=== PATIENT | female | born 1960 | race Caucasian/White ===

== ENCOUNTER → 2017-02-21 | Outpatient (CLI) | payer MEDICARE, MEDICAID ==
[~2017-02-21] MED LIST: ATOR80TA76 PO; CLON1TAB4 PO; DICY20TA11 PO; DIPH1TAB PO; DOXE25CA3 PO; FLUO20CA30 PO; FLUT12AE15 ORAL INH; LEVA15HF5 ORAL INH; METO-275 PO; ONDA4TAB4 PO; PANT20TA PO; POTA-81 PO; PROM25TA7 PO; SUCR1TAB20 PO; TIOT18CA3 ORAL INH
[2017-02-21 10:54] LABS: BLOOD, URINE NEGATIVE (NEGATIVE); COLOR,URINE YELLOW (YELLOW); LEUKOCYTE ESTERASE ,URINE NEGATIVE (NEGATIVE); NITRITE,URINE NEGATIVE (NEGATIVE); UROBILINOGEN,URINE 0.2 EU/DL (NORMAL)
[2017-02-21 10:55] LABS: BASOPHILS # (AUTO) 0.1 T/MM3 (0-0.2); BASOPHILS % (AUTO) 0.8 % (0-2); EOSINOPHILS # (AUTO) 0.5 T/MM3 (0-0.5); EOSINOPHILS % (AUTO) 5.2 % (0-4); HCT - HEMATOCRIT 42.7 % (36-46); HGB - HEMOGLOBIN 13.8 GM/DL (12-16); IMMATURE GRANULOCYTE # (AUTO) 0.02 T/MM3 (0.00-0.03); IMMATURE GRANULOCYTE % (AUTO) 0.2 % (0.0-0.5); LYMPHOCYTES # (AUTO) 3.4 T/MM3 (1-4.8); LYMPHOCYTES % (AUTO) 32.7 % (23-45); MEAN CORPUSCULAR HGB 33.5 UUG (26-34); MEAN CORPUSCULAR HGB CONC(MCHC 32.3 GM/DL (31-37); MEAN CORPUSCULAR VOLUME 103.6 UM3 (80-100); MEAN PLATELET VOLUME 9.3 UM3 (9.4-12.4); MONOCYTES # (AUTO) 0.6 T/MM3 (0-0.8); MONOCYTES % (AUTO) 6.2 % (0-9.0); NEUTROPHILS #(AUTO)-ABSOLUTE 5.6 T/MM3 (1.8-7.7); NEUTROPHILS % (AUTO) 54.9 % (33-66); RED BLOOD COUNT 4.12 M/MM3 (4.00-5.20); WBC - WHITE BLOOD COUNT 10.3 T/MM3 (4.5-11.0)
[2017-02-21 11:07] LABS: ALBUMIN 3.8 G/DL (3.5-5.0); ALBUMIN/GLOBULIN RATIO 1.2 RATIO (1.1-2.2); ALKALINE PHOSPHATASE 121 U/L (38-126); ALT (SGPT) 33 U/L (9-52); ANION GAP 11 MEQ/L (5-15); AST (SGOT) 15 U/L (14-36); BUN/CREATININE RATIO 18 RATIO (6-26); C-REACTIVE PROTEIN < 5.0 MG/L (0-9); CALCIUM 10.2 MG/DL (8.4-10.2); CHLORIDE 110 MEQ/L (98-107); CO2 - CARBON DIOXIDE 21 MEQ/L (22-30); GLOMERULAR FILTRATION RATE 58; GLUCOSE 91 MG/DL (65-110); LIPASE 188 U/L (23-300); SODIUM 142 MEQ/L (134-144); TOTAL PROTEIN 6.9 G/DL (6.3-8.2)
== END ==
LOC: LAB 10:04
PROVIDERS: ATTEND Internal Medicine
DX: K86.1 Other chronic pancreatitis (principal); R19.7 Diarrhea, unspecified; R10.13 Epigastric pain
CPT/HCPCS: 36415; 80053; 80307; 81003; 83605; 83690; 84484; 85025; 86140

== ENCOUNTER 2017-02-24 16:44 | Inpatient (IN) | payer MEDICARE, MEDICAID ==
[~2017-02-24] VITALS: Ht 170.2 cm; Wt 61.4 kg
--- NOTE | 2017-02-24 10:15 | NUR ---
PT ADMITTED TO ROOM 145, ALERT BUT NOT ORIENTED. ARRIVED VIA CART WALKED INTO ROOM. VITALS SIGNS STABLE UPON ARRIVAL.
--- OUTSIDE RECORDS SUMMARY | 2017-02-24 16:57 | XMS REPORT ---
Author Author GENERATED, SYSTEM Organization Unknown Address Unknown Phone Unavailable Care Team Providers Care Cryptanalyst Name Role Phone MD GRACY, NAVIN [phone] Reason For Visit Reason for Visit from 08/24/2016 7:47 AM:* Pt Stated Reason for Adm : Vancomycin infusion Chief Complaint OSTEOMYELITIS Social History Functional Status Functional Status from 09/21/2016 8:47 AM:* LOC : Alert * Oriented To : Person,Place,Time,Event Functional Status from 09/20/2016 8:17 AM:* LOC : Alert * Oriented To : Person,Place,Time,Event Functional Status from 09/19/2016 8:04 AM:* LOC : Alert * Oriented To : Person,Place,Time,Event Functional Status from 09/18/2016 8:31 AM:* LOC : Alert * Oriented To : Person,Place,Time,Event Functional Status from 09/17/2016 8:12 AM:* LOC : Alert * Oriented To : Person,Place,Time,Event Functional Status from 09/16/2016 7:40 AM:* LOC : Alert * Oriented To : Person,Place,Time Functional Status from 09/15/2016 7:45 AM:* LOC : Alert * Oriented To : Person,Place,Time Functional Status from 09/14/2016 7:50 AM:* LOC : Alert * Oriented To : Person,Place,Time Functional Status from 09/13/2016 8:31 AM:* LOC : Alert * Oriented To : Person,Place,Time,Event Functional Status from 09/11/2016 8:10 AM:* LOC : Alert * Oriented To : Person,Place,Time,Event Functional Status from 09/10/2016 7:52 AM:* LOC : Alert * Oriented To : Person,Place,Time,Event Functional Status from 09/09/2016 7:50 AM:* LOC : Alert * Oriented To : Person,Place,Time,Event Functional Status from 09/08/2016 7:51 AM:* LOC : Alert * Oriented To : Person,Place,Time,Event Functional Status from 09/07/2016 7:45 AM:* LOC : Alert * Oriented To : Person,Place,Time,Event Functional Status from 09/06/2016 8:15 AM:* LOC : Alert * Oriented To : Person,Place,Time,Event Functional Status from 09/05/2016 7:47 AM:* LOC : Alert * Oriented To : Person,Place,Time,Event Functional Status from 09/04/2016 9:20 AM:* LOC : Alert * Oriented To : Person,Place,Time,Event Functional Status from 09/03/2016 7:54 AM:* LOC : Alert * Oriented To : Person,Place,Time,Event Functional Status from 09/02/2016 7:42 AM:* LOC : Alert * Oriented To : Person,Place,Time,Event Functional Status from 09/01/2016 8:07 AM:* LOC : Alert * Oriented To : Person,Place,Time,Event Functional Status from 08/31/2016 7:37 AM:* LOC : Alert * Oriented To : Person,Place,Time,Event Functional Status from 08/30/2016 7:42 AM:* LOC : Alert * Oriented To : Person,Place,Time,Event Functional Status from 08/29/2016 6:21 PM:* LOC : Alert Functional Status from 08/29/2016 8:10 AM:* LOC : Alert * Oriented To : Person,Place,Time Functional Status from 08/28/2016 5:53 PM:* LOC : Alert * Oriented To : Person,Place,Time,Event Functional Status from 08/28/2016 7:50 AM:* LOC : Alert * Oriented To : Person,Place,Time Functional Status from 08/27/2016 8:35 AM:* LOC : Alert * Oriented To : Person,Place,Time,Event Functional Status from 08/26/2016 7:48 AM:* LOC : Alert * Oriented To : Person,Place,Time,Event Functional Status from 08/25/2016 7:48 AM:* LOC : Alert * Oriented To : Person,Place,Time,Event Functional Status from 08/24/2016 7:47 AM:* LOC : Alert * Oriented To : Person,Place,Time,Event Vital Signs Hospital Vital Signs from 09/21/2016 8:47 AM:* Height : 5/7 ft,in * Temperature : 97.1 F * Pulse : 92 * Respirations : 20 * BP : 102/68 Hospital Vital Signs from 09/20/2016 8:17 AM:* Height : 5/7 ft,in * Temperature : 95.9 F * Pulse : 90 * Respirations : 18 * BP : 116/71 Hospital Vital Signs from 09/19/2016 8:06 AM:* Height : 5/7 ft,in * Temperature : 96.6 F * Pulse : 98 * Respirations : 18 * BP : 125/82 Hospital Vital Signs from 09/18/2016 8:35 AM:* Height : 5/7 ft,in * Temperature : 97.2 F * Pulse : 112 * Respirations : 18 * BP : 135/76 Hospital Vital Signs from 09/17/2016 8:12 AM:* Height : 5/7 ft,in * Temperature : 96.8 F * Pulse : 122 * Respirations : 18 * BP : 146/88 Hospital Vital Signs from 09/16/2016 7:40 AM:* Height : 5/7 ft,in * Temperature : 96.5 F * Pulse : 112 * Respirations : 18 * BP : 136/80 Hospital Vital Signs from 09/15/2016 7:45 AM:* Height : 5/7 ft,in * Temperature : 97.4 F * Pulse : 82 * Respirations : 18 * BP : 87/50 Hospital Vital Signs from 09/14/2016 7:50 AM:* Height : 5/7 ft,in * Temperature : 97.8 F * Pulse : 86 * Respirations : 18 * BP : 121/75 Hospital Vital Signs from 09/13/2016 8:49 AM:* Height : 5/7 ft,in * Temperature : 96.5 F * Pulse : 71 * Respirations : 18 * BP : 110/58 Hospital Vital Signs from 09/11/2016 8:10 AM:* Height : 5/7 ft,in * Temperature : 96.8 F * Pulse : 117 * Respirations : 18 * BP : 121/85 Hospital Vital Signs from 09/10/2016 7:52 AM:* Height : 5/7 ft,in * Temperature : 96.3 F * Pulse : 61 * Respirations : 18 * BP : 116/73 Hospital Vital Signs from 09/09/2016 7:52 AM:* Height : 5/7 ft,in * Temperature : 96.9 F * Pulse : 115 * Respirations : 18 * BP : 116/58 Hospital Vital Signs from 09/08/2016 7:55 AM:* Height : 5/7 ft,in * Temperature : 97.4 F * Pulse : 81 * Respirations : 16 * BP : 118/70 Hospital Vital Signs from 09/07/2016 7:47 AM:* Height : 5/7 ft,in * Temperature : 96.2 F * Pulse : 68 * Respirations : 18 * BP : 104/70 Hospital Vital Signs from 09/06/2016 8:15 AM:* Height : 5/7 ft,in * Temperature : 96.3 F * Pulse : 61 * Respirations : 18 * BP : 92/50 Hospital Vital Signs from 09/05/2016 7:50 AM:* Height : 5/7 ft,in * Temperature : 97.0 F * Pulse : 58 * Respirations : 18 * BP : 91/47 Hospital Vital Signs from 09/04/2016 9:24 AM:* Height : 5/7 ft,in * Temperature : 97.3 F * Pulse : 93 * Respirations : 18 * BP : 125/84 Hospital Vital Signs from 09/03/2016 7:54 AM:* Height : 5/7 ft,in * Temperature : 97.8 F * Pulse : 99 * Respirations : 18 * BP : 110/71 Hospital Vital Signs from 09/02/2016 7:42 AM:* Height : 5/7 ft,in * Temperature : 97.2 F * Pulse : 97 * Respirations : 19 * BP : 145/91 Hospital Vital Signs from 09/01/2016 8:09 AM:* Height : 5/7 ft,in * Temperature : 97.6 F * Pulse : 113 * Respirations : 20 * BP : 151/89 Hospital Vital Signs from 08/31/2016 7:41 AM:* Height : 5/7 ft,in * Temperature : 96.7 F * Pulse : 95 * Respirations : 24 * BP : 130/83 Hospital Vital Signs from 08/30/2016 7:42 AM:* Height : 5/7 ft,in * Temperature : 96.1 F * Pulse : 66 * Respirations : 18 * BP : 104/40 Hospital Vital Signs from 08/29/2016 7:15 PM:* Height : 5/7 ft,in * Pulse : 92 * BP : 83/47 Hospital Vital Signs from 08/29/2016 6:12 PM:* Height : 5/7 ft,in * Pulse : 60 * Respirations : 18 * BP : 103/59 Hospital Vital Signs from 08/29/2016 8:10 AM:* Height : 5/7 ft,in * Temperature : 96.3 F * Pulse : 58 * Respirations : 18 * BP : 101/65 Hospital Vital Signs from 08/28/2016 5:45 PM:* Height : 5/7 ft,in * Temperature : 95.8 F * Pulse : 92 * Respirations : 18 * BP : 111/57 Hospital Vital Signs from 08/28/2016 7:50 AM:* Height : 5/7 ft,in * Temperature : 96.7 F * Pulse : 92 * Respirations : 18 * BP : 131/87 Hospital Vital Signs from 08/27/2016 8:40 AM:* Height : 5/7 ft,in * Temperature : 96.9 F * Pulse : 100 * Respirations : 18 * BP : 116/70 Hospital Vital Signs from 08/26/2016 7:49 AM:* Height : 5/7 ft,in * Temperature : 96.4 F * Pulse : 117 * Respirations : 18 * BP : 132/85 Hospital Vital Signs from 08/25/2016 7:48 AM:* Height : 5/7 ft,in * Temperature : 96.2 F * Pulse : 88 * Respirations : 18 * BP : 104/64 Hospital Vital Signs from 08/24/2016 7:47 AM:* Weight : 128/ lbs,oz * Height : 5/7 ft,in Hospital Vital Signs from 08/24/2016 7:15 AM:* Weight : 128/ kg * Height : 5/7 ft,in * Temperature : 96.7 F * Pulse : 61 * Respirations : 22 * BP : 91/55 Results Chemistry from 09/20/2016 8:24 AMSODIUM 140 MMOL/L (136-145 MMOL/L) POTASSIUM 4.0 MMOL/L (3.5-5.1 MMOL/L) CHLORIDE 107 MMOL/L (98-107 MMOL/L) TCO2 22.6 MMOL/L (21.0-32.0 MMOL/L) *ANION GAP 10.4 MMOL/L (8.0-16.0 MMOL/L) BUN 12 MG/DL (7-18 MG/DL) CREATININE 1.15 MG/DL H (0.55-1.02 MG/DL) *BUN/CREATININE RATIO 10.4 (9.1-17.0 ) GLUCOSE 146 MG/DL H (65-99 MG/DL) *GFR EST NON AFR COLOMBIAN 54 ML/MIN *GFR EST AFR AMER 62 ML/MIN CALCIUM 8.8 MG/DL (8.5-10.1 MG/DL) BILIRUBIN TOTAL <0.10 MG/DL L (0.20-1.00 MG/DL) TOTAL PROTEIN 6.9 GM/DL (6.4-8.2 GM/DL) ALBUMIN 3.3 GM/DL L (3.4-5.0 GM/DL) *GLOBULIN 3.6 GM/DL H (2.3-3.5 GM/DL) *A/G RATIO 0.9 MG/DL L (1.5-2.2 MG/DL) ALK PHOS 164 U/L H (46-116 U/L) ALT (SGPT) 31 U/L (16-63 U/L) AST (SGOT) 16 U/L (15-37 U/L) C-REACTIVE PROTEIN 0.08 MG/DL (0.00-0.30 MG/DL) CK 26 U/L (26-192 U/L) Chemistry from 09/13/2016 8:41 AMSODIUM 138 MMOL/L (136-145 MMOL/L) POTASSIUM 4.4 MMOL/L (3.5-5.1 MMOL/L) CHLORIDE 105 MMOL/L (98-107 MMOL/L) TCO2 24.0 MMOL/L (21.0-32.0 MMOL/L) *ANION GAP 9.0 MMOL/L (8.0-16.0 MMOL/L) BUN 13 MG/DL (7-18 MG/DL) CREATININE 0.93 MG/DL (0.55-1.02 MG/DL) *BUN/CREATININE RATIO 14.0 (9.1-17.0 ) GLUCOSE 133 MG/DL H (65-99 MG/DL) *GFR EST NON AFR COLOMBIAN 69 ML/MIN *GFR EST AFR AMER 80 ML/MIN CALCIUM 9.1 MG/DL (8.5-10.1 MG/DL) BILIRUBIN TOTAL 0.30 MG/DL (0.20-1.00 MG/DL) TOTAL PROTEIN 7.0 GM/DL (6.4-8.2 GM/DL) ALBUMIN 3.3 GM/DL L (3.4-5.0 GM/DL) *GLOBULIN 3.7 GM/DL H (2.3-3.5 GM/DL) *A/G RATIO 0.9 MG/DL L (1.5-2.2 MG/DL) ALK PHOS 155 U/L H (46-116 U/L) ALT (SGPT) 22 U/L (16-63 U/L) AST (SGOT) 14 U/L L (15-37 U/L) C-REACTIVE PROTEIN 0.39 MG/DL H (0.00-0.30 MG/DL) CK 25 U/L L (26-192 U/L) Chemistry from 09/06/2016 8:22 AMSODIUM 141 MMOL/L (136-145 MMOL/L) POTASSIUM 4.6 MMOL/L (3.5-5.1 MMOL/L) CHLORIDE 108 MMOL/L H (98-107 MMOL/L) TCO2 25.7 MMOL/L (21.0-32.0 MMOL/L) *ANION GAP 7.3 MMOL/L L (8.0-16.0 MMOL/L) BUN 9 MG/DL (7-18 MG/DL) CREATININE 0.87 MG/DL (0.55-1.02 MG/DL) *BUN/CREATININE RATIO 10.3 (9.1-17.0 ) GLUCOSE 101 MG/DL H (65-99 MG/DL) *GFR EST NON AFR COLOMBIAN 75 ML/MIN *GFR EST AFR AMER 87 ML/MIN CALCIUM 8.8 MG/DL (8.5-10.1 MG/DL) BILIRUBIN TOTAL 0.20 MG/DL (0.20-1.00 MG/DL) TOTAL PROTEIN 6.5 GM/DL (6.4-8.2 GM/DL) ALBUMIN 3.1 GM/DL L (3.4-5.0 GM/DL) *GLOBULIN 3.4 GM/DL (2.3-3.5 GM/DL) *A/G RATIO 0.9 MG/DL L (1.5-2.2 MG/DL) ALK PHOS 155 U/L H (46-116 U/L) ALT (SGPT) 22 U/L (16-63 U/L) AST (SGOT) 17 U/L (15-37 U/L) C-REACTIVE PROTEIN 0.09 MG/DL (0.00-0.30 MG/DL) CK 30 U/L (26-192 U/L) Chemistry from 09/02/2016 7:57 AMCK 44 U/L (26-192 U/L) Chemistry from 08/30/2016 7:54 AMSODIUM 143 MMOL/L (136-145 MMOL/L) POTASSIUM 3.5 MMOL/L (3.5-5.1 MMOL/L) CHLORIDE 111 MMOL/L H (98-107 MMOL/L) TCO2 24.0 MMOL/L (21.0-32.0 MMOL/L) *ANION GAP 8.0 MMOL/L (8.0-16.0 MMOL/L) BUN 11 MG/DL (7-18 MG/DL) CREATININE 0.93 MG/DL (0.55-1.02 MG/DL) *BUN/CREATININE RATIO 11.8 (9.1-17.0 ) GLUCOSE 114 MG/DL H (65-99 MG/DL) *GFR EST NON AFR COLOMBIAN 69 ML/MIN *GFR EST AFR AMER 80 ML/MIN CALCIUM 8.5 MG/DL (8.5-10.1 MG/DL) C-REACTIVE PROTEIN <0.05 MG/DL (0.00-0.30 MG/DL) VANCOMYCIN TROUGH 14.3 MCG/ML H (5.0-10.0 MCG/ML) Chemistry from 08/29/2016 8:05 PMSODIUM 140 MMOL/L (136-145 MMOL/L) POTASSIUM 3.4 MMOL/L L (3.5-5.1 MMOL/L) CHLORIDE 108 MMOL/L H (98-107 MMOL/L) TCO2 24.3 MMOL/L (21.0-32.0 MMOL/L) *ANION GAP 7.7 MMOL/L L (8.0-16.0 MMOL/L) BUN 11 MG/DL (7-18 MG/DL) CREATININE 0.96 MG/DL (0.55-1.02 MG/DL) *BUN/CREATININE RATIO 11.5 (9.1-17.0 ) GLUCOSE 108 MG/DL H (65-99 MG/DL) *GFR EST NON AFR COLOMBIAN 67 ML/MIN *GFR EST AFR AMER 77 ML/MIN CALCIUM 8.5 MG/DL (8.5-10.1 MG/DL) BILIRUBIN TOTAL 0.30 MG/DL (0.20-1.00 MG/DL) TOTAL PROTEIN 6.1 GM/DL L (6.4-8.2 GM/DL) ALBUMIN 2.9 GM/DL L (3.4-5.0 GM/DL) *GLOBULIN 3.2 GM/DL (2.3-3.5 GM/DL) *A/G RATIO 0.9 MG/DL L (1.5-2.2 MG/DL) ALK PHOS 166 U/L H (46-116 U/L) ALT (SGPT) 19 U/L (16-63 U/L) AST (SGOT) 14 U/L L (15-37 U/L) TROPONIN-I <0.017 NG/ML (0.000-0.056 NG/ML) Hematology from 09/20/2016 8:24 AMWBC 9.7 X10e3/UL (3.6-11.2 X10e3/UL) RBC 3.83 X10e6/UL (3.63-4.92 X10e6/UL) HEMOGLOBIN 13.0 G/DL (11.0-14.3 G/DL) HEMATOCRIT 39.2 % (31.2-41.9 %) *MCV 102.2 FL H (79.0-98.0 FL) *MCH 34.0 PG H (27.0-33.0 PG) *MCHC 33.3 G/DL (32.0-36.0 G/DL) *RDW 15.0 % (12.3-17.0 %) *RDWSD 54.7 H (37.1-47.8 ) PLATELET 349 X10e3/UL (159-386 X10e3/UL) *MPV 7.6 FL (7.4-10.4 FL) *MANUAL DIFF PERFORMED SEGS 58.0 % *BANDS 0.0 % *LYMPHOCYTES 28.0 % *MONOCYTES 4.0 % *EOSINOPHILS 5.0 % *BASOPHILS 0.0 % *REACTIVE LYMPHOCYTES 5.0 % *ABSOLUTE NEUTROPHILS 5.63 X10e3/UL (1.80-7.80 X10e3/UL) *ABSOLUTE LYMPHOCYTES 3.20 X10e3/UL H (1.00-3.00 X10e3/UL) *ABSOLUTE MONOCYTES 0.39 X10e3/UL (0.30-1.00 X10e3/UL) *ABSOLUTE EOSINOPHILS 0.49 X10e3/UL (0.00-0.50 X10e3/UL) *ABSOLUTE BASOPHILS 0.00 X10e3/UL (0.00-0.20 X10e3/UL) *POLYCHROMASIA 1+ *MACROCYTIC 1+ SED RATE 20 MM/HR (0-30 MM/HR) Hematology from 09/13/2016 8:41 AMWBC 8.0 X10e3/UL (3.6-11.2 X10e3/UL) RBC 3.87 X10e6/UL (3.63-4.92 X10e6/UL) HEMOGLOBIN 13.0 G/DL (11.0-14.3 G/DL) HEMATOCRIT 39.8 % (31.2-41.9 %) *MCV 103.0 FL H (79.0-98.0 FL) *MCH 33.5 PG H (27.0-33.0 PG) *MCHC 32.5 G/DL (32.0-36.0 G/DL) *RDW 15.1 % (12.3-17.0 %) *RDWSD 55.6 H (37.1-47.8 ) PLATELET 368 X10e3/UL (159-386 X10e3/UL) *MPV 7.3 FL L (7.4-10.4 FL) *MANUAL DIFF PERFORMED SEGS 60.0 % *BANDS 2.0 % *LYMPHOCYTES 28.0 % *MONOCYTES 8.0 % *EOSINOPHILS 1.0 % *BASOPHILS 0.0 % *REACTIVE LYMPHOCYTES 1.0 % *ABSOLUTE NEUTROPHILS 4.96 X10e3/UL (1.80-7.80 X10e3/UL) *ABSOLUTE LYMPHOCYTES 2.32 X10e3/UL (1.00-3.00 X10e3/UL) *ABSOLUTE MONOCYTES 0.64 X10e3/UL (0.30-1.00 X10e3/UL) *ABSOLUTE EOSINOPHILS 0.08 X10e3/UL (0.00-0.50 X10e3/UL) *ABSOLUTE BASOPHILS 0.00 X10e3/UL (0.00-0.20 X10e3/UL) *POLYCHROMASIA 1+ *MACROCYTIC 1+ SED RATE 23 MM/HR (0-30 MM/HR) Hematology from 09/06/2016 8:22 AMWBC 7.2 X10e3/UL (3.6-11.2 X10e3/UL) RBC 3.55 X10e6/UL L (3.63-4.92 X10e6/UL) HEMOGLOBIN 12.1 G/DL (11.0-14.3 G/DL) HEMATOCRIT 37.2 % (31.2-41.9 %) *MCV 104.7 FL H (79.0-98.0 FL) *MCH 33.9 PG H (27.0-33.0 PG) *MCHC 32.4 G/DL (32.0-36.0 G/DL) *RDW 15.6 % (12.3-17.0 %) *RDWSD 57.8 H (37.1-47.8 ) PLATELET 353 X10e3/UL (159-386 X10e3/UL) *MPV 7.3 FL L (7.4-10.4 FL) *MANUAL DIFF PERFORMED SEGS 61.0 % *BANDS 0.0 % *LYMPHOCYTES 28.0 % *MONOCYTES 3.0 % *EOSINOPHILS 5.0 % *BASOPHILS 1.0 % *REACTIVE LYMPHOCYTES 2.0 % *ABSOLUTE NEUTROPHILS 4.39 X10e3/UL (1.80-7.80 X10e3/UL) *ABSOLUTE LYMPHOCYTES 2.16 X10e3/UL (1.00-3.00 X10e3/UL) *ABSOLUTE MONOCYTES 0.22 X10e3/UL L (0.30-1.00 X10e3/UL) *ABSOLUTE EOSINOPHILS 0.36 X10e3/UL (0.00-0.50 X10e3/UL) *ABSOLUTE BASOPHILS 0.07 X10e3/UL (0.00-0.20 X10e3/UL) *POLYCHROMASIA 1+ *MACROCYTIC 1+ SED RATE 17 MM/HR (0-30 MM/HR) Hematology from 08/30/2016 7:54 AMWBC 5.5 X10e3/UL (3.6-11.2 X10e3/UL) RBC 3.57 X10e6/UL L (3.63-4.92 X10e6/UL) HEMOGLOBIN 12.1 G/DL (11.0-14.3 G/DL) HEMATOCRIT 36.9 % (31.2-41.9 %) *MCV 103.2 FL H (79.0-98.0 FL) *MCH 34.0 PG H (27.0-33.0 PG) *MCHC 32.9 G/DL (32.0-36.0 G/DL) *RDW 14.3 % (12.3-17.0 %) *RDWSD 52.1 H (37.1-47.8 ) PLATELET 276 X10e3/UL (159-386 X10e3/UL) *MPV 8.1 FL (7.4-10.4 FL) *MANUAL DIFF PERFORMED SEGS 47.0 % *BANDS 0.0 % *LYMPHOCYTES 34.0 % *MONOCYTES 5.0 % *EOSINOPHILS 8.0 % *BASOPHILS 2.0 % *REACTIVE LYMPHOCYTES 4.0 % *ABSOLUTE NEUTROPHILS 2.59 X10e3/UL (1.80-7.80 X10e3/UL) *ABSOLUTE LYMPHOCYTES 2.09 X10e3/UL (1.00-3.00 X10e3/UL) *ABSOLUTE MONOCYTES 0.28 X10e3/UL L (0.30-1.00 X10e3/UL) *ABSOLUTE EOSINOPHILS 0.44 X10e3/UL (0.00-0.50 X10e3/UL) *ABSOLUTE BASOPHILS 0.11 X10e3/UL (0.00-0.20 X10e3/UL) *POLYCHROMASIA 1+ *MACROCYTIC 1+ SED RATE 18 MM/HR (0-30 MM/HR) Hematology from 08/29/2016 8:05 PMWBC 5.9 X10e3/UL (3.6-11.2 X10e3/UL) RBC 3.45 X10e6/UL L (3.63-4.92 X10e6/UL) HEMOGLOBIN 11.9 G/DL (11.0-14.3 G/DL) HEMATOCRIT 35.6 % (31.2-41.9 %) *MCV 103.0 FL H (79.0-98.0 FL) *MCH 34.4 PG H (27.0-33.0 PG) *MCHC 33.4 G/DL (32.0-36.0 G/DL) *RDW 14.2 % (12.3-17.0 %) *RDWSD 51.6 H (37.1-47.8 ) PLATELET 276 X10e3/UL (159-386 X10e3/UL) *MPV 7.7 FL (7.4-10.4 FL) AUTOMATED DIFF PERFORMED SEGS 38.8 % *LYMPHOCYTES 46.4 % *MONOCYTES 9.6 % *EOSINOPHILS 3.2 % *BASOPHILS 2.0 % *ABSOLUTE NEUTROPHILS 2.30 X10e3/UL (1.80-7.80 X10e3/UL) *ABSOLUTE LYMPHOCYTES 2.70 X10e3/UL (1.00-3.00 X10e3/UL) *ABSOLUTE MONOCYTES 0.60 X10e3/UL (0.30-1.00 X10e3/UL) *ABSOLUTE EOSINOPHILS 0.20 X10e3/UL (0.00-0.50 X10e3/UL) *ABSOLUTE BASOPHILS 0.10 X10e3/UL (0.00-0.20 X10e3/UL) DX Radiology from 09/19/2016 9:38 AMCHEST 2 VIEWS History: cough. 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 Technique: 2 VIEW CHEST Priors: Chest x-ray dated 08/13/2016 Findings: The heart size and pulmonary vasculature within normal limits. No consolidating infiltrates are identified. No significant pleural effusion or pneumothorax is seen. A right PICC line is been retracted with its tip now in the proximal superior vena cava. Impression: No acute abnormality. Interval retraction of the right PICC line with its tip now in the proximal superior vena cava. Electronically signed by: Crissy Rea MD Dictated: 09/19/2016 10:17 DX Radiology from 08/29/2016 8:40 PMELBOW LEFT 3 VIEWS History: pain . Technique: 3view elbow Priors: 07/24/16 Findings: There is no acute fracture. The elbow is in normal alignment. There is no appreciable joint effusion. No significant degenerative changes. There are erosive changes involving the olecranon, suspicious for osteomyelitis. This is a new finding. Impression: Erosive changes involving the olecranon, suspicious for osteomyelitis. Electronically signed by: Alan White MD Dictated: 08/30/2016 10:21 CT Scan from 08/29/2016 8:52 PMCT CEREBRAL W/O CONTRAST History: syncope, head injury . Concussion. Consciousness not specified. Priors: 07/12/2016. Findings: Ventricles and Extra axial spaces: Normal in size and morphology for the patient's age. Hemorrhage: None. Cerebral parenchyma: Normal. Mass effect/midline shift: None. Brainstem/Cerebellum: Normal. Calvarium: Normal. Visualized Paranasal sinuses/Mastoids: Clear. Impression: Unremarkable CT scan of the head. Electronically signed by: Gomez Echeverria MD Dictated: 08/30/2016 10:45 Problems Encounter Diagnosis No relevant problems exist. Additional Problems * Abdominal Pain Comment:Problem resolved by [facility] Workflow upon Discharge, Status:Resolved. * Acute Pain Comment:Problem resolved by [facility] Workflow upon Discharge, Status :Resolved. * Acute Pain Comment:Problem resolved by [facility] Workflow upon Discharge, Status :Resolved. * Acute Pain Comment:Problem resolved by [facility] Workflow upon Discharge, Status :Resolved. * Acute Urinary Tract infection Comment:Problem resolved by [facility] Workflow upon Discharge, Status:Resolved. * Altered Mental Status Comment:Problem resolved by [facility] Workflow upon Discharge, Status:Resolved. * Altered Mental Status Comment:Problem resolved by [facility] Workflow upon Discharge, Status:Resolved. * Bimalleolar Fracture of Ankle Comment:Problem resolved by [facility] Workflow upon Discharge, Status:Resolved. * Chronic Pain Comment:Problem resolved by [facility] Workflow upon Discharge, Status:Resolved. * Dehydration Comment:Problem resolved by [facility] Workflow upon Discharge, Status:Resolved. * Diarrhea Comment:Problem resolved by [facility] Workflow upon Discharge, Status: Resolved. * Dyslipidemia Comment:Problem resolved by [facility] Work[facility] upon Discharge, Status:Resolved. * Fall Risk Comment:Problem resolved by [facility] Workflow upon Discharge, Status: Resolved. * Fall Risk Comment:Problem resolved by [facility] Workflow upon Discharge, Status: Resolved. * Fall Risk Comment:Problem resolved by [facility] Workflow upon Discharge, Status: Resolved. * Fall Risk Comment:Problem resolved by [facility] Workflow upon Discharge, Status: Resolved. * Fall Risk Comment:Problem resolved by [facility] Workflow upon Discharge, Status: Resolved. * Fall Risk Comment:Problem resolved by [facility] Workflow upon Discharge, Status: Resolved. * Gastritis Comment:Problem resolved by [facility] Workflow upon Discharge, Status: Resolved. * History of Hypertension Comment:Problem resolved by [facility] Workflow upon Discharge, Status:Resolved. * Hypocalcemia Comment:Problem resolved by [facility] Workflow upon Discharge, Status:Resolved. * Hypokalemia Comment:Problem resolved by [facility] Workflow upon Discharge, Status:Resolved. * Hypokalemia Comment:Problem resolved by [facility] Workflow upon Discharge, Status:Resolved. * Hyponatremia Comment:Problem resolved by [facility] Workflow upon Discharge, Status:Resolved. * Infection Risk Comment:Problem resolved by [facility] Workflow upon Discharge, Status:Resolved. * Low Blood Pressure Comment:Problem resolved by [facility] Workflow upon Discharge , Status:Resolved. * Mobility Impairment Comment:Problem resolved by [facility] Workflow upon Discharge, Status:Resolved. * Mobility Impairment Comment:Problem resolved by [facility] Workflow upon Discharge, Status:Resolved. * Nausea & Vomiting Comment:Problem resolved by [facility] Workflow upon Discharge , Status:Resolved. * Nausea & Vomiting Comment:Problem resolved by [facility] Workflow upon Discharge , Status:Resolved. * Nutritional Deficiency Comment:Problem resolved by [facility] Workflow upon Discharge, Status:Resolved. * Osteomyelitis Comment:Problem resolved by [facility] Workflow upon Discharge, Status:Resolved. * Pneumonia Comment:Problem resolved by [facility] Workflow upon Discharge, Status: Resolved. * Poisoning by Drug/Medicinal Substance Comment:Problem resolved by [facility] Workflow upon Discharge, Status:Resolved. * Skin Integrity Impairment Risk Comment:Problem resolved by [facility] Workflow upon Discharge, Status:Resolved. * Skin Integrity Impairment Risk Comment:Problem resolved by [facility] Workflow upon Discharge, Status:Resolved. * Syncope Comment:Problem resolved by [facility] Workflow upon Discharge, Status: Resolved. Encounters Encounter Diagnosis No relevant problems exist. Plan of Care Procedures * Completed Esophagogastroduodenoscopy, by MD BAIRON HAMILTON, on 04/22/2016 1 :12 PM * Completed Procedure Code: 92003 Procedure Name: not valued, on 04/22/2016 12: 00 AM * Completed Esophagogastroduodenoscopy, by MD BAIRON HAMILTON, on 11/20/2015 12:55 PM * Completed Procedure Code: 58937 Procedure Name: not valued, on 11/20/2015 12: 00 AM * Completed Procedure Code: 27834 Procedure Name: not valued, on 11/20/2015 12: 00 AM * Completed Procedure Code: 45.16 Procedure Name: not valued, on 03/12/2014 12: 00 AM * Completed Procedure Code: 45.25 Procedure Name: not valued, on 03/12/2014 12: 00 AM * Completed , on 08/20/2009 12:00 AM Immunizations * Influenza, seasonal, injectable ([employer], Lot # [id number]); Administered 2013 9:24 AM; 0.5 ML=1 DOSE, INTRAMUSCL Hospital Course Hospital Discharge Instructions Allergies, Adverse Reactions, Alerts * Lortab causes Unknown. * codeine causes Unknown Unknown. * Ultram causes Unknown. * aspirin causes Unknown. Onset Unknown. * BuSpar causes Moderate Hives. * Imitrex causes Unknown. * Reglan causes "shuts esophagus". * No Latex Allergy. * No IV Contrast Allergy. * No Known Food Allergies. Medication Medication reconciliation has not been performed.
--- OUTSIDE RECORDS SUMMARY | 2017-02-24 16:57 | XMS REPORT | Referral Summary ---
Author Organization Unknown Address Unknown Phone Unavailable Care Team Providers Care Environmental Aid Name Role Phone No PCP, States Primary Care Physician [phone] Encounter VC Date(s): 12/06/14 - 12/06/14 [facility] [address] [place] [address] [place] ( 1 ) - Discharge Diagnosis: Pain, dental Discharge Diagnosis: Drug-seeking behavior Discharge Disposition: Left Against Medical Advice Attending Physician: Jenaro Valadez MD Admitting Physician: Jenaro Valadez MD Vital Signs Most recent to 1 oldest [Reference Range]: Temperature Oral 36.4 degC [35.8-37.3 degC] (12/06/14 4:16 PM) Peripheral Pulse 86 bpm Rate [60-100 bpm] (12/06/14 4:16 PM) Blood Pressure 93/67 mmHg [90-140/60-90 mmHg] (12/06/14 4:16 PM) Most recent to 1 oldest [Reference Range]: SpO2 100 % (12/06/14 4:16 PM) Problem List Condition Effective Dates Status Health Status Informant Acute Active pain(Confirmed) COPD (chronic Active patient obstructive pulmonary disease)(Confirmed) Fluid Active imbalance(Confirmed) 1 Heart Active patient disease(Confirmed) Hypertension(Confirm Active patient ed) Pancreatitis(Confirm Active patient ed) Tissue perfusion Active alteration(Confirmed )2 1Problem added automatically by system based on initiation of Fluid Volume Imbalance Plan of Care 2Problem added automatically by system based on initiation of Tissue Perfusion Cerebral Plan of Care Allergies, Adverse Reactions, Alerts Substance Reaction Severity Status metoclopramide Anaphylaxis Severe Active Propine Active Tylenol with Codeine #3 Active Medications amoxicillin 500 mg oral tablet 1 tabs, Oral, TID, X 7 days, # 21 tabs, 0 Refill(s) Start Date: 12/06/14 Stop Date: 12/13/14 Status: Ordered atorvastatin 80 mg oral tablet 1 tabs, Oral, Bedtime (once a day), # 30 tabs, 0 Refill(s), 1 tabs Oral Bedtime (once a day) Start Date: 11/04/14 Status: Ordered Carafate 1 g oral tablet 1 tabs, Oral, QIDACHS, 0 Refill(s) Start Date: 11/03/14 Status: Ordered Lomotil Oral, q4hr, Diarrhea/Loose Stools, 0 Refill(s) Start Date: 11/03/14 Status: Ordered Naprosyn 250 mg oral tablet 1 tabs, Oral, BID, as needed for pain, # 20 tabs, 0 Refill(s) Start Date: 12/06/14 Status: Ordered omeprazole 20 mg oral delayed release capsule 2 caps, Oral, Daily, # 60 caps, 0 Refill(s), 2 caps Oral Daily Start Date: 11/04/14 Status: Ordered promethazine 25 mg, Oral, q6hr, as needed for nausea/vomiting, 0 Refill(s) Start Date: 11/03/14 Status: Ordered PROzac 20 mg, Oral, Daily, 0 Refill(s) Start Date: 11/03/14 Status: Ordered ranitidine 150 mg, Oral, BID, 0 Refill(s) Start Date: 11/03/14 Status: Ordered Toprol-XL 25 mg, Oral, Daily, 0 Refill(s) Start Date: 11/03/14 Status: Ordered Results No data available for this section Immunizations Vaccine Date Refusal Reason pneumococcal 23-polyvalent vaccine 09/23/14 Procedures Procedure Date Related Diagnosis Body Site Esophagogastroduodenoscopy Biopsy1 09/25/14 Fusion2 Hysterectomy Tendon operation 1auto-populated from documented surgical case 2To neck and back Social History Social History Type Response Smoking Status Current every day smoker; Tobacco use per day: Less than Pack Assessment and Plan No data available for this section
--- OUTSIDE RECORDS SUMMARY | 2017-02-24 16:57 | XMS REPORT ---
Author Author GENERATED, SYSTEM Organization Unknown Address Unknown Phone Unavailable Care Team Providers Care Shank Pinner Name Role Phone MD GRACY, NAVIN PP [phone] Reason For Visit Chief Complaint OLECRANON BURSITIS Social History Functional Status Vital Signs Results Chemistry from 07/24/2016 8:34 PMSODIUM 139 MMOL/L (136-145 MMOL/L) POTASSIUM 4.8 MMOL/L (3.5-5.1 MMOL/L) CHLORIDE 109 MMOL/L H (98-107 MMOL/L) TCO2 18.8 MMOL/L L (21.0-32.0 MMOL/L) *ANION GAP 11.2 MMOL/L (8.0-16.0 MMOL/L) BUN 12 MG/DL (7-18 MG/DL) CREATININE 0.73 MG/DL (0.55-1.02 MG/DL) *BUN/CREATININE RATIO 16.4 (9.1-17.0 ) GLUCOSE 109 MG/DL H (65-99 MG/DL) *GFR EST NON AFR [place] >90 ML/MIN *GFR EST AFR AMER >90 ML/MIN CALCIUM 8.7 MG/DL (8.5-10.1 MG/DL) BILIRUBIN TOTAL 0.30 MG/DL (0.20-1.00 MG/DL) TOTAL PROTEIN 6.8 GM/DL (6.4-8.2 GM/DL) ALBUMIN 2.9 GM/DL L (3.4-5.0 GM/DL) *GLOBULIN 3.9 GM/DL H (2.3-3.5 GM/DL) *A/G RATIO 0.7 MG/DL L (1.5-2.2 MG/DL) ALK PHOS 207 U/L H (46-116 U/L) ALT (SGPT) 31 U/L (16-63 U/L) AST (SGOT) 24 U/L (15-37 U/L) C-REACTIVE PROTEIN 3.58 MG/DL H (0.00-0.30 MG/DL) Hematology from 07/24/2016 9:06 PMSED RATE 19 MM/HR (0-30 MM/HR) Hematology from 07/24/2016 8:34 PMWBC 12.7 X10e3/UL H (3.6-11.2 X10e3/UL) RBC 3.67 X10e6/UL (3.63-4.92 X10e6/UL) HEMOGLOBIN 12.3 G/DL (11.0-14.3 G/DL) HEMATOCRIT 37.6 % (31.2-41.9 %) *MCV 102.2 FL H (79.0-98.0 FL) *MCH 33.5 PG H (27.0-33.0 PG) *MCHC 32.8 G/DL (32.0-36.0 G/DL) *RDW 13.9 % (12.3-17.0 %) *RDWSD 49.9 H (37.1-47.8 ) PLATELET 394 X10e3/UL H (159-386 X10e3/UL) *MPV 8.4 FL (7.4-10.4 FL) AUTOMATED DIFF PERFORMED SEGS 66.1 % *LYMPHOCYTES 23.9 % *MONOCYTES 5.9 % *EOSINOPHILS 2.8 % *BASOPHILS 1.3 % *ABSOLUTE NEUTROPHILS 8.40 X10e3/UL H (1.80-7.80 X10e3/UL) *ABSOLUTE LYMPHOCYTES 3.00 X10e3/UL (1.00-3.00 X10e3/UL) *ABSOLUTE MONOCYTES 0.80 X10e3/UL (0.30-1.00 X10e3/UL) *ABSOLUTE EOSINOPHILS 0.40 X10e3/UL (0.00-0.50 X10e3/UL) *ABSOLUTE BASOPHILS 0.20 X10e3/UL (0.00-0.20 X10e3/UL) DX Radiology from 07/24/2016 9:34 PMELBOW LEFT 3 VIEWS History: pain in elbow . Technique: 3view elbow Priors: None. Findings: No acute fracture or subluxation is identified. There is no evidence of joint effusion. Impression: Unremarkable radiographs of the left elbow. Electronically signed by: Gomez Echeverria MD Dictated: 07/25/2016 09:27 Problems Encounter Diagnosis No relevant problems exist. [...] 1 :12 PM * Completed Procedure Code: 66444 Procedure Name: not valued, on 04/22/2016 12: 00 AM * Completed Esophagogastroduodenoscopy, by MD BAIRON HAMILTON, on 11/20/2015 12:55 PM * Completed Procedure Code: 17070 Procedure Name: not valued, on 11/20/2015 12: 00 AM * Completed Procedure Code: 63109 Procedure Name: not valued, on 11/20/2015 12: 00 AM * Completed Procedure Code: 45.16 Procedure Name: not valued, on 03/12/2014 12: 00 AM * Completed Procedure Code: 45.25 Procedure Name: not valued, on 03/12/2014 12: 00 AM * Completed , on 08/20/2009 12:00 AM Immunizations * Influenza, seasonal, injectable (NOVARTIS, Lot # [id number]); Administered 2013 9:24 AM; 0.5 ML=1 DOSE, INTRAMUSCL Hospital Course Hospital Discharge Instructions Allergies, Adverse Reactions, Alerts * codeine causes Unknown Unknown. * Ultram causes Unknown. * Lortab causes Unknown. * aspirin causes Unknown. Onset Unknown. * BuSpar causes Moderate Hives. * Imitrex causes Unknown. * Reglan causes "shuts esophagus". * Latex Allergy has not been assessed. * IV Contrast Allergy has not been assessed. * No Known Food Allergies. Medication Medication reconciliation has not been performed.
--- OUTSIDE RECORDS SUMMARY | 2017-02-24 16:58 | XMS REPORT | Summary of Care ---
Author Author Aashish Lizarraga D.O. Organization Unknown Address [address], [place] [id number] Phone Unavailable Care Team Providers Care Electrical Manufacturing Technician Name Role Phone Junior Lizarraga D.O. Unavailable Chuck Tapia M.D. Unavailable Unavailable Wang Escobar Unavailable Unavailable Unavailable Unavailable Functional Status Name Dates Details Functional status health issues are not documented Status: Name Dates Details Cognitive status health issues are not documented Status: Problems Name Dates Details Joint Pain, Localized In Both Shoulders Status: Active Lower back pain (724.2, M54.5) Status: Active Neck pain (723.1, M54.2) Status: Active Sacrum sprain (847.3, S33.8XXA) Status: Active Chest pain (786.50, R07.9) Status: Active Diarrhea (787.91, R19.7) Status: Active Nausea with vomiting (787.01, R11.2) Status: Active Pre-procedural examination (V72.84, Z01.818) Status: Active Abdominal pain (789.00, R10.9) Status: Active Cellulitis (682.9, L03.90) Status: Active Depression (311, F32.9) Status: Active Anxiety (300.00, F41.9) Status: Active 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 * Start 09-Dec-2015 Active Advair HFA 45-21 MCG/ACT Inhalation Aerosol INHALE 2 PUFFS, BY MOUTH, TWICE DAILY. * Refills: 0 Chuck Ferguson M.D. * Start Active PriLOSEC 10 MG CPDR * Refills: 0 * Start 03-Aug-2016 Active SEROquel 25 MG Oral Tablet * Refills: 0 * Start 03-Aug-2016 Active Atorvastatin Calcium 80 MG Oral Tablet TAKE 1 TABLET BY MOUTH DAILY * Quantity: 90 Refills: 3 * Start 10-Nov-2016 Active ClonazePAM 2 MG Oral Tablet TAKE 1 TABLET Bedtime * Quantity: 15 Refills: 0 Aashish Lizarraga D.O. 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 Procedures Procedure Dates Details History of Inj Of Subst Other Than Anesth/Antispasm/Contrast/Neurolytic Lumbar Completed: 01-Feb-2013 History of Inj Of Subst Other Than Anesth/Antispasm/Contrast/Neurolytic Lumbar Completed: 15-Feb-2013 History of Inj Of Subst Other Than Anesth/Antispasm/Contrast/Neurolytic Lumbar Completed: 01-Mar-2013 History of Colonoscopy For Forceps Biopsy History of Duodenoscopy With Biopsy Procedures not documented Immunization Name Dates Details Immunizations not documented Family History Name Dates Details Family history of cardiac disorder (V17.49, Z82.49) Status: Active Social History Name Dates Details - Status: Name Dates Details Former smoker Vital Signs Date Test Result Details 22-Nov-2016 15:52 BP Systolic 102 mm[Hg] Status: Comments: Location: E; Position: Sitting BP Diastolic 56 mm[Hg] Status: Comments: Location: LUE; Position: Sitting Temperature 97.9 f Status: Comments: Method: Heart Rate 129 /min Status: Comments: Location: ; Physical Findings 16 Status: Comments: Respiration Weight 132.5 lb Status: Physical Findings 98 Status: Comments: O2 Saturation Body Mass Index Calculated 20.75 kg/m2 Status: Body Surface Area Calculated 1.7 m2 Status: 10-Nov-2016 14:48 BP Systolic 102 mm[Hg] Status: Comments: Location: LUE; Position: Sitting BP Diastolic 58 mm[Hg] Status: Comments: Location: LUE; Position: Sitting Temperature 97.9 f Status: Comments: Method: Heart Rate 139 /min Status: Comments: Location: ; Physical Findings 16 Status: Comments: Respiration Physical Findings 98 Status: Comments: O2 Saturation Results Date Description Value Details Results not documented Plan of Care Name Dates Details Planned Observations Planned Goals not documented Interventions Provided Medication Changes* ClonazePAM 2 MG Oral Tablet - Start Instructions Name Dates Details Instructions not documented Encounters Appointment; Aashish Lizarraga D.O. Encounter Diagnosis: Problem not documented On 10-Nov-2016 14:30 Appointment; Bao Carbone M.D. Encounter Diagnosis: Problem not documented On 03-Aug-2016 12:59 Appointment; Chuck Mcconnell M.D. Encounter Diagnosis: Problem not documented On 23-Jul-2016 18:34 Appointment; Shane John M.D. Encounter Diagnosis: Problem not documented On 22-Jun-2016 14:30 Appointment; Chuck Ferguson M.D. Encounter Diagnosis: Problem not documented On 10:45 Appointment; Shane John M.D. Encounter Diagnosis: Problem not documented On 09-Dec-2015 14:45 Appointment; Vipul Yeboah P.A. Encounter Diagnosis: Problem not documented On 06-Aug-2015 13:30 Appointment; Lena Saucedo A.P.R.N. Encounter Diagnosis: Problem not documented On 09-Dec-2014 16:15 Appointment; Bao Carbone M.D. Encounter Diagnosis: Problem not documented On 06-Dec-2014 14:00 Appointment; Bao Carbone M.D. Encounter Diagnosis: Problem not documented On 25-Nov-2014 16:45
--- OUTSIDE RECORDS SUMMARY | 2017-02-24 16:58 | XMS REPORT ---
Author Author GENERATED, SYSTEM Organization Unknown Address Unknown Phone Unavailable Care Team Providers Care E Learning Designer Name Role Phone UNASSIGNED DOCTOR , DOCTOR PP [phone] Reason For Visit Chief Complaint CONTUSIONS TO FACE Social History Functional Status Vital Signs Results CT Scan from 01/03/2015 4:08 PMCT CEREBRAL W/O CONTRAST DATE OF EXAM: Jan 03 2015 4:39PM Proc: CT 0001 - CT CEREBRAL W/O CONTRAST CPT Code(s): 20615-; ; ; INDICATION / CLINICAL HISTORY: Head injury and facial contusion. FINDINGS: The ventricles and sulci are normal in size and configuration for the patient's age. There is no evidence of acute intracranial hemorrhage or mass effect. The basilar cisterns are patent. The calvarium is intact and the visualized paranasal sinuses and mastoid air cells are clear. IMPRESSION: No acute intracranial abnormality. CT FACIAL BONES W/O CONTRAST DATE OF EXAM: Jan 03 2015 4:39PM Proc: CT 0008 - CT FACIAL BONES W/O CONTRAST CPT Code(s): 52109-; ; ; INDICATION / CLINICAL HISTORY: Facial contusions. FINDINGS: There is mild to moderate soft tissue swelling of the left premaxillary soft tissues and minimal soft tissue swelling of the left frontal scalp. No acute fractures are identified. The globes and orbits are intact. The visualized paranasal sinuses and mastoid air cells are clear. IMPRESSION: Mild to moderate left premaxillary soft tissue swelling and mild soft tissue swelling of the left frontal scalp without evidence of acute facial fracture. CT SPINE CERVICAL W/O CONTRAST DATE OF EXAM: Jan 03 2015 4:39PM Proc: CT 0051 - CT SPINE CERVICAL W/O CONTRAST CPT Code(s): 48366-; ; ; INDICATION / CLINICAL HISTORY: Head Injury COMPARISON: Comparison is made to prior study dated 01/26/13. FINDINGS: There are postsurgical changes of anterior cervical discectomy and fusion again noted at C4 through C6 with an anterior plate, vertebral body screws and intervertebral graft material in place. Persistent mild lucency between the graft material and superior endplate of C5 suggestive of incomplete healing. There is unchanged osteophytosis along the posterior superior aspect of the C3 vertebral body producing mild effacement of the ventral thecal sac without significant spinal stenosis. C3-4: There are mild degenerative changes without significant spinal stenosis. C6-7: There are mild degenerative changes without significant spinal stenosis. No acute fractures are identified. IMPRESSION: 1. Postsurgical changes of anterior cervical discectomy and fusion of C4 through C6 with incomplete union of the graft material and the superior endplate of C5. 2. No evidence of acute fracture or subluxation. 3. Mild degenerative disc disease at C3-4 and C6-7 without significant spinal stenosis and mild posterior osteophytosis of C2-3 without significant spinal stenosis. END VIEW: Problems Encounter Diagnosis No relevant problems exist. [...] Soarian Workflow upon Discharge, Status: Resolved. * Hypocalcemia Comment:Problem resolved by Soarian Workflow [...] Soarian Workflow upon Discharge , Status:Resolved. * Poisoning by Drug/Medicinal Substance Comment:Problem resolved by Soarian Workflow upon Discharge, Status:Resolved. Encounters Encounter Diagnosis No relevant problems exist. Plan of Care Procedures * Completed Procedure Code: 45.16 Procedure Name: not valued, on 03/12/2014 12: 00 AM * Completed Procedure Code: 45.25 Procedure Name: not valued, on 03/12/2014 12: 00 AM * Completed , on 08/20/2009 12:00 AM Immunizations No immunizations administered or ordered. Hospital Course Hospital Discharge Instructions Allergies, Adverse Reactions, Alerts * aspirin causes Unknown. Onset Unknown. * BuSpar causes Moderate Hives. * Imitrex causes Unknown. * Reglan causes "shuts esophagus". * Latex Allergy has not been assessed. * IV Contrast Allergy has not been assessed. * No Known Food Allergies. Medication Medication reconciliation has not been performed.
--- OUTSIDE RECORDS SUMMARY | 2017-02-24 16:58 | XMS REPORT ---
Author Author GENERATED, SYSTEM Organization Unknown Address Unknown Phone Unavailable Care Team Providers Care Active Directory Engineer Name Role Phone UNASSIGNED DOCTOR , DOCTOR PP [phone] Reason For Visit Chief Complaint CHEST PAIN UPPER ABD PAIN Social History Functional Status Vital Signs Results Chemistry from 01/19/2015 1:11 PMSODIUM 137 MMOL/L (136-145 MMOL/L) POTASSIUM 3.8 MMOL/L (3.5-5.1 MMOL/L) CHLORIDE 102 MMOL/L (98-107 MMOL/L) TCO2 23.8 MMOL/L (21.0-32.0 MMOL/L) ANION GAP 11.2 MMOL/L (8.0-16.0 MMOL/L) BUN 10 MG/DL (7-18 MG/DL) CREATININE 0.78 MG/DL (0.43-0.83 MG/DL) BUN/CREATININE RATIO 12.8 (9.1-17.0 ) GLUCOSE 144 MG/DL H (65-99 MG/DL) GFR EST NON AFR [place] 87 ML/MIN GFRA EST AFR AMER >90 ML/MIN CALCIUM 9.6 MG/DL (8.5-10.1 MG/DL) BILIRUBIN TOTAL 0.24 MG/DL (0.20-1.00 MG/DL) TOTAL PROTEIN 7.7 GM/DL (6.4-8.2 GM/DL) ALBUMIN 3.7 GM/DL (3.4-5.0 GM/DL) GLOBULIN 4.0 GM/DL H (2.3-3.5 GM/DL) A/G RATIO 0.9 MG/DL L (1.5-2.2 MG/DL) ALK PHOS 146 U/L H (46-116 U/L) ALT (SGPT) 18 U/L (16-63 U/L) AST (SGOT) 17 U/L (15-37 U/L) TROPONIN-I <0.04 (SEE BELOW ) B-TYPE NATRIURETIC PROTEIN 32 PG/ML (1-100 PG/ML) Hematology from 01/19/2015 1:11 PMWBC 12.3 X10e3/UL H (3.6-11.2 X10e3/UL) RBC 4.06 X10e6/UL (3.63-4.92 X10e6/UL) HEMOGLOBIN 13.5 G/DL (11.0-14.3 G/DL) HEMATOCRIT 40.8 % (31.2-41.9 %) MCV 100.6 FL H (79.0-98.0 FL) MCH 33.2 PG H (27.0-33.0 PG) MCHC 33.0 G/DL (32.0-36.0 G/DL) RDW 18.1 % H (12.3-17.0 %) RDWSD 63.4 H (37.1-47.8 ) PLATELET 506 X10e3/UL H (159-386 X10e3/UL) MPV 6.3 FL L (7.4-10.4 FL) AUTOMATED DIFF PERFORMED SEGS 83.3 % LYMPHOCYTES 11.6 % MONOCYTES 3.6 % EOSINOPHILS 0.9 % BASOPHILS 0.6 % ABSOLUTE NEUTROPHILS 10.20 X10e3/UL H (1.80-7.80 X10e3/UL) ABSOLUTE LYMPHOCYTES 1.40 X10e3/UL (1.00-3.00 X10e3/UL) ABSOLUTE MONOCYTES 0.40 X10e3/UL (0.30-1.00 X10e3/UL) ABSOLUTE EOSINOPHILS 0.10 X10e3/UL (0.00-0.50 X10e3/UL) ABSOLUTE BASOPHILS 0.10 X10e3/UL (0.00-0.20 X10e3/UL) Coagulation from 01/19/2015 1:11 PMD-DIMER 0.24 MG/L FEU (0.00-0.50 MG/L FEU) DX Radiology from 01/19/2015 12:50 PMCHEST 2 VIEWS DATE OF EXAM: Jan 19 2015 1: 23PM Proc: DG 0067 - CHEST 2 VIEWS CPT Code(s): 33253-; ; ; INDICATION / CLINICAL HISTORY: \\E\\Chest Pain FINDINGS: Two views of the chest were obtained. The heart size and pulmonary vasculature appear within normal limits. There is no evidence of pneumothorax, pleural effusion, or acute infiltrate. The osseous structures appear intact. IMPRESSION: Unremarkable chest radiograph. Problems Encounter Diagnosis No relevant problems exist. [...]
--- OUTSIDE RECORDS SUMMARY | 2017-02-24 16:58 | XMS REPORT ---
Author Author GENERATED, SYSTEM Organization Unknown Address Unknown Phone Unavailable Care Team Providers Care Spinner Iron Name Role Phone UNASSIGNED DOCTOR , DOCTOR PP [phone] Reason For Visit Chief Complaint CONFUSION, SOB Social History Functional Status Vital Signs Results Problems Encounter Diagnosis No relevant problems exist. [...] * Influenza, seasonal, injectable (NOVARTIS, Lot # [id number]); Administered 2013 9:24 AM; 0.5 ML=1 DOSE, [...]
--- OUTSIDE RECORDS SUMMARY | 2017-02-24 16:58 | XMS REPORT ---
Author Author GENERATED, SYSTEM Organization Unknown Address Unknown Phone Unavailable Care Team Providers Care Litigation Secretary Name Role Phone MD GRACY, NAVIN [phone] Reason For Visit Chief Complaint LEG PAIN Social History Functional Status Vital Signs Results Chemistry from 06/23/2016 12:40 AM*COCAINE NEGATIVE (NEG <150 ) *PCP NEGATIVE (NEG <25 ) *CANNABINOIDS NEGATIVE (NEG <50 ) *BENZODIAZEINE POSITIVE A (NEG <200 ) *AMPHETAMINE NEGATIVE (NEG <500 ) *BARBITURATES NEGATIVE (NEG <200 ) *OPIATES NEGATIVE (NEG <300 ) Chemistry from 06/23/2016 12:17 AMSODIUM 135 MMOL/L L (136-145 MMOL/L) POTASSIUM 3.8 MMOL/L (3.5-5.1 MMOL/L) CHLORIDE 103 MMOL/L (98-107 MMOL/L) TCO2 21.8 MMOL/L (21.0-32.0 MMOL/L) *ANION GAP 10.2 MMOL/L (8.0-16.0 MMOL/L) BUN 14 MG/DL (7-18 MG/DL) CREATININE 0.85 MG/DL (0.55-1.02 MG/DL) *BUN/CREATININE RATIO 16.5 (9.1-17.0 ) GLUCOSE 102 MG/DL H (65-99 MG/DL) *GFR EST NON AFR UZBEK 77 ML/MIN *GFR EST AFR AMER 90 ML/MIN CALCIUM 8.7 MG/DL (8.5-10.1 MG/DL) BILIRUBIN TOTAL <0.10 MG/DL L (0.20-1.00 MG/DL) TOTAL PROTEIN 7.0 GM/DL (6.4-8.2 GM/DL) ALBUMIN 3.0 GM/DL L (3.4-5.0 GM/DL) *GLOBULIN 4.0 GM/DL H (2.3-3.5 GM/DL) *A/G RATIO 0.8 MG/DL L (1.5-2.2 MG/DL) ALK PHOS 176 U/L H (46-116 U/L) ALT (SGPT) 15 U/L L (16-63 U/L) AST (SGOT) 14 U/L L (15-37 U/L) MAGNESIUM 2.0 MG/DL (1.8-2.4 MG/DL) PHOSPHORUS 5.0 MG/DL H (2.6-4.7 MG/DL) LIPASE 159 U/L (73-393 U/L) TROPONIN-I <0.017 NG/ML (0.000-0.056 NG/ML) B-TYPE NATRIURETIC PROTEIN 60 PG/ML (1-100 PG/ML) TSH 0.863 UIU/ML (0.340-4.820 UIU/ML) Hematology from 06/23/2016 12:17 AMWBC 11.2 X10e3/UL (3.6-11.2 X10e3/UL) RBC 4.08 X10e6/UL (3.63-4.92 X10e6/UL) HEMOGLOBIN 13.5 G/DL (11.0-14.3 G/DL) HEMATOCRIT 40.8 % (31.2-41.9 %) *MCV 100.0 FL H (79.0-98.0 FL) *MCH 33.0 PG (27.0-33.0 PG) *MCHC 33.0 G/DL (32.0-36.0 G/DL) *RDW 13.3 % (12.3-17.0 %) PLATELET 394 X10e3/UL H (159-386 X10e3/UL) *MPV 7.8 FL (7.4-10.4 FL) AUTOMATED DIFF PERFORMED SEGS 64.2 % *LYMPHOCYTES 26.5 % *MONOCYTES 6.9 % *EOSINOPHILS 1.3 % *BASOPHILS 1.1 % *ABSOLUTE NEUTROPHILS 7.20 X10e3/UL (1.80-7.80 X10e3/UL) *ABSOLUTE LYMPHOCYTES 3.00 X10e3/UL (1.00-3.00 X10e3/UL) *ABSOLUTE MONOCYTES 0.80 X10e3/UL (0.30-1.00 X10e3/UL) *ABSOLUTE EOSINOPHILS 0.10 X10e3/UL (0.00-0.50 X10e3/UL) *ABSOLUTE BASOPHILS 0.10 X10e3/UL (0.00-0.20 X10e3/UL) Urinalysis from 06/23/2016 12:46 AM*URINE COLOR YELLOW (STRAW/YELL/DK YELL ) *URINE APPEARANCE CLEAR (CLEAR ) URINE PH 6.0 (5.0-8.0 ) URINE SPECIFIC GRAVITY <1.005 (<=1.005->=1.030 ) *URINE GLUCOSE NEGATIVE MG/DL (NEGATIVE MG/DL) *URINE BILIRUBIN NEGATIVE (NEGATIVE ) *URINE KETONES NEGATIVE MG/DL (NEGATIVE MG/DL) *URINE BLOOD NEGATIVE (NEGATIVE ) *URINE PROTEIN NEGATIVE MG/DL (NEGATIVE MG/DL) *URINE UROBILINOGEN 0.2 EU/DL (0.2-1.0 EU/DL) *URINE NITRITES POSITIVE A (NEGATIVE ) *URINE LEUKOCYTES SMALL A (NEGATIVE ) *MICROSCOPIC EXAM PERFORMED PERFORMED *WBC URINE 1-5 /HPF (0-5 /HPF) *SQUAMOUS EP. CELLS FEW /LPF (NEG-FEW /LPF) *BACTERIA MANY /HPF A (NEGATIVE /HPF) Coagulation from 06/23/2016 12:17 AM*PROTHROMBIN TIME 10.5 SECONDS (9.4-11.5 SECONDS) *INR 1.0 (0.9-1.1 ) Microbiology from 06/23/2016 12:46 AM* CULTURE URINE (Preliminary Result) Specimen Number: [id number] Sample Collection Date/Time: 06/23/2016 12:46 AM Specimen Source: Urine Clean Catch CULTURE URINE: Gram-negative bacillus >100,000 cfu/ml ID and Susceptibility to follow DX Radiology from 06/23/2016 12:25 AMCHEST 1 VIEW History: LLE pain adn hyoptension Priors: 06/19/2016 Findings: No acute infiltrate, pneumothorax or pleural effusions are identified. The heart size is normal. Impression: No evidence of acute cardiopulmonary process. Electronically signed by: Gomez Echeverria MD Dictated: 06/23/2016 10:18 Problems Encounter Diagnosis No relevant problems exist. [...] 1 :12 PM * Completed Procedure Code: 72775 Procedure Name: not valued, on 04/22/2016 12: 00 AM * Completed Esophagogastroduodenoscopy, by MD BAIRON HAMILTON, on 11/20/2015 12:55 PM * Completed Procedure Code: 28400 Procedure Name: not valued, on 11/20/2015 12: 00 AM * Completed Procedure Code: 87769 Procedure Name: not valued, on 11/20/2015 12: 00 AM * Completed Procedure Code: 45.16 Procedure Name: not valued, on 03/12/2014 12: 00 AM * Completed Procedure Code: 45.25 Procedure Name: not valued, on 03/12/2014 12: 00 AM * Completed , on 08/20/2009 12:00 AM Immunizations * Influenza, seasonal, injectable (NOVARTIS, Lot # [id number]); Administered 2013 9:24 AM; 0.5 ML=1 DOSE, INTRAMUSCL Hospital Course Hospital Discharge Instructions Allergies, Adverse Reactions, Alerts * Ultram causes Unknown. * Lortab causes Unknown. * aspirin causes Unknown. Onset Unknown. * BuSpar causes Moderate Hives. * Imitrex causes Unknown. * Reglan causes "shuts esophagus". * Latex Allergy has not been assessed. * IV Contrast Allergy has not been assessed. * No Known Food Allergies. Medication Medication reconciliation has not been performed.
--- OUTSIDE RECORDS SUMMARY | 2017-02-24 16:58 | XMS REPORT ---
Author Author GENERATED, SYSTEM Organization Unknown Address Unknown Phone Unavailable Care Team Providers Care Prison Warden Name Role Phone UNASSIGNED DOCTOR , DOCTOR PP [phone] Reason For Visit Chief Complaint LEFT MEDS IN [place] Social History Functional Status Vital Signs Results [...] * Influenza, seasonal, injectable (NOVARTIS, Lot # [id number]); Administered 2013 9:24 AM; 0.5 ML=1 DOSE, [...]
--- OUTSIDE RECORDS SUMMARY | 2017-02-24 16:58 | XMS REPORT ---
Author Author Indy Falk [facility] eClinical[employer] Address Unknown Phone Unavailable Care Team Providers Care Certified Activities Director Name Role Phone Indy Falk CP Unavailable Allergies No Known Allergies Problems Problem Type Condition ICD-9 Code Onset Dates Condition Status Problem Abdominal pain, unspecified site 789.00 Active Problem Nausea with vomiting 787.01 Active Problem Myopia 367.1 Active Problem Unspecified pruritic disorder 698.9 Active Problem Bipolar disorder, unspecified 296.80 Active Problem Cellulitis and abscess of face 682.0 Active Problem Essential hypertension, benign 401.1 Active Problem Other specified pre-operative examination V72.83 Active Problem Need for prophylactic vaccination and inoculation, Influenza V04.81 Active Problem Esophageal reflux 530.81 Active Problem Generalized anxiety disorder 300.02 Active Problem Headache 784.0 Active Problem Degeneration of lumbar or lumbosacral intervertebral disc 722.52 Active Problem Nondependent tobacco use disorder 305.1 Active Problem Other screening breast examination V76.19 Active Problem Unspecified site of sprain and strain 848.9 Active Problem Nausea & vomiting 787.01 Active Problem Pancreatitis 577.0 Active Problem Mixed hyperlipidemia 272.2 Active Problem Other and unspecified noninfectious gastroenteritis and colitis 558.9 Active Problem Abdominal pain 789.00 Active Problem Lumbago 724.2 Active Problem Other malaise and fatigue 780.79 Active Problem 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
--- OUTSIDE RECORDS SUMMARY | 2017-02-24 16:58 | XMS REPORT ---
Author Author GENERATED, SYSTEM Organization Unknown Address Unknown Phone Unavailable Care Team Providers Care Watch Crystal Grinder Name Role Phone MD GRACY, NAVIN [phone] Reason For Visit Reason for Visit from 08/10/2016 11:07 PM:* Pt Stated Reason for Adm : left elbow Chief Complaint OSTEOMYELITIS Social History Social History from 08/14/2016 10:33 AM:* Tobacco Use? : Current Some Day Smoker Social History from 08/10/2016 11:07 PM:* Tobacco Use? : Current Some Day Smoker Functional Status Functional Status from 08/14/2016 6:50 AM:* LOC : Alert * Oriented To : Person,Place,Time,Event * Weight Bearing Status : Full * Assist Level : Partial * # Assists : 1 Functional Status from 08/13/2016 8:23 PM:* LOC : Alert * Oriented To : Person,Place,Time,Event * Weight Bearing Status : Full * Assist Level : Independent * # Assists : 1 Functional Status from 08/13/2016 10:59 AM:* LOC : Alert * Oriented To : Person,Place,Time * Weight Bearing Status : Full * Assist Level : Partial * # Assists : 1 Functional Status from 08/12/2016 8:40 PM:* LOC : Alert * Oriented To : Person,Place,Time * Weight Bearing Status : Full * Assist Level : Partial * # Assists : 1 Functional Status from 08/12/2016 10:23 AM:* LOC : Alert * Oriented To : Person,Place,Time * Weight Bearing Status : Full * Assist Level : Independent * # Assists : Independent Functional Status from 08/11/2016 9:13 PM:* LOC : Alert * Oriented To : Person,Place,Time,Event * Weight Bearing Status : Full * Assist Level : Independent * # Assists : Independent Functional Status from 08/11/2016 11:51 AM:* # Assists : 1 Functional Status from 08/11/2016 8:50 AM:* Weight Bearing Status : Full * Assist Level : Partial * # Assists : 1 Functional Status from 08/10/2016 11:07 PM:* LOC : Alert * Oriented To : Person,Place,Time,Event * Weight Bearing Status : Full * Assist Level : Independent * # Assists : Independent Vital Signs Hospital Vital Signs from 08/14/2016 10:51 AM:* Height : 5/7 ft,in * Temperature : 97.8 F * Pulse : 88 * Respirations : 18 * BP : 109/66 Hospital Vital Signs from 08/14/2016 7:30 AM:* Height : 5/7 ft,in * Temperature : 96.9 F * Pulse : 84 * Respirations : 18 * BP : 132/54 Hospital Vital Signs from 08/13/2016 10:41 PM:* Height : 5/7 ft,in * Temperature : 97.3 F * Pulse : 91 * Respirations : 18 * BP : 113/68 Hospital Vital Signs from 08/13/2016 8:23 PM:* Heart Rate : 110 Hospital Vital Signs from 08/13/2016 7:34 PM:* Height : 5/7 ft,in * Temperature : 97.0 F * Pulse : 86 * Respirations : 18 * BP : 131/66 Hospital Vital Signs from 08/13/2016 2:36 PM:* Height : 5/7 ft,in * Temperature : 98.2 F * Pulse : 91 * Respirations : 18 * BP : 102/61 Hospital Vital Signs from 08/13/2016 10:59 AM:* Heart Rate : 103 Hospital Vital Signs from 08/13/2016 10:09 AM:* Height : 5/7 ft,in * Temperature : 97.5 F * Pulse : 86 * Respirations : 18 * BP : 112/73 Hospital Vital Signs from 08/13/2016 7:15 AM:* Height : 5/7 ft,in * Temperature : 96.9 F * Pulse : 74 * Respirations : 18 * BP : 92/56 Hospital Vital Signs from 08/13/2016 2:17 AM:* Height : 5/7 ft,in * Temperature : 97.4 F * Pulse : 84 * Respirations : 18 * BP : 97/55 Hospital Vital Signs from 08/12/2016 11:19 PM:* Height : 5/7 ft,in * Temperature : 97.2 F * Pulse : 92 * Respirations : 18 * BP : 105/75 Hospital Vital Signs from 08/12/2016 8:40 PM:* Heart Rate : 96 Hospital Vital Signs from 08/12/2016 7:19 PM:* Height : 5/7 ft,in * Temperature : 98.5 F * Pulse : 94 * Respirations : 18 * BP : 110/61 Hospital Vital Signs from 08/12/2016 2:14 PM:* Height : 5/7 ft,in * Temperature : 97.2 F * Pulse : 96 * Respirations : 18 * BP : 133/76 Hospital Vital Signs from 08/12/2016 11:10 AM:* Height : 5/7 ft,in * Temperature : 96.9 F * Pulse : 92 * Respirations : 18 * BP : 132/61 Hospital Vital Signs from 08/12/2016 10:23 AM:* Heart Rate : 100 Hospital Vital Signs from 08/12/2016 7:21 AM:* Height : 5/7 ft,in * Temperature : 98.6 F * Pulse : 81 * Respirations : 18 * BP : 98/57 Hospital Vital Signs from 08/12/2016 6:02 AM:* Heart Rate : 85 Hospital Vital Signs from 08/12/2016 3:12 AM:* Heart Rate : 85 Hospital Vital Signs from 08/12/2016 1:08 AM:* Heart Rate : 95 Hospital Vital Signs from 08/11/2016 10:01 PM:* Height : 5/7 ft,in * Temperature : 98.3 F * Pulse : 92 * Respirations : 18 * BP : 122/69 Hospital Vital Signs from 08/11/2016 9:13 PM:* Heart Rate : 100 Hospital Vital Signs from 08/11/2016 3:21 PM:* Height : 5/7 ft,in * Temperature : 98.6 F * Pulse : 92 * Respirations : 18 * BP : 105/54 Hospital Vital Signs from 08/11/2016 10:27 AM:* Height : 5/7 ft,in Hospital Vital Signs from 08/11/2016 10:25 AM:* Height : 5/7 ft,in * Temperature : 96.9 F * Pulse : 94 * Respirations : 18 * BP : 82/48 Hospital Vital Signs from 08/11/2016 8:50 AM:* Heart Rate : 88 Hospital Vital Signs from 08/11/2016 7:03 AM:* Height : 5/7 ft,in * Temperature : 97.3 F * Pulse : 80 * Respirations : 18 * BP : 98/60 Hospital Vital Signs from 08/11/2016 4:01 AM:* Height : 5/7 ft,in * Temperature : 97.8 F * Pulse : 85 * Respirations : 16 * BP : 102/63 Hospital Vital Signs from 08/11/2016 1:00 AM:* Heart Rate : 92 Hospital Vital Signs from 08/10/2016 11:07 PM:* Weight : 59.1/ kg * Height : 5/7 ft,in Hospital Vital Signs from 08/10/2016 10:15 PM:* Weight : 59.1/ kg * Height : 5/7 ft,in * Temperature : 97.4 F * Pulse : 84 * Respirations : 18 * BP : 150/80 Results Chemistry from 08/14/2016 3:03 AMVANCOMYCIN TROUGH 16.7 MCG/ML H (5.0-10.0 MCG/ ML) Chemistry from 08/11/2016 5:08 AMSODIUM 143 MMOL/L (136-145 MMOL/L) POTASSIUM 3.8 MMOL/L (3.5-5.1 MMOL/L) CHLORIDE 110 MMOL/L H (98-107 MMOL/L) TCO2 24.9 MMOL/L (21.0-32.0 MMOL/L) *ANION GAP 8.1 MMOL/L (8.0-16.0 MMOL/L) BUN 8 MG/DL (7-18 MG/DL) CREATININE 0.74 MG/DL (0.55-1.02 MG/DL) *BUN/CREATININE RATIO 10.8 (9.1-17.0 ) GLUCOSE 104 MG/DL H (65-99 MG/DL) *GFR EST NON AFR [place] [facility] >90 ML/MIN *GFR EST AFR AMER >90 ML/MIN CALCIUM 8.9 MG/DL (8.5-10.1 MG/DL) C-REACTIVE PROTEIN 1.07 MG/DL H (0.00-0.30 MG/DL) Hematology from 08/11/2016 5:08 AMWBC 8.7 X10e3/UL (3.6-11.2 X10e3/UL) RBC 3.43 X10e6/UL L (3.63-4.92 X10e6/UL) HEMOGLOBIN 11.7 G/DL (11.0-14.3 G/DL) HEMATOCRIT 34.9 % (31.2-41.9 %) *MCV 101.7 FL H (79.0-98.0 FL) *MCH 34.2 PG H (27.0-33.0 PG) *MCHC 33.7 G/DL (32.0-36.0 G/DL) *RDW 14.4 % (12.3-17.0 %) *RDWSD 51.6 H (37.1-47.8 ) PLATELET 413 X10e3/UL H (159-386 X10e3/UL) *MPV 7.1 FL L (7.4-10.4 FL) *MANUAL DIFF PERFORMED SEGS 55.0 % *BANDS 0.0 % *LYMPHOCYTES 34.0 % *MONOCYTES 9.0 % *EOSINOPHILS 1.0 % *BASOPHILS 0.0 % *REACTIVE LYMPHOCYTES 1.0 % *ABSOLUTE NEUTROPHILS 4.79 X10e3/UL (1.80-7.80 X10e3/UL) *ABSOLUTE LYMPHOCYTES 3.05 X10e3/UL H (1.00-3.00 X10e3/UL) *ABSOLUTE MONOCYTES 0.78 X10e3/UL (0.30-1.00 X10e3/UL) *ABSOLUTE EOSINOPHILS 0.09 X10e3/UL (0.00-0.50 X10e3/UL) *ABSOLUTE BASOPHILS 0.00 X10e3/UL (0.00-0.20 X10e3/UL) *POLYCHROMASIA 1+ *MACROCYTIC 1+ SED RATE 47 MM/HR H (0-30 MM/HR) Microbiology from 08/13/2016 9:34 AM* CULTURE WOUND (Preliminary Result) Specimen Number: [id number] Sample Collection Date/Time: 08/13/2016 9:34 AM Specimen Source: Arm Left Elbow CULTURE WOUND: Staphylococcus aureus Moderate growth *GRAM STAIN: Few WBC's Few Gram positive cocci in clusters * *GRAM STAIN Specimen Number: [id number] Sample Collection Date/Time: 08/13/2016 9:34 AM Specimen Source: Arm Left Elbow *GRAM STAIN: Few WBC's Few Gram positive cocci in clusters CULTURE WOUND: Staphylococcus aureus Moderate growth DX Radiology from 08/13/2016 12:25 PMCHEST POST PROCEDURE History: PICC Placement. Technique: One VIEW CHEST Priors: 08/10/16 Findings: A right-sided PICC line is in place. The tip overlies the right atrium. This should be retracted at least 4 centimeters for better positioning. Minimal bibasilar opacities are indeterminate atelectasis pneumonia. Impression: PICC line in place as detailed above. Electronically signed by: Alan White MD Dictated: 08/13/2016 12:35 MRI from 08/11/2016 12:20 PMMRI ELBOW LEFT W/O_W CONTRAST ADDENDUM REPORT Addendum: Additional history was obtained including a history of recent fall. Correlation is also made with a CT of the elbow dated 08/09/2016. In correlation with the CT of 08/09/2016 there appears to be a nondisplaced avulsion fracture of the proximal aspect of the olecranon process. Moderate edema and enhancement of the marrow of the olecranon process is therefore likely posttraumatic in nature. Edema and enhancement of the triceps tendon is suspicious for strain and/or partial tear. Osteomyelitis is felt less likely but not entirely excluded. Electronically signed by: Crissy Rea MD Dictated: 08/11/2016 15:39 Addendum . FINAL REPORT History: osteomyelitis vs abscess . PATIENT HAS SWELLING AND REDNESS TO THE AREA OF OLECRANON PROCESS ON LEFT ELBOW. Technique: Pre and Post contrast images were performed after the administration of 12 milliliters of Prohance intravenous contrast. Priors: None. Findings: Evaluation is slightly suboptimal secondary to patient motion artifact. There is moderate edema and enhancement of the posterior soft tissues, consistent with cellulitis. There is also moderate edema and enhancement of the olecranon process with cortical irregularity of the cephalad aspect of the olecranon, suggestive of acute osteomyelitis. There is no evidence of soft tissue abscess. There is also edema and enhancement of the triceps tendon which may reflect infectious/inflammatory changes versus partial tear. There is a minimal joint effusion. Impression: Suboptimal evaluation secondary motion artifact. Cellulitis of the left elbow with acute osteomyelitis of the olecranon process. There is no evidence of soft tissue abscess. Edema and enhancement of the triceps tendon which may reflect infectious/inflammatory changes versus partial tear. Electronically signed by: Crissy Rea MD Dictated: 08/11/2016 14:37 . Problems Encounter Diagnosis * Acute Pain Status:Active. * Fall Risk Status:Active. * Infection Risk Status:Active. * Osteomyelitis Status:Active. Additional Problems * Abdominal Pain Comment:Problem resolved by [facility] upon Discharge, Status:Resolved. * Acute Urinary Tract infection Comment:Problem resolved [...] by [facility] upon Discharge, Status:Resolved. * Gastritis Comment:Problem resolved by [facility] [...] upon Discharge, Status: Resolved. Encounters Encounter Diagnosis * Acute Pain Status:Active. * Fall Risk Status:Active. * Infection Risk Status:Active. * Osteomyelitis Status:Active. Plan of Care Follow-up Appointments from 08/14/2016 10:33 AM:* #1 Office appointment: : Primary Care Physician * #1 Date/Time : 08/17/2016 12:00 AM Treatment Plan from 08/14/2016 4:00 PM:* Care Management Note : SW consulted with Pt to address infusion needs for Tiffany. Pt reports that she is not home bound, and walks to work everyday ([employer] in [place]). HILDA reinforced that Pt will not be eligible for home health with infusion services for this reason. HILDA arranged for Pt to come into outpatient infusion at [facility] at 16:00 on this date after hospital discharge. Pt reported her hoahaoism friend will be able to transport her when this SW spoke with Pt at 11:15. At 17:00, HILDA received a phone call from Pt. Pt reported she is having difficulties finding transportation- "My hoahaoism friends just dropped my off at home and told me they cant take me." SW asked about Pt's other social supports, Pt reported she had none that are currently available. [facility] not an option due to Pt unable to find transportation home. HILDA encouraged Pt to contact Medicaid for transport. Pt reported that in the past she was not successful with last minute transports, and did not follow up with this suggestion. HILDA left a message for outpatient infusion informing them that Pt may not make her appointment due to trransport concerns Pt voiced concerns about transportation home upon discharge at 11:30. HILDA informed Pt about Medicaid transport and offered to arrange transport on behalf of Pt. Pt reported "I just want to get home, I don't want to wait I will call my hoahaoism friend" (per Pt). Pt was able to successfully arrange transportation for herself. HILDA informed Pt that following her outpatient infusion appointment on this date, she will have to come into [facility] at 8:00 and 19:00 (per infusion staff). HILDA offered transportation options: [facility], Medicaid transport, asking family/ friends / hoahaoism members.. Pt voiced understanding. HILDA offered [facility] Map, Pt in a hurry to discharge and did not want to wait. Treatment Plan from 08/13/2016 2:40 PM:* Care Management Note : HILDA'er met with patient to review discharge planning. Patient is aware that her anticipated discharge date is tomorrow and she will need to have otpt IVs. Patient questioned if she would be able to have home health for IVs rather than come into the hospital 2x/day, as she was not sure if she could find transportation for the evening time. SW'er explained that patient would have to be homebound during this time, and she is hoping to return to work as soon as possible. Patient agreed that she didn't want to be homebound and would find a way to get to her infusion appointments. SW'er notified infusions that she would be needing this and confirmed the times of 8:00 and 20:00. SW'er not able to complete referral to otpt infusion at this time due to the fact that dose will be set tomorrow after lab work is completed. SW'er will provided information for weekend social workers to complete this when patient is discharged. Patient has no additional questions or concerns at this time. Treatment Plan from 08/13/2016 10:37 AM:* Care Management Note : talked with Dr Verduzco and Dr Mendez - patient is anticipated to go home tomorrow with OP IV antibiotics. Plan to place a PICC today. Marylu STEVENS notified. Treatment Plan from 08/12/2016 1:35 PM:* Care Management Note : SW'er met with patient to discuss discharge planning. Patient lives with her son and DIL. 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 Patient states she was scheduled to return back to work this week after falling and breaking her leg, and then falling again re-breaking it. Patient states that she also hurt her elbow during one of the falls, which is causing the problems now. Patient reports being active and independent prior to admission and plans to return home without any services or DME. At this time, she has no needs for services, unless she needs to have outpatient IV treatment for elbow. SW'er provided contact information an will continue to follow. Treatment Plan from 08/12/2016 10:47 AM:* Care Management Note : talked with Dr Mendez - IV antibiotics have been started by Orthopedics. awaiting ID input. Treatment Plan from 08/11/2016 10:37 AM:* Care Management Note : Admission status: Inpatient Patient presented to ER 08/09/16 for elbow pain. Was seen and sent home after being casted for a tricep tear. Patient was then asked to come back to ER after imaging had been reviewed further indicating osteomyelitis/elbow infection possible abscess that needs IV treatments. labs and vital signs noted. CRP 1.07. CT: Findings suspicious for small abscess involving the distal triceps tendon with mild osteomyelitis involving the proximal surface of the olecranon. Consulted Orthopedics for evaluation. SCDs for DVT prevention. Cultures pending. MRI pending results. Hospitalist documents that they want to hold antibiotics until evaluated by orthopedics for possible aspiration and culture. Anticipate starting of IV antibiotics after that. talked with Dr Mendez - patient stay anticipated longer than 2 midnights. meets inpatient status at this time. Procedures * Completed Esophagogastroduodenoscopy, by MD BAIRON HAMILTON, on 04/22/2016 1 :12 PM * Completed Procedure Code: 19403 Procedure Name: not valued, on 04/22/2016 12: 00 AM * Completed Esophagogastroduodenoscopy, by MD BAIRON HAMILTON, on 11/20/2015 12:55 PM * Completed Procedure Code: 93334 Procedure Name: not valued, on 11/20/2015 12: 00 AM * Completed Procedure Code: 12594 Procedure Name: not valued, on 11/20/2015 12: 00 AM * Completed Procedure Code: 45.16 Procedure Name: not valued, on 03/12/2014 12: 00 AM * Completed Procedure Code: 45.25 Procedure Name: not valued, on 03/12/2014 12: 00 AM * Completed , on 08/20/2009 12:00 AM Immunizations * Influenza, seasonal, injectable (NOVARTIS, Lot # [id number]); Administered 2013 9:24 AM; 0.5 ML=1 DOSE, INTRAMUSCL Hospital Course Hospital Discharge Instructions How to care for yourself at home from 08/14/2016 10:33 AM:* Discharge Activity : Activity as tolerated,May Shower,Do not engage in sports, heavy work or heavy lifting until your physician gives permission * Discharge Diet : As before hospitalization * Discharge Diet: : Regular Diet * Call your doctor if: : Fever over 101 F or severe chills,Chest pain or other unexplained symptoms,Tingling or numbness develops,A sudden increase or decrease in weight,You have persistent or worsening symptoms,If you have Heart Failure and you gain 3 pounds within 1 week or your symptoms worsen. (Weigh at home tomorrow morning) * Specific Discharge Teaching Instructions provided: : Yes * Discharge on Warfarin : No Allergies, Adverse Reactions, Alerts * Lortab causes Unknown. * codeine causes Unknown Unknown. * Ultram causes Unknown. * aspirin causes Unknown. Onset Unknown. * BuSpar causes Moderate Hives. * Imitrex causes Unknown. * Reglan causes "shuts esophagus". * No Latex Allergy. * No IV Contrast Allergy. * No Known Food Allergies. Medication It is the responsibility of the patient or patient sales representative groceries to confirm the list of medications with either the patient's personal care provider or the patient's follow-up care provider to ensure the patient has an appropriate list of medications to take at home. Discharge medications Continued medications* atorvastatin 80 mg Tablet, Ordered By: JEANNIE MENDEZ MD Directions: 1 tablet oral daily at bedtime * clonazePAM 1 mg Tablet, Ordered By: JEANNIE MENDEZ MD Directions: 1 tablet oral three times a day PRN anxiety * cloNIDine HCl 0.1 mg Tablet, Ordered By: JEANNIE MENDEZ MD Directions: 1 tablet oral three times a day * doxepin 50 mg Capsule, Ordered By: JEANNIE MENDEZ MD Directions: 1 capsule oral daily at bedtime * FLUoxetine 40 mg Capsule, Ordered By: JEANNIE MENDEZ MD Directions: 1 capsule oral daily * fluticasone-salmeterol (Advair HFA) 45 mcg-21 mcg/Actuation HFA Aerosol Inhaler, Ordered By: JEANNIE MENDEZ MD Directions: 2 puff by inhalation twice a day * metoprolol succinate 25 mg Tablet Extended Release 24 hr, Ordered By: JEANNIE MENDEZ MD Directions: 1 tablet oral twice a day * omeprazole 20 mg capsule,delayed release(DR/EC), Ordered By: JEANNIE MENDEZ MD Directions: 1 capsule oral daily * potassium chloride 10 mEq Capsule, Extended Release, Ordered By: JEANNIE MENDEZ MD Directions: 2 capsule oral twice a day * promethazine 25 mg Tablet, Ordered By: JEANNIE MENDEZ MD Directions: 1 tablet oral twice a day PRN nausea or vomiting * QUEtiapine (SEROquel) 150mg Tablet, Ordered By: JEANNIE MENDEZ MD Directions: 1 tablet oral daily at bedtime * QUEtiapine (SEROquel) 50 mg Tablet, Ordered By: JEANNIE MENDEZ MD Directions: 1 tablet oral daily before breakfast * sucralfate 1 gram Tablet, Ordered By: JEANNIE MENDEZ MD Directions: 1 tablet oral four times daily * topiramate 50 mg Tablet, Ordered By: JEANNIE MENDEZ MD Directions: 1 tablet oral twice a day * verapamil 40 mg Tablet, Ordered By: JEANNIE MENDEZ MD Directions: 1 tablet oral twice a day * zolpidem (Ambien) 5 mg Tablet, Ordered By: JEANNIE MENDEZ MD Directions: 1 tablet oral daily at bedtime PRN insomnia Stopped medications* oxyCODONE-acetaminophen 10 mg-325 mg Tablet Directions: 2 tablet oral every 4 - 6 hours PRN pain
--- OUTSIDE RECORDS SUMMARY | 2017-02-24 16:58 | XMS REPORT ---
Author Author GENERATED, SYSTEM Organization Unknown Address Unknown Phone Unavailable Care Team Providers Care Warehouse Engineer Name Role Phone MD GRACY, NAVIN PP [phone] Reason For Visit Chief Complaint WEAKNESS Social History Functional Status Vital Signs Results Chemistry from 08/29/2016 8:05 PMSODIUM 140 MMOL/L (136-145 MMOL/L) POTASSIUM 3.4 MMOL/L L (3.5-5.1 MMOL/L) CHLORIDE 108 MMOL/L H (98-107 MMOL/L) TCO2 24.3 MMOL/L (21.0-32.0 MMOL/L) *ANION GAP 7.7 MMOL/L L (8.0-16.0 MMOL/L) BUN 11 MG/DL (7-18 MG/DL) CREATININE 0.96 MG/DL (0.55-1.02 MG/DL) *BUN/CREATININE RATIO 11.5 (9.1-17.0 ) GLUCOSE 108 MG/DL H (65-99 MG/DL) *GFR EST NON AFR COMORAN 67 ML/MIN *GFR EST AFR AMER 77 [...] TROPONIN-I <0.017 NG/ML (0.000-0.056 NG/ML) Hematology from 08/29/2016 8:05 PMWBC 5.9 X10e3/UL [...] 0.10 X10e3/UL (0.00-0.20 X10e3/UL) DX Radiology from 08/29/2016 8:40 PMELBOW LEFT [...] 1 :12 PM * Completed Procedure Code: 67599 Procedure Name: not valued, on 04/22/2016 12: 00 AM * Completed Esophagogastroduodenoscopy, by MD BAIRON HAMILTON, on 11/20/2015 12:55 PM * Completed Procedure Code: 60160 Procedure Name: not valued, on 11/20/2015 12: 00 AM * Completed Procedure Code: 35120 Procedure Name: not valued, on 11/20/2015 12: 00 AM * Completed Procedure Code: 45.16 Procedure Name: not valued, on 03/12/2014 12: 00 AM * Completed Procedure Code: 45.25 Procedure Name: not valued, on 03/12/2014 12: 00 AM * Completed , on 08/20/2009 12:00 AM Immunizations * Influenza, seasonal, injectable (NOVARTIS, Lot # [id number]); Administered 2013 9:24 AM; 0.5 ML=1 DOSE, [...]
--- OUTSIDE RECORDS SUMMARY | 2017-02-24 16:58 | XMS REPORT ---
Author Author GENERATED, SYSTEM Organization Unknown Address Unknown Phone Unavailable Care Team Providers Care Camp Housekeeper Name Role Phone UNASSIGNED DOCTOR , DOCTOR PP [phone] Reason For Visit Chief Complaint SYNCOPE Social History Functional Status Vital Signs Results Blood Gas from 08/07/2015 5:31 PM*ARTERIAL PH 7.409 (7.350-7.450 ) *ARTERIAL PC02 37.7 MM HG (35.0-45.0 MM HG) *ART. PO2 129 MM HG H (80-95 MM HG) *ART. TOTAL CO2 21.4 mmol/L (20.0-30.0 mmol/L) *ART. BICARBONATE 23.4 MEQ/L (19.0-29.0 MEQ/L) *ART. BASE EXCESS -0.5 (-2.5-2.5 ) ART. O2 SATURATION 98.1 % H (91.0-97.0 %) *PATIENT ATMOSPHERE 4 LITERS *SPECIMEN SITE ARTERIAL Chemistry from 08/07/2015 5:38 PMSODIUM 137 MMOL/L (136-145 MMOL/L) POTASSIUM 4.5 MMOL/L (3.5-5.1 MMOL/L) CHLORIDE 105 MMOL/L (98-107 MMOL/L) TCO2 26.1 MMOL/L (21.0-32.0 MMOL/L) *ANION GAP 5.9 MMOL/L L (8.0-16.0 MMOL/L) BUN 15 MG/DL (7-18 MG/DL) CREATININE 0.78 MG/DL (0.55-1.02 MG/DL) *BUN/CREATININE RATIO 19.2 H (9.1-17.0 ) GLUCOSE 115 MG/DL H (65-99 MG/DL) *GFR EST NON AFR MALDIVIAN 86 ML/MIN *GFRA EST AFR AMER >90 ML/MIN CALCIUM 9.0 MG/DL (8.5-10.1 MG/DL) BILIRUBIN TOTAL <0.10 MG/DL L (0.20-1.00 MG/DL) TOTAL PROTEIN 6.1 GM/DL L (6.4-8.2 GM/DL) ALBUMIN 2.7 GM/DL L (3.4-5.0 GM/DL) *GLOBULIN 3.4 GM/DL (2.3-3.5 GM/DL) *A/G RATIO 0.8 MG/DL L (1.5-2.2 MG/DL) ALK PHOS 137 U/L H (46-116 U/L) ALT (SGPT) 14 U/L L (16-63 U/L) AST (SGOT) 17 U/L (15-37 U/L) TROPONIN-I <0.04 (SEE BELOW ) Chemistry from 08/07/2015 5:00 PM*COCAINE NEGATIVE (NEG <150 ) *PCP NEGATIVE (NEG <25 ) *OXYCODONE NEGATIVE (NEG <100 ) *PROPOXYPHENE (NORPROPOXYPHENE) NEGATIVE (NEG <300 ) *CANNABINOIDS NEGATIVE (NEG <50 ) *BENZODIAZEINE NEGATIVE (NEG <150 ) *AMPHETAMINE NEGATIVE (NEG <500 ) *BARBITURATES NEGATIVE (NEG <200 ) *METHAMPHETAMINES NEGATIVE (NEG <500 ) *METHADONE (UR) NEGATIVE (NEG <200 ) *OPIATES (LAB) NEGATIVE (NEG <100 ) *TRICYCLICS POSITIVE A (NEG <300 ) Hematology from 08/07/2015 5:38 PMWBC 7.9 X10e3/UL (3.6-11.2 X10e3/UL) RBC 3.29 X10e6/UL L (3.63-4.92 X10e6/UL) HEMOGLOBIN 11.4 G/DL (11.0-14.3 G/DL) HEMATOCRIT 34.9 % (31.2-41.9 %) MCV 106.1 FL H (79.0-98.0 FL) MCH 34.6 PG H (27.0-33.0 PG) MCHC 32.6 G/DL (32.0-36.0 G/DL) RDW 14.2 % (12.3-17.0 %) RDWSD 52.5 H (37.1-47.8 ) PLATELET 383 X10e3/UL (159-386 X10e3/UL) MPV 7.2 FL L (7.4-10.4 FL) AUTOMATED DIFF PERFORMED SEGS 58.7 % LYMPHOCYTES 31.5 % MONOCYTES 7.0 % EOSINOPHILS 2.6 % BASOPHILS 0.2 % ABSOLUTE NEUTROPHILS 4.60 X10e3/UL (1.80-7.80 X10e3/UL) ABSOLUTE LYMPHOCYTES 2.50 X10e3/UL (1.00-3.00 X10e3/UL) ABSOLUTE MONOCYTES 0.60 X10e3/UL (0.30-1.00 X10e3/UL) ABSOLUTE EOSINOPHILS 0.20 X10e3/UL (0.00-0.50 X10e3/UL) ABSOLUTE BASOPHILS 0.00 X10e3/UL (0.00-0.20 X10e3/UL) POLYCHROMASIA 1+ MACROCYTIC 1+ Urinalysis from 08/07/2015 5:00 PM*URINE COLOR YELLOW (STRAW/YELL/DK YELL ) *URINE APPEARANCE CLEAR (CLEAR ) URINE PH 6.0 (5.0-8.0 ) URINE SPECIFIC GRAVITY <1.005 (<=1.005->=1.030 ) *URINE GLUCOSE (LAB) NEGATIVE MG/DL (NEGATIVE MG/DL) *URINE BILIRUBIN NEGATIVE (NEGATIVE ) *URINE KETONES NEGATIVE MG/DL (NEGATIVE MG/DL) *URINE BLOOD NEGATIVE (NEGATIVE ) *URINE PROTEIN NEGATIVE MG/DL (NEGATIVE MG/DL) *URINE UROBILINOGEN 0.2 EU/DL (0.2-1.0 EU/DL) *URINE NITRITES (LAB) NEGATIVE (NEGATIVE ) *URINE LEUKOCYTES NEGATIVE (NEGATIVE ) Coagulation from 08/07/2015 5:38 PM*PROTHROMBIN TIME 10.3 SECONDS (9.4-11.5 SECONDS) *INR 1.0 (0.9-1.1 ) PARTIAL THROMBOPLASTIN TIME 27.1 SECONDS (23.0-31.0 SECONDS) DX Radiology from 08/07/2015 5:38 PMCHEST 1 VIEW History: Syncope Priors: Chest x-ray 08/03/2015 Findings: The heart size is within normal limits. There is been development of a minimal right basilar infiltrate, suspicious for atelectasis given associated elevation of the right hemidiaphragm. Developing pneumonia however is not excluded. No significant pleural effusion or pneumothorax is seen. Impression: Development of a mild right basilar infiltrate, suspicious for atelectasis given associated elevation of the hemidiaphragm. Pneumonia however is not excluded.These findings represent a change from the preliminary report provided by the emergency room provider. Discrepancy report is provided via electronic transmission to the emergency department. Electronically signed by: Crissy Rea MD Dictated: 08/08/2015 11:06 CT Scan from 08/07/2015 5:15 PMCT CEREBRAL W/O CONTRAST History: Syncope . Priors: CT head dated 08/03/2015 Findings: Ventricles and Extra axial spaces: Normal in size and morphology for the patient's age. Hemorrhage: None. Cerebral parenchyma: Normal. Mass effect/midline shift: None. Brainstem/Cerebellum: Normal. Calvarium: Normal. Visualized Paranasal sinuses/Mastoids: Clear. Impression: Unremarkable CT scan of the head. Electronically signed by: Crissy Rea MD Dictated: 08/08/2015 12:29 Problems Encounter Diagnosis No relevant problems exist. [...] * Influenza, seasonal, injectable (NOVARTIS, Lot # [id number]); Administered 2013 9:24 AM; 0.5 ML=1 DOSE, [...]
--- OUTSIDE RECORDS SUMMARY | 2017-02-24 16:58 | XMS REPORT ---
Author Author Alex Grant Organization [employer] Address Unknown Phone Unavailable Care Team Providers Care Quick Print Operator Name Role Phone Alex Grant CP Unavailable Allergies No Known Allergies Problems No Known Problems Medications No Known Medications Results No Known Results Summary Purpose [employer] Submission
--- OUTSIDE RECORDS SUMMARY | 2017-02-24 16:58 | XMS REPORT | Referral Summary ---
Author Author [facility] Organization [facility] Address Unknown Phone Unavailable Care Team Providers Care Television Production Assistant Name Role Phone No PCP, Pt States Primary Care Physician [phone] Encounter VC Date(s): 06/25/16 - 06/25/16 [facility] [address] [place], [place] [address] Discharge Diagnosis: Leg pain Discharge Disposition: -Home or Self Care Attending Physician: Elvin Barrientos DO Admitting Physician: Elvin Barrientos DO Vital Signs Most recent to 1 oldest [Reference Range]: Temperature Oral 36.7 degC [35.8-37.3 degC] (06/25/16 7:40 PM) Peripheral Pulse 113 bpm Rate [60-100 bpm] *HI* (06/25/16 10:15 PM) Respiratory Rate 12 br/min [14-20 br/min] *LOW* (06/25/16 10:15 PM) Blood Pressure 135/99 mmHg [90-140/60-90 mmHg] (06/25/16 10:15 PM) SpO2 98 % (06/25/16 10:15 PM) Problem List Condition Effective Dates Status Health Status Informant Acute Active pain(Confirmed) At risk of pressure Active sore(Confirmed) COPD (chronic Active patient obstructive pulmonary disease)(Confirmed) [...] Active Tylenol with Codeine #3 Active Medications Advair HFA 45 mcg-21 mcg/inh inhalation aerosol 0 Refill(s) Start Date: 09/17/15 Status: Ordered atorvastatin 80 mg oral tablet 0 Refill(s) Start Date: 09/17/15 Status: Ordered clonazePAM 1 mg oral tablet QID, 0 Refill(s) Start Date: 09/17/15 Status: Ordered cloNIDine 0.1 mg oral tablet 0 Refill(s) Start Date: 09/17/15 Status: Ordered dicyclomine 20 mg oral tablet 0 Refill(s) Start Date: 09/17/15 Status: Ordered diphenoxylate-atropine 2.5 mg-0.025 mg oral tablet 0 Refill(s) Start Date: 09/17/15 Status: Ordered doxepin 50 mg oral capsule 0 Refill(s) Start Date: 09/17/15 Status: Ordered FLUoxetine 40 mg oral capsule Daily, 0 Refill(s) Start Date: 09/17/15 Status: Ordered hydrOXYzine hydrochloride 25 mg oral tablet Bedtime (once a day), 0 Refill(s) Start Date: 09/17/15 Status: Ordered Metoprolol Succinate ER 25 mg oral tablet, extended release 0 Refill(s) Start Date: 09/17/15 Status: Ordered ondansetron 4 mg oral tablet 0 Refill(s) Start Date: 09/17/15 Status: Ordered pantoprazole 20 mg oral delayed release tablet 0 Refill(s) Start Date: 09/17/15 Status: Ordered Percocet 5/325 oral tablet 1 tabs, Oral, q4hr, as needed for pain, X 2 days, # 12 tabs, 0 Refill(s) Start Date: 06/25/16 Stop Date: 06/27/16 Status: Ordered Percocet 7.5/325 oral tablet 0 Refill(s) Start Date: 09/17/15 Status: Ordered potassium chloride 20 mEq oral tablet, extended release 0 Refill(s) Start Date: 09/17/15 Status: Ordered Premarin 0.625 mg/g vaginal cream with applicator 0 Refill(s) Start Date: 09/17/15 Status: Ordered promethazine 25 mg oral tablet 0 Refill(s) Start Date: 09/17/15 Status: Ordered QUEtiapine 50 mg oral tablet 0 Refill(s) Start Date: 09/17/15 Status: Ordered Spiriva 18 mcg inhalation capsule 0 Refill(s) Start Date: 09/17/15 Status: Ordered sucralfate 1 g oral tablet 0 Refill(s) Start Date: 09/17/15 Status: Ordered Xopenex HFA 45 mcg/inh inhalation aerosol 0 Refill(s) Start Date: 09/17/15 Status: Ordered Results No data available for [...]
--- OUTSIDE RECORDS SUMMARY | 2017-02-24 16:59 | XMS REPORT | Continuity of care Document ---
Author Author GENERATED, SYSTEM Organization Unknown Address Unknown Phone Unavailable Purpose Hospital Course Allergies, Adverse Reactions, Alerts * aspirin causes Unknown. Onset Unknown. * Benzodiazepines causes None per psych. * morphine causes No opioids per psych. * BuSpar causes Moderate Hives. * Imitrex causes Unknown. * Reglan causes "shuts esophagus". * Codeine causes Unknown. * No Latex Allergy. * No IV Contrast Allergy. * No Known Food Allergies. Problems * Abdominal Pain Status:Active. * Altered Mental Status Status:Active. * Dehydration Status:Active. * Diarrhea Status:Active. * Hypokalemia Status:Active. * Hypokalemia Status:Active. * Hyponatremia Status:Active. * Nausea & Vomiting Status:Active. * Poisoning by Drug/Medicinal Substance Status:Active. Procedures No relevant procedures performed. Medication It is the responsibility of the patient or patient volunteer patient representative to confirm the list of medications with either the patient's personal care provider or the patient's follow-up care provider to ensure the patient has an appropriate list of medications to take at home. Take These Medications* traZODone 50 mg Tablet, Ordered By: CEE PAYTON APRN Directions: 1 tablet oral daily at bedtime Additional Instructions: GIVE WITH FOOD. 2 TABLETS AT BEDTIME * metoprolol tartrate 25 mg Tablet, Ordered By: CEE PAYTON APRN Directions: 1 tablet oral daily * DULoxetine (Cymbalta) 30 mg capsule,delayed release(DR/EC), Ordered By: CEE PAYTON APRN Directions: 1 capsule oral daily Additional Instructions: DULOXETINE 90 MG DAILY IS DOSE * amoxicillin 875 mg Tablet, Ordered By: CEE PAYTON APRN Directions: 1 tablet oral every twelve hours Additional Instructions: x10 days * clarithromycin 500 mg Tablet, Ordered By: CEE PAYTON APRN Directions: 1 tablet oral every twelve hours Additional Instructions: x10 days * pantoprazole 40 mg tablet,delayed release (DR/EC), Ordered By: CEE PAYTON APRN Directions: 1 tablet oral twice a day before breakfast * hydrOXYzine HCl 50 mg Tablet, Ordered By: CEE PAYTON APRN Directions: 1 tablet oral three times a day Stop Taking These Medications* None Results Chemistry from 03/09/2014 10:54 PMTROPONIN-I 0.04 (SEE BELOW ) Chemistry from 03/10/2014 5:03 AMSODIUM 138 MMOL/L (136-145 MMOL/L) POTASSIUM 3.2 MMOL/L L (3.5-5.1 MMOL/L) CHLORIDE 106 MMOL/L (98-107 MMOL/L) TCO2 27.6 MMOL/L (21.0-32.0 MMOL/L) ANION GAP 4.4 MMOL/L L (8.0-16.0 MMOL/L) BUN 4 MG/DL L (7-18 MG/DL) CREATININE 0.51 MG/DL (0.43-0.83 MG/DL) BUN/CREATININE RATIO 7.8 L (9.1-17.0 ) GLUCOSE 101 MG/DL H (65-99 MG/DL) GFR EST NON AFR [place] >=90 ML/MIN GFRA EST AFR AMER >=90 ML/MIN CALCIUM 8.5 MG/DL (8.5-10.1 MG/DL) BILIRUBIN TOTAL 0.37 MG/DL (0.20-1.00 MG/DL) TOTAL PROTEIN 5.8 GM/DL L (6.4-8.2 GM/DL) ALBUMIN 2.6 GM/DL L (3.4-5.0 GM/DL) GLOBULIN 3.2 GM/DL (2.3-3.5 GM/DL) A/G RATIO 0.8 MG/DL L (1.5-2.2 MG/DL) ALK PHOS 94 U/L (46-116 U/L) ALT (SGPT) 11 U/L L (12-78 U/L) AST (SGOT) 12 U/L L (15-37 U/L) PHOSPHORUS 1.6 MG/DL L (2.5-4.9 MG/DL) TROPONIN-I <0.04 (SEE BELOW ) C-REACTIVE PROTEIN 2.04 MG/DL H (0.00-0.30 MG/DL) Chemistry from 03/11/2014 4:47 AMSODIUM 137 MMOL/L (136-145 MMOL/L) POTASSIUM 3.0 MMOL/L L (3.5-5.1 MMOL/L) CHLORIDE 101 MMOL/L (98-107 MMOL/L) TCO2 28.9 MMOL/L (21.0-32.0 MMOL/L) ANION GAP 7.1 MMOL/L L (8.0-16.0 MMOL/L) BUN 1 MG/DL L (7-18 MG/DL) CREATININE 0.40 MG/DL L (0.43-0.83 MG/DL) BUN/CREATININE RATIO 2.5 L (9.1-17.0 ) GLUCOSE 116 MG/DL H (65-99 MG/DL) GFR EST NON AFR [place] >=90 ML/MIN GFRA EST AFR AMER >=90 ML/MIN CALCIUM 8.4 MG/DL L (8.5-10.1 MG/DL) BILIRUBIN TOTAL 0.31 MG/DL (0.20-1.00 MG/DL) TOTAL PROTEIN 5.8 GM/DL L (6.4-8.2 GM/DL) ALBUMIN 2.6 GM/DL L (3.4-5.0 GM/DL) GLOBULIN 3.2 GM/DL (2.3-3.5 GM/DL) A/G RATIO 0.8 MG/DL L (1.5-2.2 MG/DL) ALK PHOS 90 U/L (46-116 U/L) ALT (SGPT) 11 U/L L (12-78 U/L) AST (SGOT) 9 U/L L (15-37 U/L) PHOSPHORUS 2.3 MG/DL L (2.5-4.9 MG/DL) C-REACTIVE PROTEIN 2.31 MG/DL H (0.00-0.30 MG/DL) Chemistry from 03/12/2014 4:58 AMSODIUM 138 MMOL/L (136-145 MMOL/L) POTASSIUM 2.9 MMOL/L L (3.5-5.1 MMOL/L) CHLORIDE 101 MMOL/L (98-107 MMOL/L) TCO2 27.6 MMOL/L (21.0-32.0 MMOL/L) ANION GAP 9.4 MMOL/L (8.0-16.0 MMOL/L) BUN 2 MG/DL L (7-18 MG/DL) CREATININE 0.56 MG/DL (0.43-0.83 MG/DL) BUN/CREATININE RATIO 3.6 L (9.1-17.0 ) GLUCOSE 125 MG/DL H (65-99 MG/DL) GFR EST NON AFR [place] >=90 ML/MIN GFRA EST AFR AMER >=90 ML/MIN CALCIUM 8.8 MG/DL (8.5-10.1 MG/DL) BILIRUBIN TOTAL 0.29 MG/DL (0.20-1.00 MG/DL) TOTAL PROTEIN 6.3 GM/DL L (6.4-8.2 GM/DL) ALBUMIN 2.7 GM/DL L (3.4-5.0 GM/DL) GLOBULIN 3.6 GM/DL H (2.3-3.5 GM/DL) A/G RATIO 0.8 MG/DL L (1.5-2.2 MG/DL) ALK PHOS 95 U/L (46-116 U/L) ALT (SGPT) 14 U/L (12-78 U/L) AST (SGOT) 13 U/L L (15-37 U/L) PHOSPHORUS 3.3 MG/DL (2.5-4.9 MG/DL) C-REACTIVE PROTEIN 1.31 MG/DL H (0.00-0.30 MG/DL) Chemistry from 03/12/2014 5:01 PMSODIUM 140 MMOL/L (136-145 MMOL/L) POTASSIUM 3.1 MMOL/L L (3.5-5.1 MMOL/L) CHLORIDE 104 MMOL/L (98-107 MMOL/L) TCO2 31.2 MMOL/L (21.0-32.0 MMOL/L) ANION GAP 4.8 MMOL/L L (8.0-16.0 MMOL/L) BUN 2 MG/DL L (7-18 MG/DL) CREATININE 0.65 MG/DL (0.43-0.83 MG/DL) BUN/CREATININE RATIO 3.1 L (9.1-17.0 ) GLUCOSE 110 MG/DL H (65-99 MG/DL) CALCIUM 8.8 MG/DL (8.5-10.1 MG/DL) Chemistry from 03/13/2014 5:08 AMSODIUM 139 MMOL/L (136-145 MMOL/L) POTASSIUM 2.8 MMOL/L L (3.5-5.1 MMOL/L) CHLORIDE 103 MMOL/L (98-107 MMOL/L) TCO2 30.2 MMOL/L (21.0-32.0 MMOL/L) ANION GAP 5.8 MMOL/L L (8.0-16.0 MMOL/L) BUN 3 MG/DL L (7-18 MG/DL) CREATININE 0.65 MG/DL (0.43-0.83 MG/DL) BUN/CREATININE RATIO 4.6 L (9.1-17.0 ) GLUCOSE 99 MG/DL (65-99 MG/DL) GFR EST NON AFR [place] >=90 ML/MIN GFRA EST AFR AMER >=90 ML/MIN CALCIUM 8.7 MG/DL (8.5-10.1 MG/DL) BILIRUBIN TOTAL 0.32 MG/DL (0.20-1.00 MG/DL) TOTAL PROTEIN 5.7 GM/DL L (6.4-8.2 GM/DL) ALBUMIN 2.5 GM/DL L (3.4-5.0 GM/DL) GLOBULIN 3.2 GM/DL (2.3-3.5 GM/DL) A/G RATIO 0.8 MG/DL L (1.5-2.2 MG/DL) ALK PHOS 81 U/L (46-116 U/L) ALT (SGPT) 14 U/L (12-78 U/L) AST (SGOT) 15 U/L (15-37 U/L) PHOSPHORUS 3.1 MG/DL (2.5-4.9 MG/DL) C-REACTIVE PROTEIN 0.75 MG/DL H (0.00-0.30 MG/DL) Chemistry from 03/14/2014 5:02 AMSODIUM 139 MMOL/L (136-145 MMOL/L) POTASSIUM 3.8 MMOL/L (3.5-5.1 MMOL/L) CHLORIDE 105 MMOL/L (98-107 MMOL/L) TCO2 28.9 MMOL/L (21.0-32.0 MMOL/L) ANION GAP 5.1 MMOL/L L (8.0-16.0 MMOL/L) BUN 3 MG/DL L (7-18 MG/DL) CREATININE 0.55 MG/DL (0.43-0.83 MG/DL) BUN/CREATININE RATIO 5.5 L (9.1-17.0 ) GLUCOSE 107 MG/DL H (65-99 MG/DL) GFR EST NON AFR [place] >=90 ML/MIN GFRA EST AFR AMER >=90 ML/MIN CALCIUM 9.0 MG/DL (8.5-10.1 MG/DL) BILIRUBIN TOTAL 0.25 MG/DL (0.20-1.00 MG/DL) TOTAL PROTEIN 5.8 GM/DL L (6.4-8.2 GM/DL) ALBUMIN 2.5 GM/DL L (3.4-5.0 GM/DL) GLOBULIN 3.3 GM/DL (2.3-3.5 GM/DL) A/G RATIO 0.8 MG/DL L (1.5-2.2 MG/DL) ALK PHOS 79 U/L (46-116 U/L) ALT (SGPT) 15 U/L (12-78 U/L) AST (SGOT) 13 U/L L (15-37 U/L) PHOSPHORUS 2.8 MG/DL (2.5-4.9 MG/DL) C-REACTIVE PROTEIN 0.51 MG/DL H (0.00-0.30 MG/DL) Chemistry from 03/15/2014 4:30 AMSODIUM 136 MMOL/L (136-145 MMOL/L) POTASSIUM 3.4 MMOL/L L (3.5-5.1 MMOL/L) CHLORIDE 101 MMOL/L (98-107 MMOL/L) TCO2 30.4 MMOL/L (21.0-32.0 MMOL/L) ANION GAP 4.6 MMOL/L L (8.0-16.0 MMOL/L) BUN 9 MG/DL (7-18 MG/DL) CREATININE 0.70 MG/DL (0.43-0.83 MG/DL) BUN/CREATININE RATIO 12.9 (9.1-17.0 ) GLUCOSE 121 MG/DL H (65-99 MG/DL) GFR EST NON AFR [place] >=90 ML/MIN GFRA EST AFR AMER >=90 ML/MIN CALCIUM 9.0 MG/DL (8.5-10.1 MG/DL) BILIRUBIN TOTAL 0.15 MG/DL L (0.20-1.00 MG/DL) TOTAL PROTEIN 5.6 GM/DL L (6.4-8.2 GM/DL) ALBUMIN 2.4 GM/DL L (3.4-5.0 GM/DL) GLOBULIN 3.2 GM/DL (2.3-3.5 GM/DL) A/G RATIO 0.7 MG/DL L (1.5-2.2 MG/DL) ALK PHOS 81 U/L (46-116 U/L) ALT (SGPT) 16 U/L (12-78 U/L) AST (SGOT) 13 U/L L (15-37 U/L) MAGNESIUM 1.9 MG/DL (1.8-2.4 MG/DL) PHOSPHORUS 3.4 MG/DL (2.5-4.9 MG/DL) Chemistry from 03/16/2014 4:30 AMSODIUM 137 MMOL/L (136-145 MMOL/L) POTASSIUM 3.6 MMOL/L (3.5-5.1 MMOL/L) CHLORIDE 102 MMOL/L (98-107 MMOL/L) TCO2 31.5 MMOL/L (21.0-32.0 MMOL/L) ANION GAP 3.5 MMOL/L L (8.0-16.0 MMOL/L) BUN 10 MG/DL (7-18 MG/DL) CREATININE 0.82 MG/DL (0.43-0.83 MG/DL) BUN/CREATININE RATIO 12.2 (9.1-17.0 ) GLUCOSE 138 MG/DL H (65-99 MG/DL) GFR EST NON AFR EAST TIM[place] 82 ML/MIN GFRA EST AFR AMER >=90 ML/MIN CALCIUM 8.8 MG/DL (8.5-10.1 MG/DL) BILIRUBIN TOTAL 0.17 MG/DL L (0.20-1.00 MG/DL) TOTAL PROTEIN 5.6 GM/DL L (6.4-8.2 GM/DL) ALBUMIN 2.5 GM/DL L (3.4-5.0 GM/DL) GLOBULIN 3.1 GM/DL (2.3-3.5 GM/DL) A/G RATIO 0.8 MG/DL L (1.5-2.2 MG/DL) ALK PHOS 78 U/L (46-116 U/L) ALT (SGPT) 19 U/L (12-78 U/L) AST (SGOT) 13 U/L L (15-37 U/L) MAGNESIUM 1.9 MG/DL (1.8-2.4 MG/DL) PHOSPHORUS 4.7 MG/DL (2.5-4.9 MG/DL) Hematology from 03/10/2014 5:03 AMWBC 18.2 X10e3/UL H (3.6-11.2 X10e3/UL) RBC 4.18 X10e6/UL (3.63-4.92 X10e6/UL) HEMOGLOBIN 13.3 G/DL (11.0-14.3 G/DL) HEMATOCRIT 40.5 % (31.2-41.9 %) MCV 96.9 FL (79.0-98.0 FL) MCH 31.9 PG (27.0-33.0 PG) MCHC 32.9 G/DL (32.0-36.0 G/DL) RDW 13.6 % (12.3-17.0 %) PLATELET 372 X10e3/UL (159-386 X10e3/UL) MPV 7.8 FL (7.4-10.4 FL) MANUAL DIFF PERFORMED SEGS 74.0 % BANDS 0.0 % LYMPHOCYTES 22.0 % MONOCYTES 4.0 % EOSINOPHILS 0.0 % BASOPHILS 0.0 % ABSOLUTE NEUTROPHILS 13.5 X10e3/UL H (1.8-7.8 X10e3/UL) ABSOLUTE LYMPHOCYTES 4.0 X10e3/UL H (1.0-3.0 X10e3/UL) ABSOLUTE MONOCYTES 0.7 X10e3/UL (0.3-1.0 X10e3/UL) ABSOLUTE EOSINOPHILS 0.0 X10e3/UL (0.0-0.5 X10e3/UL) ABSOLUTE BASOPHILS 0.0 X10e3/UL (0.0-0.2 X10e3/UL) TOXIC GRANULATION 1+ WBC VACUOLES 1+ Hematology from 03/11/2014 4:47 AMWBC 10.3 X10e3/UL (3.6-11.2 X10e3/UL) RBC 3.70 X10e6/UL (3.63-4.92 X10e6/UL) HEMOGLOBIN 12.3 G/DL (11.0-14.3 G/DL) HEMATOCRIT 35.2 % (31.2-41.9 %) MCV 94.9 FL (79.0-98.0 FL) MCH 33.1 PG H (27.0-33.0 PG) MCHC 34.9 G/DL (32.0-36.0 G/DL) RDW 14.1 % (12.3-17.0 %) RDWSD 46.4 (37.1-47.8 ) PLATELET 337 X10e3/UL (159-386 X10e3/UL) MPV 7.5 FL (7.4-10.4 FL) AUTOMATED DIFF PERFORMED SEGS 61.1 % LYMPHOCYTES 30.5 % MONOCYTES 6.9 % EOSINOPHILS 0.6 % BASOPHILS 0.9 % ABSOLUTE NEUTROPHILS 6.3 X10e3/UL (1.8-7.8 X10e3/UL) ABSOLUTE LYMPHOCYTES 3.1 X10e3/UL H (1.0-3.0 X10e3/UL) ABSOLUTE MONOCYTES 0.7 X10e3/UL (0.3-1.0 X10e3/UL) ABSOLUTE EOSINOPHILS 0.1 X10e3/UL (0.0-0.5 X10e3/UL) ABSOLUTE BASOPHILS 0.1 X10e3/UL (0.0-0.2 X10e3/UL) Hematology from 03/12/2014 4:58 AMWBC 11.2 X10e3/UL (3.6-11.2 X10e3/UL) RBC 3.95 X10e6/UL (3.63-4.92 X10e6/UL) HEMOGLOBIN 13.0 G/DL (11.0-14.3 G/DL) HEMATOCRIT 37.6 % (31.2-41.9 %) MCV 95.1 FL (79.0-98.0 FL) MCH 32.9 PG (27.0-33.0 PG) MCHC 34.6 G/DL (32.0-36.0 G/DL) RDW 14.3 % (12.3-17.0 %) RDWSD 47.7 (37.1-47.8 ) PLATELET 382 X10e3/UL (159-386 X10e3/UL) MPV 7.5 FL (7.4-10.4 FL) AUTOMATED DIFF PERFORMED SEGS 73.2 % LYMPHOCYTES 17.7 % MONOCYTES 7.4 % EOSINOPHILS 0.8 % BASOPHILS 0.9 % ABSOLUTE NEUTROPHILS 8.2 X10e3/UL H (1.8-7.8 X10e3/UL) ABSOLUTE LYMPHOCYTES 2.0 X10e3/UL (1.0-3.0 X10e3/UL) ABSOLUTE MONOCYTES 0.8 X10e3/UL (0.3-1.0 X10e3/UL) ABSOLUTE EOSINOPHILS 0.1 X10e3/UL (0.0-0.5 X10e3/UL) ABSOLUTE BASOPHILS 0.1 X10e3/UL (0.0-0.2 X10e3/UL) Hematology from 03/13/2014 5:08 AMWBC 9.7 X10e3/UL (3.6-11.2 X10e3/UL) RBC 3.71 X10e6/UL (3.63-4.92 X10e6/UL) HEMOGLOBIN 12.0 G/DL (11.0-14.3 G/DL) HEMATOCRIT 35.4 % (31.2-41.9 %) MCV 95.5 FL (79.0-98.0 FL) MCH 32.4 PG (27.0-33.0 PG) MCHC 33.9 G/DL (32.0-36.0 G/DL) RDW 14.2 % (12.3-17.0 %) RDWSD 47.3 (37.1-47.8 ) PLATELET 400 X10e3/UL H (159-386 X10e3/UL) MPV 7.2 FL L (7.4-10.4 FL) AUTOMATED DIFF PERFORMED SEGS 59.1 % LYMPHOCYTES 28.0 % MONOCYTES 10.1 % EOSINOPHILS 1.9 % BASOPHILS 0.9 % ABSOLUTE NEUTROPHILS 5.7 X10e3/UL (1.8-7.8 X10e3/UL) ABSOLUTE LYMPHOCYTES 2.7 X10e3/UL (1.0-3.0 X10e3/UL) ABSOLUTE MONOCYTES 1.0 X10e3/UL (0.3-1.0 X10e3/UL) ABSOLUTE EOSINOPHILS 0.2 X10e3/UL (0.0-0.5 X10e3/UL) ABSOLUTE BASOPHILS 0.1 X10e3/UL (0.0-0.2 X10e3/UL) Hematology from 03/14/2014 5:02 AMWBC 9.9 X10e3/UL (3.6-11.2 X10e3/UL) RBC 3.80 X10e6/UL (3.63-4.92 X10e6/UL) HEMOGLOBIN 12.4 G/DL (11.0-14.3 G/DL) HEMATOCRIT 36.1 % (31.2-41.9 %) MCV 95.1 FL (79.0-98.0 FL) MCH 32.6 PG (27.0-33.0 PG) MCHC 34.3 G/DL (32.0-36.0 G/DL) RDW 14.2 % (12.3-17.0 %) RDWSD 47.3 (37.1-47.8 ) PLATELET 476 X10e3/UL H (159-386 X10e3/UL) MPV 6.9 FL L (7.4-10.4 FL) AUTOMATED DIFF PERFORMED SEGS 55.3 % LYMPHOCYTES 29.7 % MONOCYTES 11.9 % EOSINOPHILS 2.0 % BASOPHILS 1.1 % ABSOLUTE NEUTROPHILS 5.5 X10e3/UL (1.8-7.8 X10e3/UL) ABSOLUTE LYMPHOCYTES 2.9 X10e3/UL (1.0-3.0 X10e3/UL) ABSOLUTE MONOCYTES 1.2 X10e3/UL H (0.3-1.0 X10e3/UL) ABSOLUTE EOSINOPHILS 0.2 X10e3/UL (0.0-0.5 X10e3/UL) ABSOLUTE BASOPHILS 0.1 X10e3/UL (0.0-0.2 X10e3/UL) Hematology from 03/15/2014 4:30 AMWBC 13.3 X10e3/UL H (3.6-11.2 X10e3/UL) RBC 3.76 X10e6/UL (3.63-4.92 X10e6/UL) HEMOGLOBIN 12.2 G/DL (11.0-14.3 G/DL) HEMATOCRIT 36.3 % (31.2-41.9 %) MCV 96.5 FL (79.0-98.0 FL) MCH 32.5 PG (27.0-33.0 PG) MCHC 33.7 G/DL (32.0-36.0 G/DL) RDW 14.4 % (12.3-17.0 %) RDWSD 48.1 H (37.1-47.8 ) PLATELET 485 X10e3/UL H (159-386 X10e3/UL) MPV 7.1 FL L (7.4-10.4 FL) MANUAL DIFF PERFORMED SEGS 57.0 % BANDS 0.0 % LYMPHOCYTES 42.0 % MONOCYTES 1.0 % EOSINOPHILS 0.0 % BASOPHILS 0.0 % ABSOLUTE NEUTROPHILS 7.6 X10e3/UL (1.8-7.8 X10e3/UL) ABSOLUTE LYMPHOCYTES 5.6 X10e3/UL H (1.0-3.0 X10e3/UL) ABSOLUTE MONOCYTES 0.1 X10e3/UL L (0.3-1.0 X10e3/UL) ABSOLUTE EOSINOPHILS 0.0 X10e3/UL (0.0-0.5 X10e3/UL) ABSOLUTE BASOPHILS 0.0 X10e3/UL (0.0-0.2 X10e3/UL) Hematology from 03/16/2014 4:30 AMWBC 10.2 X10e3/UL (3.6-11.2 X10e3/UL) RBC 3.53 X10e6/UL L (3.63-4.92 X10e6/UL) HEMOGLOBIN 11.7 G/DL (11.0-14.3 G/DL) HEMATOCRIT 34.4 % (31.2-41.9 %) MCV 97.3 FL (79.0-98.0 FL) MCH 33.2 PG H (27.0-33.0 PG) MCHC 34.1 G/DL (32.0-36.0 G/DL) RDW 14.6 % (12.3-17.0 %) RDWSD 49.4 H (37.1-47.8 ) PLATELET 468 X10e3/UL H (159-386 X10e3/UL) MPV 7.0 FL L (7.4-10.4 FL) AUTOMATED DIFF PERFORMED SEGS 57.0 % LYMPHOCYTES 26.6 % MONOCYTES 12.7 % EOSINOPHILS 2.5 % BASOPHILS 1.2 % ABSOLUTE NEUTROPHILS 5.8 X10e3/UL (1.8-7.8 X10e3/UL) ABSOLUTE LYMPHOCYTES 2.7 X10e3/UL (1.0-3.0 X10e3/UL) ABSOLUTE MONOCYTES 1.3 X10e3/UL H (0.3-1.0 X10e3/UL) ABSOLUTE EOSINOPHILS 0.3 X10e3/UL (0.0-0.5 X10e3/UL) ABSOLUTE BASOPHILS 0.1 X10e3/UL (0.0-0.2 X10e3/UL) Urinalysis from 03/09/2014 8:15 PMURINE COLOR YELLOW (STRAW/YELL/DK YELL ) URINE APPEARANCE CLEAR (CLEAR ) URINE PH 6.5 (5.0-8.0 ) URINE SPECIFIC GRAVITY 1.020 (<=1.005->=1.030 ) URINE GLUCOSE NEGATIVE MG/DL (NEGATIVE MG/DL) URINE BILIRUBIN NEGATIVE (NEGATIVE ) URINE KETONES NEGATIVE MG/DL (NEGATIVE MG/DL) URINE BLOOD NEGATIVE (NEGATIVE ) URINE PROTEIN NEGATIVE MG/DL (NEGATIVE MG/DL) URINE UROBILINOGEN 0.2 EU/DL (0.2-1.0 EU/DL) URINE NITRITES NEGATIVE (NEGATIVE ) *URINE LEUKOCYTES NEGATIVE (NEGATIVE ) Microbiology from 03/13/2014 6:30 AM* CULTURE BLOOD (Preliminary Result) Specimen Number: [id number] Specimen Source: Sample Collection Date/Time: 03/13/2014 6:30 AM CULTURE BLOOD: No Growth after 48 hours of initial incubation, testing to continue for additional 72 hours. Microbiology from 03/13/2014 6:35 AM* CULTURE BLOOD (Preliminary Result) Specimen Number: [id number] Specimen Source: Sample Collection Date/Time: 03/13/2014 6:35 AM CULTURE BLOOD: No Growth after 48 hours of initial incubation, testing to continue for additional 72 hours. Pathology from 03/12/2014 12:00 AMPATH SOURCE 1. ANTRUM BIOPSY-ROUTINE 2. ESOPHAGEAL BX-ROUTINE, ULCER 3. COLON BX-ROUTINE, RANDOM FINAL DIAGNOSIS 1. GASTRIC MUCOSA, BIOPSY (ANTRUM): MILD CHRONIC SUPERFICIAL GASTRITIS WITH NO HELICOBACTER PYLORI ORGANISMS PRESENT. (RAD[JOSE]) 2. ESOPHAGUS (BIOPSY): MUCOSA ULCERATION WITH FIBRINOUS EXUDATE. NO DYSPLASIA NOR INTACT MUCOSA IDENTIFIED. NO FUNGAL ORGANISMS PRESENT. (RAD[JOSE]) 3. COLON, BIOPSIES (RANDOM): BENIGN COLONIC MUCOSA WITH NO SIGNIFICANT COLITIS. (JOSE) ABEL HA M.D. , PATHOLOGIST (CASE SIGNED 03/13/2014 AT 11:38) GROSS EXAMINATION: 1. SUBMITTED IN FORMALIN LABELED "ANTRUM" IS A BIOPSY MEASURING 0.3 CM. IT IS TOTALLY SUBMITTED. 2. SUBMITTED IN FORMALIN LABELED "ESOPHAGEAL ULCER" IS A BIOPSY MEASURING 0.3 CM. IT IS TOTALLY SUBMITTED. 3. SUBMITTED IN FORMALIN LABELED "RANDOM COLON" ARE FOUR BIOPSIES THE LARGEST MEASURING 0.3 CM. THEY ARE TOTALLY SUBMITTED. (RS/CLN) MICROSCOPIC EXAMINATION: 1. BIOPSIES OF ANTRUM REVEAL MILD CHRONIC INFLAMMATION OF LAMINA PROPRIA. THE MUCOSA SHOWS NORMAL MATURATION WITHOUT ATROPHY NOR INTESTINAL METAPLASIA. IMMUNOHISTOCHEMICAL ANALYSIS REVEALS NO HELICOBACTER PYLORI ORGANISMS PRESENT. 2. BIOPSIES OF ESOPHAGUS REVEAL EVIDENCE OF MUCOSAL EROSION OF A FIBRINOUS EXUDATE. NO INTACT SQUAMOUS OR GLANDULAR MUCOSA IS IDENTIFIED. GMS STAINS REVEAL NO FUNGAL ORGANISMS PRESENT. 3. RANDOM COLON BIOPSIES REVEAL BENIGN COLONIC MUCOSA. THERE IS NO SIGNIFICANT INCREASED INFLAMMATION OF LAMINA PROPRIA. THERE IS NO INCREASED COLLAGEN DEPOSITION. CHANGES OF MICROSCOPIC COLITIS ARE NOT IDENTIFIED. PHYSICIANS OBED BLAKELY// SVETLANA ALDRICH// CHARGE CODE CPT COUNT [id number] DX Radiology from 03/13/2014 5:22 AMCHEST 1 VIEW DATE OF EXAM: Mar 13 2014 8: 13AM Proc: DG 0066 - CHEST 1 VIEW CPT Code(s): 53418-; ; ; INDICATION / CLINICAL HISTORY: Postop. FINDINGS: There is unchanged left lower lobe pulmonary nodule measuring 1.5 cm. There are bilateral breast prostheses producing increased density over both lower lobes. No acute infiltrate, pneumothorax, or pleural effusion is identified. The heart size is within normal limits. IMPRESSION: No evidence of acute cardiopulmonary process. DX Radiology from 03/13/2014 8:00 AMABDOMEN (KUB) 1 VIEW DATE OF EXAM: Mar 13 2014 8:21AM Proc: DG 0035 - ABDOMEN (KUB) 1 VIEW CPT Code(s): 87256-; ; ; INDICATION / CLINICAL HISTORY: \\E\\abdominal pain, diarrhea FINDINGS: Supine view of the abdomen was obtained. The bowel gas pattern is unremarkable without evidence of obstruction or ileus. No gross evidence of free air is identified on supine positioning. No abdominal mass effect or abnormal calcific density is identified. The osseous structures appear intact. There is no evidence of abnormal radiopaque foreign body. IMPRESSION: Unremarkable abdomen. Nuclear Medicine from 03/13/2014 12:13 PMMYOCARDIAL PERFUSION PHARMACOLOGICAL DATE OF EXAM: Mar 13 2014 3:50PM Proc: NM 0393 - MYOCARDIAL PERF PHARMACOLOGICAL CPT Code(s): 73151-; ; ; INDICATION / CLINICAL HISTORY: Chest pain. COMPARISON: None. TECHNIQUE: A total of 10.5 Tc 99m Myoview were administered intravenously and rest images obtained. Then 0.4 mg of Lexiscan were administered intravenously for pharmacologic stress. At this time, 32.5 mCi of Tc 99m Myoview were administered intravenously and stress images obtained. FINDINGS: There are no focal myocardial perfusion abnormalities. Specifically, no reversible perfusion defects to suggest ischemia are demonstrated. The left ventricular ejection fraction is calculated at 87%. There are findings of either apical thinning or remote apical infarct. IMPRESSION: 1. There are no reversible perfusion defects to suggest ischemia. 2. Apical thinning versus remote apical infarct.
--- OUTSIDE RECORDS SUMMARY | 2017-02-24 16:59 | XMS REPORT ---
Author Author GENERATED, SYSTEM Organization Unknown Address Unknown Phone Unavailable Care Team Providers Care Financial Analysis Consultant Name Role Phone MD GRACY, NAVIN PP [phone] Reason For Visit Chief Complaint CHRONIC LT ELBOW PAIN Social History Functional Status Vital Signs [...] 1 :12 PM * Completed Procedure Code: 23428 Procedure Name: not valued, on 04/22/2016 12: 00 AM * Completed Esophagogastroduodenoscopy, by MD BAIRON HAMILTON, on 11/20/2015 12:55 PM * Completed Procedure Code: 07517 Procedure Name: not valued, on 11/20/2015 12: 00 AM * Completed Procedure Code: 12306 Procedure Name: not valued, on 11/20/2015 12: 00 AM * Completed Procedure Code: 45.16 Procedure Name: not valued, on 03/12/2014 12: 00 AM * Completed Procedure Code: 45.25 Procedure Name: not valued, on 03/12/2014 12: 00 AM * Completed , on 08/20/2009 12:00 AM Immunizations * Influenza, seasonal, injectable (NOVARTIS, Lot # [id number]); Administered 2013 9:24 AM; 0.5 ML=1 DOSE, [...]
--- OUTSIDE RECORDS SUMMARY | 2017-02-24 17:00 | XMS REPORT ---
Author Author GENERATED, SYSTEM Organization Unknown Address Unknown Phone Unavailable Care Team Providers Care Crate Liner Name Role Phone MD GRACY, NAVIN PP [phone] Reason For Visit Chief Complaint LT ELBOW CELLULITIS Social History Functional Status Vital Signs Results Chemistry from 10/02/2016 4:17 AMSODIUM 142 MMOL/L (136-145 MMOL/L) POTASSIUM 3.7 MMOL/L (3.5-5.1 MMOL/L) CHLORIDE 109 MMOL/L H (98-107 MMOL/L) TCO2 19.1 MMOL/L L (21.0-32.0 MMOL/L) *ANION GAP 13.9 MMOL/L (8.0-16.0 MMOL/L) BUN 16 MG/DL (7-18 MG/DL) CREATININE 0.94 MG/DL (0.55-1.02 MG/DL) *BUN/CREATININE RATIO 17.0 (9.1-17.0 ) GLUCOSE 116 MG/DL H (65-99 MG/DL) *GFR EST NON AFR IRANIAN 68 ML/MIN *GFR EST AFR AMER 79 ML/MIN CALCIUM 8.7 MG/DL (8.5-10.1 MG/DL) BILIRUBIN TOTAL 0.20 MG/DL (0.20-1.00 MG/DL) TOTAL PROTEIN 7.2 GM/DL (6.4-8.2 GM/DL) ALBUMIN 3.5 GM/DL (3.4-5.0 GM/DL) *GLOBULIN 3.7 GM/DL H (2.3-3.5 GM/DL) *A/G RATIO 0.9 MG/DL L (1.5-2.2 MG/DL) ALK PHOS 177 U/L H (46-116 U/L) ALT (SGPT) 28 U/L (16-63 U/L) AST (SGOT) 18 U/L (15-37 U/L) C-REACTIVE PROTEIN 0.09 MG/DL (0.00-0.30 MG/DL) Hematology from 10/02/2016 4:17 AMWBC 14.9 X10e3/UL H (3.6-11.2 X10e3/UL) RBC 4.20 X10e6/UL (3.63-4.92 X10e6/UL) HEMOGLOBIN 13.9 G/DL (11.0-14.3 G/DL) HEMATOCRIT 42.7 % H (31.2-41.9 %) *MCV 101.8 FL H (79.0-98.0 FL) *MCH 33.2 PG H (27.0-33.0 PG) *MCHC 32.7 G/DL (32.0-36.0 G/DL) *RDW 14.4 % (12.3-17.0 %) *RDWSD 52.1 H (37.1-47.8 ) PLATELET 358 X10e3/UL (159-386 X10e3/UL) *MPV 7.6 FL (7.4-10.4 FL) AUTOMATED DIFF PERFORMED SEGS 73.4 % *LYMPHOCYTES 18.7 % *MONOCYTES 5.3 % *EOSINOPHILS 2.0 % *BASOPHILS 0.6 % *ABSOLUTE NEUTROPHILS 11.00 X10e3/UL H (1.80-7.80 X10e3/UL) *ABSOLUTE LYMPHOCYTES 2.80 X10e3/UL (1.00-3.00 X10e3/UL) *ABSOLUTE MONOCYTES 0.80 X10e3/UL (0.30-1.00 X10e3/UL) *ABSOLUTE EOSINOPHILS 0.30 X10e3/UL (0.00-0.50 X10e3/UL) *ABSOLUTE BASOPHILS 0.10 X10e3/UL (0.00-0.20 X10e3/UL) SED RATE 18 MM/HR (0-30 MM/HR) DX Radiology from 10/02/2016 4:22 AMELBOW LEFT 3 VIEWS History: Evaluate for osteomyelitis. Technique: 3view elbow Priors: August 29, 2016. Findings: There is no evidence of an acute fracture or dislocation. There is redemonstration of erosive changes involving the dorsal olecranon. No new focal area of osseous destruction or periosteal reaction is identified. Impression: Stable erosive changes involving the dorsal olecranon. Electronically signed by: JOSESITO MILIAN Dictated: 10/02/2016 07:21 Problems Encounter Diagnosis No relevant problems exist. [...] 1 :12 PM * Completed Procedure Code: 66182 Procedure Name: not valued, on 04/22/2016 12: 00 AM * Completed Esophagogastroduodenoscopy, by MD BAIRON HAMILTON, on 11/20/2015 12:55 PM * Completed Procedure Code: 97182 Procedure Name: not valued, on 11/20/2015 12: 00 AM * Completed Procedure Code: 87928 Procedure Name: not valued, on 11/20/2015 12: 00 AM * Completed Procedure Code: 45.16 Procedure Name: not valued, on 03/12/2014 12: 00 AM * Completed Procedure Code: 45.25 Procedure Name: not valued, on 03/12/2014 12: 00 AM * Completed , on 08/20/2009 12:00 AM Immunizations * Influenza, seasonal, injectable (NOVARTIS, Lot # [id number]); Administered 2013 9:24 AM; 0.5 ML=1 DOSE, [...]
--- OUTSIDE RECORDS SUMMARY | 2017-02-24 17:00 | XMS REPORT ---
Author Author Indy Falk [facility] [employer] Address Unknown Phone Unavailable Care Team Providers Care Data Conversion Analyst Name Role Phone Indy Falk CP Unavailable [...]
--- OUTSIDE RECORDS SUMMARY | 2017-02-24 17:01 | XMS REPORT ---
Author Author GENERATED, SYSTEM Organization Unknown Address Unknown Phone Unavailable Care Team Providers Care Lacquer Shader Name Role Phone UNASSIGNED DOCTOR , DOCTOR PP [phone] Reason For Visit Chief Complaint VOMITING DIARRHEA Social History Functional Status Vital Signs Results Chemistry from 09/28/2014 1:51 PMLACTIC ACID 1.30 MMOL/L (0.40-2.00 MMOL/L) Chemistry from 09/28/2014 1:35 PMSODIUM 135 MMOL/L L (136-145 MMOL/L) POTASSIUM 3.8 MMOL/L (3.5-5.1 MMOL/L) CHLORIDE 99 MMOL/L (98-107 MMOL/L) TCO2 26.8 MMOL/L (21.0-32.0 MMOL/L) ANION GAP 9.2 MMOL/L (8.0-16.0 MMOL/L) BUN 11 MG/DL (7-18 MG/DL) CREATININE 0.48 MG/DL (0.43-0.83 MG/DL) BUN/CREATININE RATIO 22.9 H (9.1-17.0 ) GLUCOSE 94 MG/DL (65-99 MG/DL) GFR EST NON AFR CUBAN >90 ML/MIN GFRA EST AFR AMER >90 ML/MIN CALCIUM 10.0 MG/DL (8.5-10.1 MG/DL) BILIRUBIN TOTAL 0.13 MG/DL L (0.20-1.00 MG/DL) TOTAL PROTEIN 8.2 GM/DL (6.4-8.2 GM/DL) ALBUMIN 3.7 GM/DL (3.4-5.0 GM/DL) GLOBULIN 4.5 GM/DL H (2.3-3.5 GM/DL) A/G RATIO 0.8 MG/DL L (1.5-2.2 MG/DL) ALK PHOS 121 U/L H (46-116 U/L) ALT (SGPT) 19 U/L (12-78 U/L) AST (SGOT) 19 U/L (15-37 U/L) AMYLASE 77 U/L (25-115 U/L) LIPASE 434 U/L H (73-393 U/L) TROPONIN-I <0.04 (SEE BELOW ) ALCOHOL <0.003 GM/DL ACETAMINOPHEN <2 MCG/ML L (10-30 MCG/ML) SALICYLATE 3.4 MG/DL (2.8-20.0 MG/DL) Chemistry from 09/28/2014 12:40 PMCOCAINE NEGATIVE (NEG <150 ) PCP NEGATIVE (NEG <25 ) OXYCODONE NEGATIVE (NEG <100 ) *PROPOXYPHENE (NORPROPOXYPHENE) (LAB) NEGATIVE (NEG <300 ) CANNABINOIDS NEGATIVE (NEG <50 ) BENZODIAZEINE POSITIVE A (NEG <150 ) AMPHETAMINE NEGATIVE (NEG <500 ) BARBITURATES NEGATIVE (NEG <200 ) METHAMPHETAMINES NEGATIVE (NEG <500 ) METHADONE (UR) NEGATIVE (NEG <200 ) OPIATES POSITIVE A (NEG <100 ) TRICYCLICS NEGATIVE (NEG <300 ) Hematology from 09/28/2014 1:35 PMWBC 8.7 X10e3/UL (3.6-11.2 X10e3/UL) RBC 4.39 X10e6/UL (3.63-4.92 X10e6/UL) HEMOGLOBIN 14.4 G/DL H (11.0-14.3 G/DL) HEMATOCRIT 43.0 % H (31.2-41.9 %) MCV 97.9 FL (79.0-98.0 FL) MCH 32.9 PG (27.0-33.0 PG) MCHC 33.6 G/DL (32.0-36.0 G/DL) RDW 17.7 % H (12.3-17.0 %) RDWSD 60.4 H (37.1-47.8 ) PLATELET 461 X10e3/UL H (159-386 X10e3/UL) MPV 7.4 FL (7.4-10.4 FL) AUTOMATED DIFF PERFORMED SEGS 70.3 % LYMPHOCYTES 18.0 % MONOCYTES 10.6 % EOSINOPHILS 0.2 % BASOPHILS 0.9 % ABSOLUTE NEUTROPHILS 6.1 X10e3/UL (1.8-7.8 X10e3/UL) ABSOLUTE LYMPHOCYTES 1.6 X10e3/UL (1.0-3.0 X10e3/UL) ABSOLUTE MONOCYTES 0.9 X10e3/UL (0.3-1.0 X10e3/UL) ABSOLUTE EOSINOPHILS 0.0 X10e3/UL (0.0-0.5 X10e3/UL) ABSOLUTE BASOPHILS 0.1 X10e3/UL (0.0-0.2 X10e3/UL) Urinalysis from 09/28/2014 12:40 PMURINE COLOR STRAW (STRAW/YELL/DK YELL ) URINE APPEARANCE CLEAR (CLEAR ) URINE PH 6.5 (5.0-8.0 ) URINE SPECIFIC GRAVITY <1.005 (<=1.005->=1.030 ) URINE GLUCOSE NEGATIVE MG/DL (NEGATIVE MG/DL) URINE BILIRUBIN NEGATIVE (NEGATIVE ) URINE KETONES NEGATIVE MG/DL (NEGATIVE MG/DL) URINE BLOOD NEGATIVE (NEGATIVE ) URINE PROTEIN NEGATIVE MG/DL (NEGATIVE MG/DL) URINE UROBILINOGEN 0.2 EU/DL (0.2-1.0 EU/DL) URINE NITRITES NEGATIVE (NEGATIVE ) *URINE LEUKOCYTES NEGATIVE (NEGATIVE ) DX Radiology from 09/28/2014 1:14 PMCHEST 1 VIEW DATE OF EXAM: Sep 28 2014 1: 45PM Proc: DG 0066 - CHEST 1 VIEW CPT Code(s): 30716-; ; ; INDICATION / CLINICAL HISTORY: Seizure, chest pain, abdominal pain, vomiting. COMPARISON: Plain film chest 2 views 04/09/2014. FINDINGS: Heart size and pulmonary vasculature are within normal limits. Rounded nodular density is again seen to overlie the left lung base. There is no pneumothorax or significant effusion. IMPRESSION: Rounded nodular density overlying the left lung base. This is stable since at least 07/05/2013, although older comparisons are not available for review. CT may be of assistance for further evaluation if clinically indicated. Alternatively, follow-up plain film may determine stability. END VIEW: CT Scan from 09/28/2014 1:14 PMCT ABD/PELVIS W/CONTRAST DATE OF EXAM: Sep 28 2014 3:02PM Proc: CT 0232 - CT ABD/PELVIS W/ CONTRAST CPT Code(s): 42340-; ; ; INDICATION / CLINICAL HISTORY: Vomiting, diarrhea, seizure, chest and abdominal pain. COMPARISON: CT abdomen and pelvis with contrast 08/28/2014. TECHNIQUE: Multiple contiguous axial CT images are obtained through the abdomen and pelvis following administration of iodinated contrast. Source dated are utilized to render coronal and sagittal reformations. FINDINGS: LOWER THORAX: Calcified granuloma is again seen in the left lower lobe. There is persistence of mild atelectasis or scarring in the bilateral dependent posterior lung bases. Heart size is normal. No pericardial effusion. ABDOMEN: There is no abnormal enhancing hepatic mass. Major portal vein branches are patent. Gallbladder is normal in size. No significant biliary ductal dilatation. Spleen, adrenal glands, kidneys, and pancreas are again unremarkable apart from mild smooth dilatation of the pancreatic duct, which measures 4 mm on the current examination, and 4 mm on the prior examination. No evidence of obstructing mass or calculus is seen. Abdominal aorta is normal in caliber with mild soft atherosclerotic plaque. There is no bowel obstruction, ascites, mesenteric lymphadenopathy, loculated fluid collection, or focal inflammatory mass. Appendix is unremarkable. No significant retroperitoneal lymphadenopathy. PELVIS: The urinary bladder is mildly distended and normal in contour. There is prior hysterectomy. No abnormal mass is seen at the vaginal cuff operative margin. BODY WALL AND OSSEOUS STRUCTURES: There is no fracture or destructive osseous lesions. There is normal mineralization. A small amount soft tissue emphysema is seen in the right lower quadrant anterior abdominal wall subcutaneous fat. IMPRESSION: 1. No bowel obstruction, ascites, or focal inflammatory mass. 2. A tiny amount of soft tissue emphysema in the anterior abdominal wall subcutaneous fat likely iatrogenic. 3. Stable granuloma in left lower lobe. CT CEREBRAL W/O CONTRAST DATE OF EXAM: Sep 28 2014 3:02PM Proc: CT 0001 - CT CEREBRAL W/O CONTRAST CPT Code(s): 26600-; ; ; INDICATION / CLINICAL HISTORY: Vomiting, diarrhea, seizure, chest pain. TECHNIQUE: Multiple contiguous axial CT images are obtained through the head without the administration of intravenous contrast. COMPARISON: Noncontrast CT head 08/31/2014. FINDINGS: There is no intracranial hemorrhage or extraaxial fluid collection. No mass effect or midline shift. Ventricles and sulci are within normal limits for patient's stated age. Basilar cisterns remain patent. Escoto-white interface is well maintained. There is no calvarial fracture. Visualized paranasal sinuses and mastoid air cells remain clear. Visualized portions of the globes and orbits are unremarkable. IMPRESSION: No acute intracranial hemorrhage or calvarial fracture. Problems Encounter Diagnosis No relevant problems exist. [...]
--- OUTSIDE RECORDS SUMMARY | 2017-02-24 17:01 | XMS REPORT | Continuity of care Document ---
[...] * Dehydration Status:Active. * Diarrhea Status:Active. * Gastritis Status:Active. * Hypokalemia Status:Active. * Hypokalemia Status:Active. * Hyponatremia Status:Active. * Nausea & Vomiting Status:Active. * Poisoning by Drug/Medicinal Substance Status:Active. Procedures No relevant procedures performed. Medication It is the responsibility of the patient or patient bilingual inside sales representative to confirm the list of medications with either the patient's personal care provider or the patient's follow-up care provider to ensure the patient has an appropriate list of medications to take at home. Take These Medications Start Taking These New Medications* ondansetron 4 mg tablet,disintegrating, Ordered By: TYRA GUTIERRES MD Directions: 1 tablet oral every four hours PRN nausea or vomiting Continue Taking These Home Medications* DULoxetine (Cymbalta) 30 mg capsule, delayed release(DR/EC), Ordered By: TYRA GUTIERRES MD Directions: 1 capsule oral daily Additional Instructions: DULOXETINE 90 MG DAILY IS DOSE * HYDROcodone-acetaminophen (Lortab) 5 mg-500 mg Tablet, Ordered By: TYRA GUTIERRES MD Directions: 1 tablet oral every four hours PRN pain * hydrOXYzine HCl 50 mg Tablet, Ordered By: TYRA GUTIERRES MD Directions: 1 tablet oral three times a day * metoprolol tartrate 25 mg Tablet, Ordered By: TYRA GUTIERRES MD Directions: 1 tablet oral daily * oxyCODONE (OxyCONTIN) 15 mg Tablet Extended Release 12 hr, Ordered By: TYRA GUTIERRES MD Directions: 1 tablet oral every twelve hours * pantoprazole 40 mg tablet,delayed release (DR/EC), Ordered By: TYRA GUTIERRES MD Directions: 1 tablet oral twice a day before breakfast * potassium chloride 20 mEq tablet,ER particles/crystals, Ordered By: TYRA GUTIERRES MD Directions: 1 tablet oral daily * traZODone 50 mg Tablet, Ordered By: TYRA GUTIERRES MD Directions: 1 tablet oral daily at bedtime Additional Instructions: GIVE WITH FOOD. 2 TABLETS AT BEDTIME Stop Taking These Medications* None Results Chemistry from 04/10/2014 5:32 AMSODIUM 140 MMOL/L (136-145 MMOL/L) POTASSIUM 3.6 MMOL/L (3.5-5.1 MMOL/L) CHLORIDE 107 MMOL/L (98-107 MMOL/L) TCO2 28.0 MMOL/L (21.0-32.0 MMOL/L) ANION GAP 5.0 MMOL/L L (8.0-16.0 MMOL/L) BUN 8 MG/DL (7-18 MG/DL) CREATININE 0.72 MG/DL (0.43-0.83 MG/DL) BUN/CREATININE RATIO 11.1 (9.1-17.0 ) GLUCOSE 91 MG/DL (65-99 MG/DL) GFR EST NON AFR SWAZI >=90 ML/MIN GFRA EST AFR AMER >=90 ML/MIN CALCIUM 9.1 MG/DL (8.5-10.1 MG/DL) BILIRUBIN TOTAL 0.30 MG/DL (0.20-1.00 MG/DL) TOTAL PROTEIN 6.5 GM/DL (6.4-8.2 GM/DL) ALBUMIN 3.1 GM/DL L (3.4-5.0 GM/DL) GLOBULIN 3.4 GM/DL (2.3-3.5 GM/DL) A/G RATIO 0.9 MG/DL L (1.5-2.2 MG/DL) ALK PHOS 87 U/L (46-116 U/L) ALT (SGPT) 18 U/L (12-78 U/L) AST (SGOT) 11 U/L L (15-37 U/L) LIPASE 110 U/L (73-393 U/L) Hematology from 04/10/2014 5:32 AMWBC 10.2 X10e3/UL (3.6-11.2 X10e3/UL) RBC 4.35 X10e6/UL (3.63-4.92 X10e6/UL) HEMOGLOBIN 13.7 G/DL (11.0-14.3 G/DL) HEMATOCRIT 41.9 % (31.2-41.9 %) MCV 96.3 FL (79.0-98.0 FL) MCH 31.5 PG (27.0-33.0 PG) MCHC 32.7 G/DL (32.0-36.0 G/DL) RDW 14.1 % (12.3-17.0 %) RDWSD 47.3 (37.1-47.8 ) PLATELET 370 X10e3/UL (159-386 X10e3/UL) MPV 7.6 FL (7.4-10.4 FL) AUTOMATED DIFF PERFORMED SEGS 44.8 % LYMPHOCYTES 45.4 % MONOCYTES 7.1 % EOSINOPHILS 1.7 % BASOPHILS 1.0 % ABSOLUTE NEUTROPHILS 4.6 X10e3/UL (1.8-7.8 X10e3/UL) ABSOLUTE LYMPHOCYTES 4.6 X10e3/UL H (1.0-3.0 X10e3/UL) ABSOLUTE MONOCYTES 0.7 X10e3/UL (0.3-1.0 X10e3/UL) ABSOLUTE EOSINOPHILS 0.2 X10e3/UL (0.0-0.5 X10e3/UL) ABSOLUTE BASOPHILS 0.1 X10e3/UL (0.0-0.2 X10e3/UL)
--- OUTSIDE RECORDS SUMMARY | 2017-02-24 17:01 | XMS REPORT ---
Author Author GENERATED, SYSTEM Organization Unknown Address Unknown Phone Unavailable Care Team Providers Care American History Professor Name Role Phone MD GRACY, NAVIN PP [phone] Reason For Visit Chief Complaint CELLULITIS LT ELBOW Social History Functional Status Vital Signs Results [...] 1 :12 PM * Completed Procedure Code: 96410 Procedure Name: not valued, on 04/22/2016 12: 00 AM * Completed Esophagogastroduodenoscopy, by MD BAIRON HAMILTON, on 11/20/2015 12:55 PM * Completed Procedure Code: 34537 Procedure Name: not valued, on 11/20/2015 12: 00 AM * Completed Procedure Code: 59116 Procedure Name: not valued, on 11/20/2015 12: 00 AM * Completed Procedure Code: 45.16 Procedure Name: not valued, on 03/12/2014 12: 00 AM * Completed Procedure Code: 45.25 Procedure Name: not valued, on 03/12/2014 12: 00 AM * Completed , on 08/20/2009 12:00 AM Immunizations * Influenza, seasonal, injectable (NOVARTIS, Lot # [id number]); Administered 2013 9:24 AM; 0.5 ML=1 DOSE, [...]
--- OUTSIDE RECORDS SUMMARY | 2017-02-24 17:01 | XMS REPORT ---
Author Author Alex Grant Organization [employer] Address Unknown Phone Unavailable Care Team Providers Care Gis Professor Name Role Phone Alex Grant CP Unavailable Allergies No Known Allergies Problems No Known Problems Medications No Known Medications Results No Known Results Summary Purpose [employer] Submission
--- OUTSIDE RECORDS SUMMARY | 2017-02-24 17:01 | XMS REPORT | Summary of Care ---
Author Author Vipul Bettencourt Unknown Address [address], [place] [id number] Phone Unavailable Care Team Providers Care Public Health Nurse Name Role Phone Trey Ren, Melo Unavailable Unavailable Chari Ren, Roseanna Unavailable Unavailable Vipul Bettencourt Unavailable Unavailable Mundo Ren, G Unavailable Unavailable Padilla Ren, T Unavailable Unavailable Reed Coffman PP Unavailable Unavailable Unavailable Functional Status Functional Status Health Issues* Name Dates Details Functional status health issues are not documented Status: Cognitive Status Health Issues* Name Dates Details Cognitive status health issues are not documented Status: Problems Name Dates Details Joint Pain, Localized In Both Shoulders Status: Active Lower back pain (724.2, M54.5) Status: Active Neck pain (723.1, M54.2) Status: Active Anxiety (300.00, F41.9) Status: Active Depression (311, F32.9) Status: Active Sacrum sprain (847.3, S33.8XXA) Status: Active Abnormal stress test (794.39, R94.39) Status: Active 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 Quantity: 60 Mao Flower M.D.* Started ActiveMulti-Day Vitamins Oral Tablet TAKE 1 TABLET DAILY. * Refills: 0 Jt Marcelino M.D.* Started 28-May-2011 ActiveOndansetron 4 MG Oral Tablet Dispersible dissolve one tab under tongue q 6 hours prn nausea * Quantity: 12 Refills: 0 Guanakito Yang M.D.* Started ActiveClonazePAM 1 MG Oral Tablet TAKE 1 TABLET BY MOUTH EVERY NIGHT AT BEDTIME * Quantity: 60 Refills: 5 Guanakito Causey M.D.* Started 03-Jun-2014 ActiveOxyCONTIN 20 MG Oral Tablet ER 12 Hour Abuse-Deterrent TAKE 1 TABLET EVERY 12 HOURS DAILY. * Refills: 0 Guanakito Causey M.D.* Started 03-Jun-2014 ActiveCarafate 1 GM Oral Tablet TAKE 1 TABLET 4 TIMES DAILY, BEFORE MEALS AND AT BEDTIME. * Refills: 0 Guanakito Causey M.D.* Started 03-Jun-2014 ActiveMetoprolol Succinate ER 25 MG Oral Tablet Extended Release 24 Hour TAKE 1 TABLET ONCE DAILY. * Quantity: 30 Refills: 4 Guanakito Causey M.D.* Started 03-Jun-2014 ActivePotassium Chloride ER 10 MEQ Oral Tablet Extended Release TAKE 2 TABLETS DAILY. * Refills: 0 Guanakito Causey M.D.* Started 03-Jun-2014 ActiveAtorvastatin Calcium 80 MG Oral Tablet TAKE 1 TABLET DAILY. * Refills: 0 * Started 06-Aug-2015 ActiveCloNIDine HCl - 0.1 MG Oral Tablet take one tablet in the a.m, one tablet at noon and two tablets at bedtime. * Refills: 0 * Started 06-Aug-2015 ActiveDoxepin HCl - 25 MG Oral Capsule TAKE 1 CAPSULE AT BEDTIME. * Refills: 0 * Started 06-Aug-2015 ActiveFerrous Sulfate 325 (65 Fe) MG Oral Tablet TAKE 1 TABLET DAILY DIRECTED. * Refills: 0 * Started 06-Aug-2015 ActiveFLUoxetine HCl - 40 MG Oral Capsule TAKE 1 CAPSULE DAILY. * Refills: 0 * Started 06-Aug-2015 ActiveHydrOXYzine HCl - 25 MG Oral Tablet TAKE 1 TABLET 3 TIMES DAILY NEEDED. * Quantity: 90 Refills: 0 * Started 06-Aug-2015 ActivePantoprazole Sodium 20 MG Oral Tablet Delayed Release TAKE 1 TABLET DAILY. * Refills: 0 * Started 06-Aug-2015 ActivePromethazine HCl - 25 MG Oral Tablet TAKE 1 TABLET TWICE DAILY NEEDED. * Refills: 0 * Started 06-Aug-2015 ActiveQUEtiapine Fumarate 50 MG Oral Tablet Take 1 tablet twice daily * Refills: 0 * Started 06-Aug-2015 ActiveDicyclomine HCl - 20 MG Oral Tablet Take 1 tablet every 4-6 hours as needed. * Quantity: 120 Refills: 2 Vipul Yeboah* Started 07-Aug-2015 Active Allergies and Adverse Reactions Name Dates Details Lortab TABS Status: Active Reglan TABS Status: Active Ultram TABS Status: Active Procedures Procedure Dates Details History of Inj Of Subst Other Than Anesth/Antispasm/Contrast/Neurolytic Lumbar Completed:01-Feb-2013 History of Inj Of Subst Other Than Anesth/Antispasm/Contrast/Neurolytic Lumbar Completed:15-Feb-2013 History of Inj Of Subst Other Than Anesth/Antispasm/Contrast/Neurolytic Lumbar Completed:01-Mar-2013 History of Colonoscopy For Forceps Biopsy History of Duodenoscopy With Biopsy Calprotectin, Fecal [id number] Ordered:11-Sep-2015 Celiac Disease Comprehensive [id number] Ordered:11-Sep-2015 Fecal Fat, Quant. [id number] Ordered:11-Sep-2015 LIVER PROFILE 1215 Ordered:11-Sep-2015 Osmolality, Fecal [id number] Ordered:11-Sep-2015 Immunization Name Dates Details Immunizations not documented Family History Father* Name Dates Details Family history of cardiac disorder (V17.49, Z82.49) Status: Active Social History Name Dates Details Smoking Status* Former smoker Vital Signs Date Test Result Details No Known Vitals to report Results Date Description Value Details Results not documented Plan of Care Planned Observations* Name Dates Details Planned Goals not documented Goal Planned Encounters* Appointment; Provider: Kanchan Schmidt On 05-Jun-2014 13:00 * Appointment; Provider: Lois Lawrence On 19-Aug-2011 09:00 * Appointment; Provider: Lois Lawrence On 05-Aug-2011 08:30 * Appointment; Provider: Lois Lawrence On 22-Jul-2011 08:30 Instructions * Instructions not documented Encounters Appointment; Vipul Yeboah Encounter Diagnosis: Problem not documented On 06-Aug-2015 13:30 Appointment; Lena Saucedo Encounter Diagnosis: Problem not documented On 09-Dec-2014 16:15 Appointment; Bao Carbone Encounter Diagnosis: Problem not documented On 06-Dec-2014 14:00 Appointment; Bao Carbone Encounter Diagnosis: Problem not documented On 25-Nov-2014 16:45 Appointment; Kanchan Schmidt Encounter Diagnosis: Problem not documented On 01-Jul-2014 13:30 Appointment; Kanchan Schmidt Encounter Diagnosis: Problem not documented On 03-Jun-2014 12:00 Appointment; Hina Prasad Encounter Diagnosis: Problem not documented On 14:45 Appointment; Bao Carbone Encounter Diagnosis: Problem not documented On 14:30 Appointment; Guanakito Yang Encounter Diagnosis: Problem not documented On 13:00 Appointment; Osmar Hina Encounter Diagnosis: Problem not documented On 12-Mar-2014 13:30 Appointment; Regino Jules Encounter Diagnosis: Problem not documented On 11-Dec-2013 10:30 Appointment; Jenaro Arguelles Encounter Diagnosis: Problem not documented On 10-Dec-2013 13:45 Appointment; Jenaro Arguelles Encounter Diagnosis: Problem not documented On 07-Nov-2013 08:45
--- OUTSIDE RECORDS SUMMARY | 2017-02-24 17:01 | XMS REPORT | Summary of Care ---
Author Author Chuck Mcconnell M.D. Unknown Address Unknown Phone Unavailable Care Team Providers Care Operating Room Rn Name Role Phone Trey Ren, Melo Unavailable Unavailable Chari Ren, Roseanna Unavailable Unavailable Obinna Garcia, Vipul Unavailable Unavailable Marty Ren, Chuck Unavailable Aditi Flower M.D., Katrin Unavailable Unavailable Padilla Ren, T Unavailable Unavailable Jayesh Ren, P Unavailable Unavailable Escobar, K Unavailable Unavailable Unavailable Unavailable Functional Status Name Dates Details Functional status health issues are not documented Status: Name Dates Details Cognitive status health issues are not documented Status: Problems Name Dates Details Joint Pain, Localized In Both Shoulders Status: Active Lower back pain (724.2, M54.5) Status: Active Neck pain (723.1, M54.2) Status: Active Depression (311, F32.9) Status: Active Sacrum sprain (847.3, S33.8XXA) Status: Active Abnormal stress test (794.39, R94.39) Status: Active 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 Quantity: 60 Mundo Ren, Mao Lazo Active Multi-Day Vitamins TABS TAKE 1 TABLET DAILY. * Refills: 0 Chari RenJt * Start 28-May-2011 Active Ondansetron 4 MG Oral Tablet Dispersible dissolve one tab under tongue q 6 hours prn nausea * Quantity: 12 Refills: 0 Guanakito Yang M.D. * Start Active ClonazePAM 1 MG Oral Tablet TAKE 1 TABLET BY MOUTH EVERY NIGHT AT BEDTIME * Quantity: 60 Refills: 5 Guanakito Causey M.D. * Start 03-Jun-2014 Active OxyCONTIN 20 MG Oral Tablet ER 12 Hour Abuse-Deterrent TAKE 1 TABLET EVERY 12 HOURS DAILY. * Refills: 0 Guanakito Causey M.D. * Start 03-Jun-2014 Active Sucralfate 1 GM Oral Tablet TAKE 1 TABLET 4 TIMES DAILY, BEFORE MEALS AND AT BEDTIME. * Quantity: 120 Refills: 0 Guanakito Causey M.D. * Start 03-Jun-2014 Active Metoprolol Succinate ER 25 MG Oral Tablet Extended Release 24 Hour TAKE 1 TABLET ONCE DAILY. * Quantity: 30 Refills: 4 Guanakito Causey M.D. * Start 03-Jun-2014 Active Potassium Chloride ER 10 MEQ Oral Tablet Extended Release TAKE 2 TABLETS DAILY. * Refills: 0 Guanakito Causey M.D. * Start 03-Jun-2014 Active Atorvastatin Calcium 80 MG Oral Tablet TAKE 1 TABLET DAILY. * Refills: 0 * Start 06-Aug-2015 Active CloNIDine HCl - 0.1 MG Oral Tablet take one tablet in the a.m, one tablet at noon and two tablets at bedtime. * Refills: 0 * Start 06-Aug-2015 Active Doxepin HCl - 25 MG Oral Capsule TAKE 1 CAPSULE AT BEDTIME. * Refills: 0 * Start 06-Aug-2015 Active Ferrous Sulfate 325 (65 Fe) MG Oral Tablet TAKE 1 TABLET DAILY DIRECTED. * Refills: 0 * Start 06-Aug-2015 Active FLUoxetine HCl - 40 MG Oral Capsule TAKE 1 CAPSULE DAILY. * Refills: 0 * Start 06-Aug-2015 Active HydrOXYzine HCl - 25 MG Oral Tablet TAKE 1 TABLET 3 TIMES DAILY NEEDED. * Quantity: 90 Refills: 0 * Start 06-Aug-2015 Active Promethazine HCl - 25 MG Oral Tablet TAKE 1 TABLET TWICE DAILY NEEDED. * Refills: 0 * Start 06-Aug-2015 Active QUEtiapine Fumarate 50 MG Oral Tablet Take 1 tablet twice daily * Refills: 0 * Start 06-Aug-2015 Active Advair Diskus 100-50 MCG/DOSE Inhalation Aerosol Powder Breath Activated INHALE 1 PUFF TWICE DAILY. * Refills: 0 * Start 09-Dec-2015 Active Lomotil 2.5-0.025 MG Oral Tablet TAKE 1 TABLET 4 TIMES DAILY. * Refills: 0 * Start 09-Dec-2015 Active Spiriva HandiHaler 18 MCG Inhalation Capsule USE DIRECTED. * Refills: 0 * Start 09-Dec-2015 Active Xopenex HFA 45 MCG/ACT Inhalation Aerosol INHALE 1 PUFF EVERY 4 HOURS NEEDED. * Refills: 0 * Start 09-Dec-2015 Active Omeprazole 20 MG Oral Capsule Delayed Release TAKE 1 CAPSULE TWICE DAILY. * Quantity: 60 Refills: 2 Osenbaugh P.A., Vipul * Start 12-Dec-2015 Active Advair HFA 45-21 MCG/ACT Inhalation Aerosol INHALE 2 PUFFS, BY MOUTH, TWICE DAILY. * Refills: 0 Marty M.D., Christopher * Start Active Fluconazole 150 MG Oral Tablet * Refills: 0 Marty M.D., Christopher * Start Active Allergies and Adverse Reactions Name Dates Details Lortab TABS (Allergy) Status: Active Reglan TABS (Allergy) Status: Active Ultram TABS (Allergy) Status: Active Procedures Procedure Dates Details History [...] Status: Active Social History Name Dates Details Drug-seeking behavior (305.90, Z76.5) Status: Active Name Dates Details Former smoker Vital Signs Date Test Result Details 23-Jul-2016 18:43 BP Systolic 118 mm[Hg] Status: Comments: Location: ; Position: BP Diastolic 58 mm[Hg] Status: Comments: Location: ; Position: Temperature 97.9 f Status: Comments: Method: Heart Rate 101 /min Status: Comments: Location: ; Physical Findings 99 Status: Comments: O2 Saturation Results Date Description Value Details Results not documented Plan of Care Name Dates Details Planned Observations Planned Goals not documented Instructions Name Dates Details Instructions not documented Encounters Appointment; Shane John M.D. Encounter Diagnosis: Problem [...]
--- OUTSIDE RECORDS SUMMARY | 2017-02-24 17:01 | XMS REPORT ---
Author Author GENERATED, SYSTEM Organization Unknown Address Unknown Phone Unavailable Care Team Providers Care Business Area Manager Name Role Phone UNASSIGNED DOCTOR , DOCTOR PP [phone] Reason For Visit Reason for Visit from 07/21/2015 9:49 AM:* Pt Stated Reason for Adm : pnuemonia Chief Complaint PNEUMONIA Social History Social History from 07/24/2015 10:04 AM:* Tobacco Use? : Current Everyday Smoker Social History from 07/21/2015 9:49 AM:* Tobacco Use? : Current Everyday Smoker Functional Status Functional Status from 07/24/2015 10:55 AM:* # Assists : 1 Functional Status from 07/24/2015 7:30 AM:* LOC : Alert * Oriented To : Person,Place,Time * Weight Bearing Status : Full * Assist Level : Partial * # Assists : 1 Functional Status from 07/23/2015 8:54 PM:* LOC : Alert * Oriented To : Person,Place,Time * Weight Bearing Status : Full * Assist Level : Partial * # Assists : 1 Functional Status from 07/23/2015 8:00 AM:* LOC : Alert * Oriented To : Person,Place,Time,Event * Weight Bearing Status : Full * Assist Level : Independent * # Assists : 1 Functional Status from 07/22/2015 7:35 PM:* LOC : Alert * Oriented To : Person,Place,Time,Event * Weight Bearing Status : Full * Assist Level : Partial * # Assists : 1 Functional Status from 07/22/2015 8:00 AM:* LOC : Alert * Oriented To : Person,Place,Time * Weight Bearing Status : Full * Assist Level : Partial * # Assists : 1 Functional Status from 07/21/2015 7:40 PM:* LOC : Alert * Oriented To : Person,Place,Time,Event * Weight Bearing Status : Full * Assist Level : Partial * # Assists : 1 Functional Status from 07/21/2015 9:49 AM:* LOC : Alert * Oriented To : Person,Place,Time,Event * Weight Bearing Status : Partial * Assist Level : Partial * # Assists : 1 Vital Signs [facility] Vital Signs from 07/24/2015 12:52 PM:* Weight : 66.8/ kg * Height : 5/7 ft,in Hospital Vital Signs from 07/24/2015 9:00 AM:* Heart Rate : 85 * Resp Rate : 25 * Systolic BP (mmHg) : 118 * Diastolic BP (mmHg) : 107 * Mean BP (mmHg) : 108 * O2 Saturation (%) : 97 [facility] Vital Signs from 07/24/2015 8:30 AM:* Heart Rate : 95 * Resp Rate : 25 * Systolic BP (mmHg) : 142 * Diastolic BP (mmHg) : 97 * Mean BP (mmHg) : 113 * O2 Saturation (%) : 95 [facility] Vital Signs from 07/24/2015 8:00 AM:* Temp : 98.2 * Heart Rate : 85 * Resp Rate : 17 * Systolic BP (mmHg) : 135 * Diastolic BP (mmHg) : 93 * Mean BP (mmHg) : 110 * O2 Saturation (%) : 95 [facility] Vital Signs from 07/24/2015 7:30 AM:* Heart Rate : 87 * Resp Rate : 29 * Systolic BP (mmHg) : 137 * Diastolic BP (mmHg) : 96 * Mean BP (mmHg) : 115 * O2 Saturation (%) : 92 [facility] Vital Signs from 07/24/2015 7:00 AM:* Heart Rate : 83 * Resp Rate : 30 * Systolic BP (mmHg) : 136 * Diastolic BP (mmHg) : 80 * Mean BP (mmHg) : 109 * O2 Saturation (%) : 95 [facility] Vital Signs from 07/24/2015 6:02 AM:* Weight : 66.8/ kg * Height : 5/7 ft,in [facility] Vital Signs from 07/24/2015 6:00 AM:* Heart Rate : 80 * Resp Rate : 23 * Systolic BP (mmHg) : 137 * Diastolic BP (mmHg) : 99 * Mean BP (mmHg) : 115 * O2 Saturation (%) : 97 [facility] Vital Signs from 07/24/2015 5:00 AM:* Heart Rate : 83 * Resp Rate : 20 * Systolic BP (mmHg) : 138 * Diastolic BP (mmHg) : 103 * Mean BP (mmHg) : 117 * O2 Saturation (%) : 96 [facility] Vital Signs from 07/24/2015 4:00 AM:* Heart Rate : 80 * Resp Rate : 31 * Systolic BP (mmHg) : 121 * Diastolic BP (mmHg) : 79 * Mean BP (mmHg) : 90 * O2 Saturation (%) : 97 [facility] Vital Signs from 07/24/2015 3:00 AM:* Temp : 98.6 * Heart Rate : 73 * Resp Rate : 30 * Systolic BP (mmHg) : 111 * Diastolic BP (mmHg) : 77 * Mean BP (mmHg) : 92 * O2 Saturation (%) : 96 [facility] Vital Signs from 07/24/2015 2:00 AM:* Heart Rate : 77 * Resp Rate : 31 * Systolic BP (mmHg) : 113 * Diastolic BP (mmHg) : 77 * Mean BP (mmHg) : 90 * O2 Saturation (%) : 95 [facility] Vital Signs from 07/24/2015 1:00 AM:* Heart Rate : 76 * Resp Rate : 32 * O2 Saturation (%) : 95 [facility] Vital Signs from 07/24/2015 12:00 AM:* Heart Rate : 84 * Resp Rate : 32 * Systolic BP (mmHg) : 108 * Diastolic BP (mmHg) : 81 * Mean BP (mmHg) : 94 * O2 Saturation (%) : 92 [facility] Vital Signs from 07/23/2015 11:41 PM:* Temp : 98.8 * Heart Rate : 83 * Resp Rate : 21 * Systolic BP (mmHg) : 128 * Diastolic BP (mmHg) : 85 * Mean BP (mmHg) : 91 [facility] Vital Signs from 07/23/2015 11:00 PM:* Heart Rate : 80 * Resp Rate : 30 * Systolic BP (mmHg) : 97 * Diastolic BP (mmHg) : 72 * Mean BP (mmHg) : 81 * O2 Saturation (%) : 94 [facility]ital Signs from 07/23/2015 10:00 PM:* Heart Rate : 99 * Resp Rate : 21 * O2 Saturation (%) : 91 [facility]ital Signs from 07/23/2015 9:00 PM:* Heart Rate : 97 * Resp Rate : 12 * Systolic BP (mmHg) : 91 * Diastolic BP (mmHg) : 55 * Mean BP (mmHg) : 64 * O2 Saturation (%) : 95 [facility]ital Signs from 07/23/2015 8:54 PM:* Heart Rate : 98 [facility] Vital Signs from 07/23/2015 8:00 PM:* Heart Rate : 101 * Resp Rate : 27 * Systolic BP (mmHg) : 104 * Diastolic BP (mmHg) : 56 * Mean BP (mmHg) : 97 * O2 Saturation (%) : 96 [facility] Signs from 07/23/2015 7:00 PM:* Temp : 98.7 * Heart Rate : 103 * Resp Rate : 21 * Systolic BP (mmHg) : 106 * Diastolic BP (mmHg) : 67 * Mean BP (mmHg) : 94 * O2 Saturation (%) : 89 [facility] Vital Signs from 07/23/2015 4:00 PM:* Heart Rate : 85 * Resp Rate : 21 * Systolic BP (mmHg) : 107 * Diastolic BP (mmHg) : 82 * Mean BP (mmHg) : 93 * O2 Saturation (%) : 97 [facility] Signs from 07/23/2015 3:00 PM:* Heart Rate : 93 * Resp Rate : 27 * Systolic BP (mmHg) : 115 * Diastolic BP (mmHg) : 84 * Mean BP (mmHg) : 98 * O2 Saturation (%) : 96 [facility] Signs from 07/23/2015 2:00 PM:* Heart Rate : 96 * Resp Rate : 22 * Systolic BP (mmHg) : 102 * Diastolic BP (mmHg) : 72 * Mean BP (mmHg) : 95 * O2 Saturation (%) : 94 [facility] Vital Signs from 07/23/2015 12:00 PM:* Temp : 98.5 * Heart Rate : 89 * Resp Rate : 32 * Systolic BP (mmHg) : 104 * Diastolic BP (mmHg) : 77 * Mean BP (mmHg) : 86 * O2 Saturation (%) : 96 [facility] Signs from 07/23/2015 11:00 AM:* Heart Rate : 99 * Resp Rate : 23 * Systolic BP (mmHg) : 121 * Diastolic BP (mmHg) : 82 * Mean BP (mmHg) : 95 * O2 Saturation (%) : 94 [facility] Signs from 07/23/2015 10:15 AM:* Heart Rate : 98 * Resp Rate : 22 * Systolic BP (mmHg) : 137 * Diastolic BP (mmHg) : 98 * Mean BP (mmHg) : 121 * O2 Saturation (%) : 97 [facility] Signs from 07/23/2015 10:00 AM:* Heart Rate : 108 * Resp Rate : 23 * Systolic BP (mmHg) : 119 * Diastolic BP (mmHg) : 85 * Mean BP (mmHg) : 98 * O2 Saturation (%) : 97 [facility] Signs from 07/23/2015 9:30 AM:* Heart Rate : 110 * Resp Rate : 24 * Systolic BP (mmHg) : 130 * Diastolic BP (mmHg) : 89 * Mean BP (mmHg) : 102 * O2 Saturation (%) : 94 [facility] Signs from 07/23/2015 9:00 AM:* Heart Rate : 110 * Resp Rate : 27 * O2 Saturation (%) : 96 [facility]ital Signs from 07/23/2015 8:15 AM:* Heart Rate : 103 * Resp Rate : 24 * Systolic BP (mmHg) : 129 * Diastolic BP (mmHg) : 93 * Mean BP (mmHg) : 106 * O2 Saturation (%) : 97 [facility] Signs from 07/23/2015 8:00 AM:* Temp : 98.4 * Heart Rate : 89 * Heart Rate : 89 * Resp Rate : 22 * Systolic BP (mmHg) : 144 * Diastolic BP (mmHg) : 107 * Mean BP (mmHg) : 120 * O2 Saturation (%) : 97 [facility] Signs from 07/23/2015 7:00 AM:* Heart Rate : 99 * Resp Rate : 27 * Systolic BP (mmHg) : 163 * Diastolic BP (mmHg) : 97 * Mean BP (mmHg) : 127 * O2 Saturation (%) : 98 [facility] Signs from 07/23/2015 6:15 AM:* Heart Rate : 94 * Resp Rate : 27 * O2 Saturation (%) : 92 [facility]ital Signs from 07/23/2015 6:00 AM:* Heart Rate : 110 * Resp Rate : 30 * Systolic BP (mmHg) : 144 * Diastolic BP (mmHg) : 94 * Mean BP (mmHg) : 110 * O2 Saturation (%) : 86 [facility] Signs from 07/23/2015 5:45 AM:* Heart Rate : 100 * Resp Rate : 31 * O2 Saturation (%) : 99 [facility] Signs from 07/23/2015 5:30 AM:* Heart Rate : 100 * Resp Rate : 31 * O2 Saturation (%) : 98 [facility] Signs from 07/23/2015 5:15 AM:* Heart Rate : 96 * Resp Rate : 36 * O2 Saturation (%) : 96 [facility] Signs from 07/23/2015 5:00 AM:* Heart Rate : 98 * Resp Rate : 33 * Systolic BP (mmHg) : 128 * Diastolic BP (mmHg) : 88 * Mean BP (mmHg) : 99 * O2 Saturation (%) : 98 [facility] Signs from 07/23/2015 4:45 AM:* Heart Rate : 95 * Resp Rate : 34 * O2 Saturation (%) : 99 [facility] Signs from 07/23/2015 4:30 AM:* Heart Rate : 101 * Resp Rate : 32 * O2 Saturation (%) : 97 [facility] Signs from 07/23/2015 4:15 AM:* Heart Rate : 97 * Resp Rate : 32 * O2 Saturation (%) : 97 [facility] Signs from 07/23/2015 4:00 AM:* Heart Rate : 93 * Resp Rate : 31 * Systolic BP (mmHg) : 144 * Diastolic BP (mmHg) : 101 * Mean BP (mmHg) : 116 * O2 Saturation (%) : 98 [facility] Sign[facility] from 07/23/2015 3:45 AM:* Heart Rate : 90 * Resp Rate : 31 * O2 Saturation (%) : 97 [facility] Signs from 07/23/2015 3:30 AM:* Heart Rate : 112 * Resp Rate : 24 * O2 Saturation (%) : 76 [facility] Sign[facility] from 07/23/2015 3:15 AM:* Heart Rate : 96 * Resp Rate : 28 * O2 Saturation (%) : 99 [facility] Sign[facility] from 07/23/2015 3:00 AM:* Temp : 98 * Heart Rate : 96 * Resp Rate : 25 * Systolic BP (mmHg) : 139 * Diastolic BP (mmHg) : 101 * Mean BP (mmHg) : 111 * O2 Saturation (%) : 99 [facility] Signs from 07/23/2015 2:45 AM:* Heart Rate : 97 * Resp Rate : 30 * O2 Saturation (%) : 99 [facility] Signs from 07/23/2015 2:30 AM:* Heart Rate : 95 * Resp Rate : 27 * O2 Saturation (%) : 98 [facility] Signs from 07/23/2015 1:15 AM:* Heart Rate : 93 * Resp Rate : 30 * O2 Saturation (%) : 98 [facility] Signs from 07/23/2015 1:00 AM:* Heart Rate : 98 * Resp Rate : 36 * Systolic BP (mmHg) : 104 * Diastolic BP (mmHg) : 84 * Mean BP (mmHg) : 90 * O2 Saturation (%) : 96 [facility] Signs from 07/23/2015 12:45 AM:* Heart Rate : 96 * Resp Rate : 29 * O2 Saturation (%) : 96 [facility] Sign[facility] from 07/23/2015 12:30 AM:* Heart Rate : 94 * Resp Rate : 13 * O2 Saturation (%) : 95 [facility] Sign[facility] from 07/23/2015 12:15 AM:* Heart Rate : 94 * Resp Rate : 29 * O2 Saturation (%) : 99 [facility] Sign[facility] from 07/23/2015 12:00 AM:* Heart Rate : 92 * Resp Rate : 21 * Systolic BP (mmHg) : 120 * Diastolic BP (mmHg) : 83 * Mean BP (mmHg) : 93 * O2 Saturation (%) : 97 [facility] Sign[facility] from 07/22/2015 11:45 PM:* Heart Rate : 96 * Resp Rate : 34 * O2 Saturation (%) : 98 [facility] Sign[facility] from 07/22/2015 11:30 PM:* Heart Rate : 100 * Resp Rate : 33 * O2 Saturation (%) : 100 [facility] Sign[facility] from 07/22/2015 11:15 PM:* Heart Rate : 96 * Resp Rate : 33 * O2 Saturation (%) : 99 [facility] Signs from 07/22/2015 11:00 PM:* Temp : 99.5 * Heart Rate : 96 * Resp Rate : 34 * Systolic BP (mmHg) : 134 * Diastolic BP (mmHg) : 97 * Mean BP (mmHg) : 114 * O2 Saturation (%) : 99 [facility] Sign[facility] from 07/22/2015 10:45 PM:* Heart Rate : 96 * Resp Rate : 25 * O2 Saturation (%) : 97 [facility] Sign[facility] from 07/22/2015 10:30 PM:* Heart Rate : 97 * Resp Rate : 35 * O2 Saturation (%) : 99 [facility] Sign[facility] from 07/22/2015 10:15 PM:* Heart Rate : 98 * Resp Rate : 30 * O2 Saturation (%) : 99 [facility] Signs from 07/22/2015 10:00 PM:* Heart Rate : 97 * Resp Rate : 34 * Systolic BP (mmHg) : 109 * Diastolic BP (mmHg) : 80 * Mean BP (mmHg) : 94 * O2 Saturation (%) : 100 [facility] Signs from 07/22/2015 9:45 PM:* Heart Rate : 99 * Resp Rate : 33 * O2 Saturation (%) : 99 [facility] Sign[facility] from 07/22/2015 9:30 PM:* Heart Rate : 100 * Resp Rate : 30 * O2 Saturation (%) : 98 [facility] Signs from 07/22/2015 9:15 PM:* Heart Rate : 108 * Resp Rate : 31 * O2 Saturation (%) : 99 [facility] Sign[facility] from 07/22/2015 9:00 PM:* Heart Rate : 112 * Resp Rate : 27 * Systolic BP (mmHg) : 139 * Diastolic BP (mmHg) : 97 * Mean BP (mmHg) : 111 * O2 Saturation (%) : 98 [facility] Signs from 07/22/2015 8:45 PM:* Heart Rate : 108 * Resp Rate : 30 * O2 Saturation (%) : 99 [facility] Sign[facility] from 07/22/2015 8:30 PM:* Heart Rate : 115 * Resp Rate : 27 * O2 Saturation (%) : 98 [facility] Sign[facility] from 07/22/2015 8:15 PM:* Heart Rate : 113 * Resp Rate : 22 * O2 Saturation (%) : 99 [facility] Sign[facility] from 07/22/2015 8:00 PM:* Heart Rate : 105 * Resp Rate : 28 * Systolic BP (mmHg) : 127 * Diastolic BP (mmHg) : 88 * Mean BP (mmHg) : 100 * O2 Saturation (%) : 98 [facility] Sign[facility] from 07/22/2015 7:45 PM:* Heart Rate : 107 * Resp Rate : 30 * O2 Saturation (%) : 94 [facility] Signs from 07/22/2015 7:35 PM:* Heart Rate : 109 [facility] Signs from 07/22/2015 7:30 PM:* Heart Rate : 112 * Resp Rate : 31 * O2 Saturation (%) : 99 [facility] Signs from 07/22/2015 7:15 PM:* Heart Rate : 113 * Resp Rate : 25 * O2 Saturation (%) : 97 [facility] Signs from 07/22/2015 7:00 PM:* Temp : 98.5 * Heart Rate : 113 * Resp Rate : 31 * Systolic BP (mmHg) : 127 * Diastolic BP (mmHg) : 90 * Mean BP (mmHg) : 98 * O2 Saturation (%) : 98 [facility] Signs from 07/22/2015 6:45 PM:* Heart Rate : 119 * Resp Rate : 33 * O2 Saturation (%) : 97 [facility] Signs from 07/22/2015 6:30 PM:* Heart Rate : 115 * Resp Rate : 27 * O2 Saturation (%) : 98 [facility] Sign[facility] from 07/22/2015 6:15 PM:* Heart Rate : 124 * Resp Rate : 32 * O2 Saturation (%) : 97 [facility] Signs from 07/22/2015 6:00 PM:* Heart Rate : 125 * Resp Rate : 19 * Systolic BP (mmHg) : 125 * Diastolic BP (mmHg) : 84 * Mean BP (mmHg) : 93 * O2 Saturation (%) : 98 [facility] Signs from 07/22/2015 5:45 PM:* Heart Rate : 125 * Resp Rate : 36 * O2 Saturation (%) : 97 [facility] Sign[facility] from 07/22/2015 5:30 PM:* Heart Rate : 109 * Resp Rate : 18 * O2 Saturation (%) : 98 [facility] Signs from 07/22/2015 5:15 PM:* Heart Rate : 108 * Resp Rate : 35 * O2 Saturation (%) : 96 [facility] Signs from 07/22/2015 5:00 PM:* Heart Rate : 109 * Resp Rate : 39 * Systolic BP (mmHg) : 141 * Diastolic BP (mmHg) : 96 * Mean BP (mmHg) : 108 * O2 Saturation (%) : 98 [facility] Signs from 07/22/2015 4:45 PM:* Heart Rate : 107 * Resp Rate : 31 * O2 Saturation (%) : 97 [facility] Signs from 07/22/2015 4:30 PM:* Heart Rate : 107 * Resp Rate : 26 * O2 Saturation (%) : 96 [facility] Signs from 07/22/2015 4:15 PM:* Heart Rate : 109 * Resp Rate : 23 * O2 Saturation (%) : 94 [facility] Signs from 07/22/2015 4:00 PM:* Heart Rate : 104 * Resp Rate : 24 * Systolic BP (mmHg) : 130 * Diastolic BP (mmHg) : 99 * Mean BP (mmHg) : 111 * O2 Saturation (%) : 90 [facility] Signs from 07/22/2015 3:45 PM:* Heart Rate : 102 * Resp Rate : 32 * O2 Saturation (%) : 95 [facility] Signs from 07/22/2015 3:30 PM:* Heart Rate : 106 * Resp Rate : 30 * O2 Saturation (%) : 94 [facility] Signs from 07/22/2015 3:15 PM:* Heart Rate : 109 * Resp Rate : 32 * O2 Saturation (%) : 94 [facility] Signs from 07/22/2015 3:00 PM:* Heart Rate : 106 * Resp Rate : 30 * Systolic BP (mmHg) : 133 * Diastolic BP (mmHg) : 90 * Mean BP (mmHg) : 102 * O2 Saturation (%) : 95 [facility] Signs from 07/22/2015 2:45 PM:* Heart Rate : 107 * Resp Rate : 23 * O2 Saturation (%) : 94 [facility] Signs from 07/22/2015 2:31 PM:* Weight : 60.5/ kg * Height : 5/7 ft,in [facility] Signs from 07/22/2015 2:30 PM:* Heart Rate : 109 * Resp Rate : 27 * O2 Saturation (%) : 95 [facility] Signs from 07/22/2015 2:15 PM:* Heart Rate : 114 * Resp Rate : 27 * O2 Saturation (%) : 96 [facility] Sign[facility] from 07/22/2015 2:00 PM:* Heart Rate : 124 * Resp Rate : 22 * Systolic BP (mmHg) : 120 * Diastolic BP (mmHg) : 79 * Mean BP (mmHg) : 87 * O2 Saturation (%) : 95 [facility] Sign[facility] from 07/22/2015 1:45 PM:* Heart Rate : 124 * Resp Rate : 32 * O2 Saturation (%) : 94 [facility] Signs from 07/22/2015 1:30 PM:* Heart Rate : 108 * Resp Rate : 10 * O2 Saturation (%) : 95 [facility] Sign[facility] from 07/22/2015 1:15 PM:* Heart Rate : 105 * Resp Rate : 12 * O2 Saturation (%) : 97 [facility] Sign[facility] from 07/22/2015 1:00 PM:* Heart Rate : 99 * Resp Rate : 32 * Systolic BP (mmHg) : 136 * Diastolic BP (mmHg) : 98 * Mean BP (mmHg) : 116 * O2 Saturation (%) : 97 [facility] Sign[facility] from 07/22/2015 12:45 PM:* Heart Rate : 100 * Resp Rate : 27 * O2 Saturation (%) : 98 [facility] Sign[facility] from 07/22/2015 12:30 PM:* Heart Rate : 100 * Resp Rate : 32 * O2 Saturation (%) : 96 [facility] Sign[facility] from 07/22/2015 12:15 PM:* Heart Rate : 98 * Resp Rate : 26 * O2 Saturation (%) : 98 [facility] Sign[facility] from 07/22/2015 12:00 PM:* Heart Rate : 97 * Resp Rate : 28 * Systolic BP (mmHg) : 130 * Diastolic BP (mmHg) : 92 * Mean BP (mmHg) : 109 * O2 Saturation (%) : 98 [facility] Sign[facility] from 07/22/2015 11:45 AM:* Heart Rate : 98 * Resp Rate : 28 * O2 Saturation (%) : 97 [facility] Sign[facility] from 07/22/2015 11:15 AM:* Heart Rate : 97 * Resp Rate : 29 * O2 Saturation (%) : 94 [facility] Sign[facility] from 07/22/2015 11:00 AM:* Heart Rate : 100 * Resp Rate : 28 * Systolic BP (mmHg) : 122 * Diastolic BP (mmHg) : 84 * Mean BP (mmHg) : 101 * O2 Saturation (%) : 88 [facility] Sign[facility] from 07/22/2015 10:45 AM:* Heart Rate : 96 * Resp Rate : 26 * Systolic BP (mmHg) : 128 * Diastolic BP (mmHg) : 97 * Mean BP (mmHg) : 110 * O2 Saturation (%) : 97 [facility] Sign[facility] from 07/22/2015 10:30 AM:* Heart Rate : 95 * Resp Rate : 27 * Systolic BP (mmHg) : 132 * Diastolic BP (mmHg) : 95 * Mean BP (mmHg) : 108 * O2 Saturation (%) : 97 [facility] Sign[facility] from 07/22/2015 10:15 AM:* Heart Rate : 94 * Resp Rate : 25 * Systolic BP (mmHg) : 118 * Diastolic BP (mmHg) : 94 * Mean BP (mmHg) : 102 * O2 Saturation (%) : 98 [facility] Sign[facility] from 07/22/2015 10:00 AM:* Heart Rate : 96 * Resp Rate : 26 * Systolic BP (mmHg) : 129 * Diastolic BP (mmHg) : 90 * Mean BP (mmHg) : 101 * O2 Saturation (%) : 98 [facility] Sign[facility] from 07/22/2015 9:45 AM:* Heart Rate : 91 * Resp Rate : 29 * Systolic BP (mmHg) : 118 * Diastolic BP (mmHg) : 91 * Mean BP (mmHg) : 98 * O2 Saturation (%) : 98 [facility] Signs from 07/22/2015 9:30 AM:* Heart Rate : 94 * Resp Rate : 21 * Systolic BP (mmHg) : 109 * Diastolic BP (mmHg) : 75 * Mean BP (mmHg) : 82 * O2 Saturation (%) : 98 [facility] Sign[facility] from 07/22/2015 9:15 AM:* Heart Rate : 98 * Resp Rate : 30 * Systolic BP (mmHg) : 109 * Diastolic BP (mmHg) : 74 * Mean BP (mmHg) : 81 * O2 Saturation (%) : 98 [facility] Signs from 07/22/2015 9:00 AM:* Heart Rate : 98 * Resp Rate : 28 * Systolic BP (mmHg) : 119 * Diastolic BP (mmHg) : 85 * Mean BP (mmHg) : 94 * O2 Saturation (%) : 95 [facility] Sign[facility] from 07/22/2015 8:45 AM:* Heart Rate : 105 * Resp Rate : 20 * Systolic BP (mmHg) : 114 * Diastolic BP (mmHg) : 85 * Mean BP (mmHg) : 89 * O2 Saturation (%) : 93 [facility] Sign[facility] from 07/22/2015 8:15 AM:* Heart Rate : 115 * Resp Rate : 31 * Systolic BP (mmHg) : 143 * Diastolic BP (mmHg) : 99 * Mean BP (mmHg) : 111 * O2 Saturation (%) : 93 [facility] Sign[facility] from 07/22/2015 8:00 AM:* Heart Rate : 95 * Heart Rate : 114 * Resp Rate : 27 * Systolic BP (mmHg) : 139 * Diastolic BP (mmHg) : 101 * Mean BP (mmHg) : 110 * O2 Saturation (%) : 97 [facility] Sign[facility] from 07/22/2015 7:45 AM:* Heart Rate : 115 * Resp Rate : 33 * O2 Saturation (%) : 97 [facility] Signs from 07/22/2015 7:30 AM:* Heart Rate : 116 * Resp Rate : 32 * O2 Saturation (%) : 97 [facility] Sign[facility] from 07/22/2015 7:00 AM:* Heart Rate : 115 * Resp Rate : 32 * O2 Saturation (%) : 95 [facility] Sign[facility] from 07/22/2015 6:45 AM:* Heart Rate : 116 * Resp Rate : 30 * O2 Saturation (%) : 97 [facility] Sign[facility] from 07/22/2015 6:30 AM:* Heart Rate : 117 * Resp Rate : 30 * O2 Saturation (%) : 96 [facility] Sign[facility] from 07/22/2015 6:15 AM:* Heart Rate : 119 * Resp Rate : 29 * O2 Saturation (%) : 96 [facility] Sign[facility] from 07/22/2015 6:00 AM:* Heart Rate : 119 * Resp Rate : 33 * O2 Saturation (%) : 96 [facility] Sign[facility] from 07/22/2015 5:45 AM:* Heart Rate : 119 * Resp Rate : 32 * O2 Saturation (%) : 96 [facility] Sign[facility] from 07/22/2015 5:34 AM:* Weight : 60.5/ kg * Height : 5/7 ft,in [facility] Sign[facility] from 07/22/2015 5:30 AM:* Heart Rate : 116 * Resp Rate : 33 * O2 Saturation (%) : 96 [facility] Sign[facility] from 07/22/2015 5:15 AM:* Heart Rate : 115 * Resp Rate : 33 * O2 Saturation (%) : 94 [facility] Sign[facility] from 07/22/2015 5:00 AM:* Heart Rate : 113 * Resp Rate : 35 * O2 Saturation (%) : 96 [facility] Sign[facility] from 07/22/2015 4:45 AM:* Heart Rate : 107 * Resp Rate : 33 * O2 Saturation (%) : 96 [facility] Sign[facility] from 07/22/2015 4:30 AM:* Heart Rate : 106 * Resp Rate : 36 * O2 Saturation (%) : 96 [facility] Sign[facility] from 07/22/2015 4:15 AM:* Heart Rate : 108 * Resp Rate : 27 * O2 Saturation (%) : 98 [facility] Sign[facility] from 07/22/2015 4:00 AM:* Heart Rate : 105 * Resp Rate : 33 * O2 Saturation (%) : 94 [facility] Sign[facility] from 07/22/2015 3:15 AM:* Heart Rate : 99 * Heart Rate : 98 * Resp Rate : 30 * O2 Saturation (%) : 94 [facility] Sign[facility] from 07/22/2015 3:00 AM:* Temp : 99.1 * Heart Rate : 96 * Resp Rate : 28 * O2 Saturation (%) : 93 [facility] Sign[facility] from 07/22/2015 2:45 AM:* Heart Rate : 99 * Resp Rate : 32 * O2 Saturation (%) : 98 [facility] Sign[facility] from 07/22/2015 2:30 AM:* Heart Rate : 95 * Resp Rate : 35 * O2 Saturation (%) : 93 [facility] from 07/22/2015 2:15 AM:* Heart Rate : 101 * Resp Rate : 39 * Systolic BP (mmHg) : 118 * Diastolic BP (mmHg) : 90 * Mean BP (mmHg) : 100 * O2 Saturation (%) : 84 [facility] from 07/22/2015 2:00 AM:* Heart Rate : 89 * Resp Rate : 26 * O2 Saturation (%) : 95 [facility] from 07/22/2015 1:45 AM:* Heart Rate : 90 * Resp Rate : 23 * O2 Saturation (%) : 95 [facility] Sign[facility] from 07/22/2015 1:30 AM:* Heart Rate : 93 * Resp Rate : 28 * O2 Saturation (%) : 96 [facility] Sign[facility] from 07/22/2015 1:15 AM:* Heart Rate : 90 * Resp Rate : 28 * O2 Saturation (%) : 94 [facility] Sign[facility] from 07/22/2015 1:00 AM:* Heart Rate : 96 * Resp Rate : 32 * O2 Saturation (%) : 94 [facility] Sign[facility] from 07/22/2015 12:45 AM:* Heart Rate : 92 * Resp Rate : 28 * O2 Saturation (%) : 94 [facility] Sign[facility] from 07/22/2015 12:30 AM:* Heart Rate : 96 * Resp Rate : 24 * O2 Saturation (%) : 95 [facility] Sign[facility] from 07/22/2015 12:15 AM:* Heart Rate : 93 * Resp Rate : 22 * O2 Saturation (%) : 98 [facility] from 07/22/2015 12:00 AM:* Heart Rate : 91 * Resp Rate : 30 * O2 Saturation (%) : 97 [facility] from 07/21/2015 11:45 PM:* Heart Rate : 92 * Resp Rate : 19 * O2 Saturation (%) : 98 [facility] from 07/21/2015 11:30 PM:* Heart Rate : 93 * Resp Rate : 37 * O2 Saturation (%) : 97 [facility] from 07/21/2015 11:15 PM:* Heart Rate : 90 * Resp Rate : 29 * O2 Saturation (%) : 98 [facility] from 07/21/2015 11:00 PM:* Temp : 99.7 * Heart Rate : 93 * Resp Rate : 18 * Systolic BP (mmHg) : 132 * Diastolic BP (mmHg) : 91 * Mean BP (mmHg) : 100 * O2 Saturation (%) : 96 [facility] from 07/21/2015 10:45 PM:* Heart Rate : 92 * Resp Rate : 29 * O2 Saturation (%) : 100 [facility] from 07/21/2015 10:30 PM:* Heart Rate : 93 * Resp Rate : 20 * O2 Saturation (%) : 99 [facility] from 07/21/2015 10:15 PM:* Heart Rate : 89 * Resp Rate : 29 * O2 Saturation (%) : 99 [facility] from 07/21/2015 10:00 PM:* Heart Rate : 97 * Resp Rate : 18 * O2 Saturation (%) : 97 [facility] from 07/21/2015 9:45 PM:* Heart Rate : 102 * Resp Rate : 30 * O2 Saturation (%) : 96 [facility] from 07/21/2015 9:30 PM:* Heart Rate : 105 * Resp Rate : 32 * O2 Saturation (%) : 97 [facility] from 07/21/2015 9:15 PM:* Heart Rate : 111 * Resp Rate : 27 * O2 Saturation (%) : 97 [facility] from 07/21/2015 9:00 PM:* Heart Rate : 116 * Resp Rate : 15 * O2 Saturation (%) : 95 [facility] from 07/21/2015 8:45 PM:* Heart Rate : 114 * Resp Rate : 25 * O2 Saturation (%) : 98 [facility] from 07/21/2015 8:30 PM:* Heart Rate : 112 * Resp Rate : 31 * Systolic BP (mmHg) : 145 * Diastolic BP (mmHg) : 100 * Mean BP (mmHg) : 115 * O2 Saturation (%) : 95 [facility] from 07/21/2015 8:15 PM:* Heart Rate : 123 * Resp Rate : 28 * Systolic BP (mmHg) : 149 * Diastolic BP (mmHg) : 107 * Mean BP (mmHg) : 120 * O2 Saturation (%) : 98 [facility] from 07/21/2015 8:00 PM:* Heart Rate : 116 * Resp Rate : 29 * Systolic BP (mmHg) : 140 * Diastolic BP (mmHg) : 94 * Mean BP (mmHg) : 110 * O2 Saturation (%) : 97 [facility] Sign[facility] from 07/21/2015 7:45 PM:* Heart Rate : 120 * Resp Rate : 29 * Systolic BP (mmHg) : 141 * Diastolic BP (mmHg) : 94 * Mean BP (mmHg) : 112 * O2 Saturation (%) : 96 [facility] from 07/21/2015 7:40 PM:* Heart Rate : 114 [facility] Vital Signs from 07/21/2015 7:30 PM:* Heart Rate : 118 * Resp Rate : 24 * Systolic BP (mmHg) : 136 * Diastolic BP (mmHg) : 99 * Mean BP (mmHg) : 108 * O2 Saturation (%) : 97 [facility] from 07/21/2015 7:00 PM:* Temp : 99.9 * Heart Rate : 121 * Resp Rate : 21 * Systolic BP (mmHg) : 136 * Diastolic BP (mmHg) : 92 * Mean BP (mmHg) : 104 * O2 Saturation (%) : 98 [facility] Sign[facility] from 07/21/2015 6:45 PM:* Heart Rate : 123 * Resp Rate : 21 * O2 Saturation (%) : 98 [facility] Sign[facility] from 07/21/2015 6:30 PM:* Heart Rate : 122 * Resp Rate : 18 * O2 Saturation (%) : 97 [facility] Sign[facility] from 07/21/2015 6:15 PM:* Heart Rate : 122 * Resp Rate : 13 * O2 Saturation (%) : 98 [facility] Sign[facility] from 07/21/2015 6:00 PM:* Heart Rate : 121 * Resp Rate : 29 * Systolic BP (mmHg) : 131 * Diastolic BP (mmHg) : 88 * Mean BP (mmHg) : 102 * O2 Saturation (%) : 97 [facility] from 07/21/2015 5:45 PM:* Heart Rate : 122 * Resp Rate : 11 * O2 Saturation (%) : 95 [facility] Sign[facility] from 07/21/2015 5:30 PM:* Heart Rate : 123 * Resp Rate : 19 * O2 Saturation (%) : 95 [facility] Sign[facility] from 07/21/2015 5:15 PM:* Heart Rate : 127 * Resp Rate : 15 * O2 Saturation (%) : 96 [facility] Sign[facility] from 07/21/2015 5:00 PM:* Heart Rate : 124 * Resp Rate : 29 * Systolic BP (mmHg) : 129 * Diastolic BP (mmHg) : 85 * Mean BP (mmHg) : 99 * O2 Saturation (%) : 97 [facility] from 07/21/2015 4:45 PM:* Heart Rate : 124 * Resp Rate : 25 * O2 Saturation (%) : 97 [facility] from 07/21/2015 4:30 PM:* Heart Rate : 125 * Resp Rate : 27 * O2 Saturation (%) : 97 [facility] Sign[facility] from 07/21/2015 4:15 PM:* Heart Rate : 126 * Resp Rate : 23 * O2 Saturation (%) : 97 [facility] from 07/21/2015 4:00 PM:* Heart Rate : 128 * Resp Rate : 24 * Systolic BP (mmHg) : 120 * Diastolic BP (mmHg) : 86 * Mean BP (mmHg) : 95 * O2 Saturation (%) : 98 [facility] from 07/21/2015 3:45 PM:* Heart Rate : 129 * Resp Rate : 19 * O2 Saturation (%) : 96 [facility] Sign[facility] from 07/21/2015 3:40 PM:* Heart Rate : 129 [facility] Vital Signs from 07/21/2015 3:30 PM:* Heart Rate : 125 * Resp Rate : 22 * O2 Saturation (%) : 95 [facility] Sign[facility] from 07/21/2015 3:15 PM:* Heart Rate : 136 * Resp Rate : 37 * O2 Saturation (%) : 95 [facility] Sign[facility] from 07/21/2015 3:00 PM:* Temp : 98.9 * Heart Rate : 130 * Resp Rate : 24 * O2 Saturation (%) : 97 [facility] from 07/21/2015 2:45 PM:* Heart Rate : 128 * Resp Rate : 33 * Systolic BP (mmHg) : 108 * Diastolic BP (mmHg) : 82 * Mean BP (mmHg) : 90 * O2 Saturation (%) : 98 [facility] from 07/21/2015 2:30 PM:* Heart Rate : 131 * Resp Rate : 35 * O2 Saturation (%) : 97 [facility] Sign[facility] from 07/21/2015 2:15 PM:* Heart Rate : 133 * Resp Rate : 28 * O2 Saturation (%) : 97 [facility] Sign[facility] from 07/21/2015 2:00 PM:* Heart Rate : 133 * Resp Rate : 37 * O2 Saturation (%) : 97 [facility] from 07/21/2015 1:45 PM:* Heart Rate : 129 * Resp Rate : 16 * O2 Saturation (%) : 96 [facility] from 07/21/2015 1:30 PM:* Heart Rate : 132 * Resp Rate : 33 * O2 Saturation (%) : 95 [facility] Sign[facility] from 07/21/2015 1:15 PM:* Heart Rate : 132 * Resp Rate : 28 * O2 Saturation (%) : 94 [facility] from 07/21/2015 1:00 PM:* Heart Rate : 129 * Resp Rate : 29 * Systolic BP (mmHg) : 119 * Diastolic BP (mmHg) : 81 * Mean BP (mmHg) : 94 * O2 Saturation (%) : 90 [facility] from 07/21/2015 12:45 PM:* Heart Rate : 128 * Resp Rate : 32 * O2 Saturation (%) : 94 [facility] from 07/21/2015 12:30 PM:* Heart Rate : 127 * Resp Rate : 21 * O2 Saturation (%) : 96 [facility] from 07/21/2015 12:15 PM:* Temp : 99.2 * Heart Rate : 133 * Resp Rate : 40 * Systolic BP (mmHg) : 108 * Diastolic BP (mmHg) : 72 * Mean BP (mmHg) : 81 * O2 Saturation (%) : 95 [facility] from 07/21/2015 12:00 PM:* Heart Rate : 124 * Resp Rate : 34 * Systolic BP (mmHg) : 79 * Diastolic BP (mmHg) : 33 * Mean BP (mmHg) : 37 * O2 Saturation (%) : 97 [facility] from 07/21/2015 11:45 AM:* Heart Rate : 122 * Resp Rate : 22 * O2 Saturation (%) : 96 [facility] from 07/21/2015 11:30 AM:* Heart Rate : 129 * Resp Rate : 24 * O2 Saturation (%) : 96 [facility] from 07/21/2015 11:25 AM:* Heart Rate : 127 [facility] Vital Signs from 07/21/2015 11:15 AM:* Heart Rate : 133 * Resp Rate : 24 * Systolic BP (mmHg) : 111 * Diastolic BP (mmHg) : 68 * Mean BP (mmHg) : 79 * O2 Saturation (%) : 95 [facility] from 07/21/2015 11:00 AM:* Heart Rate : 140 * Resp Rate : 14 * Systolic BP (mmHg) : 128 * Diastolic BP (mmHg) : 92 * Mean BP (mmHg) : 102 * O2 Saturation (%) : 98 [facility] from 07/21/2015 10:45 AM:* Heart Rate : 119 * Resp Rate : 30 * O2 Saturation (%) : 96 [facility] from 07/21/2015 10:30 AM:* Heart Rate : 120 * Resp Rate : 28 * O2 Saturation (%) : 96 [facility] from 07/21/2015 10:15 AM:* Heart Rate : 125 * Resp Rate : 23 * O2 Saturation (%) : 97 [facility] from 07/21/2015 10:00 AM:* Heart Rate : 126 * Resp Rate : 27 * Systolic BP (mmHg) : 121 * Diastolic BP (mmHg) : 87 * Mean BP (mmHg) : 98 * O2 Saturation (%) : 96 [facility] from 07/21/2015 9:49 AM:* Weight : 58.6/ kg * Height : 5/7 ft,in [facility] Vital Signs from 07/21/2015 9:45 AM:* Heart Rate : 129 * Resp Rate : 29 * Systolic BP (mmHg) : 116 * Diastolic BP (mmHg) : 93 * Mean BP (mmHg) : 102 * O2 Saturation (%) : 95 Results Chemistry from 07/24/2015 6:10 AMSODIUM 142 MMOL/L (136-145 MMOL/L) POTASSIUM 4.2 MMOL/L (3.5-5.1 MMOL/L) CHLORIDE 108 MMOL/L H (98-107 MMOL/L) TCO2 25.7 MMOL/L (21.0-32.0 MMOL/L) ANION GAP 8.3 MMOL/L (8.0-16.0 MMOL/L) BUN 6 MG/DL L (7-18 MG/DL) CREATININE 0.55 MG/DL (0.55-1.02 MG/DL) BUN/CREATININE RATIO 10.9 (9.1-17.0 ) GLUCOSE 100 MG/DL H (65-99 MG/DL) GFR EST NON AFR DANISH >90 ML/MIN GFRA EST AFR AMER >90 ML/MIN CALCIUM 8.8 MG/DL (8.5-10.1 MG/DL) ALBUMIN 1.9 GM/DL L (3.4-5.0 GM/DL) MAGNESIUM 1.8 MG/DL (1.8-2.4 MG/DL) PHOSPHORUS 3.2 MG/DL (2.6-4.7 MG/DL) Chemistry from 07/23/2015 3:43 AMSODIUM 138 MMOL/L (136-145 MMOL/L) POTASSIUM 3.4 MMOL/L L (3.5-5.1 MMOL/L) CHLORIDE 104 MMOL/L (98-107 MMOL/L) TCO2 27.0 MMOL/L (21.0-32.0 MMOL/L) ANION GAP 7.0 MMOL/L L (8.0-16.0 MMOL/L) BUN 6 MG/DL L (7-18 MG/DL) CREATININE 0.62 MG/DL (0.55-1.02 MG/DL) BUN/CREATININE RATIO 9.7 (9.1-17.0 ) GLUCOSE 113 MG/DL H (65-99 MG/DL) GFR EST NON AFR DANISH >90 ML/MIN GFRA EST AFR AMER >90 ML/MIN CALCIUM 8.8 MG/DL (8.5-10.1 MG/DL) BILIRUBIN TOTAL 0.41 MG/DL (0.20-1.00 MG/DL) TOTAL PROTEIN 6.6 GM/DL (6.4-8.2 GM/DL) ALBUMIN 2.2 GM/DL L (3.4-5.0 GM/DL) GLOBULIN 4.4 GM/DL H (2.3-3.5 GM/DL) A/G RATIO 0.5 MG/DL L (1.5-2.2 MG/DL) ALK PHOS 162 U/L H (46-116 U/L) ALT (SGPT) 13 U/L L (16-63 U/L) AST (SGOT) 21 U/L (15-37 U/L) MAGNESIUM 2.0 MG/DL (1.8-2.4 MG/DL) Chemistry from 07/22/2015 2:48 AMSODIUM 140 MMOL/L (136-145 MMOL/L) POTASSIUM 4.8 MMOL/L (3.5-5.1 MMOL/L) CHLORIDE 111 MMOL/L H (98-107 MMOL/L) TCO2 20.9 MMOL/L L (21.0-32.0 MMOL/L) ANION GAP 8.1 MMOL/L (8.0-16.0 MMOL/L) BUN 12 MG/DL (7-18 MG/DL) CREATININE 0.66 MG/DL (0.55-1.02 MG/DL) BUN/CREATININE RATIO 18.2 H (9.1-17.0 ) GLUCOSE 98 MG/DL (65-99 MG/DL) GFR EST NON AFR DANISH >90 ML/MIN GFRA EST AFR AMER >90 ML/MIN CALCIUM 8.7 MG/DL (8.5-10.1 MG/DL) TROPONIN-I 0.06 (SEE BELOW ) Chemistry from 07/21/2015 8:50 PMTROPONIN-I 0.09 (SEE BELOW ) Chemistry from 07/21/2015 3:04 PMCK 43 U/L (26-192 U/L) Chemistry from 07/21/2015 11:09 AMCOCAINE NEGATIVE (NEG <150 ) PCP NEGATIVE (NEG <25 ) OXYCODONE POSITIVE A (NEG <100 ) *PROPOXYPHENE (NORPROPOXYPHENE) (LAB) NEGATIVE (NEG <300 ) CANNABINOIDS NEGATIVE (NEG <50 ) BENZODIAZEINE POSITIVE A (NEG <150 ) AMPHETAMINE NEGATIVE (NEG <500 ) BARBITURATES NEGATIVE (NEG <200 ) METHAMPHETAMINES NEGATIVE (NEG <500 ) METHADONE (UR) NEGATIVE (NEG <200 ) OPIATES POSITIVE A (NEG <100 ) TRICYCLICS POSITIVE A (NEG <300 ) Hematology from 07/24/2015 6:10 AMWBC 7.5 X10e3/UL (3.6-11.2 X10e3/UL) RBC 3.28 X10e6/UL L (3.63-4.92 X10e6/UL) HEMOGLOBIN 11.4 G/DL (11.0-14.3 G/DL) HEMATOCRIT 34.8 % (31.2-41.9 %) MCV 106.2 FL H (79.0-98.0 FL) MCH 34.8 PG H (27.0-33.0 PG) MCHC 32.8 G/DL (32.0-36.0 G/DL) RDW 15.9 % (12.3-17.0 %) RDWSD 58.6 H (37.1-47.8 ) PLATELET 333 X10e3/UL (159-386 X10e3/UL) MPV 7.7 FL (7.4-10.4 FL) AUTOMATED DIFF PERFORMED SEGS 65.1 % LYMPHOCYTES 18.6 % MONOCYTES 8.9 % EOSINOPHILS 6.2 % BASOPHILS 1.2 % ABSOLUTE NEUTROPHILS 4.90 X10e3/UL (1.80-7.80 X10e3/UL) ABSOLUTE LYMPHOCYTES 1.40 X10e3/UL (1.00-3.00 X10e3/UL) ABSOLUTE MONOCYTES 0.70 X10e3/UL (0.30-1.00 X10e3/UL) ABSOLUTE EOSINOPHILS 0.50 X10e3/UL (0.00-0.50 X10e3/UL) ABSOLUTE BASOPHILS 0.10 X10e3/UL (0.00-0.20 X10e3/UL) POLYCHROMASIA 1+ MACROCYTIC 1+ TOXIC GRANULATION 1+ Hematology from 07/23/2015 3:43 AMWBC 11.7 X10e3/UL H (3.6-11.2 X10e3/UL) RBC 3.41 X10e6/UL L (3.63-4.92 X10e6/UL) HEMOGLOBIN 11.8 G/DL (11.0-14.3 G/DL) HEMATOCRIT 36.2 % (31.2-41.9 %) MCV 106.1 FL H (79.0-98.0 FL) MCH 34.5 PG H (27.0-33.0 PG) MCHC 32.5 G/DL (32.0-36.0 G/DL) RDW 15.6 % (12.3-17.0 %) RDWSD 57.8 H (37.1-47.8 ) PLATELET 342 X10e3/UL (159-386 X10e3/UL) MPV 7.7 FL (7.4-10.4 FL) AUTOMATED DIFF PERFORMED SEGS 75.5 % LYMPHOCYTES 15.2 % MONOCYTES 6.8 % EOSINOPHILS 2.1 % BASOPHILS 0.4 % ABSOLUTE NEUTROPHILS 8.80 X10e3/UL H (1.80-7.80 X10e3/UL) ABSOLUTE LYMPHOCYTES 1.80 X10e3/UL (1.00-3.00 X10e3/UL) ABSOLUTE MONOCYTES 0.80 X10e3/UL (0.30-1.00 X10e3/UL) ABSOLUTE EOSINOPHILS 0.20 X10e3/UL (0.00-0.50 X10e3/UL) ABSOLUTE BASOPHILS 0.00 X10e3/UL (0.00-0.20 X10e3/UL) POLYCHROMASIA 1+ MACROCYTIC 1+ Hematology from 07/22/2015 2:48 AMWBC 23.5 X10e3/UL H (3.6-11.2 X10e3/UL) RBC 3.64 X10e6/UL (3.63-4.92 X10e6/UL) HEMOGLOBIN 12.4 G/DL (11.0-14.3 G/DL) HEMATOCRIT 38.6 % (31.2-41.9 %) MCV 106.1 FL H (79.0-98.0 FL) MCH 34.1 PG H (27.0-33.0 PG) MCHC 32.1 G/DL (32.0-36.0 G/DL) RDW 15.1 % (12.3-17.0 %) PLATELET 353 X10e3/UL (159-386 X10e3/UL) MPV 7.9 FL (7.4-10.4 FL) MANUAL DIFF PERFORMED SEGS 84.0 % BANDS 1.0 % LYMPHOCYTES 9.0 % MONOCYTES 6.0 % EOSINOPHILS 0.0 % BASOPHILS 0.0 % ABSOLUTE NEUTROPHILS 19.98 X10e3/UL H (1.80-7.80 X10e3/UL) ABSOLUTE LYMPHOCYTES 2.12 X10e3/UL (1.00-3.00 X10e3/UL) ABSOLUTE MONOCYTES 1.41 X10e3/UL H (0.30-1.00 X10e3/UL) ABSOLUTE EOSINOPHILS 0.00 X10e3/UL (0.00-0.50 X10e3/UL) ABSOLUTE BASOPHILS 0.00 X10e3/UL (0.00-0.20 X10e3/UL) MACROCYTIC 1+ Urinalysis from 07/21/2015 3:19 PMURINE COLOR YELLOW (STRAW/YELL/DK YELL ) URINE APPEARANCE CLEAR (CLEAR ) URINE PH 6.5 (5.0-8.0 ) URINE SPECIFIC GRAVITY <1.005 (<=1.005->=1.030 ) URINE GLUCOSE NEGATIVE MG/DL (NEGATIVE MG/DL) URINE BILIRUBIN NEGATIVE (NEGATIVE ) URINE KETONES NEGATIVE MG/DL (NEGATIVE MG/DL) URINE BLOOD NEGATIVE (NEGATIVE ) URINE PROTEIN NEGATIVE MG/DL (NEGATIVE MG/DL) URINE UROBILINOGEN 0.2 EU/DL (0.2-1.0 EU/DL) URINE NITRITES POSITIVE A (NEGATIVE ) *URINE LEUKOCYTES NEGATIVE (NEGATIVE ) MICROSCOPIC EXAM PERFORMED PERFORMED WBC 0-1 /HPF (0-5 /HPF) SQUAMOUS EP. CELLS FEW /LPF (NEG-FEW /LPF) BACTERIA MODERATE /HPF A (NEGATIVE /HPF) Urinalysis from 07/21/2015 11:09 AMURINE COLOR YELLOW (STRAW/YELL/DK YELL ) URINE APPEARANCE CLOUDY A (CLEAR ) URINE PH 6.5 (5.0-8.0 ) URINE SPECIFIC GRAVITY 1.010 (<=1.005->=1.030 ) URINE GLUCOSE NEGATIVE MG/DL (NEGATIVE MG/DL) URINE BILIRUBIN NEGATIVE (NEGATIVE ) URINE KETONES TRACE MG/DL A (NEGATIVE MG/DL) URINE BLOOD NEGATIVE (NEGATIVE ) URINE PROTEIN TRACE MG/DL A (NEGATIVE MG/DL) URINE UROBILINOGEN 0.2 EU/DL (0.2-1.0 EU/DL) URINE NITRITES POSITIVE A (NEGATIVE ) *URINE LEUKOCYTES SMALL A (NEGATIVE ) MICROSCOPIC EXAM PERFORMED PERFORMED WBC 5-10 /HPF A (0-5 /HPF) RBC 0-1 /HPF (0-1 /HPF) SQUAMOUS EP. CELLS MANY /LPF A (NEG-FEW /LPF) BACTERIA MANY /HPF A (NEGATIVE /HPF) Microbiology from 07/21/2015 3:19 PM* CULTURE URINE Specimen Number: [id number] Sample Collection Date/Time: 07/21/2015 3:19 PM Specimen Source: Urine Clean Catch CULTURE URINE: No growth at 48 hrs Microbiology from 07/21/2015 10:58 AM* CULTURE URINE Specimen Number: [id number] Sample Collection Date/Time: 07/21/2015 10:58 AM Specimen Source: Urine Clean Catch CULTURE URINE: Escherichia coli 10-50,000 cfu/ml ISOLATE1: Escherichia coli 1 Comment Result Value Escherichia coli Result Status Final Result Ampicillin >=32 R Ampicillin/sulbactam >=32 R Aztreonam <=1 S Cefazolin <=4 S Cefepime <=1 S Ceftazidime <=1 S Ceftriaxone <=1 S Ertapenem <=0.5 S ESBL Neg - Gentamicin <=1 S Levofloxacin <=0.12 S Meropenem <=0.25 S Nitrofurantoin <=16 S Piperacillin/tazobactam <=4 S Tobramycin <=1 S Trimethoprim/Sulfa >=320 R Reference Lab from 07/22/2015 1:54 PMHEP A AB IGM Negative (Negative ) HEP B SURFACE AG Negative (Negative ) HEP B CORE AB IGM Negative (Negative ) HCV AB <0.1 s/co ratio (0.0-0.9 s/co ratio) Echocardiology from 07/22/2015 12:00 AMEchocardiogram See also the report from this date CT Scan from 07/22/2015 8:32 AMCT CHEST (CTA) History: sob . Technique: Post contrast images were performed after the administration of 95 milliliters of Isovue intravenous contrast. 3 dimensional reconstructions were performed by the technologist. Priors: None. Findings: Heart Size: Normal. Aorta: Intact and normal in size. Mediastinum and Karina: There are few scattered normal appearing lymph nodes. A few are calcified. There is a mildly prominent subcarinal lymph node which is partially calcified. Pulmonary Arteries: No evidence of filling defect to suggest pulmonary emboli. Pleura: No effusion or pneumothorax. Pulmonary parenchyma: There is a calcified granuloma in the left lower lobe. There is diffuse septal thickening throughout the majority of the left lung as well as the majority of the right upper lobe and to a lesser degree the right lower lobe. Additionally, there is mild adjacent ground-glass opacities in similar distribution. These findings are nonspecific. Differential includes pneumonia, including atypical pathogens, Hypersensitivity reaction, and asymmetric pulmonary edema. Other etiologies are not excluded. Note is made of bilateral breast implants. Upper abdomen: Unremarkable. Impression: There is septal thickening and mild adjacent ground-glass opacities involving both lungs as detailed above. This is nonspecific. Differential includes pneumonia, hypersensitivity, and asymmetric pulmonary edema. Electronically signed by: Alan White MD Dictated: 07/22/2015 10:49 Problems Encounter Diagnosis * Acute Pain Comment:Problem resolved by [facility] Workflow upon Discharge, Status :Resolved. * Acute Urinary Tract infection Comment:Problem resolved by [facility] Workflow upon Discharge, Status:Resolved. * Fall Risk Comment:Problem resolved by [facility] Workflow upon Discharge, Status: Resolved. * Mobility Impairment Comment:Problem resolved by [facility] Workflow upon Discharge, Status:Resolved. * Nutritional Deficiency Comment:Problem resolved by [facility] Workflow upon Discharge, Status:Resolved. * Pneumonia Comment:Problem resolved by [facility] Workflow upon Discharge, Status: Resolved. * Skin Integrity Impairment Risk Comment:Problem resolved by [facility] Workflow upon Discharge, Status:Resolved. Additional Problems * Abdominal Pain Comment:Problem resolved [...] Workflow upon Discharge, Status:Resolved. Encounters Encounter Diagnosis * Acute Pain Comment:Problem resolved by [facility] Workflow upon Discharge, Status :Resolved. * Acute Urinary Tract infection Comment:Problem resolved by [facility] Workflow upon Discharge, Status:Resolved. * Fall Risk Comment:Problem resolved by [facility] Workflow upon Discharge, Status: Resolved. * Mobility Impairment Comment:Problem resolved by [facility] Workflow upon Discharge, Status:Resolved. * Nutritional Deficiency Comment:Problem resolved by [facility] Workflow upon Discharge, Status:Resolved. * Pneumonia Comment:Problem resolved by [facility] Workflow upon Discharge, Status: Resolved. * Skin Integrity Impairment Risk Comment:Problem resolved by [facility] Workflow upon Discharge, Status:Resolved. Plan of Care Follow-up Appointments from 07/24/2015 10:04 AM:* #1 Office appointment: : Dr. Coffman * #1 Date/Time : 07/30/2015 10:45 AM * Address # 1 : [place] Treatment Plan from 07/24/2015 10:05 AM:* Care Management Note : Patient needs home O2. Provided list of agencies. Patient chose [facility]. Referral made. Will deliver portable to patient's room and deliver concentrator to her home after she gets home. Received call from Char - from [facility] - who provides health home to patient. Informed her patient is being discharged and faxed her info to her. They will be providing services to patient. Treatment Plan from 07/23/2015 3:40 PM:* Care Management Note : Visited with patient at her request. She much more alert. Asked about HCBS. Gave her information and phone # for DCF for her see if qualifies. Is not interested in any home health. States she has had a couple of different home health agencies in the past and did not feel they were very helpful. States her son's fiance is paid by herself to stay with her at nights and wants to be able to continue that, feeling that is much more helpful than home health ever was. Treatment Plan from 07/23/2015 11:53 AM:* Care Management Note : Patient remains in ICU at this time. Patient currently being treated with NS+20KCl@100, Increase PO Seroquel, initiate PO KCl, increase PO Klonopin, D/C zosyn, and continue IV Levaquin. Chest CTA shows there is septal thickening and mild adjacent ground-glass opacities involving both lungs as detailed above. This is nonspecific. Differential includes pneumonia, hypersensitivity, and asymmetric pulmonary edema. Liver U/S shows the gallbladder is mildly distended but otherwise normal in appearance. This can be seen in the setting of fasting. If there is Concern for gallbladder pathology, HIDA scan could be performed. The liver is unremarkable. Abnormal labs: K- 3.4, Bun- 6, Glu- 113, Alb- 2.2, Alk Phos- 162, Troponin- Negative, Wbc- 11.7, Anc- 8.80, UA culture has a final result of E. Coli. VSS on 4L.NC and ST on telemetry. Rounded with Dr Delvalle this AM and plan at this time is to continue to treat both the UTI and Pneumonia with IV levaquin and continue to wean oxygen. If respiratory status remains stable Patient may transfer to medical floor in AM. SW notified of plan. Care Management will continue to follow. Treatment Plan from 07/22/2015 3:51 PM:* Care Management Note : Spoke with Nayana with [facility] and no clinical review needed at this time due to being primary insurance provider. Treatment Plan from 07/22/2015 10:10 AM:* Care Management Note : Attempted to visit patient. Patient had just taken meds and is very sleepy. Did state she lives with her son and is planning to return home. Unsure if will need any services. SW to follow. Treatment Plan from 07/21/2015 1:14 PM:* Care Management Note : Patient is Inpatient status in an ICU bed. Patient was seen in ER with complaints of dyspnea and chest pain. Abnormal V/S noted: O2 sat was 81% on RA, Pulse was 145 , Respiratory rate was 36, and a mild temperature of 99.8. Patient was found to have pneumonia and was sent to ICU. Patient currently being treated with Home meds, Lovenox daily, levaquin IV daily, zosyn IV every 6hrs, NS+20KCl@100, and cardiology consult. Abnormal labs: pH- 7.482, PCO2- 29.9, PO2- 68, TCO2- 19.2, K - 2.9, Glu- 149, Alb- 3.0, Alk Phos- 242, AST- 47, Mag- 1.6, Troponin- 0.23, Bnp - 453, Lactic- 2.30, Wbc- 25.3, ANC- 23.02, Dimer- 0.63, Blood culture x2 pending, UA culture pending. CXR shows mild diffuse left lung and right upper lobe pneumonia. VSS on 6L/Mask and ST on telemetry. Procedures * Completed Procedure Code: 45.16 Procedure Name: not valued, on 03/12/2014 12: 00 AM * Completed Procedure Code: 45.25 Procedure Name: not valued, on 03/12/2014 12: 00 AM * Completed , on 08/20/2009 12:00 AM Immunizations * Influenza, seasonal, injectable (NOVARTIS, Lot # [id number]); Administered 2013 9:24 AM; 0.5 ML=1 DOSE, INTRAMUSCL Hospital Course Hospital Discharge Instructions How to care for yourself at home from 07/24/2015 10:04 AM:* Discharge Activity : Activity as tolerated * Discharge Diet : As before hospitalization * Call your doctor if: : Fever over 101 F or severe chills,Chest pain or other unexplained symptoms,Tingling or numbness develops,A sudden increase or decrease in weight,You have persistent or worsening symptoms,If you have Heart Failure and you gain 3 pounds within 1 week or your symptoms worsen. (Weigh at home tomorrow morning) * Specific Discharge Teaching Instructions provided: : Yes * Specific Discharge Teaching Instructions Reviewed: : Stop Smoking * Discharge on Warfarin : No Allergies, Adverse Reactions, Alerts * aspirin causes Unknown. Onset Unknown. * BuSpar causes Moderate Hives. * Imitrex causes Unknown. * Reglan causes "shuts esophagus". * No Latex Allergy. * No IV Contrast Allergy. * No Known Food Allergies. Medication It is the responsibility of the patient or patient front office representative to confirm the list of medications with either the patient's personal care provider or the patient's follow-up care provider to ensure the patient has an appropriate list of medications to take at home. Discharge medications New medications* atorvastatin (Lipitor) 80 mg Tablet, Ordered By: BRITTON DELVALLE MD Directions: 1 tablet oral daily at bedtime * cholecalciferol (vitamin D3) 5,000 unit Capsule, Ordered By: BRITTON DELVALLE MD Directions: 1 capsule oral daily with breakfast * budesonide-formoterol (Symbicort) 80 mcg-4.5 mcg/Actuation HFA Aerosol Inhaler , Ordered By: BRITTON DELVALLE MD Directions: 2 puff by inhalation twice a day Additional Instructions: DO NOT SUBSTITUTE RINSE MOUTH AFTER EACH DOSE * LEVALBUTEROL/IPRATROPIUM Complex Dose RT Q6HP PRN DYSPNEA, Start:ARRIVAL - * tiotropium bromide (SPIriva with HandiHaler) 18 mcg Capsule, w/Inhalation Device, Ordered By: BRITTON DELVALLE MD Directions: 2 puff by inhalation daily Additional Instructions: PLACE CAPSULE IN HANDIHALER DEVICE, ANTONY CAPSULE AND HAVE PATIENT INHALE TWICE. * levofloxacin (LevaQUIN) 750 mg Tablet, Ordered By: BRITTON DELVALLE MD Directions: 1 tablet oral daily every morning Continued medications* clonazePAM 1 mg Tablet, Ordered By: BRITTON DELVALLE MD Directions: 2 tablet oral daily at bedtime * clonazePAM 1 mg Tablet, Ordered By: BRITTON DELVALLE MD Directions: 1 tablet oral daily every morning * clonazePAM 1 mg Tablet, Ordered By: BRITTON DELVALLE MD Directions: 1 tablet oral daily noon * doxepin 25 mg Capsule, Ordered By: BRITTON DELVALLE MD Directions: 1 capsule oral daily at bedtime * ferrous sulfate 325 mg (65 mg iron) Tablet, Ordered By: BRITTON DELVALLE MD Directions: 1 tablet oral twice a day with or after food * FLUoxetine (PROzac) 40 mg Capsule, Ordered By: BRITTON DELVALLE MD Directions: 1 capsule oral daily every morning * metoprolol tartrate 25 mg Tablet, Ordered By: BRITTON DELVALLE MD Directions: 1 tablet oral twice a day * pantoprazole (ProTONIX) 40 mg tablet,delayed release (DR/EC), Ordered By: BRITTON DELVALLE MD Directions: 1 tablet oral daily * QUEtiapine (SEROquel) 50 mg Tablet, Ordered By: BRITTON DELVALLE MD Directions: 1 tablet oral daily every morning * QUEtiapine (SEROquel) 50 mg Tablet, Ordered By: BRITTON DELVALLE MD Directions: 2 tablet oral pm * sucralfate (CarafATE) 1 gram Tablet, Ordered By: BRITTON DELVALLE MD Directions: 1 tablet oral three times a day Changed medications* cloNIDine HCl (Catapres) 0.1 mg Tablet, Ordered By: BRITTON DELVALLE MD Directions: 1 tablet oral daily at bedtime * HYDROcodone-acetaminophen ([place]) 5 mg-325 mg Tablet, Ordered By: BRITTON DELVALLE MD Directions: 1 tablet oral every six hours PRN pain Stopped medications* None
--- OUTSIDE RECORDS SUMMARY | 2017-02-24 17:01 | XMS REPORT ---
Author Author Indy Falk [facility] [place] eClinicalWorks Address Unknown Phone Unavailable Care Team Providers Care Preload Supervisor Name Role Phone Indy Falk CP Unavailable [...] Unspecified myalgia and myositis 729.1 Active Medications Medication Code System Code Instructions Start Date End Date Status Dosage Protonix [facility] [address]-36 40 MG Orally Once a day Sep 26, 2013 Active 1 tablet by Oral route 2 times per day for 14 days Results No Known Results Summary Purpose eClinicalWorks Submission
--- OUTSIDE RECORDS SUMMARY | 2017-02-24 17:02 | XMS REPORT ---
Author Author GENERATED, SYSTEM Organization Unknown Address Unknown Phone Unavailable Care Team Providers Care Senior Structural Engineer Name Role Phone UNASSIGNED DOCTOR , DOCTOR PP [phone] Reason For Visit Chief Complaint STICHES OUT Social History Functional Status Vital Signs Results [...] 1 :12 PM * Completed Procedure Code: 01144 Procedure Name: not valued, on 04/22/2016 12: 00 AM * Completed Esophagogastroduodenoscopy, by MD BAIRON HAMILTON, on 11/20/2015 12:55 PM * Completed Procedure Code: 94793 Procedure Name: not valued, on 11/20/2015 12: 00 AM * Completed Procedure Code: 82372 Procedure Name: not valued, on 11/20/2015 12: 00 AM * Completed Procedure Code: 45.16 Procedure Name: not valued, on 03/12/2014 12: 00 AM * Completed Procedure Code: 45.25 Procedure Name: not valued, on 03/12/2014 12: 00 AM * Completed , on 08/20/2009 12:00 AM Immunizations * Influenza, seasonal, injectable (NOVARTIS, Lot # [id number]); Administered 2013 9:24 AM; 0.5 ML=1 DOSE, [...]
--- OUTSIDE RECORDS SUMMARY | 2017-02-24 17:02 | XMS REPORT ---
Author Author GENERATED, SYSTEM Organization Unknown Address Unknown Phone Unavailable Care Team Providers Care Compound Specialist Name Role Phone UNASSIGNED DOCTOR , DOCTOR PP [phone] Reason For Visit Reason for Visit from 04/22/2016 11:11 AM:* Pt Stated Reason for Adm : to recheck my stomach Chief Complaint DYSPHAGIA,EGD Social History Social History from 04/22/2016 1:45 PM:* Tobacco Use? : Current Some Day Smoker Social History from 04/22/2016 11:11 AM:* Tobacco Use? : Current Some Day Smoker Functional Status Functional Status from 04/22/2016 2:24 PM:* LOC : Alert Functional Status from 04/22/2016 1:51 PM:* LOC : Alert Functional Status from 04/22/2016 1:27 PM:* LOC : Drowsy Functional Status from 04/22/2016 11:11 AM:* LOC : Alert * Oriented To : Person,Place,Time,Event * Weight Bearing Status : Full * Assist Level : Independent * # Assists : Independent Vital Signs Hospital Vital Signs from 04/22/2016 2:30 PM:* Height : 5/4.5 ft,in * Pulse : 87 * Respirations : 18 * BP : 121/83 Hospital Vital Signs from 04/22/2016 2:19 PM:* Height : 5/4.5 ft,in * Temperature : 98.2 F * Pulse : 85 * Respirations : 18 * BP : 117/87 Hospital Vital Signs from 04/22/2016 2:10 PM:* Temp : 98.6 * Systolic BP (mmHg) : 97 * Diastolic BP (mmHg) : 59 * Mean BP (mmHg) : 74 * O2 Saturation (%) : 94 Hospital Vital Signs from 04/22/2016 2:05 PM:* Systolic BP (mmHg) : 96 * Diastolic BP (mmHg) : 63 * Mean BP (mmHg) : 77 * O2 Saturation (%) : 94 Hospital Vital Signs from 04/22/2016 2:00 PM:* Systolic BP (mmHg) : 96 * Diastolic BP (mmHg) : 70 * Mean BP (mmHg) : 80 * O2 Saturation (%) : 93 Hospital Vital Signs from 04/22/2016 1:55 PM:* Systolic BP (mmHg) : 98 * Diastolic BP (mmHg) : 69 * Mean BP (mmHg) : 77 * O2 Saturation (%) : 94 Hospital Vital Signs from 04/22/2016 1:50 PM:* Heart Rate : 72 * Resp Rate : 16 * Systolic BP (mmHg) : 97 * Diastolic BP (mmHg) : 68 * Mean BP (mmHg) : 80 * O2 Saturation (%) : 92 Hospital Vital Signs from 04/22/2016 1:45 PM:* Heart Rate : 75 * Resp Rate : 25 * Systolic BP (mmHg) : 96 * Diastolic BP (mmHg) : 68 * Mean BP (mmHg) : 77 * O2 Saturation (%) : 94 Hospital Vital Signs from 04/22/2016 1:40 PM:* Heart Rate : 83 * Resp Rate : 18 * Systolic BP (mmHg) : 79 * Diastolic BP (mmHg) : 59 * Mean BP (mmHg) : 65 * O2 Saturation (%) : 95 Hospital Vital Signs from 04/22/2016 1:35 PM:* Temp : 98.2 * Heart Rate : 80 * Resp Rate : 22 * Systolic BP (mmHg) : 92 * Diastolic BP (mmHg) : 62 * Mean BP (mmHg) : 69 * O2 Saturation (%) : 98 Hospital Vital Signs from 04/22/2016 1:30 PM:* Heart Rate : 73 * Resp Rate : 31 * Systolic BP (mmHg) : 94 * Diastolic BP (mmHg) : 53 * Mean BP (mmHg) : 70 * O2 Saturation (%) : 98 Hospital Vital Signs from 04/22/2016 1:25 PM:* Temp : 98.6 Hospital Vital Signs from 04/22/2016 12:03 PM:* Weight : 57.1/ kg * Height : 5/4.5 ft,in * Temperature : 97.8 F * Pulse : 90 * Respirations : 18 * BP : 128/71 Hospital Vital Signs from 04/22/2016 11:11 AM:* Weight : 57.1/ kg * Height : 5/4.5 ft,in Results Chemistry from 04/22/2016 11:55 AM*COCAINE NEGATIVE (NEG <150 ) *PCP NEGATIVE (NEG <25 ) *CANNABINOIDS NEGATIVE (NEG <50 ) *BENZODIAZEINE NEGATIVE (NEG <200 ) *AMPHETAMINE NEGATIVE (NEG <500 ) *BARBITURATES NEGATIVE (NEG <200 ) *OPIATES POSITIVE A (NEG <300 ) Problems Encounter Diagnosis * Fall Risk Status:Active. Additional Problems * Abdominal Pain Comment:Problem [...] upon Discharge, Status:Resolved. Encounters Encounter Diagnosis * Fall Risk Status:Active. Plan of Care Follow-up Appointments from 04/22/2016 1:45 PM:* #1 Office appointment: : Dr. John * #1 Date/Time : 06/22/2016 2:20 PM * Address # 1 : [facility]: [address] [place]- [phone] or Procedures * Completed Esophagogastroduodenoscopy, by MD BAIRON JOHN, on 04/22/2016 1 :12 PM * Completed Esophagogastroduodenoscopy, by MD BAIRON JOHN, on 11/20/2015 12:55 PM * Completed Procedure Code: 20921 Procedure Name: not valued, on 11/20/2015 12: 00 AM * Completed Procedure Code: 45521 Procedure Name: not valued, on 11/20/2015 12: 00 AM * Completed Procedure Code: 45.16 Procedure Name: not valued, on 03/12/2014 12: 00 AM * Completed Procedure Code: 45.25 Procedure Name: not valued, on 03/12/2014 12: 00 AM * Completed , on 08/20/2009 12:00 AM Immunizations * Influenza, seasonal, injectable (NOVARTIS, Lot # [id number]); Administered 2013 9:24 AM; 0.5 ML=1 DOSE, INTRAMUSCL Hospital Course Hospital Discharge Instructions How to care for yourself at home from 04/22/2016 1:45 PM:* Discharge Activity : May Shower * Do not drive or operate machinery for: : 24 hours * Discharge Diet : Diet as tolerated * Discharge Diet: : avoid spicy or greasy foods for 24 hours * Call your doctor if: : Fever over 101 F or severe chills,Chest pain or other unexplained symptoms,Tingling or numbness develops,A sudden increase or decrease in weight,You have persistent or worsening symptoms,If you have Heart Failure and you gain 3 pounds within 1 week or your symptoms worsen. (Weigh at home tomorrow morning) * Specific Discharge Teaching Instructions provided: : No * Discharge on Warfarin : No Allergies, Adverse Reactions, Alerts * Ultram causes Unknown. * Lortab causes Unknown. * aspirin causes Unknown. Onset Unknown. * BuSpar causes Moderate Hives. * Imitrex causes Unknown. * Reglan causes "shuts esophagus". * No Latex Allergy. * No IV Contrast Allergy. * No Known Food Allergies. Medication Medication reconciliation has not been performed.
--- OUTSIDE RECORDS SUMMARY | 2017-02-24 17:02 | XMS REPORT ---
Author Author GENERATED, SYSTEM Organization Unknown Address Unknown Phone Unavailable Care Team Providers Care Steward/Stewardess Economy Class Name Role Phone UNASSIGNED DOCTOR , DOCTOR PP [phone] Reason For Visit Chief Complaint M54.5, M25.559 Social History Functional Status Vital Signs Results [...] 11/20/2015 12:55 PM * Completed Procedure Code: 63143 Procedure Name: not valued, on 11/20/2015 12: 00 AM * Completed Procedure Code: 35373 Procedure Name: not valued, on 11/20/2015 12: 00 AM * Completed Procedure Code: 45.16 Procedure Name: not valued, on 03/12/2014 12: 00 AM * Completed Procedure Code: 45.25 Procedure Name: not valued, on 03/12/2014 12: 00 AM * Completed , on 08/20/2009 12:00 AM Immunizations * Influenza, seasonal, injectable (NOVARTIS, Lot # [id number]); Administered 2013 9:24 AM; 0.5 ML=1 DOSE, [...]
--- OUTSIDE RECORDS SUMMARY | 2017-02-24 17:02 | XMS REPORT | Continuity of care Document ---
Author Author GENERATED, SYSTEM Organization Unknown Address Unknown Phone Unavailable Purpose Hospital Course Allergies, Adverse Reactions, Alerts * aspirin causes Unknown. Onset Unknown. * Benzodiazepines causes None per psych. * morphine causes No opioids per psych. * BuSpar causes Moderate Hives. * Imitrex causes Unknown. * Reglan causes "shuts esophagus". * Codeine causes Unknown. * Latex Allergy has not been assessed. * IV Contrast Allergy has not been assessed. * No Known Food Allergies. Problems * Abdominal Pain Status:Active. * Altered Mental Status Status:Active. * Dehydration Status:Active. * Diarrhea Status:Active. * Hypokalemia Status:Active. * Hypokalemia Status:Active. * Hyponatremia Status:Active. * Nausea & Vomiting Status:Active. * Poisoning by Drug/Medicinal Substance Status:Active. Procedures No relevant procedures performed. Medication Medication reconciliation has not been performed. Results Chemistry from 03/23/2014 3:30 PMSODIUM 137 MMOL/L (136-145 MMOL/L) POTASSIUM 3.3 MMOL/L L (3.5-5.1 MMOL/L) CHLORIDE 101 MMOL/L (98-107 MMOL/L) TCO2 30.3 MMOL/L (21.0-32.0 MMOL/L) ANION GAP 5.7 MMOL/L L (8.0-16.0 MMOL/L) BUN 10 MG/DL (7-18 MG/DL) CREATININE 0.67 MG/DL (0.43-0.83 MG/DL) BUN/CREATININE RATIO 14.9 (9.1-17.0 ) GLUCOSE 104 MG/DL H (65-99 MG/DL) GFR EST NON AFR CYMRO >=90 ML/MIN GFRA EST AFR AMER >=90 ML/MIN CALCIUM 9.0 MG/DL (8.5-10.1 MG/DL) BILIRUBIN TOTAL 0.21 MG/DL (0.20-1.00 MG/DL) TOTAL PROTEIN 6.6 GM/DL (6.4-8.2 GM/DL) ALBUMIN 3.1 GM/DL L (3.4-5.0 GM/DL) GLOBULIN 3.5 GM/DL (2.3-3.5 GM/DL) A/G RATIO 0.9 MG/DL L (1.5-2.2 MG/DL) ALK PHOS 91 U/L (46-116 U/L) ALT (SGPT) 30 U/L (12-78 U/L) AST (SGOT) 17 U/L (15-37 U/L) AMYLASE 41 U/L (25-115 U/L) ALCOHOL <0.003 GM/DL ACETAMINOPHEN <2 MCG/ML L (10-30 MCG/ML) SALICYLATE 3.4 MG/DL (2.8-20.0 MG/DL) Hematology from 03/23/2014 3:30 PMWBC 10.1 X10e3/UL (3.6-11.2 X10e3/UL) RBC 3.69 X10e6/UL (3.63-4.92 X10e6/UL) HEMOGLOBIN 11.8 G/DL (11.0-14.3 G/DL) HEMATOCRIT 34.6 % (31.2-41.9 %) MCV 93.9 FL (79.0-98.0 FL) MCH 31.9 PG (27.0-33.0 PG) MCHC 34.0 G/DL (32.0-36.0 G/DL) RDW 13.9 % (12.3-17.0 %) RDWSD 45.9 (37.1-47.8 ) PLATELET 545 X10e3/UL H (159-386 X10e3/UL) MPV 7.0 FL L (7.4-10.4 FL) AUTOMATED DIFF PERFORMED SEGS 55.8 % LYMPHOCYTES 35.2 % MONOCYTES 7.1 % EOSINOPHILS 1.0 % BASOPHILS 0.9 % ABSOLUTE NEUTROPHILS 5.6 X10e3/UL (1.8-7.8 X10e3/UL) ABSOLUTE LYMPHOCYTES 3.6 X10e3/UL H (1.0-3.0 X10e3/UL) ABSOLUTE MONOCYTES 0.7 X10e3/UL (0.3-1.0 X10e3/UL) ABSOLUTE EOSINOPHILS 0.1 X10e3/UL (0.0-0.5 X10e3/UL) ABSOLUTE BASOPHILS 0.1 X10e3/UL (0.0-0.2 X10e3/UL) DX Radiology from 03/23/2014 2:44 PMABDOMEN 2 VIEW (FLAT/UPRIGHT) DATE OF EXAM: Mar 23 2014 2:55PM Proc: DG 0036 - ABDOMEN 2 VIEW (FLAT/UPRIGHT) CPT Code(s): 03097-; ; ; INDICATION / CLINICAL HISTORY: Abdominal Pain Supine and upright views of the abdomen were obtained. FINDINGS: There is mild elevation of the right hemidiaphragm. The bowel gas pattern is within normal limits. There is no evidence of mechanical bowel obstruction or pneumoperitoneum. IMPRESSION: No evidence of mechanical bowel obstruction or pneumoperitoneum.
--- OUTSIDE RECORDS SUMMARY | 2017-02-24 17:02 | XMS REPORT ---
Author Author GENERATED, SYSTEM Organization Unknown Address Unknown Phone Unavailable Care Team Providers Care Partner Cco Name Role Phone MD JENIFFER, HANS PP [phone] Reason For Visit Chief Complaint ALTERED MENTAL STATUS, HYPOTENSIVE Social History Functional Status Vital Signs Results Chemistry from 08/30/2014 1:25 PMCOCAINE NEGATIVE (NEG <150 ) PCP NEGATIVE (NEG <25 ) OXYCODONE NEGATIVE (NEG <100 ) *PROPOXYPHENE (NORPROPOXYPHENE) (LAB) NEGATIVE (NEG <300 ) CANNABINOIDS NEGATIVE (NEG <50 ) BENZODIAZEINE POSITIVE A (NEG <150 ) AMPHETAMINE POSITIVE A (NEG <500 ) BARBITURATES NEGATIVE (NEG <200 ) METHAMPHETAMINES NEGATIVE (NEG <500 ) METHADONE (UR) NEGATIVE (NEG <200 ) OPIATES NEGATIVE (NEG <100 ) TRICYCLICS NEGATIVE (NEG <300 ) Chemistry from 08/30/2014 12:59 PMSODIUM 142 MMOL/L (136-145 MMOL/L) POTASSIUM 2.6 MMOL/L LL (3.5-5.1 MMOL/L) CHLORIDE 107 MMOL/L (98-107 MMOL/L) TCO2 27.6 MMOL/L (21.0-32.0 MMOL/L) ANION GAP 7.4 MMOL/L L (8.0-16.0 MMOL/L) BUN 6 MG/DL L (7-18 MG/DL) CREATININE 0.63 MG/DL (0.43-0.83 MG/DL) BUN/CREATININE RATIO 9.5 (9.1-17.0 ) GLUCOSE 78 MG/DL (65-99 MG/DL) GFR EST NON AFR AZERBAIJANI >90 ML/MIN GFRA EST AFR AMER >90 ML/MIN CALCIUM 8.5 MG/DL (8.5-10.1 MG/DL) BILIRUBIN TOTAL 0.11 MG/DL L (0.20-1.00 MG/DL) TOTAL PROTEIN 5.9 GM/DL L (6.4-8.2 GM/DL) ALBUMIN 2.9 GM/DL L (3.4-5.0 GM/DL) GLOBULIN 3.0 GM/DL (2.3-3.5 GM/DL) A/G RATIO 1.0 MG/DL L (1.5-2.2 MG/DL) ALK PHOS 71 U/L (46-116 U/L) ALT (SGPT) 8 U/L L (12-78 U/L) AST (SGOT) 11 U/L L (15-37 U/L) AMYLASE 35 U/L (25-115 U/L) LIPASE 126 U/L (73-393 U/L) TROPONIN-I <0.04 (SEE BELOW ) ALCOHOL <0.003 GM/DL ACETAMINOPHEN 4 MCG/ML L (10-30 MCG/ML) SALICYLATE 3.0 MG/DL (2.8-20.0 MG/DL) Hematology from 08/30/2014 12:59 PMWBC 6.7 X10e3/UL (3.6-11.2 X10e3/UL) RBC 3.65 X10e6/UL (3.63-4.92 X10e6/UL) HEMOGLOBIN 12.0 G/DL (11.0-14.3 G/DL) HEMATOCRIT 35.6 % (31.2-41.9 %) MCV 97.5 FL (79.0-98.0 FL) MCH 32.9 PG (27.0-33.0 PG) MCHC 33.7 G/DL (32.0-36.0 G/DL) RDW 18.2 % H (12.3-17.0 %) RDWSD 61.7 H (37.1-47.8 ) PLATELET 415 X10e3/UL H (159-386 X10e3/UL) MPV 6.8 FL L (7.4-10.4 FL) AUTOMATED DIFF PERFORMED SEGS 65.8 % LYMPHOCYTES 26.0 % MONOCYTES 6.5 % EOSINOPHILS 0.4 % BASOPHILS 1.3 % ABSOLUTE NEUTROPHILS 4.4 X10e3/UL (1.8-7.8 X10e3/UL) ABSOLUTE LYMPHOCYTES 1.8 X10e3/UL (1.0-3.0 X10e3/UL) ABSOLUTE MONOCYTES 0.4 X10e3/UL (0.3-1.0 X10e3/UL) ABSOLUTE EOSINOPHILS 0.0 X10e3/UL (0.0-0.5 X10e3/UL) ABSOLUTE BASOPHILS 0.1 X10e3/UL (0.0-0.2 X10e3/UL) Urinalysis from 08/30/2014 1:25 PMURINE COLOR YELLOW (STRAW/YELL/DK YELL ) URINE APPEARANCE CLEAR (CLEAR ) URINE PH 7.0 (5.0-8.0 ) URINE SPECIFIC GRAVITY 1.010 (<=1.005->=1.030 ) URINE GLUCOSE NEGATIVE MG/DL (NEGATIVE MG/DL) URINE BILIRUBIN NEGATIVE (NEGATIVE ) URINE KETONES NEGATIVE MG/DL (NEGATIVE MG/DL) URINE BLOOD TRACE-INTACT A (NEGATIVE ) URINE PROTEIN NEGATIVE MG/DL (NEGATIVE MG/DL) URINE UROBILINOGEN 0.2 EU/DL (0.2-1.0 EU/DL) URINE NITRITES POSITIVE A (NEGATIVE ) *URINE LEUKOCYTES SMALL A (NEGATIVE ) MICROSCOPIC EXAM PERFORMED PERFORMED WBC 5-10 /HPF A (0-5 /HPF) RBC 0-1 /HPF (0-1 /HPF) SQUAMOUS EP. CELLS FEW /LPF (NEG-FEW /LPF) BACTERIA MANY /HPF A (NEGATIVE /HPF) Coagulation from 08/30/2014 12:59 PMPROTHROMBIN TIME 10.8 SECONDS (9.4-11.5 SECONDS) INR 1.0 PARTIAL THROMBOPLASTIN TIME 23.1 SECONDS (22.0-28.0 SECONDS) Microbiology from 08/30/2014 1:25 PM* CULTURE URINE (Preliminary Result) Specimen Number: [id number] Sample Collection Date/Time: 08/30/2014 1:25 PM Specimen Source: Urine Clean Catch Problems Encounter Diagnosis No relevant problems exist. [...] Soarian Workflow upon Discharge, Status: Resolved. * Hypokalemia Comment:Problem resolved by Soarian Workflow [...]
--- OUTSIDE RECORDS SUMMARY | 2017-02-24 17:02 | XMS REPORT ---
Author Author GENERATED, SYSTEM Organization Unknown Address Unknown Phone Unavailable Care Team Providers Care Tool Setter Name Role Phone UNASSIGNED DOCTOR , DOCTOR PP [phone] Reason For Visit Chief Complaint COLLAPED IN ER WAITING ROOM Social History Functional Status Vital Signs Results Chemistry from 10/11/2015 4:50 PM*COCAINE NEGATIVE (NEG <150 ) *PCP NEGATIVE (NEG <25 ) *OXYCODONE NEGATIVE (NEG <100 ) *PROPOXYPHENE (NORPROPOXYPHENE) NEGATIVE (NEG <300 ) *CANNABINOIDS NEGATIVE (NEG <50 ) *BENZODIAZEINE POSITIVE A (NEG <150 ) *AMPHETAMINE NEGATIVE (NEG <500 ) *BARBITURATES NEGATIVE (NEG <200 ) *METHAMPHETAMINES NEGATIVE (NEG <500 ) *METHADONE (UR) NEGATIVE (NEG <200 ) *OPIATES NEGATIVE (NEG <100 ) *TRICYCLICS POSITIVE A (NEG <300 ) Chemistry from 10/11/2015 4:09 PMSODIUM 140 MMOL/L (136-145 MMOL/L) POTASSIUM 3.5 MMOL/L (3.5-5.1 MMOL/L) CHLORIDE 107 MMOL/L (98-107 MMOL/L) TCO2 24.5 MMOL/L (21.0-32.0 MMOL/L) *ANION GAP 8.5 MMOL/L (8.0-16.0 MMOL/L) BUN 12 MG/DL (7-18 MG/DL) CREATININE 0.68 MG/DL (0.55-1.02 MG/DL) *BUN/CREATININE RATIO 17.6 H (9.1-17.0 ) GLUCOSE 85 MG/DL (65-99 MG/DL) *GFR EST NON AFR MARTINIQUAIS >90 ML/MIN *GFRA EST AFR AMER >90 ML/MIN CALCIUM 9.1 MG/DL (8.5-10.1 MG/DL) BILIRUBIN TOTAL <0.10 MG/DL L (0.20-1.00 MG/DL) TOTAL PROTEIN 6.5 GM/DL (6.4-8.2 GM/DL) ALBUMIN 3.0 GM/DL L (3.4-5.0 GM/DL) *GLOBULIN 3.5 GM/DL (2.3-3.5 GM/DL) *A/G RATIO 0.9 MG/DL L (1.5-2.2 MG/DL) ALK PHOS 151 U/L H (46-116 U/L) ALT (SGPT) 27 U/L (16-63 U/L) AST (SGOT) 18 U/L (15-37 U/L) AMYLASE 97 U/L (25-115 U/L) LIPASE 386 U/L (73-393 U/L) TROPONIN-I 0.05 (SEE BELOW ) TSH 0.61 UIU/ML (0.34-4.82 UIU/ML) ALCOHOL <0.003 GM/DL ACETAMINOPHEN <2 MCG/ML L (10-30 MCG/ML) SALICYLATE 3.5 MG/DL (2.8-20.0 MG/DL) Hematology from 10/11/2015 4:09 PMWBC 8.8 X10e3/UL (3.6-11.2 X10e3/UL) RBC 3.74 X10e6/UL (3.63-4.92 X10e6/UL) HEMOGLOBIN 12.9 G/DL (11.0-14.3 G/DL) HEMATOCRIT 38.9 % (31.2-41.9 %) *MCV 104.1 FL H (79.0-98.0 FL) *MCH 34.6 PG H (27.0-33.0 PG) *MCHC 33.2 G/DL (32.0-36.0 G/DL) *RDW 13.9 % (12.3-17.0 %) *RDWSD 51.6 H (37.1-47.8 ) PLATELET 310 X10e3/UL (159-386 X10e3/UL) *MPV 7.5 FL (7.4-10.4 FL) AUTOMATED DIFF PERFORMED SEGS 61.9 % *LYMPHOCYTES 30.0 % *MONOCYTES 6.1 % *EOSINOPHILS 1.1 % *BASOPHILS 0.9 % *ABSOLUTE NEUTROPHILS 5.50 X10e3/UL (1.80-7.80 X10e3/UL) *ABSOLUTE LYMPHOCYTES 2.60 X10e3/UL (1.00-3.00 X10e3/UL) *ABSOLUTE MONOCYTES 0.50 X10e3/UL (0.30-1.00 X10e3/UL) *ABSOLUTE EOSINOPHILS 0.10 X10e3/UL (0.00-0.50 X10e3/UL) *ABSOLUTE BASOPHILS 0.10 X10e3/UL (0.00-0.20 X10e3/UL) Urinalysis from 10/11/2015 4:50 PM*URINE COLOR STRAW (STRAW/YELL/DK YELL ) *URINE APPEARANCE CLEAR (CLEAR ) URINE PH 6.5 (5.0-8.0 ) URINE SPECIFIC GRAVITY 1.010 (<=1.005->=1.030 ) *URINE GLUCOSE NEGATIVE MG/DL (NEGATIVE MG/DL) *URINE BILIRUBIN NEGATIVE (NEGATIVE ) *URINE KETONES NEGATIVE MG/DL (NEGATIVE MG/DL) *URINE BLOOD NEGATIVE (NEGATIVE ) *URINE PROTEIN NEGATIVE MG/DL (NEGATIVE MG/DL) *URINE UROBILINOGEN 0.2 EU/DL (0.2-1.0 EU/DL) *URINE NITRITES NEGATIVE (NEGATIVE ) *URINE LEUKOCYTES NEGATIVE (NEGATIVE ) DX Radiology from 10/11/2015 4:05 PMCHEST 2 VIEWS History: Abdominal Pain. Technique: 2 VIEW CHEST Priors: 09/08/2015 Findings: The heart size and pulmonary vasculature are unremarkable. No consolidation, pleural effusion, or pneumothorax is identified. No pneumoperitoneum. Impression: No evidence of acute cardiopulmonary process. Electronically signed by: MARCO A JEFF Dictated: 10/12/2015 06:56 Problems Encounter Diagnosis No relevant problems exist. [...] * Influenza, seasonal, injectable (NOVARTIS, Lot # [id number]); Administered 2013 9:24 AM; 0.5 ML=1 DOSE, [...]
--- OUTSIDE RECORDS SUMMARY | 2017-02-24 17:02 | XMS REPORT | Referral Summary ---
Author Organization Unknown Address Unknown Phone Unavailable Care Team Providers Care Tap Dancer Name Role Phone No PCP, States Primary Care Physician [phone] Encounter VC Date(s): 11/14/14 - 11/14/14 [address] [facility], [facility] [address] [place] [address] [facility] Discharge Diagnosis: Drug-seeking behavior Discharge Disposition: Home or Self Care Attending Physician: Provider, Immediate Care Attending Physician: Zhao Kuo MD Admitting Physician: Provider, Immediate Care Vital Signs Most recent to 1 oldest [Reference Range]: Temperature Oral 36.9 degC [35.8-37.3 degC] (11/14/14 2:38 PM) Peripheral Pulse 97 bpm Rate [60-100 bpm] (11/14/14 2:38 PM) Blood Pressure 121/81 mmHg [90-140/60-90 mmHg] (11/14/14 2:38 PM) Most recent to 1 oldest [Reference Range]: SpO2 98 % (11/14/14 2:38 PM) Problem List Condition Effective Dates Status [...] Status metoclopramide Anaphylaxis Severe Active Propine Active Medications Ambien 10 mg, Oral, Bedtime (once a day), as needed for sleep, 0 Refill(s) Start Date: 11/03/14 Status: Ordered Ativan 0.5 mg, Oral, BID, as needed for anxiety, # 14 tabs, 0 Refill(s) Start Date: 11/03/14 Stop Date: 11/11/14 Status: Ordered atorvastatin 80 mg oral tablet 1 tabs, Oral, Bedtime (once a day), # 30 tabs, 0 Refill(s), 1 tabs Oral Bedtime (once a day) Start Date: 11/04/14 Status: Ordered Carafate 1 g oral tablet 1 tabs, Oral, QIDACHS, 0 Refill(s) Start Date: 11/03/14 Status: Ordered KlonoPIN 1 mg, Oral, QID, Anxiety, 0 Refill(s) Start Date: 11/03/14 Status: Ordered Lomotil Oral, q4hr, Diarrhea/Loose Stools, 0 Refill(s) Start Date: 11/03/14 Status: Ordered omeprazole 20 mg oral delayed [...] day: Less than Pack Assessment and Plan Extracted from: Title: Office Visit Note Author: Zhao Kuo MD Date: 11/14/14 Assessment/Plan Drug-seeking behavior Hopefully, she would follow up with her PCP/Pain specialist.
--- OUTSIDE RECORDS SUMMARY | 2017-02-24 17:02 | XMS REPORT ---
Author Author Moses Gentile Organization [employer] Address Unknown Phone Unavailable Care Team Providers Care Professional Poker Player Name Role Phone Moses Gentile CP Unavailable Allergies, Adverse Reactions, Alerts Substance Reaction Event Type N.K.D.A. Info Not Available Non Drug Allergy Problems Problem Type Condition Code Onset Dates Condition Status Assessment Other physeal fracture of lower end of left fibula, subsequent encounter for fracture with delayed healing S89.392G Active Assessment Pain in right hip M25.551 Active Medications Medication Code System Code Instructions Start Date End Date Status Dosage Potassimin [facility] [address]-19 not defined Procedures Procedure Coding System Code Date X ray ankle complete CPT-4 27473 Jul 01, 2016 X ray hip unilateral complete CPT-4 02126 Jul 01, 2016 Vital Signs Date/Time: Jul 01, 2016 Height n/a in Weight n/a lbs Temperature 98.0 F Cardiac Monitoring Heart Rate 115 /min Blood Pressure Diastolic 89 mm Hg Blood Pressure Systolic 118 mm Hg Results No Known Results Summary Purpose eClinicalWorks Submission
--- OUTSIDE RECORDS SUMMARY | 2017-02-24 17:02 | XMS REPORT ---
Author Author GENERATED, SYSTEM Organization Unknown Address Unknown Phone Unavailable Care Team Providers Care Logistics Center Manager Name Role Phone MD GRACY, NAVIN PP [phone] Reason For Visit Chief Complaint LT ELBOW PAIN,PT LEFT BEFORE TRIAGE Social History Functional Status Vital Signs Results [...] 1 :12 PM * Completed Procedure Code: 18009 Procedure Name: not valued, on 04/22/2016 12: 00 AM * Completed Esophagogastroduodenoscopy, by MD BAIRON HAMILTON, on 11/20/2015 12:55 PM * Completed Procedure Code: 32530 Procedure Name: not valued, on 11/20/2015 12: 00 AM * Completed Procedure Code: 53480 Procedure Name: not valued, on 11/20/2015 12: 00 AM * Completed Procedure Code: 45.16 Procedure Name: not valued, on 03/12/2014 12: 00 AM * Completed Procedure Code: 45.25 Procedure Name: not valued, on 03/12/2014 12: 00 AM * Completed , on 08/20/2009 12:00 AM Immunizations * Influenza, seasonal, injectable ([employer], Lot # [id number]); Administered 2013 9:24 AM; 0.5 ML=1 DOSE, [...]
--- OUTSIDE RECORDS SUMMARY | 2017-02-24 17:02 | XMS REPORT | Referral Summary ---
Author Organization Unknown Address Unknown Phone Unavailable Care Team Providers Care Retirement Consultant Name Role Phone No PCP, Pt States Primary Care Physician [phone] Encounter [facility] EUSE[facility] [id number] Date(s): 11/08/14 - 11/08/14 [address] ROSAS Padilla, [place], [address] [place], [place] [address] Discharge Diagnosis: Pancreatitis Discharge Disposition: Home or Self Care Attending Physician: Adeel Evans MD Admitting Physician: Adeel Evans MD Referring Physician: No PCP, Pt States Vital Signs Most recent to 1 oldest [Reference Range]: Peripheral Pulse 90 bpm Rate [60-100 bpm] (11/08/14 7:05 PM) Blood Pressure 118/82 mmHg [90-140/60-90 mmHg] (11/08/14 7:05 PM) Most recent to 1 oldest [Reference Range]: SpO2 95 % (11/08/14 7:05 PM) Problem List Condition Effective Dates Status [...] and Plan Extracted from: Title: Office Visit Note-immediate Author: Adeel Evans MD Date: care Assessment/Plan Pancreatitis History of pancreatitis with drug-seeking behavior. She seems to me to be under the influence of mind altering substance but otherwise did not seem to be in acute distress. Nursing staff is told me that she was driving. I advised that she should not drive because I'm concerned about her safety and the safety of others. I also advised that she should go to the emergency room for more complete evaluation and testing. I declined to provide prescriptions for narcotics or sleeping medicine that she requested.
--- OUTSIDE RECORDS SUMMARY | 2017-02-24 17:02 | XMS REPORT ---
Author Author GENERATED, SYSTEM Organization Unknown Address Unknown Phone Unavailable Care Team Providers Care Head Of Research & Insights Name Role Phone UNASSIGNED DOCTOR , DOCTOR PP [phone] Reason For Visit Chief Complaint FALL- ANKLE PAIN LEFT Social History Functional Status Vital Signs Results [...] 1 :12 PM * Completed Procedure Code: 87088 Procedure Name: not valued, on 04/22/2016 12: 00 AM * Completed Esophagogastroduodenoscopy, by MD BAIRON HAMILTON, on 11/20/2015 12:55 PM * Completed Procedure Code: 11371 Procedure Name: not valued, on 11/20/2015 12: 00 AM * Completed Procedure Code: 50146 Procedure Name: not valued, on 11/20/2015 12: 00 AM * Completed Procedure Code: 45.16 Procedure Name: not valued, on 03/12/2014 12: 00 AM * Completed Procedure Code: 45.25 Procedure Name: not valued, on 03/12/2014 12: 00 AM * Completed , on 08/20/2009 12:00 AM Immunizations * Influenza, seasonal, injectable (NOVARTIS, Lot # [id number]); Administered 2013 9:24 AM; 0.5 ML=1 DOSE, [...]
--- OUTSIDE RECORDS SUMMARY | 2017-02-24 17:02 | XMS REPORT ---
Author Author GENERATED, SYSTEM Organization Unknown Address Unknown Phone Unavailable Care Team Providers Care Human Machine Interface Engineer Name Role Phone MD GRACY, NAVIN [phone] Reason For Visit Chief Complaint LEG, HIP PAIN Social History Functional Status Vital Signs Results DX Radiology from 06/19/2016 12:21 AMCHEST 1 VIEW History: pain fall Priors: 05/11/16 Findings: The cardiac silhouette and pulmonary vasculature are within normal limits. There are no acute infiltrates or effusions. There are subacute appearing deformities of the right 8th and 9th ribs laterally. There is no pneumothorax. Impression: No acute cardiopulmonary disease. Electronically signed by: Alan White MD Dictated: 06/19/2016 12:13 SHOULDER BILATERAL 2 VIEWS MIN History: Bilateral shoulder pain Technique: Three-view bilateral shoulders Priors: None. Findings: There is no acute fracture dislocation. The acromioclavicular joints are intact bilaterally. There are mild degenerative changes of the acromioclavicular joints, left greater than right. Impression: Mild degenerative changes without acute osseous abnormality. Electronically signed by: Alan White MD Dictated: 06/19/2016 12:10 CT [facility] 06[facility]19[facility]2016 12:[facility] [facility] History: pain fall . Lower back pain. Priors: 05/08/13 Findings: The lumbar vertebral bodies are normal in height and alignment. There is disc space narrowing and vacuum disc phenomena at the L5-S1 level. No acute fractures demonstrated. The paravertebral soft tissues are unremarkable. There is mild multilevel disc bulge without significant central canal stenosis. There is mild narrowing of the neural foramen at the L4-5 level on the left. Impression: No acute os abnormality. Electronically signed by: Alan White MD Dictated: 06/19/2016 11:06 CT SPINE THORACIC W/O CONTRAST History: pain fall . Back pain. Priors: None. Findings: The the thoracic vertebral bodies are normal in height and alignment. Is no acute fracture. There is mild posterior disc bulge with calcification of the T 3-4 level. This results in no significant stenosis. There are minimal degenerative changes. The paravertebral soft tissues are unremarkable. Impression: Degenerative changes without acute osseous abnormality. Electronically signed by: Alan White MD Dictated: 06/19/2016 11:09 CT Scan [facility] 06/19/2016 12:32 [facility] [place] CERV[place] CONTRAST History: Pain all over worse and right leg and hip and lower back. Priors: 05/11/16 Findings: The cervical vertebral bodies are normal in height and alignment. There are postoperative changes of anterior fusion at see for through 6. The hardware appears intact. There are no acute fractures. There are mild degenerative changes. There is mild multilevel disc bulge. The prevertebral soft tissues are unremarkable. The lung apices are clear Impression: Degenerative changes and postoperative changes without acute osseous abnormality. Electronically signed by: Alan White MD Dictated: 06/19/2016 11:01 Problems Encounter Diagnosis No relevant problems exist. [...] 1 :12 PM * Completed Procedure Code: 37677 Procedure Name: not valued, on 04/22/2016 12: 00 AM * Completed Esophagogastroduodenoscopy, by MD BAIRON HAMILTON, on 11/20/2015 12:55 PM * Completed Procedure Code: 59040 Procedure Name: not valued, on 11/20/2015 12: 00 AM * Completed Procedure Code: 68882 Procedure Name: not valued, on 11/20/2015 12: 00 AM * Completed Procedure Code: 45.16 Procedure Name: not valued, on 03/12/2014 12: 00 AM * Completed Procedure Code: 45.25 Procedure Name: not valued, on 03/12/2014 12: 00 AM * Completed , on 08/20/2009 12:00 AM Immunizations * Influenza, seasonal, injectable (NOVARTIS, Lot # [id number]); Administered 2013 9:24 AM; 0.5 ML=1 DOSE, [...]
--- OUTSIDE RECORDS SUMMARY | 2017-02-24 17:03 | XMS REPORT ---
Author Author GENERATED, SYSTEM Organization Unknown Address Unknown Phone Unavailable Care Team Providers Care Postdoctoral Fellow Name Role Phone UNASSIGNED DOCTOR , DOCTOR PP [phone] Reason For Visit Chief Complaint ABD PAIN, VOMITING, DIARRHEA Social History Functional Status Vital Signs Results Chemistry from 12/05/2014 1:44 AMSODIUM 138 MMOL/L (136-145 MMOL/L) POTASSIUM 3.5 MMOL/L (3.5-5.1 MMOL/L) CHLORIDE 106 MMOL/L (98-107 MMOL/L) TCO2 23.0 MMOL/L (21.0-32.0 MMOL/L) ANION GAP 9.0 MMOL/L (8.0-16.0 MMOL/L) BUN 14 MG/DL (7-18 MG/DL) CREATININE 0.63 MG/DL (0.43-0.83 MG/DL) BUN/CREATININE RATIO 22.2 H (9.1-17.0 ) GLUCOSE 86 MG/DL (65-99 MG/DL) GFR EST NON AFR MICRONESIAN >90 ML/MIN GFRA EST AFR AMER >90 ML/MIN CALCIUM 8.6 MG/DL (8.5-10.1 MG/DL) BILIRUBIN TOTAL 0.12 MG/DL L (0.20-1.00 MG/DL) TOTAL PROTEIN 6.4 GM/DL (6.4-8.2 GM/DL) ALBUMIN 2.8 GM/DL L (3.4-5.0 GM/DL) GLOBULIN 3.6 GM/DL H (2.3-3.5 GM/DL) A/G RATIO 0.8 MG/DL L (1.5-2.2 MG/DL) ALK PHOS 123 U/L H (46-116 U/L) ALT (SGPT) 29 U/L (12-78 U/L) AST (SGOT) 25 U/L (15-37 U/L) AMYLASE 67 U/L (25-115 U/L) LIPASE 330 U/L (73-393 U/L) Hematology from 12/05/2014 1:44 AMWBC 7.4 X10e3/UL (3.6-11.2 X10e3/UL) RBC 3.39 X10e6/UL L (3.63-4.92 X10e6/UL) HEMOGLOBIN 12.1 G/DL (11.0-14.3 G/DL) HEMATOCRIT 34.4 % (31.2-41.9 %) MCV 101.6 FL H (79.0-98.0 FL) MCH 35.9 PG H (27.0-33.0 PG) MCHC 35.3 G/DL (32.0-36.0 G/DL) RDW 17.0 % (12.3-17.0 %) PLATELET 420 X10e3/UL H (159-386 X10e3/UL) MPV 7.1 FL L (7.4-10.4 FL) AUTOMATED DIFF PERFORMED SEGS 55.4 % LYMPHOCYTES 33.8 % MONOCYTES 7.8 % EOSINOPHILS 2.2 % BASOPHILS 0.8 % ABSOLUTE NEUTROPHILS 4.00 X10e3/UL (1.80-7.80 X10e3/UL) ABSOLUTE LYMPHOCYTES 2.50 X10e3/UL (1.00-3.00 X10e3/UL) ABSOLUTE MONOCYTES 0.60 X10e3/UL (0.30-1.00 X10e3/UL) ABSOLUTE EOSINOPHILS 0.20 X10e3/UL (0.00-0.50 X10e3/UL) ABSOLUTE BASOPHILS 0.10 X10e3/UL (0.00-0.20 X10e3/UL) Problems Encounter Diagnosis No relevant problems exist. [...]
--- OUTSIDE RECORDS SUMMARY | 2017-02-24 17:03 | XMS REPORT ---
Author Author GENERATED, SYSTEM Organization Unknown Address Unknown Phone Unavailable Care Team Providers Care Motor Rebuilder Name Role Phone UNASSIGNED DOCTOR , DOCTOR PP [phone] Reason For Visit Reason for Visit from 11/20/2015 11:34 AM:* Pt Stated Reason for Adm : EGD Chief Complaint EGD Social History Social History from 11/20/2015 1:35 PM:* Tobacco Use? : Current Everyday Smoker Social History from 11/20/2015 11:34 AM:* Tobacco Use? : Current Everyday Smoker Functional Status Functional Status from 11/20/2015 1:26 PM:* LOC : Alert Functional Status from 11/20/2015 11:34 AM:* LOC : Alert * Oriented To : Person,Place,Time,Event * Weight Bearing Status : Full * Assist Level : Independent * # Assists : Independent Vital Signs Hospital Vital Signs from 11/20/2015 1:59 PM:* Height : 5/5 ft,in * Temperature : 97.2 F * Pulse : 63 * Respirations : 16 * BP : 92/62 Hospital Vital Signs from 11/20/2015 1:45 PM:* Height : 5/5 ft,in * Pulse : 61 * Respirations : 16 * BP : 98/57 Hospital Vital Signs from 11/20/2015 1:30 PM:* Height : 5/5 ft,in * Pulse : 60 * Respirations : 16 * BP : 95/71 Hospital Vital Signs from 11/20/2015 1:17 PM:* Height : 5/5 ft,in * Temperature : 98.6 F * Pulse : 64 * Respirations : 16 * BP : 91/51 Hospital Vital Signs from 11/20/2015 11:46 AM:* Weight : 56.699/ kg * Height : 5/5 ft,in * Temperature : 97.5 F * Pulse : 50 * Respirations : 16 * BP : 81/45 Hospital Vital Signs from 11/20/2015 11:34 AM:* Weight : 56.6/ kg * Height : 5/5 ft,in Results Chemistry from 11/20/2015 12:15 PMSODIUM 137 MMOL/L (136-145 MMOL/L) POTASSIUM 5.3 MMOL/L H (3.5-5.1 MMOL/L) CHLORIDE 105 MMOL/L (98-107 MMOL/L) TCO2 24.0 MMOL/L (21.0-32.0 MMOL/L) *ANION GAP 8.0 MMOL/L (8.0-16.0 MMOL/L) BUN 13 MG/DL (7-18 MG/DL) CREATININE 0.78 MG/DL (0.55-1.02 MG/DL) *BUN/CREATININE RATIO 16.7 (9.1-17.0 ) GLUCOSE 95 MG/DL (65-99 MG/DL) *GFR EST NON AFR AUSTRALIAN 86 ML/MIN *GFRA EST AFR AMER >90 ML/MIN CALCIUM 9.3 MG/DL (8.5-10.1 MG/DL) Problems Encounter Diagnosis * Fall Risk Status:Active. [...] * Fall Risk Status:Active. Plan of Care Procedures * Completed Esophagogastroduodenoscopy, by MD BAIRON HAMILTON, on 11/20/2015 12:55 PM * Completed Procedure Code: 45.16 Procedure Name: not valued, on 03/12/2014 12: 00 AM * Completed Procedure Code: 45.25 Procedure Name: not valued, on 03/12/2014 12: 00 AM * Completed , on 08/20/2009 12:00 AM Immunizations * Influenza, seasonal, injectable (NOVARTIS, Lot # [id number]); Administered 2013 9:24 AM; 0.5 ML=1 DOSE, INTRAMUSCL Hospital Course Hospital Discharge Instructions How to care for yourself at home from 11/20/2015 1:35 PM:* Discharge Activity : Activity as tolerated * Discharge Diet : As before hospitalization * Discharge Diet: : soft foods and no spicy foods today * Call your doctor if: : Fever [...]
--- OUTSIDE RECORDS SUMMARY | 2017-02-24 17:03 | XMS REPORT ---
Author Author GENERATED, SYSTEM Organization Unknown Address Unknown Phone Unavailable Care Team Providers Care Broke Beater Name Role Phone UNASSIGNED DOCTOR , DOCTOR PP [phone] Reason For Visit Chief Complaint MENTAL STATUS CHANGE Social History Functional Status Vital Signs Results [...] * Influenza, seasonal, injectable (NOVARTIS, Lot # [id number]); Administered 2013 9:24 AM; 0.5 ML=1 DOSE, [...]
--- OUTSIDE RECORDS SUMMARY | 2017-02-24 17:03 | XMS REPORT ---
Author Author GENERATED, SYSTEM Organization Unknown Address Unknown Phone Unavailable Care Team Providers Care Wool Batting Worker Name Role Phone MD GRACY, NAVIN PP [phone] Reason For Visit Chief Complaint NUMBNESS SWELLING PAIN LEFT ELBOW Social History Functional Status Vital Signs Results CT Scan from 08/09/2016 4:12 PMCT UPPER EXT LEFT W/CONTRAST History: elbow pain, bursitis, infectio Technique: Helical 2 millimeter thick axial images through the elbow were obtained fall initiation 95 cc of Isovue-300. Priors: None. Findings: There is irregularity and somewhat heterogeneous lucency involving the very proximal surface the olecranon. Additionally, the there is a somewhat irregular fluid density within the distal triceps tendon with enhancement/edema extending more proximally. These findings are suspicious for small abscess and adjacent osteomyelitis in the olecranon. Elsewhere, there is no acute fracture. The elbow is normal alignment. There is no significant joint effusion. Impression: Findings suspicious for small abscess involving the distal triceps tendon with mild osteomyelitis involving the proximal surface of the olecranon. Of note, this was not mentioned on the preliminary [facility] report. Therefore, these findings were discussed with Dr. Mccarthy at the time of final interpretation. Electronically signed by: Alan White MD Dictated: 08/10/2016 09:58 Problems Encounter Diagnosis No relevant problems exist. [...] 1 :12 PM * Completed Procedure Code: 49040 Procedure Name: not valued, on 04/22/2016 12: 00 AM * Completed Esophagogastroduodenoscopy, by MD BAIRON HAMILTON, on 11/20/2015 12:55 PM * Completed Procedure Code: 77372 Procedure Name: not valued, on 11/20/2015 12: 00 AM * Completed Procedure Code: 52118 Procedure Name: not valued, on 11/20/2015 12: 00 AM * Completed Procedure Code: 45.16 Procedure Name: not valued, on 03/12/2014 12: 00 AM * Completed Procedure Code: 45.25 Procedure Name: not valued, on 03/12/2014 12: 00 AM * Completed , on 08/20/2009 12:00 AM Immunizations * Influenza, seasonal, injectable (NOVARTIS, Lot # [id number]); Administered 2013 9:24 AM; 0.5 ML=1 DOSE, [...]
--- OUTSIDE RECORDS SUMMARY | 2017-02-24 17:03 | XMS REPORT ---
Author Author GENERATED, SYSTEM Organization Unknown Address Unknown Phone Unavailable Care Team Providers Care Embedded Hardware Engineer Name Role Phone MD GRACY, NAVIN PP [phone] Reason For Visit Chief Complaint HIGH BP MIGRAIN Social History Functional Status Vital Signs Results Chemistry from 11/25/2016 9:56 PMSODIUM 145 MMOL/L (136-145 MMOL/L) POTASSIUM 2.9 MMOL/L L (3.5-5.1 MMOL/L) CHLORIDE 108 MMOL/L H (98-107 MMOL/L) TCO2 23.3 MMOL/L (21.0-32.0 MMOL/L) *ANION GAP 13.7 MMOL/L (8.0-16.0 MMOL/L) BUN 5 MG/DL L (7-18 MG/DL) CREATININE 0.64 MG/DL (0.55-1.02 MG/DL) *BUN/CREATININE RATIO 7.8 L (9.1-17.0 ) GLUCOSE 79 MG/DL (65-99 MG/DL) *GFR EST NON AFR CANADIAN >90 ML/MIN *GFR EST AFR AMER >90 ML/MIN CALCIUM 9.3 MG/DL (8.5-10.1 MG/DL) BILIRUBIN TOTAL 0.20 MG/DL (0.20-1.00 MG/DL) TOTAL PROTEIN 7.4 GM/DL (6.4-8.2 GM/DL) ALBUMIN 3.1 GM/DL L (3.4-5.0 GM/DL) *GLOBULIN 4.3 GM/DL H (2.3-3.5 GM/DL) *A/G RATIO 0.7 MG/DL L (1.5-2.2 MG/DL) ALK PHOS 167 U/L H (46-116 U/L) ALT (SGPT) 19 U/L (16-63 U/L) AST (SGOT) 18 U/L (15-37 U/L) Hematology from 11/25/2016 9:56 PMWBC 9.0 X10e3/UL (3.6-11.2 X10e3/UL) RBC 3.96 X10e6/UL (3.63-4.92 X10e6/UL) HEMOGLOBIN 13.2 G/DL (11.0-14.3 G/DL) HEMATOCRIT 39.3 % (31.2-41.9 %) *MCV 99.3 FL H (79.0-98.0 FL) *MCH 33.4 PG H (27.0-33.0 PG) *MCHC 33.7 G/DL (32.0-36.0 G/DL) *RDW 14.6 % (12.3-17.0 %) *RDWSD 50.8 H (37.1-47.8 ) PLATELET 397 X10e3/UL H (159-386 X10e3/UL) *MPV 7.1 FL L (7.4-10.4 FL) AUTOMATED DIFF PERFORMED SEGS 57.4 % *LYMPHOCYTES 33.8 % *MONOCYTES 5.2 % *EOSINOPHILS 2.5 % *BASOPHILS 1.1 % *ABSOLUTE NEUTROPHILS 5.20 X10e3/UL (1.80-7.80 X10e3/UL) *ABSOLUTE LYMPHOCYTES 3.00 X10e3/UL (1.00-3.00 X10e3/UL) *ABSOLUTE MONOCYTES 0.50 X10e3/UL (0.30-1.00 X10e3/UL) *ABSOLUTE EOSINOPHILS 0.20 X10e3/UL (0.00-0.50 X10e3/UL) *ABSOLUTE BASOPHILS 0.10 X10e3/UL (0.00-0.20 X10e3/UL) Coagulation from 11/25/2016 9:56 PM*PROTHROMBIN TIME 10.9 SECONDS (9.4-11.5 SECONDS) *INR 1.0 (0.9-1.1 ) CT Scan from 11/25/2016 10:11 PMCT CEREBRAL W/O CONTRAST History: headache x1 week with nausea vomiting and photophobia. . Priors: 08/29/2016 Findings: Ventricles and Extra axial spaces: Normal in size and morphology for the patient's age. Hemorrhage: None. Cerebral parenchyma: Normal. Mass effect/midline shift: None. Brainstem/Cerebellum: Normal. Calvarium: Normal. Visualized Paranasal sinuses/Mastoids: There is a least partial opacification right maxillary sinus is incompletely visualized as well as opacification of multiple right ethmoid air cells consistent with sinusitis. The remaining paranasal sinuses mastoid air cells appear clear per Impression: Right maxillary and ethmoid sinusitis without acute intracranial abnormality. Electronically signed by: Gomez Echeverria MD Dictated: 11/26/2016 10:16 Problems Encounter Diagnosis No relevant problems exist. [...] 1 :12 PM * Completed Procedure Code: 20912 Procedure Name: not valued, on 04/22/2016 12: 00 AM * Completed Esophagogastroduodenoscopy, by MD BAIRON HAMILTON, on 11/20/2015 12:55 PM * Completed Procedure Code: 83854 Procedure Name: not valued, on 11/20/2015 12: 00 AM * Completed Procedure Code: 97403 Procedure Name: not valued, on 11/20/2015 12: 00 AM * Completed Procedure Code: 45.16 Procedure Name: not valued, on 03/12/2014 12: 00 AM * Completed Procedure Code: 45.25 Procedure Name: not valued, on 03/12/2014 12: 00 AM * Completed , on 08/20/2009 12:00 AM Immunizations * Influenza, seasonal, injectable (NOVARTIS, Lot # [id number]); Administered 2013 9:24 AM; 0.5 ML=1 DOSE, [...]
--- OUTSIDE RECORDS SUMMARY | 2017-02-24 17:03 | XMS REPORT ---
Author Author GENERATED, SYSTEM Organization Unknown Address Unknown Phone Unavailable Care Team Providers Care Return Agent Name Role Phone UNASSIGNED DOCTOR , DOCTOR PP [phone] Reason For Visit Chief Complaint CHEST/ABDOMINAL PAIN Social History Functional Status Vital Signs [...] * Influenza, seasonal, injectable (NOVARTIS, Lot # [id number]); Administered 2013 9:24 AM; 0.5 ML=1 DOSE, [...]
--- OUTSIDE RECORDS SUMMARY | 2017-02-24 17:03 | XMS REPORT ---
Author Author Alex Grant Organization [employer] Address Unknown Phone Unavailable Care Team Providers Care Sheep Sticker Name Role Phone Alex Grant CP Unavailable Allergies No Known Allergies Problems No Known Problems Medications No Known Medications Results No Known Results Summary Purpose [employer] Submission
--- OUTSIDE RECORDS SUMMARY | 2017-02-24 17:03 | XMS REPORT ---
Author Author GENERATED, SYSTEM Organization Unknown Address Unknown Phone Unavailable Care Team Providers Care Hat Block Bench Hand Name Role Phone MD JENIFFER, HANS PP [phone] Reason For Visit Chief Complaint CRISIS Social History Functional Status Vital Signs Results Chemistry from 09/03/2014 12:41 PMCOCAINE NEGATIVE (NEG <150 ) PCP NEGATIVE [...] TRICYCLICS NEGATIVE (NEG <300 ) Chemistry from 09/03/2014 12:35 PMSODIUM 135 MMOL/L L (136-145 MMOL/L) POTASSIUM 4.4 MMOL/L (3.5-5.1 MMOL/L) CHLORIDE 98 MMOL/L (98-107 MMOL/L) TCO2 20.0 MMOL/L L (21.0-32.0 MMOL/L) ANION GAP 17.0 MMOL/L H (8.0-16.0 MMOL/L) BUN 8 MG/DL (7-18 MG/DL) CREATININE 0.91 MG/DL H (0.43-0.83 MG/DL) BUN/CREATININE RATIO 8.8 L (9.1-17.0 ) GLUCOSE 98 MG/DL (65-99 MG/DL) GFR EST NON AFR HONDURAN 72 ML/MIN GFRA EST AFR AMER 84 ML/MIN CALCIUM 11.2 MG/DL H (8.5-10.1 MG/DL) BILIRUBIN TOTAL 0.33 MG/DL (0.20-1.00 MG/DL) TOTAL PROTEIN 9.2 GM/DL H (6.4-8.2 GM/DL) ALBUMIN 4.4 GM/DL (3.4-5.0 GM/DL) GLOBULIN 4.8 GM/DL H (2.3-3.5 GM/DL) A/G RATIO 0.9 MG/DL L (1.5-2.2 MG/DL) ALK PHOS 115 U/L (46-116 U/L) ALT (SGPT) 14 U/L (12-78 U/L) AST (SGOT) 14 U/L L (15-37 U/L) ALCOHOL <0.003 GM/DL ACETAMINOPHEN 5 MCG/ML L (10-30 MCG/ML) SALICYLATE 21.7 MG/DL H (2.8-20.0 MG/DL) Hematology from 09/03/2014 12:35 PMWBC 15.3 X10e3/UL H (3.6-11.2 X10e3/UL) RBC 4.91 X10e6/UL (3.63-4.92 X10e6/UL) HEMOGLOBIN 15.9 G/DL H (11.0-14.3 G/DL) HEMATOCRIT 48.8 % H (31.2-41.9 %) MCV 99.3 FL H (79.0-98.0 FL) MCH 32.3 PG (27.0-33.0 PG) MCHC 32.6 G/DL (32.0-36.0 G/DL) RDW 18.7 % H (12.3-17.0 %) RDWSD 65.2 H (37.1-47.8 ) PLATELET 528 X10e3/UL H (159-386 X10e3/UL) MPV 7.3 FL L (7.4-10.4 FL) AUTOMATED DIFF PERFORMED SEGS 80.7 % LYMPHOCYTES 14.6 % MONOCYTES 3.6 % EOSINOPHILS 0.3 % BASOPHILS 0.8 % ABSOLUTE NEUTROPHILS 12.3 X10e3/UL H (1.8-7.8 X10e3/UL) ABSOLUTE LYMPHOCYTES 2.2 X10e3/UL (1.0-3.0 X10e3/UL) ABSOLUTE MONOCYTES 0.6 X10e3/UL (0.3-1.0 X10e3/UL) ABSOLUTE EOSINOPHILS 0.0 X10e3/UL (0.0-0.5 X10e3/UL) ABSOLUTE BASOPHILS 0.1 X10e3/UL (0.0-0.2 X10e3/UL) Urinalysis from 09/03/2014 12:41 PMURINE COLOR STRAW (STRAW/YELL/DK YELL ) URINE APPEARANCE CLEAR (CLEAR ) URINE PH 5.5 (5.0-8.0 ) URINE SPECIFIC GRAVITY 1.015 (<=1.005->=1.030 ) URINE GLUCOSE NEGATIVE MG/DL (NEGATIVE MG/DL) URINE BILIRUBIN NEGATIVE (NEGATIVE ) URINE KETONES NEGATIVE MG/DL (NEGATIVE MG/DL) URINE BLOOD NEGATIVE (NEGATIVE ) URINE PROTEIN NEGATIVE MG/DL (NEGATIVE MG/DL) URINE UROBILINOGEN 0.2 EU/DL (0.2-1.0 EU/DL) URINE NITRITES NEGATIVE (NEGATIVE ) *URINE LEUKOCYTES NEGATIVE (NEGATIVE ) Coagulation from 09/03/2014 12:35 PMPROTHROMBIN TIME 10.4 SECONDS (9.4-11.5 SECONDS) INR 1.0 PARTIAL THROMBOPLASTIN TIME 24.1 SECONDS (22.0-28.0 SECONDS) Problems Encounter Diagnosis No relevant problems exist. [...]
--- OUTSIDE RECORDS SUMMARY | 2017-02-24 17:03 | XMS REPORT | Continuity of Care Document ---
Author Author [facility] Organization [facility] Address Unknown Phone Unavailable Support Name Relationship Address Phone PINKYJET EASTMAN Caregiver [facility] [address] [place], [place] [id number] FRANCIA BOWERS MD Caregiver [address] , [address] [place], [place] [id number] Insurance Providers Payer Name Policy Number Subscriber Name Relationship [facility] [employer] [id number] Tova Cates 19 Self Problems No known problems or medical conditions. Medications No known medications. Social History No social history. Hospital Discharge Instructions No hospital discharge instructions. Plan of Care No plan of care. Functional Status No functional status results. Allergies, Adverse Reactions, Alerts Allergen Type Severity Reaction Status Last Updated Sumatriptan Allergy Unknown Active 10/27/14 Metoclopramide Allergy Unknown Active 10/27/14 PROPEL Allergy Unknown Active 10/27/14 Immunizations No immunization records. Vital Signs Acute Vital Signs Vital Response Date/Time Temperature (Fahrenheit) 97.9 deg F (96.8 - 99.1) Temperature (Calculated Celsius) 36.01788 degrees C (36.0 - 37.3) Pulse Rate (adult) 112 bpm (60 - 100) Respiratory Rate 28 breaths/min (10 - 20) O2 Sat by Pulse Oximetry 99 % (90 - 100) Blood Pressure 137/80 mm Hg Height 5 ft 7 in Weight 119 lb Body Mass Index 18.0 kg/m^2 Results No known relevant diagnostic tests, laboratory data and/or discharge summary. Procedures No known history of procedures. Encounters Encounter Location Date/Time Departed Emergency Room [facility] 10/27/14 1:53pm Recent Diagnosis
--- OUTSIDE RECORDS SUMMARY | 2017-02-24 17:03 | XMS REPORT ---
Author Author GENERATED, SYSTEM Organization Unknown Address Unknown Phone Unavailable Care Team Providers Care Alodize Machine Helper Name Role Phone UNASSIGNED DOCTORMD DOCTOR PP [phone] Reason For Visit Chief Complaint POSSIBLE SE[facility]AR[facility] Social History Functional Status Vital Signs Results Chemistry from 06/05/2014 12:52 PMSODIUM 137 MMOL/L (136-145 MMOL/L) POTASSIUM 3.3 MMOL/L L (3.5-5.1 MMOL/L) CHLORIDE 99 MMOL/L (98-107 MMOL/L) TCO2 27.7 MMOL/L (21.0-32.0 MMOL/L) ANION GAP 10.3 MMOL/L (8.0-16.0 MMOL/L) BUN 9 MG/DL (7-18 MG/DL) CREATININE 0.78 MG/DL (0.43-0.83 MG/DL) BUN/CREATININE RATIO 11.5 (9.1-17.0 ) GLUCOSE 107 MG/DL H (65-99 MG/DL) GFR EST NON AFR FIJIAN 87 ML/MIN GFRA EST AFR AMER >90 ML/MIN CALCIUM 9.4 MG/DL (8.5-10.1 MG/DL) Hematology from 06/05/2014 12:52 PMWBC 10.5 X10e3/UL (3.6-11.2 X10e3/UL) RBC 4.37 X10e6/UL (3.63-4.92 X10e6/UL) HEMOGLOBIN 13.4 G/DL (11.0-14.3 G/DL) HEMATOCRIT 42.1 % H (31.2-41.9 %) MCV 96.5 FL (79.0-98.0 FL) MCH 30.8 PG (27.0-33.0 PG) MCHC 31.9 G/DL L (32.0-36.0 G/DL) RDW 15.5 % (12.3-17.0 %) RDWSD 52.5 H (37.1-47.8 ) PLATELET 471 X10e3/UL H (159-386 X10e3/UL) MPV 7.5 FL (7.4-10.4 FL) AUTOMATED DIFF PERFORMED SEGS 64.5 % LYMPHOCYTES 25.9 % MONOCYTES 7.9 % EOSINOPHILS 0.2 % BASOPHILS 1.5 % ABSOLUTE NEUTROPHILS 6.8 X10e3/UL (1.8-7.8 X10e3/UL) ABSOLUTE LYMPHOCYTES 2.7 X10e3/UL (1.0-3.0 X10e3/UL) ABSOLUTE MONOCYTES 0.8 X10e3/UL (0.3-1.0 X10e3/UL) ABSOLUTE EOSINOPHILS 0.0 X10e3/UL (0.0-0.5 X10e3/UL) ABSOLUTE BASOPHILS 0.2 X10e3/UL (0.0-0.2 X10e3/UL) Problems Encounter Diagnosis No relevant problems exist. Additional Problems * Abdominal Pain Status:Active. * Altered Mental Status Status:Active. * Dehydration Status:Active. * Diarrhea Status:Active. * Gastritis Status:Active. * Hypokalemia Status:Active. * Hypokalemia Status:Active. * Hyponatremia Status:Active. * Nausea & Vomiting Status:Active. * Nausea & Vomiting Status:Active. * Poisoning by Drug/Medicinal Substance Status:Active. Encounters Encounter Diagnosis No relevant problems exist. Plan of Care Procedures No relevant procedures performed. Immunizations No immunizations administered or ordered. Hospital Course Hospital Discharge Instructions Allergies, Adverse Reactions, Alerts * aspirin causes Unknown. Onset Unknown. * BuSpar causes Moderate Hives. * Imitrex causes Unknown. * Reglan causes "shuts esophagus". * No Latex Allergy. * No IV Contrast Allergy. * No Known Food Allergies. Medication It is the responsibility of the patient or patient telephone sales representative to confirm the list of medications with either the patient's personal care provider or the patient's follow-up care provider to ensure the patient has an appropriate list of medications to take at home. Discharge medications Continued medications* clonazePAM 1 mg Tablet, Ordered By: IGOR ROBLERO RN Directions: 1 tablet oral daily at bedtime * metoprolol tartrate 25 mg Tablet, Ordered By: IGOR ROBLERO RN Directions: 1 tablet oral daily * multivit daily * ondansetron 4 mg tablet,disintegrating, Ordered By: IGOR ROBLERO RN Directions: 1 tablet oral every four hours PRN nausea or vomiting * oxyCODONE (OxyCONTIN) 20 mg Tablet Extended Release 12 hr, Ordered By: IGOR ROBLERO RN Directions: 1 tablet oral every twelve hours * oxyCODONE-acetaminophen (Percocet) 5 mg-325 mg Tablet, Ordered By: IGOR ROBLERO RN Directions: 1 tablet oral every four hours PRN pain * potassium chloride (Klor-Con 10) 10 mEq Tablet Extended Release, Ordered By: IGOR ROBLERO RN Directions: 1 tablet oral twice a day * sucralfate (CarafATE) 1 gram Tablet, Ordered By: IGOR ROBLERO RN Directions: 1 tablet oral four times daily before meals and at bedtime Stopped medications* None
--- OUTSIDE RECORDS SUMMARY | 2017-02-24 17:03 | XMS REPORT | Summary of Care ---
Author Author Edie Moura APRN Organization Unknown Address [address], [place] [id number] Phone Unavailable Care Team Providers Care Etl Analyst Developer Name Role Phone Junior Lizarraga D.O. Unavailable Chuck Tapia M.D. Unavailable Unavailable Edie Moura APRN Unavailable Unavailable Wang Escobar Unavailable Unavailable Unavailable [...] TABLET Bedtime * Quantity: 15 Refills: 0 Zia Kim.Aashish Rodriguez * Start 22-Nov-2016 End 07-Dec-2016 Active Allergies [...] smoker Vital Signs Date Test Result Details 23-Nov-2016 17:11 BP Systolic 104 mm[Hg] Status: Comments: Location: E; Position: Sitting BP Diastolic 80 mm[Hg] Status: Comments: Location: LUE; Position: Sitting Temperature 99.1 f Status: Comments: Method: Heart Rate 96 /min Status: Comments: Location: ; Weight 128 lb Status: Physical Findings 97 Status: Comments: O2 Saturation Body Mass Index Calculated 20.05 kg/m2 Status: Body Surface Area Calculated 1.67 m2 Status: 22-Nov-2016 15:52 BP Systolic 102 mm[Hg] Status: Comments: Location: LUE; Position: Sitting BP Diastolic 56 mm[Hg] Status: [...] BP Systolic 102 mm[Hg] Status: Comments: Location: ; Position: BP [...] Dates Details Instructions not documented Encounters Appointment; Bao Carbone M.D. Encounter Diagnosis: Problem not documented On 23-Nov-2016 16:30 Appointment; Aashish Lizarraga D.O. Encounter Diagnosis: Problem not documented On 22-Nov-2016 15:29 Appointment; Aashish Lizarraga D.O. Encounter Diagnosis: Problem [...]
--- OUTSIDE RECORDS SUMMARY | 2017-02-24 17:03 | XMS REPORT ---
Author Author GENERATED, SYSTEM Organization Unknown Address Unknown Phone Unavailable Care Team Providers Care Noodle Catalyst Maker Name Role Phone MD JENIFFER, HANS PP [phone] Reason For Visit Reason for Visit from 08/31/2014 2:57 PM:* Pt Stated Reason for Adm : Altered mental status, hypocalemia Chief Complaint MENTAL STATUS CHANGE HYPOCALEMIA Social History Social History from 09/01/2014 11:39 AM:* Tobacco Use? : Current Some Day Smoker Social History from 08/31/2014 2:57 PM:* Tobacco Use? : Current Some Day Smoker Functional Status Functional Status from 09/01/2014 8:30 AM:* LOC : Irritable * Oriented To : Person,Place,Time,Event * Weight Bearing Status : Full * Assist Level : Partial * # Assists : 1 Functional Status from 08/31/2014 8:00 PM:* LOC : Alert * Oriented To : Person,Place,Time,Event * Weight Bearing Status : Full * Assist Level : Partial * # Assists : 1 Functional Status from 08/31/2014 2:57 PM:* LOC : Confused * Oriented To : Person * Weight Bearing Status : Full * Assist Level : Independent * # Assists : 1 Vital Signs Hospital Vital Signs from 09/01/2014 8:30 AM:* Heart Rate : 90 Hospital Vital Signs from 09/01/2014 8:05 AM:* Height : 5/7 ft,in * Temperature : 98.5 F * Pulse : 87 * Respirations : 20 * BP : 139/79 Hospital Vital Signs from 08/31/2014 11:37 PM:* Height : 5/7 ft,in * Temperature : 97.7 F * Pulse : 94 * Respirations : 20 * BP : 150/98 Hospital Vital Signs from 08/31/2014 2:57 PM:* Weight : 54.5/ kg * Height : 5/7 ft,in Results Chemistry from 09/01/2014 4:27 AMSODIUM 142 MMOL/L (136-145 MMOL/L) POTASSIUM 4.7 MMOL/L (3.5-5.1 MMOL/L) CHLORIDE 109 MMOL/L H (98-107 MMOL/L) TCO2 23.5 MMOL/L (21.0-32.0 MMOL/L) ANION GAP 9.5 MMOL/L (8.0-16.0 MMOL/L) BUN 2 MG/DL L (7-18 MG/DL) CREATININE 0.47 MG/DL (0.43-0.83 MG/DL) BUN/CREATININE RATIO 4.3 L (9.1-17.0 ) GLUCOSE 97 MG/DL (65-99 MG/DL) GFR EST NON AFR [place] >90 ML/MIN GFRA EST AFR AMER >90 ML/MIN CALCIUM 8.9 MG/DL (8.5-10.1 MG/DL) Hematology from 09/01/2014 4:27 AMWBC 8.1 X10e3/UL (3.6-11.2 X10e3/UL) RBC 3.92 X10e6/UL (3.63-4.92 X10e6/UL) HEMOGLOBIN 12.7 G/DL (11.0-14.3 G/DL) HEMATOCRIT 38.5 % (31.2-41.9 %) MCV 98.4 FL H (79.0-98.0 FL) MCH 32.6 PG (27.0-33.0 PG) MCHC 33.1 G/DL (32.0-36.0 G/DL) RDW 18.4 % H (12.3-17.0 %) RDWSD 62.1 H (37.1-47.8 ) PLATELET 361 X10e3/UL (159-386 X10e3/UL) MPV 7.1 FL L (7.4-10.4 FL) AUTOMATED DIFF PERFORMED SEGS 64.1 % LYMPHOCYTES 27.7 % MONOCYTES 6.4 % EOSINOPHILS 1.0 % BASOPHILS 0.8 % ABSOLUTE NEUTROPHILS 5.2 X10e3/UL (1.8-7.8 X10e3/UL) ABSOLUTE LYMPHOCYTES 2.2 X10e3/UL (1.0-3.0 X10e3/UL) ABSOLUTE MONOCYTES 0.5 X10e3/UL (0.3-1.0 X10e3/UL) ABSOLUTE EOSINOPHILS 0.1 X10e3/UL (0.0-0.5 X10e3/UL) ABSOLUTE BASOPHILS 0.1 X10e3/UL (0.0-0.2 X10e3/UL) Problems Encounter Diagnosis * Altered Mental Status Comment:Problem resolved by [...] upon Discharge, Status:Resolved. Encounters Encounter Diagnosis * Altered Mental Status Comment:Problem resolved by [facility] Workflow upon Discharge, Status:Resolved. * Hypocalcemia Comment:Problem resolved by [facility] Work[employer] upon Discharge, Status:Resolved. Plan of Care Treatment Plan from 09/01/2014 11:55 AM:* Care Management Note : Patient had unsigned status order on chart. This care consultant [facility] and clarified status. Patient was intended to be Observation status on admission. Patient remained Observation status appropriate and was discharged to home today. Treatment Plan from 08/31/2014 11:40 AM:* Care Management Note : pattern layout worker spoke to patient and patient's son regarding patient's refusal to be admitted and wanting to return home while still in ED. Patient informed SW that she "just want to return home and go to my own bed." SW and son both discussed with patient concerns for medical issues and son refuses to transport patient home or to provide 24/7 care. Patient's son recently moved to stay with patient two days ago. Patient's son reports this as second incident where he has found patient unconscious and brought into ED to be evaluated in two days. Patient self reports taking care of her own medications, completing own ADL's and IADL's. Patient denies any narcotic use or substance abuse. Patient adamant she is going home; son refuses to transport. SW asked patient about transportation; patient points to the son and states he would take her home. Son reiterates to patient he will not take her home and care for her; son informs patient that he wants her to get medical attention. Son informed patient that he is not able to provide 24/7 care because he works and he doesn' t want to come home to "find you or worry about you all the time either." Patient agreed to a 24 hour observation in hospital. Procedures * Completed Procedure Code: 45.16 Procedure Name: not valued, on 03/12/2014 12: 00 AM * Completed Procedure Code: 45.25 Procedure Name: not valued, on 03/12/2014 12: 00 AM * Completed , on 08/20/2009 12:00 AM Immunizations No immunizations administered or ordered. Hospital Course Hospital Discharge Instructions How to care for yourself at home from 09/01/2014 11:39 AM:* Discharge Activity : Activity as tolerated [...] the responsibility of the patient or patient artists' booking representative to confirm the list of medications with either the patient's personal care provider or the patient's follow-up care provider to ensure the patient has an appropriate list of medications to take at home. Discharge medications New medications* hydrOXYzine HCl 10 mg Tablet, Ordered By: CEE PAYTON APRN Directions: 1 tablet oral three times a day PRN ANXIETY * sulfamethoxazole-trimethoprim 800 mg-160 mg Tablet, Ordered By: CEE PAYTON APRN Directions: 1 tablet oral twice a day * potassium chloride 20 mEq tablet,ER particles/crystals, Ordered By: CEE PAYTON APRN Directions: 1 tablet oral twice a day during meal * traMADol 50 mg Tablet, Ordered By: CEE PAYTON APRN Directions: 1 tablet oral every eight hours PRN pain Continued medications* traZODone 50 mg Tablet, Ordered By: CEE PAYTON APRN Directions: 1 tablet oral daily at bedtime * sucralfate (CarafATE) 1 gram Tablet, Ordered By: CEE PAYTON APRN Directions: 1 tablet oral four times daily * promethazine 25 mg Tablet, Ordered By: CEE PAYTON APRN Directions: 1 tablet oral every four hours PRN nausea or vomiting * pantoprazole (ProTONIX) 40 mg tablet,delayed release (DR/EC), Ordered By: CEE PAYTON APRN Directions: 1 tablet oral daily * ondansetron HCl (Zofran) 4 mg Tablet, Ordered By: CEE PAYTON APRN Directions: 1 tablet oral every four hours PRN nausea or vomiting * metoprolol succinate (ToPROL XL) 25 mg Tablet Extended Release 24 hr, Ordered By: CEE PAYTON APRN Directions: 1 tablet oral daily * FLUoxetine (PROzac) 20 mg Capsule, Ordered By: CEE PAYTON APRN Directions: 1 capsule oral daily * eszopiclone (Lunesta) 3 mg Tablet, Ordered By: CEE PAYTON APRN Directions: 1 tablet oral daily at bedtime * clonazePAM 1 mg Tablet, Ordered By: CEE PAYTON APRN Directions: 1 tablet oral daily at bedtime * carisoprodol (Soma) 350 mg Tablet, Ordered By: CEE PAYTON APRN Directions: 1 tablet oral three times a day Stopped medications* None
--- OUTSIDE RECORDS SUMMARY | 2017-02-24 17:04 | XMS REPORT ---
Author Author GENERATED, SYSTEM Organization Unknown Address Unknown Phone Unavailable Care Team Providers Care Surgical Assistant Certified Name Role Phone MD GRACY, NAVIN PP [phone] Reason For Visit Chief Complaint LT ELBOW [...] 1 :12 PM * Completed Procedure Code: 08857 Procedure Name: not valued, on 04/22/2016 12: 00 AM * Completed Esophagogastroduodenoscopy, by MD BAIRON HAMILTON, on 11/20/2015 12:55 PM * Completed Procedure Code: 70433 Procedure Name: not valued, on 11/20/2015 12: 00 AM * Completed Procedure Code: 62924 Procedure Name: not valued, on 11/20/2015 12: 00 AM * Completed Procedure Code: 45.16 Procedure Name: not valued, on 03/12/2014 12: 00 AM * Completed Procedure Code: 45.25 Procedure Name: not valued, on 03/12/2014 12: 00 AM * Completed , on 08/20/2009 12:00 AM Immunizations * Influenza, seasonal, injectable (NOVARTIS, Lot # [id number]); Administered 2013 9:24 AM; 0.5 ML=1 DOSE, [...]
--- OUTSIDE RECORDS SUMMARY | 2017-02-24 17:04 | XMS REPORT ---
Author Author GENERATED, SYSTEM Organization Unknown Address Unknown Phone Unavailable Care Team Providers Care Stationary Engineer Apprentice Name Role Phone UNASSIGNED DOCTOR , DOCTOR PP [phone] Reason For Visit Chief Complaint PANCREATITIS Social History Functional Status Vital Signs Results Chemistry from 03/20/2016 4:24 PM*COCAINE NEGATIVE (NEG <150 ) *PCP NEGATIVE (NEG <25 ) *OXYCODONE NEGATIVE (NEG <100 ) *PROPOXYPHENE (NORPROPOXYPHENE) NEGATIVE (NEG <300 ) *CANNABINOIDS NEGATIVE (NEG <50 ) *BENZODIAZEINE POSITIVE A (NEG <150 ) *AMPHETAMINE NEGATIVE (NEG <500 ) *BARBITURATES NEGATIVE (NEG <200 ) *METHAMPHETAMINES NEGATIVE (NEG <500 ) *METHADONE (UR) NEGATIVE (NEG <200 ) *OPIATES POSITIVE A (NEG <100 ) *TRICYCLICS POSITIVE A (NEG <300 ) Chemistry from 03/20/2016 3:03 PMSODIUM 142 MMOL/L (136-145 MMOL/L) POTASSIUM 3.5 MMOL/L (3.5-5.1 MMOL/L) CHLORIDE 108 MMOL/L H (98-107 MMOL/L) TCO2 23.2 MMOL/L (21.0-32.0 MMOL/L) *ANION GAP 10.8 MMOL/L (8.0-16.0 MMOL/L) BUN 8 MG/DL (7-18 MG/DL) CREATININE 0.70 MG/DL (0.55-1.02 MG/DL) *BUN/CREATININE RATIO 11.4 (9.1-17.0 ) GLUCOSE 131 MG/DL H (65-99 MG/DL) *GFR EST NON AFR [place]UG[place] >90 ML/MIN *GFRA EST AFR AMER >90 ML/MIN CALCIUM 8.9 MG/DL (8.5-10.1 MG/DL) BILIRUBIN TOTAL <0.10 MG/DL L (0.20-1.00 MG/DL) TOTAL PROTEIN 6.7 GM/DL (6.4-8.2 GM/DL) ALBUMIN 3.2 GM/DL L (3.4-5.0 GM/DL) *GLOBULIN 3.5 GM/DL (2.3-3.5 GM/DL) *A/G RATIO 0.9 MG/DL L (1.5-2.2 MG/DL) ALK PHOS 169 U/L H (46-116 U/L) ALT (SGPT) 30 U/L (16-63 U/L) AST (SGOT) 20 U/L (15-37 U/L) LIPASE 141 U/L (73-393 U/L) ALCOHOL <0.003 GM/DL ACETAMINOPHEN 15 MCG/ML (10-30 MCG/ML) SALICYLATE 14.9 MG/DL (2.8-20.0 MG/DL) Hematology from 03/20/2016 3:03 PMWBC 8.4 X10e3/UL (3.6-11.2 X10e3/UL) RBC 4.26 X10e6/UL (3.63-4.92 X10e6/UL) HEMOGLOBIN 14.3 G/DL (11.0-14.3 G/DL) HEMATOCRIT 43.2 % H (31.2-41.9 %) *MCV 101.3 FL H (79.0-98.0 FL) *MCH 33.6 PG H (27.0-33.0 PG) *MCHC 33.2 G/DL (32.0-36.0 G/DL) *RDW 14.3 % (12.3-17.0 %) *RDWSD 51.2 H (37.1-47.8 ) PLATELET 409 X10e3/UL H (159-386 X10e3/UL) *MPV 7.6 FL (7.4-10.4 FL) AUTOMATED DIFF PERFORMED SEGS 59.6 % *LYMPHOCYTES 32.3 % *MONOCYTES 5.8 % *EOSINOPHILS 1.7 % *BASOPHILS 0.6 % *ABSOLUTE NEUTROPHILS 5.00 X10e3/UL (1.80-7.80 X10e3/UL) *ABSOLUTE LYMPHOCYTES 2.70 X10e3/UL (1.00-3.00 X10e3/UL) *ABSOLUTE MONOCYTES 0.50 X10e3/UL (0.30-1.00 X10e3/UL) *ABSOLUTE EOSINOPHILS 0.10 X10e3/UL (0.00-0.50 X10e3/UL) *ABSOLUTE BASOPHILS 0.00 X10e3/UL (0.00-0.20 X10e3/UL) Urinalysis from 03/20/2016 4:24 PM*URINE COLOR YELLOW (STRAW/YELL/DK YELL ) *URINE APPEARANCE CLEAR (CLEAR ) URINE PH 6.0 (5.0-8.0 ) URINE SPECIFIC GRAVITY 1.010 (<=1.005->=1.030 ) *URINE GLUCOSE NEGATIVE MG/DL (NEGATIVE MG/DL) *URINE BILIRUBIN NEGATIVE (NEGATIVE ) *URINE KETONES NEGATIVE MG/DL (NEGATIVE MG/DL) *URINE BLOOD NEGATIVE (NEGATIVE ) *URINE PROTEIN NEGATIVE MG/DL (NEGATIVE MG/DL) *URINE UROBILINOGEN 0.2 EU/DL (0.2-1.0 EU/DL) *URINE NITRITES POSITIVE A (NEGATIVE ) *URINE LEUKOCYTES NEGATIVE (NEGATIVE ) *MICROSCOPIC EXAM PERFORMED PERFORMED *WBC URINE 1-5 /HPF (0-5 /HPF) *SQUAMOUS EP. CELLS FEW /LPF (NEG-FEW /LPF) *BACTERIA MANY /HPF A (NEGATIVE /HPF) Microbiology from 03/20/2016 4:24 PM* CULTURE URINE (Preliminary Result) Specimen Number: [id number] Sample Collection Date/Time: 03/20/2016 4:24 PM Specimen Source: Urine CULTURE URINE: Gram-negative bacillus >100,000 cfu/ml ID and Susceptibility to follow Problems Encounter Diagnosis No relevant problems exist. [...] Care Procedures * Completed Esophagogastroduodenoscopy, by MD CLARENCE HAMILTONBHAKAR, on 11/20/2015 12:55 PM * Completed Procedure Code: 71660 Procedure Name: not valued, on 11/20/2015 12: 00 AM * Completed Procedure Code: 27401 Procedure Name: not valued, on 11/20/2015 12: 00 AM * Completed Procedure Code: 45.16 Procedure Name: not valued, on 03/12/2014 12: 00 AM * Completed Procedure Code: 45.25 Procedure Name: not valued, on 03/12/2014 12: 00 AM * Completed , on 08/20/2009 12:00 AM Immunizations * Influenza, seasonal, injectable (NOVARTIS, Lot # [id number]); Administered 2013 9:24 AM; 0.5 ML=1 DOSE, [...]
--- OUTSIDE RECORDS SUMMARY | 2017-02-24 17:04 | XMS REPORT ---
Author Author GENERATED, SYSTEM Organization Unknown Address Unknown Phone Unavailable Care Team Providers Care Fur Vault Attendant Name Role Phone UNASSIGNED DOCTOR , DOCTOR PP [phone] Reason For Visit Chief Complaint FALL, FACIAL INJURIES Social History Functional Status Vital Signs Results Chemistry from 05/10/2016 11:56 PMSODIUM 136 MMOL/L (136-145 MMOL/L) POTASSIUM 4.3 MMOL/L (3.5-5.1 MMOL/L) CHLORIDE 106 MMOL/L (98-107 MMOL/L) TCO2 19.1 MMOL/L L (21.0-32.0 MMOL/L) *ANION GAP 10.9 MMOL/L (8.0-16.0 MMOL/L) BUN 11 MG/DL (7-18 MG/DL) CREATININE 0.86 MG/DL (0.55-1.02 MG/DL) *BUN/CREATININE RATIO 12.8 (9.1-17.0 ) GLUCOSE 91 MG/DL (65-99 MG/DL) *GFR EST NON AFR BELIZEAN 76 ML/MIN *GFR EST AFR AMER 89 ML/MIN CALCIUM 8.7 MG/DL (8.5-10.1 MG/DL) BILIRUBIN TOTAL 0.30 MG/DL (0.20-1.00 MG/DL) TOTAL PROTEIN 6.5 GM/DL (6.4-8.2 GM/DL) ALBUMIN 2.9 GM/DL L (3.4-5.0 GM/DL) *GLOBULIN 3.6 GM/DL H (2.3-3.5 GM/DL) *A/G RATIO 0.8 MG/DL L (1.5-2.2 MG/DL) ALK PHOS 181 U/L H (46-116 U/L) ALT (SGPT) 18 U/L (16-63 U/L) AST (SGOT) 15 U/L (15-37 U/L) TROPONIN-I <0.017 NG/ML (0.000-0.056 NG/ML) TSH 0.687 UIU/ML (0.340-4.820 UIU/ML) Hematology from 05/10/2016 11:56 PMWBC 10.9 X10e3/UL (3.6-11.2 X10e3/UL) RBC 3.77 X10e6/UL (3.63-4.92 X10e6/UL) HEMOGLOBIN 12.9 G/DL (11.0-14.3 G/DL) HEMATOCRIT 38.5 % (31.2-41.9 %) *MCV 102.2 FL H (79.0-98.0 FL) *MCH 34.2 PG H (27.0-33.0 PG) *MCHC 33.5 G/DL (32.0-36.0 G/DL) *RDW 13.0 % (12.3-17.0 %) PLATELET 509 X10e3/UL H (159-386 X10e3/UL) *MPV 7.1 FL L (7.4-10.4 FL) AUTOMATED DIFF PERFORMED SEGS 73.5 % *LYMPHOCYTES 19.4 % *MONOCYTES 6.3 % *EOSINOPHILS 0.5 % *BASOPHILS 0.3 % *ABSOLUTE NEUTROPHILS 8.00 X10e3/UL H (1.80-7.80 X10e3/UL) *ABSOLUTE LYMPHOCYTES 2.10 X10e3/UL (1.00-3.00 X10e3/UL) *ABSOLUTE MONOCYTES 0.70 X10e3/UL (0.30-1.00 X10e3/UL) *ABSOLUTE EOSINOPHILS 0.10 X10e3/UL (0.00-0.50 X10e3/UL) *ABSOLUTE BASOPHILS 0.00 X10e3/UL (0.00-0.20 X10e3/UL) DX Radiology from 05/11/2016 12:27 AMPELVIS 1/2 VIEWS History: Fall hip pain . Priors: 03/29/16 Findings: There is no acute fracture. The hips are normal alignment. There are moderate degenerative changes of the right hip. The femoral heads demonstrate normal contour. Impression: Moderate degenerative changes of the right hip without acute osseous abnormality demonstrated. Electronically signed by: Alan White MD Dictated: 05/11/2016 11:07 DX Radiology from 05/11/2016 12:25 AMCHEST 1 VIEW History: fall Priors: 04/25/16 Findings: The cardiac silhouette and pulmonary vasculature are within normal limits. There are no acute infiltrates or effusions. Impression: No acute cardiopulmonary disease. Electronically signed by: Alan White MD Dictated: 05/11/2016 11:10 CT Scan from 05/11/2016 12:21 [facility] SPINE CERVICAL W/O CONTRAST History: Fall Head injury . Priors: 01/03/2015 Findings: There postsurgical change of anterior cervical fusion C4-5 and C5-6 which appears in good alignment. The C5-6 intervertebral graft appears well healed. 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 The orthopedic hardware appears intact. No lucency about the cervical screws is identified to suggest loosening. There is no acute fracture. There is disc space narrowing C2-3 and C3-4 with disc bulging osteophytosis consistent degenerative disc disease. There is severe left neural foraminal stenosis at C2-3 secondary to osteophytosis. No significant central spinal stenosis or right neural foraminal stenosis identified. C3-4 there is severe left and moderate right neural foraminal stenosis secondary generalized disc bulging facet arthrosis. The soft tissues are unremarkable. The lung apices are unremarkable. 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 This is unchanged from prior study. Severe left neural foraminal stenosis at C2-3 and C3-4 secondary to osteophytosis. No focal disc protrusion or central spinal stenosis identified. No evidence acute fracture. Electronically signed by: Gomez Echeverria MD Dictated: 05/11/2016 10:42 CT Scan from 05/11/2016 12:11 [facility] CEREBRAL W/O CONTRAST History: fall . Facial and head trauma with right periorbital laceration Priors: None. Findings: Ventricles and Extra axial spaces: Normal in size and morphology for the patient's age. Hemorrhage: None. Cerebral parenchyma: Normal. Mass effect/midline shift: None. Brainstem/Cerebellum: Normal. Calvarium: Normal. Visualized Paranasal sinuses/Mastoids: Clear. There is a laceration in the right periorbital soft tissue with mild preseptal hematoma. Impression: No evidence of acute intracranial hemorrhage. Electronically signed by: Gomez Echeverria MD Dictated: 05/11/2016 10:30 CT FACIAL BONES W/O CONTRAST History: Fall with facial and head trauma. There is a right periorbital laceration. Priors: None. Findings: Facial Bones: No discrete facial fracture is identified. Sinuses and Mastoids: Unremarkable. Globes, extraocular muscles, optic nerves and retrobulbar fat: Normal. Mandible: Intact. Soft Tissues: There is a right periorbital laceration with a moderate preseptal hematoma. Impression: No evidence of acute facial bone fracture. Electronically signed by: Gomez Echeverria MD Dictated: 05/11/2016 10:31 Problems Encounter Diagnosis No relevant problems exist. [...] 1 :12 PM * Completed Procedure Code: 54138 Procedure Name: not valued, on 04/22/2016 12: 00 AM * Completed Esophagogastroduodenoscopy, by MD BAIRON HAMILTON, on 11/20/2015 12:55 PM * Completed Procedure Code: 09730 Procedure Name: not valued, on 11/20/2015 12: 00 AM * Completed Procedure Code: 89274 Procedure Name: not valued, on 11/20/2015 12: 00 AM * Completed Procedure Code: 45.16 Procedure Name: not valued, on 03/12/2014 12: 00 AM * Completed Procedure Code: 45.25 Procedure Name: not valued, on 03/12/2014 12: 00 AM * Completed , on 08/20/2009 12:00 AM Immunizations * Influenza, seasonal, injectable (NOVARTIS, Lot # [id number]); Administered 2013 9:24 AM; 0.5 ML=1 DOSE, [...]
--- OUTSIDE RECORDS SUMMARY | 2017-02-24 17:04 | XMS REPORT ---
Author Author GENERATED, SYSTEM Organization Unknown Address Unknown Phone Unavailable Care Team Providers Care Drop Wirer Name Role Phone UNASSIGNED DOCTOR , DOCTOR PP [phone] Reason For Visit Reason for Visit from 04/25/2016 5:52 PM:* Pt Stated Reason for Adm : ankle pain Chief Complaint LEFT ANKLE FRACTURE Social History Social History from 04/27/2016 11:48 AM:* Tobacco Use? : Current Everyday Smoker Social History from 04/25/2016 5:52 PM:* Tobacco Use? : Current Everyday Smoker Functional Status Functional Status from 04/27/2016 9:04 AM:* LOC : Alert * Oriented To : Person,Place,Time,Event * Weight Bearing Status : No wt bearing * Assist Level : Partial * # Assists : 1 Functional Status from 04/26/2016 8:15 PM:* LOC : Alert * Oriented To : Person,Place,Time,Event * Weight Bearing Status : No wt bearing * Assist Level : Partial * # Assists : 1 Functional Status from 04/26/2016 12:08 PM:* Oriented To : Person,Place,Time Functional Status from 04/26/2016 9:41 AM:* LOC : Alert * Oriented To : Person,Place,Time * Weight Bearing Status : No wt bearing * Assist Level : Partial * # Assists : 1 Functional Status from 04/25/2016 8:00 PM:* LOC : Alert * Oriented To : Person,Place,Time,Event * Weight Bearing Status : No wt bearing * Assist Level : Partial * # Assists : 2 Functional Status from 04/25/2016 5:52 PM:* LOC : Drowsy * Oriented To : Person,Place,Time,Event * Weight Bearing Status : No wt bearing * Assist Level : Partial * # Assists : 2 Vital Signs Hospital Vital Signs from 04/27/2016 11:10 AM:* Height : 5/7 ft,in * Temperature : 98.5 F * Pulse : 109 * Respirations : 18 * BP : 129/82 Hospital Vital Signs from 04/27/2016 7:25 AM:* Height : 5/7 ft,in * Temperature : 98.8 F * Pulse : 92 * Respirations : 18 * BP : 127/76 Hospital Vital Signs from 04/27/2016 2:32 AM:* Height : 5/7 ft,in * Temperature : 98.1 F * Pulse : 94 * Respirations : 18 * BP : 97/58 Hospital Vital Signs from 04/26/2016 9:48 PM:* Height : 5/7 ft,in * Temperature : 98.6 F * Pulse : 85 * Respirations : 18 * BP : 97/56 Hospital Vital Signs from 04/26/2016 6:57 PM:* Height : 5/7 ft,in * Temperature : 98.2 F * Pulse : 74 * Respirations : 18 * BP : 106/53 Hospital Vital Signs from 04/26/2016 2:50 PM:* Height : 5/7 ft,in * Temperature : 97.9 F * Pulse : 71 * Respirations : 18 * BP : 92/53 Hospital Vital Signs from 04/26/2016 12:30 PM:* Height : 5/7 ft,in * BP : 89/48 Hospital Vital Signs from 04/26/2016 11:37 AM:* Height : 5/7 ft,in * Pulse : 65 * Respirations : 16 * BP : 89/48 Hospital Vital Signs from 04/26/2016 11:02 AM:* Height : 5/7 ft,in * Temperature : 97.4 F * Pulse : 67 * Respirations : 16 * BP : 84/50 Hospital Vital Signs from 04/26/2016 9:09 AM:* Height : 5/7 ft,in Hospital Vital Signs from 04/26/2016 6:42 AM:* Height : 5/7 ft,in * Temperature : 97.9 F * Pulse : 60 * Respirations : 16 * BP : 90/55 Hospital Vital Signs from 04/25/2016 11:06 PM:* Height : 5/7 ft,in * Temperature : 96.7 F * Pulse : 61 * Respirations : 18 * BP : 80/50 Hospital Vital Signs from 04/25/2016 5:52 PM:* Weight : 60.5/ kg * Height : 5/7 ft,in * Height : 5/7 ft,in * Temperature : 97.9 F * Pulse : 64 * Respirations : 18 * BP : 126/62 Results Chemistry from 04/27/2016 7:12 AMSODIUM 145 MMOL/L (136-145 MMOL/L) POTASSIUM 3.5 MMOL/L (3.5-5.1 MMOL/L) CHLORIDE 112 MMOL/L H (98-107 MMOL/L) TCO2 21.8 MMOL/L (21.0-32.0 MMOL/L) *ANION GAP 11.2 MMOL/L (8.0-16.0 MMOL/L) BUN 5 MG/DL L (7-18 MG/DL) CREATININE 0.60 MG/DL (0.55-1.02 MG/DL) *BUN/CREATININE RATIO 8.3 L (9.1-17.0 ) GLUCOSE 110 MG/DL H (65-99 MG/DL) *GFR EST NON AFR PERUVIAN >90 ML/MIN *GFRA EST AFR AMER >90 ML/MIN CALCIUM 8.6 MG/DL (8.5-10.1 MG/DL) Chemistry from 04/26/2016 5:37 AMSODIUM 141 MMOL/L (136-145 MMOL/L) POTASSIUM 2.8 MMOL/L L (3.5-5.1 MMOL/L) CHLORIDE 106 MMOL/L (98-107 MMOL/L) TCO2 26.5 MMOL/L (21.0-32.0 MMOL/L) *ANION GAP 8.5 MMOL/L (8.0-16.0 MMOL/L) BUN 12 MG/DL (7-18 MG/DL) CREATININE 0.81 MG/DL (0.55-1.02 MG/DL) *BUN/CREATININE RATIO 14.8 (9.1-17.0 ) GLUCOSE 109 MG/DL H (65-99 MG/DL) *GFR EST NON AFR PERUVIAN 82 ML/MIN *GFRA EST AFR AMER >90 ML/MIN CALCIUM 8.8 MG/DL (8.5-10.1 MG/DL) Hematology from 04/26/2016 5:37 AMWBC 9.2 X10e3/UL (3.6-11.2 X10e3/UL) RBC 3.85 X10e6/UL (3.63-4.92 X10e6/UL) HEMOGLOBIN 13.0 G/DL (11.0-14.3 G/DL) HEMATOCRIT 38.6 % (31.2-41.9 %) *MCV 100.4 FL H (79.0-98.0 FL) *MCH 33.8 PG H (27.0-33.0 PG) *MCHC 33.6 G/DL (32.0-36.0 G/DL) *RDW 12.9 % (12.3-17.0 %) PLATELET 278 X10e3/UL (159-386 X10e3/UL) *MPV 7.5 FL (7.4-10.4 FL) AUTOMATED DIFF PERFORMED SEGS 51.7 % *LYMPHOCYTES 34.1 % *MONOCYTES 8.3 % *EOSINOPHILS 4.5 % *BASOPHILS 1.4 % *ABSOLUTE NEUTROPHILS 4.80 X10e3/UL (1.80-7.80 X10e3/UL) *ABSOLUTE LYMPHOCYTES 3.10 X10e3/UL H (1.00-3.00 X10e3/UL) *ABSOLUTE MONOCYTES 0.80 X10e3/UL (0.30-1.00 X10e3/UL) *ABSOLUTE EOSINOPHILS 0.40 X10e3/UL (0.00-0.50 X10e3/UL) *ABSOLUTE BASOPHILS 0.10 X10e3/UL (0.00-0.20 X10e3/UL) Problems Encounter Diagnosis * Acute Pain Status:Active. * Bimalleolar Fracture of Ankle Status:Active. * Fall Risk Status:Active. * Skin Integrity Impairment Risk Status:Active. Additional Problems * Abdominal Pain [...] Status:Resolved. Encounters Encounter Diagnosis * Acute Pain Status:Active. * Bimalleolar Fracture of Ankle Status:Active. * Fall Risk Status:Active. * Skin Integrity Impairment Risk Status:Active. Plan of Care Follow-up Appointments from 04/27/2016 11:48 AM:* #1 Office appointment: : Follow up with Tomas PILLAI * #1 Date/Time : 04/30/2016 12:00 AM * Address # 1 : [facility]: [address] [place] - or Treatment Plan from 04/27/2016 9:25 AM:* Care Management Note : Patient being discharged today. Needs a walker. Patient wants to go through [facility] because has O2 through them. Referral made. [facility] will deliver to patient's room. Discussed home services, but patient denies all services. Is interested in homemaker, but does not want to pay privately and due to age, has waiting list for [employer]BS. Patient is a high risk for readmissions. Treatment Plan from 04/27/2016 9:14 AM:* Care Management Note : patient is going home today - paged Tomas Christianson about needing a progress note as to why she needs a walker. Treatment Plan from 04/26/2016 11:33 AM:* Care Management Note : Patient changed to outpatient observation. Admission status marked outpatient observation. Dr. Blanchard changed to inpatient in error. Status clarified with ROSAS Mccloud per phone. Patient intended to be outpatient observation from date and time of admission. Status changed with clarification. Patient is outpatient observation appropriate being treated for bimalleolar ankle fracture with very minimal displacement. Nonsurgical treatment is recommended at this time. Patient is to have therapies for gait training prior to discharge. Care management will continue to follow. Procedures * Completed Esophagogastroduodenoscopy, by MD BAIRON HAMILTON, on 04/22/2016 1 :12 PM * Completed Procedure Code: 87736 Procedure Name: not valued, on 04/22/2016 12: 00 AM * Completed Esophagogastroduodenoscopy, by MD BAIRON HAMILTON, on 11/20/2015 12:55 PM * Completed Procedure Code: 74989 Procedure Name: not valued, on 11/20/2015 12: 00 AM * Completed Procedure Code: 12923 Procedure Name: not valued, on 11/20/2015 12: 00 AM * Completed Procedure Code: 45.16 Procedure Name: not valued, on 03/12/2014 12: 00 AM * Completed Procedure Code: 45.25 Procedure Name: not valued, on 03/12/2014 12: 00 AM * Completed , on 08/20/2009 12:00 AM Immunizations * Influenza, seasonal, injectable (NOVARTIS, Lot # [id number]); Administered 2013 9:24 AM; 0.5 ML=1 DOSE, INTRAMUSCL Hospital Course Hospital Discharge Instructions How to care for yourself at home from 04/27/2016 11:48 AM:* Discharge Activity : Activity as tolerated,May Shower,Do not engage in sports, heavy work or heavy lifting until your physician gives permission,No Tub Bath * Discharge Diet : Diet as tolerated * Call your doctor if: : Fever [...] the responsibility of the patient or patient loan representative to confirm the list of medications with either the patient's personal care provider or the patient's follow-up care provider to ensure the patient has an appropriate list of medications to take at home. Discharge medications New medications* oxyCODONE-acetaminophen 5 mg-325 mg Tablet, Ordered By: ROSAS TEJEDA Directions: 1-2 tabkets oral every six hours PRN PAIN SCALE 7 Additional Instructions: GIVE NEEDED FOR PAIN SCALE 7 IN THE EVENT THAT PATIENT GETS NAUSEOUS WITH NORCO. Continued medications* atorvastatin (Lipitor) 80 mg Tablet, Ordered By: DARSHAN BLANCHARD MD Directions: 1 tablet oral daily at bedtime * esomeprazole magnesium (NexIUM) 40 mg capsule,delayed release(DR/EC), Ordered By: DARSHAN BLANCHARD MD Directions: 1 capsule oral daily before breakfast * potassium chloride 10 mEq Capsule, Extended Release, Ordered By: ROSAS TEJEDA Directions: 2 capsule oral twice a day * metoprolol tartrate 25 mg Tablet, Ordered By: ROSAS TEJEDA Directions: 1 tablet oral twice a day * promethazine 25 mg Tablet, Ordered By: ROSAS TEJEDA Directions: 1 tablet oral four times daily PRN nausea or vomiting * sucralfate (CarafATE) 1 gram Tablet, Ordered By: ROSAS TEJEDA Directions: 1 tablet oral daily before meals and at bedtime * clonazePAM 1 mg Tablet, Ordered By: ROSAS TEJEDA Directions: 1 tablet oral four times daily at bedtime Changed medications* fluticasone-salmeterol (Advair HFA) 45 mcg-21 mcg/ Actuation HFA Aerosol Inhaler, Ordered By: DARSHAN BLANCHARD MD Directions: 1 puff by inhalation twice a day PRN shortness of breath Stopped medications* promethazine (Phenergan) 25 mg Suppository Directions: 1 suppository per rectum every six hours * predniSONE Directions: oral daily * predniSONE 50 mg Tablet
--- OUTSIDE RECORDS SUMMARY | 2017-02-24 17:04 | XMS REPORT ---
Author Author GENERATED, SYSTEM Organization Unknown Address Unknown Phone Unavailable Care Team Providers Care Cutter Finisher Name Role Phone UNASSIGNED DOCTOR , DOCTOR PP [phone] Reason For Visit Chief Complaint SHORTNESS OF BREATH Social History Functional Status Vital Signs Results Chemistry from 09/08/2015 3:00 PMSODIUM 139 MMOL/L (136-145 MMOL/L) POTASSIUM 3.1 MMOL/L L (3.5-5.1 MMOL/L) CHLORIDE 104 MMOL/L (98-107 MMOL/L) TCO2 26.9 MMOL/L (21.0-32.0 MMOL/L) *ANION GAP 8.1 MMOL/L (8.0-16.0 MMOL/L) BUN 5 MG/DL L (7-18 MG/DL) CREATININE 0.73 MG/DL (0.55-1.02 MG/DL) *BUN/CREATININE RATIO 6.8 L (9.1-17.0 ) GLUCOSE 105 MG/DL H (65-99 MG/DL) *GFR EST NON AFR SUDANESE >90 ML/MIN *GFRA EST AFR AMER >90 ML/MIN CALCIUM 9.3 MG/DL (8.5-10.1 MG/DL) BILIRUBIN TOTAL 0.27 MG/DL (0.20-1.00 MG/DL) TOTAL PROTEIN 6.6 GM/DL (6.4-8.2 GM/DL) ALBUMIN 2.9 GM/DL L (3.4-5.0 GM/DL) *GLOBULIN 3.7 GM/DL H (2.3-3.5 GM/DL) *A/G RATIO 0.8 MG/DL L (1.5-2.2 MG/DL) ALK PHOS 149 U/L H (46-116 U/L) ALT (SGPT) 49 U/L (16-63 U/L) AST (SGOT) 25 U/L (15-37 U/L) AMYLASE 36 U/L (25-115 U/L) LIPASE 102 U/L (73-393 U/L) TROPONIN-I 0.04 (SEE BELOW ) ALCOHOL <0.003 GM/DL ACETAMINOPHEN <2 MCG/ML L (10-30 MCG/ML) SALICYLATE 3.7 MG/DL (2.8-20.0 MG/DL) Chemistry from 09/08/2015 2:50 PM*COCAINE NEGATIVE (NEG <150 ) *PCP NEGATIVE (NEG <25 ) *OXYCODONE NEGATIVE (NEG <100 ) *PROPOXYPHENE (NORPROPOXYPHENE) NEGATIVE (NEG <300 ) *CANNABINOIDS NEGATIVE (NEG <50 ) *BENZODIAZEINE POSITIVE A (NEG <150 ) *AMPHETAMINE NEGATIVE (NEG <500 ) *BARBITURATES NEGATIVE (NEG <200 ) *METHAMPHETAMINES POSITIVE A (NEG <500 ) *METHADONE (UR) NEGATIVE (NEG <200 ) *OPIATES NEGATIVE (NEG <100 ) *TRICYCLICS POSITIVE A (NEG <300 ) Hematology from 09/08/2015 3:00 PMWBC 9.6 X10e3/UL (3.6-11.2 X10e3/UL) RBC 3.99 X10e6/UL (3.63-4.92 X10e6/UL) HEMOGLOBIN 13.7 G/DL (11.0-14.3 G/DL) HEMATOCRIT 41.4 % (31.2-41.9 %) *MCV 103.7 FL H (79.0-98.0 FL) *MCH 34.3 PG H (27.0-33.0 PG) *MCHC 33.1 G/DL (32.0-36.0 G/DL) *RDW 14.4 % (12.3-17.0 %) *RDWSD 52.9 H (37.1-47.8 ) PLATELET 493 X10e3/UL H (159-386 X10e3/UL) *MPV 7.0 FL L (7.4-10.4 FL) AUTOMATED DIFF PERFORMED SEGS 67.0 % *LYMPHOCYTES 22.0 % *MONOCYTES 10.0 % *EOSINOPHILS 0.4 % *BASOPHILS 0.6 % *ABSOLUTE NEUTROPHILS 6.40 X10e3/UL (1.80-7.80 X10e3/UL) *ABSOLUTE LYMPHOCYTES 2.10 X10e3/UL (1.00-3.00 X10e3/UL) *ABSOLUTE MONOCYTES 1.00 X10e3/UL (0.30-1.00 X10e3/UL) *ABSOLUTE EOSINOPHILS 0.00 X10e3/UL (0.00-0.50 X10e3/UL) *ABSOLUTE BASOPHILS 0.10 X10e3/UL (0.00-0.20 X10e3/UL) Urinalysis from 09/08/2015 2:50 PM*URINE COLOR YELLOW (STRAW/YELL/DK YELL ) *URINE [...] *URINE LEUKOCYTES NEGATIVE (NEGATIVE ) Coagulation from 09/08/2015 3:00 PM*PROTHROMBIN TIME 10.9 SECONDS (9.4-11.5 SECONDS) *INR 1.0 (0.9-1.1 ) PARTIAL THROMBOPLASTIN TIME 25.3 SECONDS (23.0-31.0 SECONDS) D-DIMER 0.43 MG/L FEU (0.00-0.50 MG/L FEU) DX Radiology from 09/08/2015 2:26 PMCHEST 1 VIEW History: Shortness of Breath Priors: Chest x-ray 08/07/2015 Findings: The heart size and pulmonary vasculature within normal limits. No consolidating infiltrate, significant pleural effusion or pneumothorax is seen. Impression: No acute abnormality. Electronically signed by: Crissy Rea MD Dictated: 09/08/2015 15:52 Problems Encounter Diagnosis No relevant problems exist. [...] * Influenza, seasonal, injectable (NOVARTIS, Lot # [id number]); Administered 2013 9:24 AM; 0.5 ML=1 DOSE, [...]
--- OUTSIDE RECORDS SUMMARY | 2017-02-24 17:04 | XMS REPORT ---
Author Author GENERATED, SYSTEM Organization Unknown Address Unknown Phone Unavailable Care Team Providers Care Clinic Receptionist Name Role Phone MD GRACY, NAVIN PP [phone] Reason For Visit Chief Complaint LT ARM STAPH INFECTION Social History Functional Status Vital Signs Results [...] 1 :12 PM * Completed Procedure Code: 33674 Procedure Name: not valued, on 04/22/2016 12: 00 AM * Completed Esophagogastroduodenoscopy, by MD BAIRON HAMILTON, on 11/20/2015 12:55 PM * Completed Procedure Code: 41120 Procedure Name: not valued, on 11/20/2015 12: 00 AM * Completed Procedure Code: 68609 Procedure Name: not valued, on 11/20/2015 12: 00 AM * Completed Procedure Code: 45.16 Procedure Name: not valued, on 03/12/2014 12: 00 AM * Completed Procedure Code: 45.25 Procedure Name: not valued, on 03/12/2014 12: 00 AM * Completed , on 08/20/2009 12:00 AM Immunizations * Influenza, seasonal, injectable (NOVARTIS, Lot # [id number]); Administered 2013 9:24 AM; 0.5 ML=1 DOSE, [...]
--- OUTSIDE RECORDS SUMMARY | 2017-02-24 17:04 | XMS REPORT ---
Author Author Indy Falk [facility] eClinicalWorks Address Unknown Phone Unavailable Care Team Providers Care Gas Distribution Supervisor Name Role Phone Indy Falk CP [...] Instructions Start Date End Date Status Dosage Clindamycin HCl [facility] [address]-06 300 mg Sep 17, 2013 Oct 23, 9999 Active 1 capsule by Oral route 3 times per day for 10 day(s) Potassium Chloride [facility] [address]-66 20 mEq Sep 24, 2013 Oct 23, 9999 Active 1 tablet by Oral route 1 time per day Simvastatin [facility] [address]-91 20 mg Oct 23, 2012 Oct 23, 9999 Active 1 tablet by Oral route 1 time per day for 30 day(s)Needs repeat lab. Carisoprodol [facility] [address]-07 350 mg January 01, 2014 Oct 23, 9999 Active 1 tablet by Oral route 3 times per day for 30 days PRN varenicline NDC 0 0.5 (11)-1 (42) mg Sep 26, 2012 Oct 23, 9999 Active 1 tablet by Oral route 2 times per day for 28 day(s)as directed on package labeling (Pharmacy- refills are 1 mg BID, thanks) Lasix [facility] [address]-95 20 mg Dec 06, 2013 Oct 23, 9999 Active 1 tablet by Oral route 1 time per day Diclofenac tab 75mg ec 75 mg tablet ND 0 January 24, 2014 Oct 23, 9999 Active TAKE ONE TABLET BY MOUTH TWICE DAILY FOR ARTHRITIS - STOP MELOXICAM Cephalexin [facility] [address]-65 500 mg Aug 23, 2013 Oct 23, 9999 Active 1 capsule by Oral route 4 times per day for 10 day(s) Azithromycin [facility] [address]-82 250 mg January 08, 2014 Oct 23, 9999 Active by Oral route 1 time per day as directed on package labeling Gabapentin [facility] [address]-87 600 mg January 01, 2014 Oct 23, 9999 Active take 1 tablet by Oral route 2 times per day FOR FIBROMYALGIA PredniSONE [facility] [address]-32 20 mg Aug 23, 2013 Oct 23, 9999 Active 1 tablet by Oral route 2 times per day for 7 day(s) Estradiol [facility] [address]-72 1 mg Aug 21, 2013 Oct 23, 9999 Active 1 tablet by Oral route 1 time per day Cymbalta NDC 0 60 mg January 01, 2014 Oct 23, 9999 Active take 1 capsule (60 mg) by oral route once daily trazodone [facility] [address]-81 100 mg May 05, 2010 Oct 23, 9999 Active SI tab(s) orally 3 times a day for 30 day(s) Progesterone Micronized [facility] [address]-04 200 mg Dec 04, 2013 Oct 23, 9999 Active take 1 capsule by Oral route 1 time per day at night Protonix [facility] [address]-00 40 mg Sep 26, 2013 Oct 23, 9999 Active 1 tablet by Oral route 2 times per day for 14 days Nicotine [facility] 0 14 mg/24 hr Nov 26, 2013 Oct 23, 9999 Active 1 Patch 24 hr by Percutaneous route 1 time per day Results No Known Results Summary Purpose eClinicalWorks Submission
--- OUTSIDE RECORDS SUMMARY | 2017-02-24 17:04 | XMS REPORT ---
Author Author Barrett Chowdhury [facility] eClinicalWorks Address Unknown Phone Unavailable Care Team Providers Care Rn Plastic Surgery Name Role Phone Barrett Chowdhury Unavailable Allergies No Known Allergies Problems No Known Problems Medications No Known Medications Results No Known Results Summary Purpose eClinicalWorks Submission
--- OUTSIDE RECORDS SUMMARY | 2017-02-24 17:04 | XMS REPORT ---
Author Author GENERATED, SYSTEM Organization Unknown Address Unknown Phone Unavailable Care Team Providers Care Denture Laboratory Technician Name Role Phone MD GRACY, NAVIN PP [phone] Reason For Visit Chief Complaint ACUTE ON CHRONIC PAIN Social History Functional Status Vital Signs Results Chemistry from 07/16/2016 8:40 PMSODIUM 143 MMOL/L (136-145 MMOL/L) POTASSIUM 3.4 MMOL/L L (3.5-5.1 MMOL/L) CHLORIDE 108 MMOL/L H (98-107 MMOL/L) TCO2 26.7 MMOL/L (21.0-32.0 MMOL/L) *ANION GAP 8.3 MMOL/L (8.0-16.0 MMOL/L) BUN 6 MG/DL L (7-18 MG/DL) CREATININE 0.64 MG/DL (0.55-1.02 MG/DL) *BUN/CREATININE RATIO 9.4 (9.1-17.0 ) GLUCOSE 106 MG/DL H (65-99 MG/DL) *GFR EST NON AFR [place] >90 ML/MIN *GFR EST AFR AMER >90 ML/MIN CALCIUM 9.0 MG/DL (8.5-10.1 MG/DL) BILIRUBIN TOTAL 0.30 MG/DL (0.20-1.00 MG/DL) TOTAL PROTEIN 6.9 GM/DL (6.4-8.2 GM/DL) ALBUMIN 3.2 GM/DL L (3.4-5.0 GM/DL) *GLOBULIN 3.7 GM/DL H (2.3-3.5 GM/DL) *A/G RATIO 0.9 MG/DL L (1.5-2.2 MG/DL) ALK PHOS 194 U/L H (46-116 U/L) ALT (SGPT) 23 U/L (16-63 U/L) AST (SGOT) 18 U/L (15-37 U/L) MAGNESIUM 2.2 MG/DL (1.8-2.4 MG/DL) LIPASE 77 U/L (73-393 U/L) ALCOHOL <0.003 GM/DL ACETAMINOPHEN <2 MCG/ML L (10-30 MCG/ML) SALICYLATE 2.4 MG/DL L (2.8-20.0 MG/DL) Hematology from 07/16/2016 8:40 PMWBC 8.3 X10e3/UL (3.6-11.2 X10e3/UL) RBC 3.86 X10e6/UL (3.63-4.92 X10e6/UL) HEMOGLOBIN 13.3 G/DL (11.0-14.3 G/DL) HEMATOCRIT 39.1 % (31.2-41.9 %) *MCV 101.1 FL H (79.0-98.0 FL) *MCH 34.3 PG H (27.0-33.0 PG) *MCHC 34.0 G/DL (32.0-36.0 G/DL) *RDW 14.1 % (12.3-17.0 %) *RDWSD 50.3 H (37.1-47.8 ) PLATELET 332 X10e3/UL (159-386 X10e3/UL) *MPV 7.6 FL (7.4-10.4 FL) AUTOMATED DIFF PERFORMED SEGS 64.5 % *LYMPHOCYTES 27.2 % *MONOCYTES 7.4 % *EOSINOPHILS 0.1 % *BASOPHILS 0.8 % *ABSOLUTE NEUTROPHILS 5.40 X10e3/UL (1.80-7.80 X10e3/UL) *ABSOLUTE LYMPHOCYTES 2.30 X10e3/UL (1.00-3.00 X10e3/UL) *ABSOLUTE MONOCYTES 0.60 X10e3/UL (0.30-1.00 X10e3/UL) *ABSOLUTE EOSINOPHILS 0.00 X10e3/UL (0.00-0.50 X10e3/UL) *ABSOLUTE BASOPHILS 0.10 X10e3/UL (0.00-0.20 X10e3/UL) DX Radiology from 07/16/2016 8:22 PMCHEST 2 VIEWS History: weakness. PT C/O BOTH HIPS HURTING, AND LEFT LEG BROKEN. PT WAS [facility]C [facility] W[facility]. HEADACHE, VOMITING, NO DIARRHEA.DLB: 07/16/2016 Technique: 2 VIEW CHEST Priors: Chest x-ray dated 07/11/[address] of abdomen pelvis dated 04/23/2016. Findings: The heart size and pulmonary vasculature are within normal limits. No consolidating infiltrate, significant pleural effusion or pneumothorax is seen. There is a 1 centimeter left lower lobe pulmonary nodule which is not well visualized on the previous study secondary to elevation of the left hemidiaphragm, but corresponds with a calcified nodule noted on the CT of 04/23/2016 and is consistent with a granuloma. Impression: No acute abnormality. Electronically signed by: Crissy Rea MD Dictated: 07/17/2016 10:55 Problems Encounter Diagnosis No relevant problems exist. [...] 1 :12 PM * Completed Procedure Code: 27161 Procedure Name: not valued, on 04/22/2016 12: 00 AM * Completed Esophagogastroduodenoscopy, by MD BAIRON HAMILTON, on 11/20/2015 12:55 PM * Completed Procedure Code: 75915 Procedure Name: not valued, on 11/20/2015 12: 00 AM * Completed Procedure Code: 50794 Procedure Name: not valued, on 11/20/2015 12: 00 AM * Completed Procedure Code: 45.16 Procedure Name: not valued, on 03/12/2014 12: 00 AM * Completed Procedure Code: 45.25 Procedure Name: not valued, on 03/12/2014 12: 00 AM * Completed , on 08/20/2009 12:00 AM Immunizations * Influenza, seasonal, injectable (NOVARTIS, Lot # [id number]); Administered 2013 9:24 AM; 0.5 ML=1 DOSE, [...]
--- OUTSIDE RECORDS SUMMARY | 2017-02-24 17:04 | XMS REPORT ---
Author Author GENERATED, SYSTEM Organization Unknown Address Unknown Phone Unavailable Care Team Providers Care Card Doffer Name Role Phone UNASSIGNED DOCTOR , DOCTOR PP [phone] Reason For Visit Chief Complaint FALL- BACK AND LEG PAIN Social History Functional Status Vital [...] 1 :12 PM * Completed Procedure Code: 76227 Procedure Name: not valued, on 04/22/2016 12: 00 AM * Completed Esophagogastroduodenoscopy, by MD BAIRON HAMILTON, on 11/20/2015 12:55 PM * Completed Procedure Code: 88212 Procedure Name: not valued, on 11/20/2015 12: 00 AM * Completed Procedure Code: 99395 Procedure Name: not valued, on 11/20/2015 12: 00 AM * Completed Procedure Code: 45.16 Procedure Name: not valued, on 03/12/2014 12: 00 AM * Completed Procedure Code: 45.25 Procedure Name: not valued, on 03/12/2014 12: 00 AM * Completed , on 08/20/2009 12:00 AM Immunizations * Influenza, seasonal, injectable (NOVARTIS, Lot # [id number]); Administered 2013 9:24 AM; 0.5 ML=1 DOSE, [...]
--- OUTSIDE RECORDS SUMMARY | 2017-02-24 17:04 | XMS REPORT ---
Author Author GENERATED, SYSTEM Organization Unknown Address Unknown Phone Unavailable Care Team Providers Care Ships Equipment Engineer Name Role Phone UNASSIGNED DOCTOR , DOCTOR PP [phone] Reason For Visit Chief Complaint VOMITING, DIARRHEA Social History Functional Status Vital Signs Results Chemistry from 11/01/2014 3:45 PMSODIUM 138 MMOL/L (136-145 MMOL/L) POTASSIUM 3.6 MMOL/L (3.5-5.1 MMOL/L) CHLORIDE 104 MMOL/L (98-107 MMOL/L) TCO2 27.1 MMOL/L (21.0-32.0 MMOL/L) ANION GAP 6.9 MMOL/L L (8.0-16.0 MMOL/L) BUN 11 MG/DL (7-18 MG/DL) CREATININE 0.59 MG/DL (0.43-0.83 MG/DL) BUN/CREATININE RATIO 18.6 H (9.1-17.0 ) GLUCOSE 90 MG/DL (65-99 MG/DL) GFR EST NON AFR GAMBIAN >90 ML/MIN GFRA EST AFR AMER >90 ML/MIN CALCIUM 9.0 MG/DL (8.5-10.1 MG/DL) BILIRUBIN TOTAL 0.25 MG/DL (0.20-1.00 MG/DL) TOTAL PROTEIN 6.5 GM/DL (6.4-8.2 GM/DL) ALBUMIN 2.9 GM/DL L (3.4-5.0 GM/DL) GLOBULIN 3.6 GM/DL H (2.3-3.5 GM/DL) A/G RATIO 0.8 MG/DL L (1.5-2.2 MG/DL) ALK PHOS 95 U/L (46-116 U/L) ALT (SGPT) 15 U/L (12-78 U/L) AST (SGOT) 10 U/L L (15-37 U/L) AMYLASE 39 U/L (25-115 U/L) LIPASE 163 U/L (73-393 U/L) LACTIC ACID 0.50 MMOL/L (0.40-2.00 MMOL/L) Hematology from 11/01/2014 3:45 PMWBC 10.5 X10e3/UL (3.6-11.2 X10e3/UL) RBC 3.33 X10e6/UL L (3.63-4.92 X10e6/UL) HEMOGLOBIN 11.1 G/DL (11.0-14.3 G/DL) HEMATOCRIT 33.7 % (31.2-41.9 %) MCV 101.3 FL H (79.0-98.0 FL) MCH 33.3 PG H (27.0-33.0 PG) MCHC 32.9 G/DL (32.0-36.0 G/DL) RDW 19.1 % H (12.3-17.0 %) RDWSD 67.8 H (37.1-47.8 ) PLATELET 529 X10e3/UL H (159-386 X10e3/UL) MPV 7.1 FL L (7.4-10.4 FL) AUTOMATED DIFF PERFORMED SEGS 69.8 % LYMPHOCYTES 22.1 % MONOCYTES 5.5 % EOSINOPHILS 0.9 % BASOPHILS 1.7 % ABSOLUTE NEUTROPHILS 7.4 X10e3/UL (1.8-7.8 X10e3/UL) ABSOLUTE LYMPHOCYTES 2.3 X10e3/UL (1.0-3.0 X10e3/UL) ABSOLUTE MONOCYTES 0.6 X10e3/UL (0.3-1.0 X10e3/UL) ABSOLUTE EOSINOPHILS 0.1 X10e3/UL (0.0-0.5 X10e3/UL) ABSOLUTE BASOPHILS 0.2 X10e3/UL [...]
--- OUTSIDE RECORDS SUMMARY | 2017-02-24 17:04 | XMS REPORT ---
Author Author GENERATED, SYSTEM Organization Unknown Address Unknown Phone Unavailable Care Team Providers Care Medical Laboratory Technical Officer Name Role Phone MD JENIFFER, HANS PP [phone] Reason For Visit Chief Complaint ALTERED LEVEL OF CONSCIOUSNESS Social History Functional Status Vital Signs Results [...]
--- OUTSIDE RECORDS SUMMARY | 2017-02-24 17:05 | XMS REPORT ---
Author Author GENERATED, SYSTEM Organization Unknown Address Unknown Phone Unavailable Care Team Providers Care Can Vacuum Tester Name Role Phone UNASSIGNED DOCTOR , DOCTOR PP [phone] Reason For Visit Chief Complaint FALL Social History Functional Status Vital Signs Results DX Radiology from 04/29/2016 11:47 PMANKLE LEFT 3 VIEWS History: ankle pain . Fracture on 04/25/2016 Technique: 3 view ankle Priors: None. Findings: There is a mildly displaced oblique fracture of the distal fibular metaphysis. Is also mildly displaced fracture of the posterior malleolus the distal tibia. Also appears to be a small avulsion fracture of the tip of medial malleolus. There is mild widening of the medial ankle joint space suspicious for deltoid ligament injury. Alignment of the fracture fragments is not simply changed when compared with study from 04/25/2016 Impression: Unchanged alignment of mildly displaced fracture of the distal fibula and distal tibia as described above. Electronically signed by: Gomez Echeverria MD Dictated: 04/30/2016 09:05 Problems Encounter Diagnosis No relevant problems exist. [...] 1 :12 PM * Completed Procedure Code: 74752 Procedure Name: not valued, on 04/22/2016 12: 00 AM * Completed Esophagogastroduodenoscopy, by MD BAIRON HAMILTON, on 11/20/2015 12:55 PM * Completed Procedure Code: 37401 Procedure Name: not valued, on 11/20/2015 12: 00 AM * Completed Procedure Code: 85055 Procedure Name: not valued, on 11/20/2015 12: 00 AM * Completed Procedure Code: 45.16 Procedure Name: not valued, on 03/12/2014 12: 00 AM * Completed Procedure Code: 45.25 Procedure Name: not valued, on 03/12/2014 12: 00 AM * Completed , on 08/20/2009 12:00 AM Immunizations * Influenza, seasonal, injectable (NOVARTIS, Lot # [id number]); Administered 2013 9:24 AM; 0.5 ML=1 DOSE, [...]
--- OUTSIDE RECORDS SUMMARY | 2017-02-24 17:05 | XMS REPORT ---
Author Author GENERATED, SYSTEM Organization Unknown Address Unknown Phone Unavailable Care Team Providers Care Director Drug Safety Name Role Phone MD GRACY, NAVIN PP [phone] Reason For Visit Chief Complaint BONE PAIN Social History Functional Status Vital Signs [...] 1 :12 PM * Completed Procedure Code: 81102 Procedure Name: not valued, on 04/22/2016 12: 00 AM * Completed Esophagogastroduodenoscopy, by MD BAIRON HAMILTON, on 11/20/2015 12:55 PM * Completed Procedure Code: 58592 Procedure Name: not valued, on 11/20/2015 12: 00 AM * Completed Procedure Code: 33367 Procedure Name: not valued, on 11/20/2015 12: 00 AM * Completed Procedure Code: 45.16 Procedure Name: not valued, on 03/12/2014 12: 00 AM * Completed Procedure Code: 45.25 Procedure Name: not valued, on 03/12/2014 12: 00 AM * Completed , on 08/20/2009 12:00 AM Immunizations * Influenza, seasonal, injectable (NOVARTIS, Lot # [id number]); Administered 2013 9:24 AM; 0.5 ML=1 DOSE, [...]
--- OUTSIDE RECORDS SUMMARY | 2017-02-24 17:05 | XMS REPORT ---
Author Author GENERATED, SYSTEM Organization Unknown Address Unknown Phone Unavailable Care Team Providers Care Surgical Services Director Name Role Phone MD GRACY, NAVIN [phone] Reason For Visit Chief Complaint COUGHING UP MUCUS Social History Functional Status Vital Signs Results DX Radiology from 09/19/2016 9:38 AMCHEST 2 [...] by: Crissy Rea MD Dictated: 09/19/2016 10:17 Problems Encounter Diagnosis No relevant problems exist. [...] 1 :12 PM * Completed Procedure Code: 35755 Procedure Name: not valued, on 04/22/2016 12: 00 AM * Completed Esophagogastroduodenoscopy, by MD BAIRON HAMILTON, on 11/20/2015 12:55 PM * Completed Procedure Code: 39915 Procedure Name: not valued, on 11/20/2015 12: 00 AM * Completed Procedure Code: 16707 Procedure Name: not valued, on 11/20/2015 12: 00 AM * Completed Procedure Code: 45.16 Procedure Name: not valued, on 03/12/2014 12: 00 AM * Completed Procedure Code: 45.25 Procedure Name: not valued, on 03/12/2014 12: 00 AM * Completed , on 08/20/2009 12:00 AM Immunizations * Influenza, seasonal, injectable (NOVARTIS, Lot # [id number]); Administered 2013 9:24 AM; 0.5 ML=1 DOSE, [...]
--- OUTSIDE RECORDS SUMMARY | 2017-02-24 17:05 | XMS REPORT | Continuity of care Document ---
[...] the responsibility of the patient or patient food service representative to confirm the list of medications with either the patient's personal care provider or the patient's follow-up care provider to ensure the patient has an appropriate list of medications to take at home. Take These Medications* DULoxetine (Cymbalta) 30 mg capsule,delayed release(DR/ EC), Ordered By: TYRA GUTIERRES MD Directions: 1 capsule oral daily Additional Instructions: DULOXETINE 90 MG DAILY IS DOSE * HYDROcodone-acetaminophen (Lortab) 5 mg-500 mg Tablet, Ordered By: TYRA GUTIERRES MD Directions: 1 tablet oral every four hours PRN pain * metoprolol tartrate 25 mg Tablet, Ordered By: TYRA GUTIERRES MD Directions: 1 tablet oral daily * hydrOXYzine HCl 50 mg Tablet, Ordered By: TYRA GUTIERRES MD Directions: 1 tablet oral three times a day * oxyCODONE (OxyCONTIN) 15 mg Tablet Extended Release 12 hr, Ordered By: TYRA GUTIERRES MD Directions: 1 tablet oral every twelve hours * pantoprazole 40 mg tablet,delayed release (DR/EC), Ordered By: TYRA GUTIERRES MD Directions: 1 tablet oral twice a day before breakfast * traZODone 50 mg Tablet, Ordered By: TYRA GUTIERRES MD Directions: 1 tablet oral daily at bedtime Additional Instructions: GIVE WITH FOOD. 2 TABLETS AT BEDTIME * potassium chloride 20 mEq tablet,ER particles/crystals, Ordered By: TYRA GUTIERRES MD Directions: 1 tablet oral daily Stop Taking These Medications* None Results Chemistry from 04/07/2014 5:57 AMSODIUM 140 MMOL/L (136-145 MMOL/L) POTASSIUM 4.5 MMOL/L (3.5-5.1 MMOL/L) CHLORIDE 108 MMOL/L H (98-107 MMOL/L) TCO2 25.6 MMOL/L (21.0-32.0 MMOL/L) ANION GAP 6.4 MMOL/L L (8.0-16.0 MMOL/L) BUN 7 MG/DL (7-18 MG/DL) CREATININE 0.64 MG/DL (0.43-0.83 MG/DL) BUN/CREATININE RATIO 10.9 (9.1-17.0 ) GLUCOSE 89 MG/DL (65-99 MG/DL) CALCIUM 8.8 MG/DL (8.5-10.1 MG/DL) ALBUMIN 2.9 GM/DL L (3.4-5.0 GM/DL) PHOSPHORUS 2.4 MG/DL L (2.5-4.9 MG/DL)
--- OUTSIDE RECORDS SUMMARY | 2017-02-24 17:05 | XMS REPORT | Summary of Care ---
Author Author Elicia Carrington M.D. Organization Unknown Address [address] [place], [place] [id number] Phone Unavailable Care Team Providers Care Animal Care Taker Name Role Phone Elicia Carrington M.D. Unavailable Unavailable Junior Lizarraga D.O. Unavailable Unavailable Chuck Ferguson M.D. Unavailable Unavailable Escobar, K Unavailable Unavailable Unavailable Unavailable Functional Status Name Dates Details Functional status health issues are not documented Status: Name Dates Details Cognitive status health issues are not documented Status: Problems Name Dates Details Joint Pain, Localized In Both Shoulders Status: Active Lower back pain (724.2, M54.5) Status: Active Neck pain (723.1, M54.2) Status: Active Chest pain (786.50, R07.9) Status: [...] unspecified location (461.9, J01.90 ) Status: Active Headache (784.0, R51) Status: Active Sacrum sprain (847.3, S33.8XXA) Status: Active COPD (chronic obstructive pulmonary disease) (496, J44.9) Status: Active Migraine (346.90, G43.909) Status: Active Medications Name Dates Details Advair [...] Status: Active Anxiety (300.00, F41.9) Status: Active COPD (chronic obstructive pulmonary disease) (496, J44.9) Status: Active Dental decay (521.00, K02.9) Status: Active Depression (311, F32.9) Status: Active Sacrum sprain (847.3, S33.8XXA) Status: Active Seizure (780.39, R56.9) Status: Active [...] smoker Vital Signs Date Test Result Details 25-Nov-2016 19:56 BP Systolic 143 mm[Hg] Status: Comments: Location: LUE; Position: Sitting BP Diastolic 100 mm[Hg] Status: Comments: Location: LUE; Position: Sitting Temperature 97 f Status: Comments: Method: Heart Rate 119 /min Status: Comments: Location: ; Physical Findings 16 Status: Comments: Respiration 23-Nov-2016 17:11 BP Systolic 104 mm[Hg] Status: Comments: Location: LUE; Position: Sitting BP Diastolic 80 mm[Hg] Status: [...] Status: Comments: Location: ; Position: BP Diastolic 56 mm[Hg] Status: Comments: Location: ; Position: Temperature [...] not documented On 09-Dec-2015 14:45 Appointment; Vipul Yeboah, PTigist Encounter Diagnosis: Problem not documented On 06-Aug-2015 13:30 Appointment; Lena Saucedo A.P.R.N. Encounter Diagnosis: Problem not documented On 09-Dec-2014 16:15 Appointment; Bao Carbone M.D. Encounter Diagnosis: Problem not documented On 06-Dec-2014 14:00
--- OUTSIDE RECORDS SUMMARY | 2017-02-24 17:05 | XMS REPORT ---
Author Author GENERATED, SYSTEM Organization Unknown Address Unknown Phone Unavailable Care Team Providers Care Steam Press Operator Name Role Phone MD GRACY, NAVIN PP [phone] Reason For Visit Chief Complaint LEFT ELBOW BURSITIS Social History Functional Status Vital Signs Results Chemistry from 10/06/2016 7:06 AMSODIUM 140 MMOL/L (136-145 MMOL/L) POTASSIUM 4.1 MMOL/L (3.5-5.1 MMOL/L) CHLORIDE 107 MMOL/L (98-107 MMOL/L) TCO2 21.5 MMOL/L (21.0-32.0 MMOL/L) *ANION GAP 11.5 MMOL/L (8.0-16.0 MMOL/L) BUN 14 MG/DL (7-18 MG/DL) CREATININE 0.96 MG/DL (0.55-1.02 MG/DL) *BUN/CREATININE RATIO 14.6 (9.1-17.0 ) GLUCOSE 98 MG/DL (65-99 MG/DL) *GFR EST NON AFR CITIZEN [place] 67 ML/MIN *GFR EST AFR AMER 77 ML/MIN CALCIUM 9.5 MG/DL (8.5-10.1 MG/DL) BILIRUBIN TOTAL <0.10 MG/DL L (0.20-1.00 MG/DL) TOTAL PROTEIN 7.4 GM/DL (6.4-8.2 GM/DL) ALBUMIN 3.3 GM/DL L (3.4-5.0 GM/DL) *GLOBULIN 4.1 GM/DL H (2.3-3.5 GM/DL) *A/G RATIO 0.8 MG/DL L (1.5-2.2 MG/DL) ALK PHOS 184 U/L H (46-116 U/L) ALT (SGPT) 37 U/L (16-63 U/L) AST (SGOT) 29 U/L (15-37 U/L) C-REACTIVE PROTEIN 0.94 MG/DL H (0.00-0.30 MG/DL) LACTIC ACID 1.6 mmol/L (0.9-1.7 mmol/L) Hematology from 10/06/2016 7:06 AMWBC 9.1 X10e3/UL (3.6-11.2 X10e3/UL) RBC 3.76 X10e6/UL (3.63-4.92 X10e6/UL) HEMOGLOBIN 12.7 G/DL (11.0-14.3 G/DL) HEMATOCRIT 37.7 % (31.2-41.9 %) *MCV 100.3 FL H (79.0-98.0 FL) *MCH 33.9 PG H (27.0-33.0 PG) *MCHC 33.8 G/DL (32.0-36.0 G/DL) *RDW 14.7 % (12.3-17.0 %) *RDWSD 52.5 H (37.1-47.8 ) PLATELET 373 X10e3/UL (159-386 X10e3/UL) *MPV 7.5 FL (7.4-10.4 FL) AUTOMATED DIFF PERFORMED SEGS 64.2 % *LYMPHOCYTES 26.4 % *MONOCYTES 5.6 % *EOSINOPHILS 2.5 % *BASOPHILS 1.3 % *ABSOLUTE NEUTROPHILS 5.80 X10e3/UL (1.80-7.80 X10e3/UL) *ABSOLUTE LYMPHOCYTES 2.40 X10e3/UL (1.00-3.00 X10e3/UL) *ABSOLUTE MONOCYTES 0.50 X10e3/UL (0.30-1.00 X10e3/UL) *ABSOLUTE EOSINOPHILS 0.20 X10e3/UL (0.00-0.50 X10e3/UL) *ABSOLUTE BASOPHILS 0.10 X10e3/UL (0.00-0.20 X10e3/UL) SED RATE 49 MM/HR H (0-30 MM/HR) Microbiology from 10/06/2016 7:06 AM* CULTURE BLOOD (Preliminary Result) Specimen Number: [id number] Sample Collection Date/Time: 10/06/2016 7:06 AM Specimen Source: Blood Peripheral CULTURE BLOOD: No growth after 24 hours of incubation, testing to continue for an additional 96 hours. Microbiology from 10/06/2016 6:56 AM* CULTURE BLOOD (Preliminary Result) Specimen Number: [id number] Sample Collection Date/Time: 10/06/2016 6:56 AM Specimen Source: Blood Peripheral CULTURE BLOOD: No growth after 24 hours of incubation, testing to continue for an additional 96 hours. DX Radiology from 10/06/2016 6:43 AMELBOW LEFT 2 VIEWS History: swelling over olcranon . Technique: Twoview elbow Priors: None. Findings: There is mild soft tissue swelling overlying the olecranon process. This likely represents bursitis. No underlying osseous erosion or fractures are identified. No joint effusion is seen. Impression: Findings most consistent with olecranon bursitis. No underlying bony abnormality is identified. Electronically signed by: Gomez Echeverria MD Dictated: 10/06/2016 07:59 Problems Encounter Diagnosis No relevant problems exist. [...] 1 :12 PM * Completed Procedure Code: 75559 Procedure Name: not valued, on 04/22/2016 12: 00 AM * Completed Esophagogastroduodenoscopy, by MD BAIRON HAMILTON, on 11/20/2015 12:55 PM * Completed Procedure Code: 20790 Procedure Name: not valued, on 11/20/2015 12: 00 AM * Completed Procedure Code: 53357 Procedure Name: not valued, on 11/20/2015 12: 00 AM * Completed Procedure Code: 45.16 Procedure Name: not valued, on 03/12/2014 12: 00 AM * Completed Procedure Code: 45.25 Procedure Name: not valued, on 03/12/2014 12: 00 AM * Completed , on 08/20/2009 12:00 AM Immunizations * Influenza, seasonal, injectable (NOVARTIS, Lot # [id number]); Administered 2013 9:24 AM; 0.5 ML=1 DOSE, [...]
--- OUTSIDE RECORDS SUMMARY | 2017-02-24 17:05 | XMS REPORT ---
Author Author GENERATED, SYSTEM Organization Unknown Address Unknown Phone Unavailable Care Team Providers Care Product Controller Name Role Phone MD GRACY, NAVIN [phone] Reason For Visit Chief Complaint OSTEOMYELITIS Social History Functional Status Functional Status from 08/23/2016 6:12 PM:* LOC : Alert * Oriented To : Person,Place,Time Functional Status from 08/23/2016 7:58 AM:* LOC : Alert * Oriented To : Person,Place,Time,Event Functional Status from 08/22/2016 7:40 PM:* LOC : Alert * Oriented To : Person,Place,Time,Event Functional Status from 08/22/2016 10:20 AM:* LOC : Alert * Oriented To : Person,Place,Time,Event Functional Status from 08/21/2016 9:41 AM:* LOC : Alert * Oriented To : Person,Place,Time,Event Functional Status from 08/20/2016 7:58 AM:* LOC : Alert * Oriented To : Person,Place,Time,Event Functional Status from 08/19/2016 6:10 PM:* LOC : Alert * Oriented To : Person,Place,Time,Event Functional Status from 08/19/2016 7:51 AM:* LOC : Alert * Oriented To : Person,Place,Time,Event Functional Status from 08/18/2016 8:29 AM:* LOC : Alert * Oriented To : Person,Place,Time,Event Functional Status from 08/17/2016 9:29 AM:* LOC : Alert * Oriented To : Person,Place,Time,Event Functional Status from 08/16/2016 6:25 PM:* LOC : Alert * Oriented To : Person,Place,Time,Event Functional Status from 08/16/2016 9:33 AM:* LOC : Alert * Oriented To : Person,Place,Time,Event Vital Signs Hospital Vital Signs from 08/23/2016 8:06 AM:* Height : 5/7 ft,in * Temperature : 97.9 F * Pulse : 67 * Respirations : 18 * BP : 85/60 Hospital Vital Signs from 08/22/2016 10:20 AM:* Height : 5/7 ft,in * Temperature : 97.2 F * Pulse : 73 * Respirations : 18 * BP : 120/78 Hospital Vital Signs from 08/21/2016 6:10 PM:* Height : 5/7 ft,in * Temperature : 96.2 F * Pulse : 89 * Respirations : 18 * BP : 119/68 Hospital Vital Signs from 08/21/2016 9:41 AM:* Height : 5/7 ft,in * Temperature : 97.2 F * Pulse : 90 * Respirations : 18 * BP : 119/81 Hospital Vital Signs from 08/20/2016 7:58 AM:* Height : 5/7 ft,in * Temperature : 97.9 F * Pulse : 73 * Respirations : 18 * BP : 108/74 Hospital Vital Signs from 08/19/2016 7:52 AM:* Height : 5/7 ft,in * Temperature : 96.7 F * Pulse : 79 * Respirations : 16 * BP : 108/68 Hospital Vital Signs from 08/18/2016 8:18 AM:* Height : 5/7 ft,in * Temperature : 96.8 F * Pulse : 96 * Respirations : 18 * BP : 115/74 Hospital Vital Signs from 08/17/2016 9:29 AM:* Height : 5/7 ft,in * Temperature : 97.1 F * Pulse : 68 * Respirations : 18 * BP : 99/67 Hospital Vital Signs from 08/16/2016 9:33 AM:* Height : 5/7 ft,in * Temperature : 96.3 F * Respirations : 18 * BP : 134/83 Results Chemistry from 08/23/2016 8:22 AMSODIUM 142 MMOL/L (136-145 MMOL/L) POTASSIUM 3.4 MMOL/L L (3.5-5.1 MMOL/L) CHLORIDE 109 MMOL/L H (98-107 MMOL/L) TCO2 22.3 MMOL/L (21.0-32.0 MMOL/L) *ANION GAP 10.7 MMOL/L (8.0-16.0 MMOL/L) BUN 9 MG/DL (7-18 MG/DL) CREATININE 0.73 MG/DL (0.55-1.02 MG/DL) *BUN/CREATININE RATIO 12.3 (9.1-17.0 ) GLUCOSE 100 MG/DL H (65-99 MG/DL) *GFR EST NON AFR [place] >90 ML/MIN *GFR EST AFR AMER >90 ML/MIN CALCIUM 9.5 MG/DL (8.5-10.1 MG/DL) C-REACTIVE PROTEIN <0.05 MG/DL (0.00-0.30 MG/DL) VANCOMYCIN TROUGH 8.9 MCG/ML (5.0-10.0 MCG/ML) Chemistry from 08/20/2016 8:06 AMSODIUM 144 MMOL/L (136-145 MMOL/L) POTASSIUM 3.6 MMOL/L (3.5-5.1 MMOL/L) CHLORIDE 110 MMOL/L H (98-107 MMOL/L) TCO2 19.3 MMOL/L L (21.0-32.0 MMOL/L) *ANION GAP 14.7 MMOL/L (8.0-16.0 MMOL/L) BUN 11 MG/DL (7-18 MG/DL) CREATININE 0.77 MG/DL (0.55-1.02 MG/DL) *BUN/CREATININE RATIO 14.3 (9.1-17.0 ) GLUCOSE 90 MG/DL (65-99 MG/DL) *GFR EST NON AFR [place] 87 ML/MIN *GFR EST AFR AMER >90 ML/MIN CALCIUM 9.4 MG/DL (8.5-10.1 MG/DL) C-REACTIVE PROTEIN 0.11 MG/DL (0.00-0.30 MG/DL) VANCOMYCIN TROUGH 13.9 MCG/ML H (5.0-10.0 MCG/ML) Chemistry from 08/16/2016 9:43 AMVANCOMYCIN TROUGH 3.6 MCG/ML L (5.0-10.0 MCG/ML ) Hematology from 08/23/2016 8:22 AMWBC 6.5 X10e3/UL (3.6-11.2 X10e3/UL) RBC 3.81 X10e6/UL (3.63-4.92 X10e6/UL) HEMOGLOBIN 13.1 G/DL (11.0-14.3 G/DL) HEMATOCRIT 39.2 % (31.2-41.9 %) *MCV 103.0 FL H (79.0-98.0 FL) *MCH 34.4 PG H (27.0-33.0 PG) *MCHC 33.4 G/DL (32.0-36.0 G/DL) *RDW 14.9 % (12.3-17.0 %) *RDWSD 54.3 H (37.1-47.8 ) PLATELET 418 X10e3/UL H (159-386 X10e3/UL) *MPV 7.5 FL (7.4-10.4 FL) *MANUAL DIFF PERFORMED SEGS 61.0 % *BANDS 0.0 % *LYMPHOCYTES 27.0 % *MONOCYTES 2.0 % *EOSINOPHILS 6.0 % *BASOPHILS 1.0 % *REACTIVE LYMPHOCYTES 3.0 % *ABSOLUTE NEUTROPHILS 3.97 X10e3/UL (1.80-7.80 X10e3/UL) *ABSOLUTE LYMPHOCYTES 1.95 X10e3/UL (1.00-3.00 X10e3/UL) *ABSOLUTE MONOCYTES 0.13 X10e3/UL L (0.30-1.00 X10e3/UL) *ABSOLUTE EOSINOPHILS 0.39 X10e3/UL (0.00-0.50 X10e3/UL) *ABSOLUTE BASOPHILS 0.07 X10e3/UL (0.00-0.20 X10e3/UL) *POLYCHROMASIA 1+ *MACROCYTIC 1+ SED RATE 29 MM/HR (0-30 MM/HR) Hematology from 08/20/2016 8:06 AMWBC 9.3 X10e3/UL (3.6-11.2 X10e3/UL) RBC 3.76 X10e6/UL (3.63-4.92 X10e6/UL) HEMOGLOBIN 12.9 G/DL (11.0-14.3 G/DL) HEMATOCRIT 38.5 % (31.2-41.9 %) *MCV 102.3 FL H (79.0-98.0 FL) *MCH 34.4 PG H (27.0-33.0 PG) *MCHC 33.6 G/DL (32.0-36.0 G/DL) *RDW 14.7 % (12.3-17.0 %) *RDWSD 53.4 H (37.1-47.8 ) PLATELET 425 X10e3/UL H (159-386 X10e3/UL) *MPV 7.3 FL L (7.4-10.4 FL) *MANUAL DIFF PERFORMED SEGS 49.0 % *BANDS 0.0 % *LYMPHOCYTES 42.0 % *MONOCYTES 6.0 % *EOSINOPHILS 3.0 % *BASOPHILS 0.0 % *ABSOLUTE NEUTROPHILS 4.56 X10e3/UL (1.80-7.80 X10e3/UL) *ABSOLUTE LYMPHOCYTES 3.91 X10e3/UL H (1.00-3.00 X10e3/UL) *ABSOLUTE MONOCYTES 0.56 X10e3/UL (0.30-1.00 X10e3/UL) *ABSOLUTE EOSINOPHILS 0.28 X10e3/UL (0.00-0.50 X10e3/UL) *ABSOLUTE BASOPHILS 0.00 X10e3/UL (0.00-0.20 X10e3/UL) *POLYCHROMASIA 1+ *MACROCYTIC 1+ SED RATE 36 MM/HR H (0-30 MM/HR) Problems Encounter Diagnosis No relevant problems exist. [...] 1 :12 PM * Completed Procedure Code: 20734 Procedure Name: not valued, on 04/22/2016 12: 00 AM * Completed Esophagogastroduodenoscopy, by MD BAIRON HAMILTON, on 11/20/2015 12:55 PM * Completed Procedure Code: 12488 Procedure Name: not valued, on 11/20/2015 12: 00 AM * Completed Procedure Code: 29221 Procedure Name: not valued, on 11/20/2015 12: 00 AM * Completed Procedure Code: 45.16 Procedure Name: not valued, on 03/12/2014 12: 00 AM * Completed Procedure Code: 45.25 Procedure Name: not valued, on 03/12/2014 12: 00 AM * Completed , on 08/20/2009 12:00 AM Immunizations * Influenza, seasonal, injectable (NOVARTIS, Lot # [id number]); Administered 2013 9:24 AM; 0.5 ML=1 DOSE, [...]
--- OUTSIDE RECORDS SUMMARY | 2017-02-24 17:05 | XMS REPORT ---
Author Author GENERATED, SYSTEM Organization Unknown Address Unknown Phone Unavailable Care Team Providers Care Shovel Mechanic Name Role Phone UNASSIGNED DOCTOR , DOCTOR PP [phone] Reason For Visit Chief Complaint TROUBLE BREATHING,VOMITING Social History Functional Status Vital Signs Results Chemistry from 01/27/2016 8:11 AMSODIUM 144 MMOL/L (136-145 MMOL/L) POTASSIUM 3.9 MMOL/L (3.5-5.1 MMOL/L) CHLORIDE 107 MMOL/L (98-107 MMOL/L) TCO2 25.4 MMOL/L (21.0-32.0 MMOL/L) *ANION GAP 11.6 MMOL/L (8.0-16.0 MMOL/L) BUN 11 MG/DL (7-18 MG/DL) CREATININE 0.96 MG/DL (0.55-1.02 MG/DL) *BUN/CREATININE RATIO 11.5 (9.1-17.0 ) GLUCOSE 148 MG/DL H (65-99 MG/DL) *GFR EST NON AFR CITIZEN [place] 67 ML/MIN *GFRA EST AFR AMER 78 ML/MIN CALCIUM 9.8 MG/DL (8.5-10.1 MG/DL) BILIRUBIN TOTAL 0.20 MG/DL (0.20-1.00 MG/DL) TOTAL PROTEIN 8.6 GM/DL H (6.4-8.2 GM/DL) ALBUMIN 3.5 GM/DL (3.4-5.0 GM/DL) *GLOBULIN 5.1 GM/DL H (2.3-3.5 GM/DL) *A/G RATIO 0.7 MG/DL L (1.5-2.2 MG/DL) ALK PHOS 211 U/L H (46-116 U/L) ALT (SGPT) 26 U/L (16-63 U/L) AST (SGOT) 18 U/L (15-37 U/L) LIPASE 111 U/L (73-393 U/L) TROPONIN-I <0.017 NG/ML (0.000-0.056 NG/ML) Hematology from 01/27/2016 8:11 AMWBC 13.3 X10e3/UL H (3.6-11.2 X10e3/UL) RBC 4.72 X10e6/UL (3.63-4.92 X10e6/UL) HEMOGLOBIN 15.8 G/DL H (11.0-14.3 G/DL) HEMATOCRIT 48.6 % H (31.2-41.9 %) *MCV 103.0 FL H (79.0-98.0 FL) *MCH 33.4 PG H (27.0-33.0 PG) *MCHC 32.5 G/DL (32.0-36.0 G/DL) *RDW 15.6 % (12.3-17.0 %) *RDWSD 56.0 H (37.1-47.8 ) PLATELET 451 X10e3/UL H (159-386 X10e3/UL) *MPV 7.2 FL L (7.4-10.4 FL) AUTOMATED DIFF PERFORMED SEGS 82.7 % *LYMPHOCYTES 13.3 % *MONOCYTES 3.5 % *EOSINOPHILS 0.2 % *BASOPHILS 0.3 % *ABSOLUTE NEUTROPHILS 11.00 X10e3/UL H (1.80-7.80 X10e3/UL) *ABSOLUTE LYMPHOCYTES 1.80 X10e3/UL (1.00-3.00 X10e3/UL) *ABSOLUTE MONOCYTES 0.50 X10e3/UL (0.30-1.00 X10e3/UL) *ABSOLUTE EOSINOPHILS 0.00 X10e3/UL (0.00-0.50 X10e3/UL) *ABSOLUTE BASOPHILS 0.00 X10e3/UL (0.00-0.20 X10e3/UL) Urinalysis from 01/27/2016 10:50 AM*URINE COLOR YELLOW (STRAW/YELL/DK YELL ) *URINE APPEARANCE CLEAR (CLEAR ) URINE PH 5.5 (5.0-8.0 ) URINE SPECIFIC GRAVITY 1.020 (<=1.005->=1.030 ) *URINE GLUCOSE NEGATIVE MG/DL (NEGATIVE MG/DL) *URINE BILIRUBIN NEGATIVE (NEGATIVE ) *URINE KETONES NEGATIVE MG/DL (NEGATIVE MG/DL) *URINE BLOOD NEGATIVE (NEGATIVE ) *URINE PROTEIN NEGATIVE MG/DL (NEGATIVE MG/DL) *URINE UROBILINOGEN 0.2 EU/DL (0.2-1.0 EU/DL) *URINE NITRITES POSITIVE A (NEGATIVE ) *URINE LEUKOCYTES NEGATIVE (NEGATIVE ) *MICROSCOPIC EXAM PERFORMED PERFORMED *WBC URINE 25-50 /HPF A (0-5 /HPF) *BACTERIA MANY /HPF A (NEGATIVE /HPF) *HYALINE CASTS 1-5 /LPF A (0 /LPF) Coagulation from 01/27/2016 8:11 AM*PROTHROMBIN TIME 10.4 SECONDS (9.4-11.5 SECONDS) *INR 1.0 (0.9-1.1 ) Microbiology from 01/27/2016 10:50 AM* CULTURE URINE (Preliminary Result) Specimen Number: [id number] Sample Collection Date/Time: 01/27/2016 10:50 AM Specimen Source: Urine Clean Catch CULTURE URINE: Gram-negative bacillus >100,000 cfu/ml ID and Susceptibility to follow DX [facility]iology [facility]27/2016 8:53 [facility] History: Shortness of breath with nausea vomiting. Technique: Two view chest performed. Priors: 10/25/2015 Findings: The heart size is normal.The lungs are hyperinflated. There are scattered fibrotic changes throughout both lungs. No consolidation is seen. No pneumothorax is present. Impression: COPD without acute infiltrate. Electronically signed by: Gomez Echeverria MD Dictated: 01/27/2016 09:25 CT Scan from 01/27/2016 9:10 AMCT ABD/PELVIS W/CONTRAST History: Right-sided abdominal pain radiating to the back. Patient states she has a bowel a blockage on the right. Technique: Post contrast images were performed after the administration of 95 milliliters of Isovue intravenous contrast. Priors: 09/28/2014 Findings: Abdomen Lung bases: There is calcified granuloma left lung base unchanged from previous study. There is mild right basilar atelectasis. Liver: Normal density. No definable mass. Spleen: Normal. Pancreas: No discrete mass or inflammatory process. Gallbladder and biliary tract: No radiodense calculus or dilation. Adrenal glands: Normal. Kidneys: Normal enhancement. No masses. No radiodense stones or hydronephrosis. Urinary Bladder: Normal. Aorta: Normal in caliber. No periaortic lymphadenopathy. Bowel and Mesentery: There is cikh-jn-gzoyryeu constipation. No findings of appendicitis. Ascites: None. Pelvis Lymphadenopathy: None. Reproductive: Unremarkable. Osseous Structures: No suspicious findings. Impression: Oruz-wh-mhrcfvab constipation. Electronically signed by: Gomez Echeverria MD Dictated: 01/27/2016 09:24 Problems Encounter Diagnosis No relevant problems exist. [...] 11/20/2015 12:55 PM * Completed Procedure Code: 77157 Procedure Name: not valued, on 11/20/2015 12: 00 AM * Completed Procedure Code: 93674 Procedure Name: not valued, on 11/20/2015 12: 00 AM * Completed Procedure Code: 45.16 Procedure Name: not valued, on 03/12/2014 12: 00 AM * Completed Procedure Code: 45.25 Procedure Name: not valued, on 03/12/2014 12: 00 AM * Completed , on 08/20/2009 12:00 AM Immunizations * Influenza, seasonal, injectable (NOVARTIS, Lot # [id number]); Administered 2013 9:24 AM; 0.5 ML=1 DOSE, [...]
--- OUTSIDE RECORDS SUMMARY | 2017-02-24 17:05 | XMS REPORT | Summary of Care ---
Author Author Bao Carbone M.D. Unknown Address Unknown Phone Unavailable Care Team Providers Care Computer Science Instructor Name Role Phone Raf Ren, Junior Unavailable Junior Oh D.O. Unavailable Chuck Tapia M.D. Unavailable Unavailable [...]
--- OUTSIDE RECORDS SUMMARY | 2017-02-24 17:06 | XMS REPORT | Summary of Care ---
Author Author Bao Carbone M.D. Unknown Address Unknown Phone Unavailable Care Team Providers Care Product Sales Engineer Name Role Phone Junior Carbone M.D. Unavailable Chuck Tapia M.D. Unavailable Unavailable Escobar, K Unavailable Unavailable [...] Status: Active Seizure (780.39, R56.9) Status: Active Medications Name Dates Details Advair Diskus 100-50 MCG/DOSE Inhalation Aerosol Powder Breath Activated INHALE 1 PUFF TWICE DAILY. * Start 09-Dec-2015 Active Advair HFA 45-21 MCG/ACT Inhalation Aerosol INHALE 2 PUFFS, BY MOUTH, TWICE DAILY. * Refills: 0 Chuck Ferguson M.D. * Start Active CeleXA 10 MG Oral Tablet * Refills: 0 * Start 03-Aug-2016 Active KlonoPIN 0.5 MG Oral Tablet * Refills: 0 * Start 03-Aug-2016 Active PriLOSEC 10 MG Oral Capsule Delayed Release * Refills: 0 * Start 03-Aug-2016 Active SEROquel 25 MG Oral Tablet * Refills: 0 * Start 03-Aug-2016 Active Topamax 25 MG Oral Tablet * Refills: 0 * Start 03-Aug-2016 Active Zolpidem Tartrate 5 MG Oral Tablet * Refills: 0 * Start 03-Aug-2016 Active Clindamycin HCl - 150 MG Oral Capsule TAKE 1 CAPSULE EVERY 6 HOURS DAILY. * Quantity: 28 Refills: 0 Franclori MikalBao * Start 03-Aug-2016 Active Allergies and Adverse Reactions Name Dates [...] smoker Vital Signs Date Test Result Details 03-Aug-2016 13:18 BP Systolic 98 mm[Hg] Status: Comments: Location: ; Position: BP Diastolic 60 mm[Hg] Status: Comments: Location: ; Position: Temperature 97.9 f Status: Comments: Method: Heart Rate 78 /min Status: Comments: Location: ; Physical Findings 98 Status: Comments: O2 Saturation 23-Jul-2016 18:43 BP Systolic 118 mm[Hg] Status: [...] Goals not documented Interventions Provided Medication Changes* Clindamycin HCl - 150 MG Oral Capsule - Start Instructions Name Dates Details Instructions not documented Encounters Appointment; Chuck Mcconnell M.D. Encounter Diagnosis: Problem [...]
--- OUTSIDE RECORDS SUMMARY | 2017-02-24 17:06 | XMS REPORT | Summary of Care ---
Author Author Alvaro Ren, [facility] Unknown Address [address] [place], [place] [id number] Phone Unavailable Care Team Providers Care Facility Maintenance Helper Name Role Phone Trey Ren, Melo Unavailable Unavailable Chari Ren, Roseanna Unavailable Unavailable Mundo Ren, Katrin Unavailable Unavailable Padilla Ren, Antonio Unavailable Unavailable Reed Coffman PP Unavailable Unavailable [...] Active Abdominal pain (789.00, R10.9) Status: Active Medications Name Dates Details Percocet [...] Refills: 0 Guanakito Causey M.D.* Started 03-Jun-2014 ActiveSucralfate 1 GM Oral Tablet TAKE 1 TABLET 4 TIMES DAILY, BEFORE MEALS AND AT BEDTIME. * Quantity: 120 Refills: 0 Guanakito Causey M.D.* Started 03-Jun-2014 [...] daily * Refills: 0 * Started 06-Aug-2015 ActiveAdvair Diskus 100-50 MCG/DOSE Inhalation Aerosol Powder Breath Activated INHALE 1 PUFF TWICE DAILY. * Refills: 0 * Started 09-Dec-2015 ActiveLomotil 2.5-0.025 MG Oral Tablet TAKE 1 TABLET 4 TIMES DAILY. * Refills: 0 * Started 09-Dec-2015 ActiveSpiriva HandiHaler 18 MCG Inhalation Capsule USE DIRECTED. * Refills: 0 * Started 09-Dec-2015 ActiveXopenex HFA 45 MCG/ACT Inhalation Aerosol INHALE 1 PUFF EVERY 4 HOURS NEEDED. * Refills: 0 * Started 09-Dec-2015 Active Allergies and Adverse Reactions Name Dates [...] smoker Vital Signs Date Test Result Details 09-Dec-2015 14:57 BP Systolic 102 mm[Hg] Status: BP Diastolic 72 mm[Hg] Status: Heart Rate 63 /min Status: Height 67 in Status: Weight 132 lb Status: Body Mass Index Calculated 20.67 kg/m2 Status: Body Surface Area Calculated 1.69 m2 Status: Results Date Description Value Details 09-Dec-2015 16:22 UGI WITH AIR CONTRAST Comments: Exam Date: 12/09/2015 15:47Dictation Date: 12/09/2015 16:22 XF UGI WITH AIR CONTRA (Better) Plan of Care Planned Observations* Name Dates Details Planned Goals not documented Goal Planned Encounters* Appointment; Provider: Schedule Radiology On 09-Dec-2015 15:30 * Appointment; Provider: Kanchan Schmidt On 05-Jun-2014 13:00 * Appointment; Provider: Lois Lawrence On 19-Aug-2011 09:00 * Appointment; Provider: Lois Lawrence On 05-Aug-2011 08:30 * Appointment; Provider: Lois Lawrence On 22-Jul-2011 08:30 Instructions * Instructions not documented Encounters Appointment; Shane John Encounter Diagnosis: Problem not documented On 09-Dec-2015 14:45 Appointment; Vipul Yeboah Encounter Diagnosis: Problem not [...] Problem not documented On 13:00 Appointment; Osmar March Encounter Diagnosis: Problem not documented On 12-Mar-2014 13:30 Appointment; Regino Jules Encounter Diagnosis: Problem not documented On 11-Dec-2013 10:30 Appointment; Jenaro Arguelles Encounter Diagnosis: Problem not documented On 10-Dec-2013 13:45
--- OUTSIDE RECORDS SUMMARY | 2017-02-24 17:06 | XMS REPORT ---
Author Author GENERATED, SYSTEM Organization Unknown Address Unknown Phone Unavailable Care Team Providers Care Tractor Trailer Technician Name Role Phone UNASSIGNED DOCTOR , DOCTOR PP [phone] Reason For Visit Chief Complaint EVALUATION Social History Functional Status Vital Signs Results Chemistry from 04/19/2016 10:15 AMB-TYPE NATRIURETIC PROTEIN 149 PG/ML H (1-100 PG/ML) Hematology from 04/19/2016 10:15 AMWBC 10.1 X10e3/UL (3.6-11.2 X10e3/UL) RBC 3.64 X10e6/UL (3.63-4.92 X10e6/UL) HEMOGLOBIN 12.6 G/DL (11.0-14.3 G/DL) HEMATOCRIT 38.3 % (31.2-41.9 %) *MCV 105.1 FL H (79.0-98.0 FL) *MCH 34.6 PG H (27.0-33.0 PG) *MCHC 33.0 G/DL (32.0-36.0 G/DL) *RDW 14.0 % (12.3-17.0 %) *RDWSD 52.5 H (37.1-47.8 ) PLATELET 370 X10e3/UL (159-386 X10e3/UL) *MPV 8.9 FL (7.4-10.4 FL) AUTOMATED DIFF PERFORMED SEGS 67.3 % *LYMPHOCYTES 24.6 % *MONOCYTES 5.7 % *EOSINOPHILS 1.6 % *BASOPHILS 0.8 % *ABSOLUTE NEUTROPHILS 6.80 X10e3/UL (1.80-7.80 X10e3/UL) *ABSOLUTE LYMPHOCYTES 2.50 X10e3/UL (1.00-3.00 X10e3/UL) *ABSOLUTE MONOCYTES 0.60 X10e3/UL (0.30-1.00 X10e3/UL) *ABSOLUTE EOSINOPHILS 0.20 X10e3/UL (0.00-0.50 X10e3/UL) *ABSOLUTE BASOPHILS 0.10 X10e3/UL (0.00-0.20 X10e3/UL) *PLATELET SLIDE REVIEW ADEQUATE (ADEQUATE ) Urinalysis from 04/19/2016 9:40 AM*URINE COLOR YELLOW (STRAW/YELL/DK YELL ) *URINE APPEARANCE SL CLOUDY A (CLEAR ) URINE PH 5.5 (5.0-8.0 ) URINE SPECIFIC GRAVITY 1.015 (<=1.005->=1.030 ) *URINE GLUCOSE NEGATIVE MG/DL (NEGATIVE MG/DL) *URINE BILIRUBIN NEGATIVE (NEGATIVE ) *URINE KETONES NEGATIVE MG/DL (NEGATIVE MG/DL) *URINE BLOOD NEGATIVE (NEGATIVE ) *URINE PROTEIN NEGATIVE MG/DL (NEGATIVE MG/DL) *URINE UROBILINOGEN 0.2 EU/DL (0.2-1.0 EU/DL) *URINE NITRITES NEGATIVE (NEGATIVE ) *URINE LEUKOCYTES NEGATIVE (NEGATIVE ) Coagulation from 04/19/2016 10:48 AM*PROTHROMBIN TIME 11.2 SECONDS (9.4-11.5 SECONDS) *INR 1.1 (0.9-1.1 ) DX Radiology from 04/19/2016 9:56 AMCHEST 1 VIEW History: hypotension Priors: 01/27/16 Findings: The cardiac silhouette and pulmonary vasculature within normal limits. There is a small focus of atelectasis in left lung base. The lungs are otherwise clear. Impression: Minimal left basilar atelectasis. Electronically signed by: Alan White MD Dictated: 04/19/2016 10:42 Problems Encounter Diagnosis No relevant problems exist. [...] Care Procedures * Completed Esophagogastroduodenoscopy, by MD [facility], on 11/20/2015 12:55 PM * Completed Procedure Code: 26599 Procedure Name: not valued, on 11/20/2015 12: 00 AM * Completed Procedure Code: 59094 Procedure Name: not valued, on 11/20/2015 12: 00 AM * Completed Procedure Code: 45.16 Procedure Name: not valued, on 03/12/2014 12: 00 AM * Completed Procedure Code: 45.25 Procedure Name: not valued, on 03/12/2014 12: 00 AM * Completed , on 08/20/2009 12:00 AM Immunizations * Influenza, seasonal, injectable (NOVARTIS, Lot # [id number]); Administered 2013 9:24 AM; 0.5 ML=1 DOSE, [...]
--- OUTSIDE RECORDS SUMMARY | 2017-02-24 17:06 | XMS REPORT ---
Author Author GENERATED, SYSTEM Organization Unknown Address Unknown Phone Unavailable Care Team Providers Care Spool Tender Name Role Phone MD GRACY, NAVIN PP [phone] Reason For Visit Chief Complaint E78.5, 125.9 Social History Functional Status Vital Signs Results [...] 1 :12 PM * Completed Procedure Code: 12213 Procedure Name: not valued, on 04/22/2016 12: 00 AM * Completed Esophagogastroduodenoscopy, by MD BAIRON HAMILTON, on 11/20/2015 12:55 PM * Completed Procedure Code: 96307 Procedure Name: not valued, on 11/20/2015 12: 00 AM * Completed Procedure Code: 83940 Procedure Name: not valued, on 11/20/2015 12: 00 AM * Completed Procedure Code: 45.16 Procedure Name: not valued, on 03/12/2014 12: 00 AM * Completed Procedure Code: 45.25 Procedure Name: not valued, on 03/12/2014 12: 00 AM * Completed , on 08/20/2009 12:00 AM Immunizations * Influenza, seasonal, injectable (NOVARTIS, Lot # [id number]); Administered 2013 9:24 AM; 0.5 ML=1 DOSE, Intramuscular Hospital Course Hospital Discharge Instructions Allergies, Adverse Reactions, Alerts This section is statement services representative of the current allergy information, at the time of the CCD generation. In the case of regeneration of the CCD, the allergy information may not reflect the state of known allergies at the time of the CCD' s subject visit. * Lortab causes Unknown. * codeine causes [...]
--- OUTSIDE RECORDS SUMMARY | 2017-02-24 17:06 | XMS REPORT ---
Author Author GENERATED, SYSTEM Organization Unknown Address Unknown Phone Unavailable Care Team Providers Care Sewing Supervisor Name Role Phone UNASSIGNED DOCTOR , DOCTOR PP [phone] Reason For Visit Chief Complaint CHECK TB TEST Social History Functional Status Vital Signs Results [...]
--- OUTSIDE RECORDS SUMMARY | 2017-02-24 17:06 | XMS REPORT | Continuity of Care Document ---
Author Author [facility] Organization [facility] Address Unknown Phone Unavailable Care Team Providers Care Music Critic Name Role Phone JUVENTINO, REJI Arriola MD Primary Care Physician [phone] Insurance Providers Payer Name Policy Number Subscriber Name Relationship Medicare A And B [id number] Tova Briones 18 Self / Same As Patient [facility] [id number] Tova Cates 18 Self / Same As Patient Chief Complaint and Reason for Visit Chief Complaint Pain Reason for Visit [id number] Chronic back pain Problems Medical Problems Problem Onset Date Status Shortness of breath ~07/02/2014 Resolved COPD exacerbation 07/02/2014 Resolved Prescription drug abuse ~09/06/2014 Active COPD (chronic obstructive pulmonary disease) Unknown Active Pancreatitis, chronic ~10/2014 Active Chronic back pain ~10/2014 Active Medications Medication Dose Route Sig Days/Qty Instructions Order Date Discontinued Date Status Metoprolol Tartrate 25 Mg ORAL DAILY 07/02/14 Active Oxycodone Hcl 30 Mg ORAL TWICE A DAY 07/02/14 07/05/14 Discontinued Oxycodone Hcl 10 Mg ORAL TWICE A DAY PRN BREAKTHROUGH PAIN 07/02/14 07/05/14 Discontinued Eszopiclone 2 Mg ORAL BEDTIME 07/02/14 07/05/14 Discontinued Clonazepam 1 Mg ORAL BEDTIME 07/02/14 07/05/14 Discontinued Pantoprazole Sodium 40 Mg ORAL DAILY 07/04/14 Active Potassium Chloride 20 Meq ORAL DAILY 07/04/14 Active Ondansetron Hcl 4 Mg ORAL EVERY 4HRS PRN NAUSEA 07/04/14 Active Multivitamin 1 Each ORAL DAILY 07/04/14 Active Azithromycin 250 Mg ORAL DAILY 5 Qty 07/05/14 09/06/14 Discontinued Cefdinir 300 Mg ORAL EVERY 12 HRS ON SCHEDULE 20 Qty 07/05/14 Discontinued Fluticasone/Salmeterol 2 Inh RESPIRATORY (INHALATION) TWICE A DAY 1 Qty 07/05/14 Active [Fluoxetine] 20 Mg ORAL DAILY 30 Qty 07/05/14 Active Guaifenesin 1,200 Mg ORAL TWICE A DAY 40 Qty 07/05/14 09/06/14 Discontinued Oxycodone Hcl 40 Mg ORAL EVERY 12 HRS ON SCHEDULE 30 Qty 07/05/14 Active Tiotropium [place] 0 Mcg RESPIRATORY (INHALATION) DAILY@0800 1 Qty 10/06 Active Clonazepam 1 Mg ORAL BEDTIME 30 Qty 07/05/14 Active Levalbuterol Tartrate 15 Gm RESPIRATORY (INHALATION) EVERY 4HRS PRN DYSPNEA 1 Qty 07/05/14 Active Tramadol Hcl 50 Mg ORAL EVERY 6 HOURS 09/05/14 Active Loperamide Hcl 2 Mg GT NEEDED 09/05/14 Active Promethazine Hcl 25 Mg RECTAL NEEDED 09/05/14 Active Hydroxyzine Hcl 10 Mg ORAL DAILY 09/05/14 Active Sucralfate 1 Gm ORAL DAILY 09/05/14 Active Trazodone Hcl 50 Mg ORAL DAILY 09/05/14 Active Social History No social history. Hospital Discharge Instructions No hospital discharge instructions. Plan of Care Discharge Date 11/02/14 8:12pm Disposition 07 AGAINST MEDICAL ADVICE Condition at Discharge Stable Instructions/Education Provided Chronic Pain Management (ED) Acute Nausea and Vomiting (ED) Acute Diarrhea (ED) Prescriptions See Medications Section Additional Instructions/Education Unfortunately, we are unable to refill your chronic pain medications at this time. You should contact Dr. Berman Tuesday morning about your oxycontin refill, and about your other medical conditions including chronic pancreatitis. Your lab today showed you have anemia, and needs further testing and work up. You should observe a clear liquid diet tonight, and then advance your diet as tolerated. Some of your test results may not be complete prior to your leaving the Emergency Department. The Emergency Department is not authorized to give test results over the phone. Please contact the doctor's office listed in this packet of information for your final results. Follow up with your primary care physician or return to the Emergency Department for worsening or worrisome symptoms. * Emergency Department phone number: [phone], x [phone] MEDICAL RECORD If you need copies of your X-rays, call [phone]. If you need copies of your medical record, including lab results, a signed authorization for release of records will be required. A telephone call for release of Health Information is not allowed. BILLING Billing can sometimes be confusing and frustrating. To help avoid confusion in the future, please take a moment to acquaint yourself with the billing parties for services. SERVICE BILLING [employer] Emergency Room Services [facility] Physician Services [facility] X-rays [place] [facility] Patients will receive bills for services from the appropriate provider. If you have any questions about your [facility] bill, our staff will be happy to assist you. Please call [phone], and ask for the billing department. THANK YOU for choosing [facility] as your emergency care provider! Functional Status No functional status results. Allergies, Adverse Reactions, Alerts Allergen Type Severity Reaction Status Last Updated Tramadol Allergy Unknown SEIZURES Active 07/03/14 Metoclopramide Allergy Unknown Active 07/02/14 PROPEN Allergy Unknown ANAPHYLAXIS Active 11/02/14 Immunizations No immunization records. Vital Signs Acute Vital Signs Vital Response Date/Time Temperature (Fahrenheit) 97.8 Pulse 77 bpm Respirations 22 Height 5 ft 5 in Weight 124 lb Body Mass Index 20.0 kg/m^2 Results Test Source Date Result Interp. Ref. Range Comments Absolute Band Neutrophils July 05, 2014 5:45am 0.0 # Collected by nurse? N Alanine Aminotransferase (ALT/SGPT) November 02, 2014 5:18pm 19 U/L L 30- 65 Albumin November 02, 2014 5:18pm 3.1 G/DL L 3.4-5.0 Albumin/Globulin Ratio November 02, 2014 5:18pm 1.291 N 1.1-1.8 Alkaline Phosphatase November 02, 2014 5:18pm 73 U/L N 38-126 Ammonia July 04, 2014 5:55am 23 umol/L 9-35 Collected by nurse? N Amylase Level November 02, 2014 5:18pm 56 U/L N 25-115 Anion Gap November 02, 2014 5:18pm 12.6 MEQ/L N 3-15 Aspartate Amino Transf (AST/SGOT) November 02, 2014 5:18pm 16 U/L N 15- 37 BUN/Creatinine Ratio November 02, 2014 5:18pm 10 N 10-20 Band Neutrophils % July 05, 2014 5:45am 0 % N 0-6 Collected by nurse? N Basophils # (Auto) November 02, 2014 5:18pm 0.1 10^3uL Basophils % (Manual) July 05, 2014 5:45am 0 % N 0-2 Collected by nurse? N Basophils (%) (Auto) November 02, 2014 5:18pm 1 % N 0-2 Blood Morphology Comment July 05, 2014 5:45am Normal NORMAL Collected by nurse? N Blood Urea Nitrogen November 02, 2014 5:18pm 10 MG/DL N 7-18 C-Reactive Protein July 05, 2014 5:45am 2.00 MG/DL H 0.0-0.9 Collected by nurse? N Calcium Level November 02, 2014 5:18pm 8.3 MG/DL L 8.8-10.8 Calcium/Ionized Calcium Ratio November 02, 2014 5:18pm 4.2 mg/dL N 3.8- 4.6 Calculated Osmolality November 02, 2014 5:18pm 269 MOSM/L L 280-300 Carbon Dioxide Level November 02, 2014 5:18pm 25 MMOL/L N 22-29 Chloride Level November 02, 2014 5:18pm 106 mmol/L N 98-108 Creatinine November 02, 2014 5:18pm 1.01 mg/dL DN 0.6-1.2 Differential Total Cells Counted July 05, 2014 5:45am 100 Collected by nurse? N Eosinophils # July 05, 2014 5:45am 0.0 # Collected by nurse? N Eosinophils # (Auto) November 02, 2014 5:18pm 0.1 10^3uL Eosinophils % (Manual) July 05, 2014 5:45am 0 % N 0-4 Collected by nurse? N Eosinophils (%) (Auto) November 02, 2014 5:18pm 1 % N 0-4 Estimat Glomerular Filtration Rate November 02, 2014 5:18pm 69.6 Estimated GFR (Non- November 02, 2014 5:18pm 57.6 Glucose Level November 02, 2014 5:18pm 93 mg/dL N 70-110 Hematocrit November 02, 2014 5:18pm 29.90 % L 35.00-45.00 Hemoglobin November 02, 2014 5:18pm 10.0 g/dL L 12.0-15.5 Influenza Virus Type A Antibody July 03, 2014 5:10am Negative Influenza Virus Type B Antibody July 03, 2014 5:10am Negative Lipase November 02, 2014 5:18pm 145 U/L N 23-300 Lymphocytes # July 05, 2014 5:45am 3.2 # Collected by nurse? N Lymphocytes # (Auto) November 02, 2014 5:18pm 2.8 X10^3 Lymphocytes % (Manual) July 05, 2014 5:45am 17 % L 20-46 Collected by nurse? N Lymphocytes (%) (Auto) November 02, 2014 5:18pm 30 % N 20-46 Mean Corpuscular Hemoglobin November 02, 2014 5:18pm 33.6 PG N 26.0-34.0 Mean Corpuscular Hemoglobin Concent November 02, 2014 5:18pm 33.4 g/dL N 31.0-37.0 Mean Corpuscular Volume November 02, 2014 5:18pm 101 FL H 80-100 Mean Platelet Volume November 02, 2014 5:18pm 8.6 FL N 6.0-9.5 Metamyelocytes % July 05, 2014 5:45am 0 % N 0-1 Collected by nurse ? N Monocytes # July 05, 2014 5:45am 0.2 # Collected by nurse? N Monocytes # (Auto) November 02, 2014 5:18pm 0.7 X10^3 Monocytes % (Manual) July 05, 2014 5:45am 1 % L 3-11 Collected by nurse? N Monocytes (%) (Auto) November 02, 2014 5:18pm 8 % N 3-11 Neutrophils # July 05, 2014 5:45am 15.5 # Collected by nurse? N Neutrophils # (Auto) November 02, 2014 5:18pm 5.5 X10^3 Neutrophils (%) (Auto) November 02, 2014 5:18pm 60 % N 51-67 Platelet Count November 02, 2014 5:18pm 517 10^3uL H 150-450 Potassium Level November 02, 2014 5:18pm 4.0 mmol/L N 3.5-5.1 Red Blood Count November 02, 2014 5:18pm 2.97 10^6uL L 4.00-5.00 Red Cell Distribution Width November 02, 2014 5:18pm 17.3 % H 11.8-15.6 Segmented Neutrophils % July 05, 2014 5:45am 82 % H 51-67 Collected by nurse? N Sodium Level November 02, 2014 5:18pm 140 MMOL/L N 135-150 Total Bilirubin November 02, 2014 5:18pm < 0.1 MG/DL L 0.1-1.0 Total Protein November 02, 2014 5:18pm 5.5 G/DL L 6.4-8.5 Ur Tricyclic Antidepressants Screen November 02, 2014 5:40pm Negative Negative Urine collection method Clean Catch Urine Amphetamines Screen November 02, 2014 5:40pm Negative Negative Urine collection method Clean Catch Urine Barbiturates Screen November 02, 2014 5:40pm Positive H Negative Urine collection method Clean Catch Urine Benzodiazepines Screen November 02, 2014 5:40pm Positive H Negative Urine collection method Clean Catch Urine Bilirubin November 02, 2014 5:40pm Negative Negative Urine collection method Clean Catch Urine Blood November 02, 2014 5:40pm Negative Negative Urine collection method Clean Catch Urine Cannabinoids Screen November 02, 2014 5:40pm Negative Negative Urine collection method Clean Catch Urine Clarity November 02, 2014 5:40pm Slightly cloudy Urine collection method Clean Catch Urine Cocaine Screen November 02, 2014 5:40pm Negative Negative Urine collection method Clean Catch Urine Collection Type November 02, 2014 5:40pm Clean catch Urine collection method Clean Catch Urine Color November 02, 2014 5:40pm Dark yellow Urine collection method Clean Catch Urine Glucose (UA) November 02, 2014 5:40pm Negative Negative Urine collection method Clean Catch Urine Ketones November 02, 2014 5:40pm Trace H Negative Urine collection method Clean Catch Urine Leukocyte Esterase November 02, 2014 5:40pm Negative Negative Urine collection method Clean Catch Urine Methadone Screen November 02, 2014 5:40pm Positive H Negative Urine collection method Clean Catch Urine Methamphetamines Screen November 02, 2014 5:40pm Negative NEGATIVE Urine collection method Clean Catch Urine Nitrite November 02, 2014 5:40pm Negative Negative Urine collection method Clean Catch Urine Opiates Screen November 02, 2014 5:40pm Positive H Negative Urine collection method Clean Catch Urine Oxycodone Screen November 02, 2014 5:40pm Positive H NEGATIVE Urine collection method Clean Catch Urine Phencyclidine Screen November 02, 2014 5:40pm Negative Negative Phencyclidine testing by this method can showcross-reactivity with several common medications such as venlafaxine, dextromethorphan, and diphenhydramine. Submission of any positive sample for confirmatory testing is recommended. Urine Propoxyphene Screen November 02, 2014 5:40pm Negative NEGATIVE Results of this screen are qualitative and are presumptiveresults. A more specific method (i.e. GC/MS) must be used if confirmation of results is indicated. Urine Protein November 02, 2014 5:40pm Negative Negative Urine collection method Clean Catch Urine Specific [place] November 02, 2014 5:40pm 1.025 1.005-1.030 Urine collection method Clean Catch Urine Urobilinogen November 02, 2014 5:40pm 0.2 mg/dL 0.2-1.0 Urine collection method Clean Catch Urine pH November 02, 2014 5:40pm 6.0 5.0 - 8.0 Urine collection method Clean Catch White Blood Count November 02, 2014 5:18pm 9.21 10^3uL N 4.0-11.0 Gram Stain Sputum-Induced July 03, 2014 12:50pm Procedures No known history of procedures. Encounters Encounter Location Date/Time Departed Emergency Room [facility] 11/02/14 4:55pm Recent Diagnosis
--- OUTSIDE RECORDS SUMMARY | 2017-02-24 17:06 | XMS REPORT ---
Author Author GENERATED, SYSTEM Organization Unknown Address Unknown Phone Unavailable Care Team Providers Care Special Education Teaching Assistant Name Role Phone UNASSIGNED DOCTOR , DOCTOR PP [phone] Reason For Visit Reason for Visit from 04/19/2016 6:59 AM:* Pt Stated Reason for Adm : EGD Chief Complaint DYPHAGIA,EGD Social History Social History from 04/19/2016 6:59 AM:* Tobacco Use? : Current Everyday Smoker Functional Status Functional Status from 04/19/2016 6:59 AM:* LOC : Alert * Oriented To : Person,Place,Time,Event * Weight Bearing Status : Full * Assist Level : Partial * # Assists : 1 Vital Signs Hospital Vital Signs from 04/19/2016 9:05 AM:* Height : 5/4.5 ft,in * Pulse : 60 * Respirations : 20 * BP : 111/81 Hospital Vital Signs from 04/19/2016 9:00 AM:* Height : 5/4.5 ft,in * Pulse : 59 * Respirations : 20 * BP : 101/85 Hospital Vital Signs from 04/19/2016 8:50 AM:* Height : 5/4.5 ft,in * Pulse : 55 * Respirations : 20 * BP : 86/73 Hospital Vital Signs from 04/19/2016 8:46 AM:* Height : 5/4.5 ft,in * Pulse : 56 * Respirations : 20 * BP : 61/32 Hospital Vital Signs from 04/19/2016 8:36 AM:* Height : 5/4.5 ft,in * Pulse : 58 * Respirations : 20 * BP : 79/57 Hospital Vital Signs from 04/19/2016 8:35 AM:* Height : 5/4.5 ft,in * Pulse : 58 * Respirations : 20 * BP : 67/38 Hospital Vital Signs from 04/19/2016 8:30 AM:* Height : 5/4.5 ft,in * Pulse : 57 * Respirations : 20 * BP : 88/69 Hospital Vital Signs from 04/19/2016 8:25 AM:* Height : 5/4.5 ft,in * Pulse : 57 * Respirations : 20 * BP : 88/67 Hospital Vital Signs from 04/19/2016 8:20 AM:* Height : 5/4.5 ft,in * Pulse : 56 * Respirations : 18 * BP : 86/64 Hospital Vital Signs from 04/19/2016 8:15 AM:* Height : 5/4.5 ft,in * Pulse : 55 * Respirations : 16 * BP : 77/57 Hospital Vital Signs from 04/19/2016 8:01 AM:* Height : 5/4.5 ft,in * Pulse : 53 * Respirations : 18 * BP : 74/42 Hospital Vital Signs from 04/19/2016 7:59 AM:* Height : 5/4.5 ft,in * Pulse : 50 * Respirations : 20 * BP : 72/52 Hospital Vital Signs from 04/19/2016 7:47 AM:* Height : 5/4.5 ft,in * Pulse : 48 * Respirations : 20 * BP : 80/51 Hospital Vital Signs from 04/19/2016 6:59 AM:* Weight : 58.3/ kg * Height : 5/4.5 ft,in Hospital Vital Signs from 04/19/2016 6:22 AM:* Weight : 58.3/ kg * Height : 5/4.5 ft,in * Temperature : 97.3 F * Pulse : 54 * Respirations : 20 * BP : 90/79 Hospital Vital Signs from 04/19/2016 6:13 AM:* Height : 5/4.5 ft,in * Pulse : 51 * Respirations : 18 * BP : 90/75 Results Chemistry from 04/19/2016 7:15 AMSODIUM 140 MMOL/L (136-145 MMOL/L) POTASSIUM 4.2 MMOL/L (3.5-5.1 MMOL/L) CHLORIDE 109 MMOL/L H (98-107 MMOL/L) TCO2 21.4 MMOL/L (21.0-32.0 MMOL/L) *ANION GAP 9.6 MMOL/L (8.0-16.0 MMOL/L) BUN 11 MG/DL (7-18 MG/DL) CREATININE 0.88 MG/DL (0.55-1.02 MG/DL) *BUN/CREATININE RATIO 12.5 (9.1-17.0 ) GLUCOSE 95 MG/DL (65-99 MG/DL) *GFR EST NON AFR STATELESS 74 ML/MIN *GFRA EST AFR AMER 86 ML/MIN CALCIUM 9.0 MG/DL (8.5-10.1 MG/DL) BILIRUBIN TOTAL 0.20 MG/DL (0.20-1.00 MG/DL) TOTAL PROTEIN 6.4 GM/DL (6.4-8.2 GM/DL) ALBUMIN 3.1 GM/DL L (3.4-5.0 GM/DL) *GLOBULIN 3.3 GM/DL (2.3-3.5 GM/DL) *A/G RATIO 0.9 MG/DL L (1.5-2.2 MG/DL) ALK PHOS 139 U/L H (46-116 U/L) ALT (SGPT) 17 U/L (16-63 U/L) AST (SGOT) 14 U/L L (15-37 U/L) MAGNESIUM 2.0 MG/DL (1.8-2.4 MG/DL) PHOSPHORUS 3.6 MG/DL (2.6-4.7 MG/DL) LIPASE 128 U/L (73-393 U/L) TROPONIN-I <0.017 NG/ML (0.000-0.056 NG/ML) TSH 0.255 UIU/ML L (0.340-4.820 UIU/ML) Problems Encounter Diagnosis No relevant problems exist. [...] 11/20/2015 12:55 PM * Completed Procedure Code: 60750 Procedure Name: not valued, on 11/20/2015 12: 00 AM * Completed Procedure Code: 18383 Procedure Name: not valued, on 11/20/2015 12: 00 AM * Completed Procedure Code: 45.16 Procedure Name: not valued, on 03/12/2014 12: 00 AM * Completed Procedure Code: 45.25 Procedure Name: not valued, on 03/12/2014 12: 00 AM * Completed , on 08/20/2009 12:00 AM Immunizations * Influenza, seasonal, injectable (NOVARTIS, Lot # [id number]); Administered 2013 9:24 AM; 0.5 ML=1 DOSE, [...]
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
--- OUTSIDE RECORDS SUMMARY | 2017-02-24 17:06 | XMS REPORT ---
Author Author GENERATED, SYSTEM Organization Unknown Address Unknown Phone Unavailable Care Team Providers Care Size Roller Operator Name Role Phone MD GRACY, NAVIN [phone] Reason For Visit Reason for Visit from 08/15/2016 1:50 PM:* Pt Stated Reason for Adm : oupt infusion Chief Complaint VANEOMYCIN 750MG IV Social History Functional Status Vital Signs Hospital Vital Signs from 08/15/2016 1:50 PM:* Weight : 120/ lbs,oz * Height : 5/7 ft,in Hospital Vital Signs from 08/15/2016 1:45 PM:* Height : 5/7 ft,in * Temperature : 96.9 F * Pulse : 77 * Respirations : 18 * BP : 85/49 Results Problems Encounter Diagnosis No relevant problems [...] 1 :12 PM * Completed Procedure Code: 87906 Procedure Name: not valued, on 04/22/2016 12: 00 AM * Completed Esophagogastroduodenoscopy, by MD BAIRON HAMILTON, on 11/20/2015 12:55 PM * Completed Procedure Code: 52495 Procedure Name: not valued, on 11/20/2015 12: 00 AM * Completed Procedure Code: 48066 Procedure Name: not valued, on 11/20/2015 12: 00 AM * Completed Procedure Code: 45.16 Procedure Name: not valued, on 03/12/2014 12: 00 AM * Completed Procedure Code: 45.25 Procedure Name: not valued, on 03/12/2014 12: 00 AM * Completed , on 08/20/2009 12:00 AM Immunizations * Influenza, seasonal, injectable (NOVARTIS, Lot # [id number]); Administered 2013 9:24 AM; 0.5 ML=1 DOSE, [...]
--- OUTSIDE RECORDS SUMMARY | 2017-02-24 17:06 | XMS REPORT ---
Author Author GENERATED, SYSTEM Organization Unknown Address Unknown Phone Unavailable Care Team Providers Care Fuel System Maintenance Worker Name Role Phone UNASSIGNED DOCTOR , DOCTOR PP [phone] Reason For Visit Chief Complaint LEFT MEDS IN [place],LEFT WITHOUT BEING SEEN Social History Functional Status Vital Signs Results [...] * Influenza, seasonal, injectable (NOVARTIS, Lot # [id number]); Administered 2013 9:24 AM; 0.5 ML=1 DOSE, [...]
--- OUTSIDE RECORDS SUMMARY | 2017-02-24 17:07 | XMS REPORT ---
Author Author GENERATED, SYSTEM Organization Unknown Address Unknown Phone Unavailable Care Team Providers Care Risk Tech Name Role Phone MD GRACY, NAVIN PP [phone] Reason For Visit Chief Complaint OSTEOMYELITIS Social History Functional Status Vital Signs Results [...] 1 :12 PM * Completed Procedure Code: 16528 Procedure Name: not valued, on 04/22/2016 12: 00 AM * Completed Esophagogastroduodenoscopy, by MD BAIRON HAMILTON, on 11/20/2015 12:55 PM * Completed Procedure Code: 86958 Procedure Name: not valued, on 11/20/2015 12: 00 AM * Completed Procedure Code: 05800 Procedure Name: not valued, on 11/20/2015 12: 00 AM * Completed Procedure Code: 45.16 Procedure Name: not valued, on 03/12/2014 12: 00 AM * Completed Procedure Code: 45.25 Procedure Name: not valued, on 03/12/2014 12: 00 AM * Completed , on 08/20/2009 12:00 AM Immunizations * Influenza, seasonal, injectable (NOVARTIS, Lot # [id number]); Administered 2013 9:24 AM; 0.5 ML=1 DOSE, [...]
--- OUTSIDE RECORDS SUMMARY | 2017-02-24 17:07 | XMS REPORT ---
Author Author GENERATED, SYSTEM Organization Unknown Address Unknown Phone Unavailable Care Team Providers Care Disease Management Nurse Name Role Phone MD JENIFFER, HANS PP [phone] Reason For Visit Chief Complaint 789.00 787.01 789.01 Social History Functional Status Vital Signs Results [...]
--- OUTSIDE RECORDS SUMMARY | 2017-02-24 17:07 | XMS REPORT ---
Author Author GENERATED, SYSTEM Organization Unknown Address Unknown Phone Unavailable Care Team Providers Care Typewriter Assembly And Parts Inspector Name Role Phone MD GRACY, NAVIN [phone] Reason For Visit Reason for Visit from 07/12/2016 10:26 AM:* Pt Stated Reason for Adm : multiple falls, syncope, hypotension Chief Complaint SYNCOPE HYPERTENSION Social History Social History from 07/13/2016 1:06 PM:* Tobacco Use? : Current Everyday Smoker Social History from 07/12/2016 10:26 AM:* Tobacco Use? : Current Everyday Smoker Functional Status Functional Status from 07/13/2016 7:45 AM:* LOC : Alert * Oriented To : Person,Place,Time * Weight Bearing Status : Full * Assist Level : Independent * # Assists : Independent Functional Status from 07/13/2016 5:30 AM:* LOC : Alert * Oriented To : Person,Place,Time,Event Functional Status from 07/12/2016 11:58 PM:* LOC : Alert * Oriented To : Person,Place,Time,Event Functional Status from 07/12/2016 8:10 PM:* LOC : Alert * Oriented To : Person,Place,Time,Event * Weight Bearing Status : Full * Assist Level : Partial * # Assists : 1 Functional Status from 07/12/2016 7:21 PM:* LOC : Alert * Oriented To : Person,Place,Time,Event Functional Status from 07/12/2016 2:00 PM:* LOC : Alert * Oriented To : Person,Place,Time,Event Functional Status from 07/12/2016 10:26 AM:* LOC : Alert * Oriented To : Person,Place,Time,Event * Weight Bearing Status : Partial * Assist Level : Partial * # Assists : 2 Vital Signs Hospital Vital Signs from 07/13/2016 10:02 AM:* Weight : 61.5/ kg * Height : 5/7 ft,in Hospital Vital Signs from 07/13/2016 9:50 AM:* Height : 5/7 ft,in * Pulse : 76 * BP : 121/84 Hospital Vital Signs from 07/13/2016 8:11 AM:* Height : 5/7 ft,in * Temperature : 97.6 F * Pulse : 87 * Respirations : 18 * BP : 115/67 Hospital Vital Signs from 07/13/2016 2:11 AM:* Height : 5/7 ft,in * Temperature : 96.1 F * Pulse : 75 * Respirations : 16 * BP : 109/60 Hospital Vital Signs from 07/12/2016 9:50 PM:* Height : 5/7 ft,in * Temperature : 97.4 F * Pulse : 67 * Respirations : 18 * BP : 94/51 Hospital Vital Signs from 07/12/2016 8:15 PM:* Pulse : 71 * BP : 93/53 Hospital Vital Signs from 07/12/2016 8:10 PM:* Heart Rate : 72 Hospital Vital Signs from 07/12/2016 7:11 PM:* Height : 5/7 ft,in * Temperature : 98.1 F * Pulse : 71 * Respirations : 16 * BP : 98/53 Hospital Vital Signs from 07/12/2016 3:51 PM:* Height : 5/7 ft,in * Temperature : 97.6 F * Pulse : 89 * Respirations : 19 * BP : 115/62 Hospital Vital Signs from 07/12/2016 10:26 AM:* Weight : 61.5/ kg * Height : 5/7 ft,in Hospital Vital Signs from 07/12/2016 8:01 AM:* Height : 5/7 ft,in * Temperature : 96.7 F * Pulse : 94 * Respirations : 19 * BP : 110/63 Results Chemistry from 07/13/2016 5:47 AMSODIUM 144 MMOL/L (136-145 MMOL/L) POTASSIUM 3.8 MMOL/L (3.5-5.1 MMOL/L) CHLORIDE 113 MMOL/L H (98-107 MMOL/L) TCO2 22.1 MMOL/L (21.0-32.0 MMOL/L) *ANION GAP 8.9 MMOL/L (8.0-16.0 MMOL/L) BUN 11 MG/DL (7-18 MG/DL) CREATININE 0.71 MG/DL (0.55-1.02 MG/DL) *BUN/CREATININE RATIO 15.5 (9.1-17.0 ) GLUCOSE 97 MG/DL (65-99 MG/DL) *GFR EST NON AFR TAJIK >90 ML/MIN *GFR EST AFR AMER >90 ML/MIN CALCIUM 8.5 MG/DL (8.5-10.1 MG/DL) Chemistry from 07/12/2016 7:22 AMLACTIC ACID 1.1 mmol/L (0.9-1.7 mmol/L) Hematology from 07/13/2016 5:47 AMWBC 7.2 X10e3/UL (3.6-11.2 X10e3/UL) RBC 3.72 X10e6/UL (3.63-4.92 X10e6/UL) HEMOGLOBIN 12.6 G/DL (11.0-14.3 G/DL) HEMATOCRIT 37.5 % (31.2-41.9 %) *MCV 100.9 FL H (79.0-98.0 FL) *MCH 33.8 PG H (27.0-33.0 PG) *MCHC 33.5 G/DL (32.0-36.0 G/DL) *RDW 13.6 % (12.3-17.0 %) PLATELET 282 X10e3/UL (159-386 X10e3/UL) *MPV 7.8 FL (7.4-10.4 FL) AUTOMATED DIFF PERFORMED SEGS 51.7 % *LYMPHOCYTES 35.7 % *MONOCYTES 7.6 % *EOSINOPHILS 3.3 % *BASOPHILS 1.7 % *ABSOLUTE NEUTROPHILS 3.70 X10e3/UL (1.80-7.80 X10e3/UL) *ABSOLUTE LYMPHOCYTES 2.60 X10e3/UL (1.00-3.00 X10e3/UL) *ABSOLUTE MONOCYTES 0.60 X10e3/UL (0.30-1.00 X10e3/UL) *ABSOLUTE EOSINOPHILS 0.20 X10e3/UL (0.00-0.50 X10e3/UL) *ABSOLUTE BASOPHILS 0.10 X10e3/UL (0.00-0.20 X10e3/UL) Problems Encounter Diagnosis * Chronic Pain Status:Active. * Dyslipidemia Status:Active. * Fall Risk Status:Active. * History of Hypertension Status:Active. * Low Blood Pressure Status:Active. * Mobility Impairment Status:Active. * Syncope Status:Active. Additional Problems * Abdominal Pain Comment:Problem [...] upon Discharge, Status:Resolved. Encounters Encounter Diagnosis * Chronic Pain Status:Active. * Dyslipidemia Status:Active. * Fall Risk Status:Active. * History of Hypertension Status:Active. * Low Blood Pressure Status:Active. * Mobility Impairment Status:Active. * Syncope Status:Active. Plan of Care Treatment Plan from 07/12/2016 8:33 AM:* Care Management Note : Patient is outpatient observation being treated for syncopal episode with hypotension and report of seizures X 4 last night. No history of seizures listed on H&P. Hypotension is resolving with IVF that are currently at 125 hr. She is on seizure precautions and HWT. A blood culture and EEG have been ordered. We are checking orthostatic BP's and labs are ordered for tomorrow. Appropriate for outpatient observation at this time. Procedures * Completed Esophagogastroduodenoscopy, by MD BAIRON HAMILTON, on 04/22/2016 1 :12 PM * Completed Procedure Code: 64732 Procedure Name: not valued, on 04/22/2016 12: 00 AM * Completed Esophagogastroduodenoscopy, by MD BAIRON HAMILTON, on 11/20/2015 12:55 PM * Completed Procedure Code: 01748 Procedure Name: not valued, on 11/20/2015 12: 00 AM * Completed Procedure Code: 05115 Procedure Name: not valued, on 11/20/2015 12: 00 AM * Completed Procedure Code: 45.16 Procedure Name: not valued, on 03/12/2014 12: 00 AM * Completed Procedure Code: 45.25 Procedure Name: not valued, on 03/12/2014 12: 00 AM * Completed , on 08/20/2009 12:00 AM Immunizations * Influenza, seasonal, injectable (NOVARTIS, Lot # [id number]); Administered 2013 9:24 AM; 0.5 ML=1 DOSE, INTRAMUSCL Hospital Course Hospital Discharge Instructions How to care for yourself at home from 07/13/2016 1:06 PM:* Discharge Activity : Activity as tolerated * Discharge Diet : Modification as given by physician * Discharge Diet: : No added salt, Low fat, Low cholesterol. Drink 2Liters of fluids daily. * Call your doctor if: : Fever [...] : No Allergies, Adverse Reactions, Alerts * codeine causes Unknown Unknown. * Ultram causes Unknown. * Lortab causes Unknown. * aspirin causes Unknown. Onset Unknown. * BuSpar causes Moderate Hives. * Imitrex causes Unknown. * Reglan causes "shuts esophagus". * No Latex Allergy. * No IV Contrast Allergy. * No Known Food Allergies. Medication It is the responsibility of the patient or patient shared services representative to confirm the list of medications with either the patient's personal care provider or the patient's follow-up care provider to ensure the patient has an appropriate list of medications to take at home. Discharge medications Continued medications* atorvastatin 80 mg Tablet, Ordered By: BALTA ALCARAZ DO Directions: 1 tablet oral daily at bedtime * citalopram 20 mg Tablet, Ordered By: BALTA ALCARAZ DO Directions: 1 tablet oral daily every morning * cloNIDine HCl 0.1 mg Tablet, Ordered By: BALTA ALCARAZ DO Directions: 1 tablet oral three times a day * diphenoxylate-atropine (LoMOTIL) 2.5 mg Tablet, Ordered By: BALTA ALCARAZ DO Directions: 1 tablet oral every 6 hours prn * doxepin 50 mg Capsule, Ordered By: BALTA ALCARAZ DO Directions: 1 capsule oral daily at bedtime * fluticasone-salmeterol (Advair HFA) 45 mcg-21 mcg/Actuation HFA Aerosol Inhaler, Ordered By: BALTA ALCARAZ DO Directions: 2 puff by inhalation twice a day * omeprazole 20 mg capsule,delayed release(DR/EC), Ordered By: BALTA ALCARAZ DO Directions: 1 capsule oral twice a day * oxyCODONE-acetaminophen (Percocet) 10 mg-325 mg Tablet, Ordered By: BALTA ALCARAZ DO Directions: 1 tablet oral every four hours PRN pain * potassium chloride 10 mEq Capsule, Extended Release, Ordered By: BALTA ALCARAZ DO Directions: 2 capsule oral twice a day * QUEtiapine (SEROquel) 50 mg Tablet, Ordered By: BALTA ALCARAZ DO Directions: 1 tablet oral daily before breakfast * sucralfate 1 gram Tablet, Ordered By: BALTA ALCARAZ DO Directions: 1 tablet oral four times daily * topiramate 50 mg Tablet, Ordered By: BALTA ALCARAZ DO Directions: 1 tablet oral twice a day Changed medications* clonazePAM 1 mg Tablet, Ordered By: BALTA ALCARAZ DO Directions: 1 tablet oral four times daily PRN anxiety * metoprolol succinate 25 mg Tablet Extended Release 24 hr, Ordered By: BALTA ALCARAZ DO Directions: 1 tablet oral daily * promethazine 25 mg Tablet, Ordered By: BALTA ALCARAZ DO Directions: 1 tablet oral twice a day PRN nausea or vomiting * QUEtiapine (SEROquel) 150mg Tablet, Ordered By: BALTA ALCARAZ DO Directions: 1 tablet oral daily at bedtime * zolpidem (Ambien) 10 mg Tablet, Ordered By: BALTA ALCARAZ DO Directions: 1 tablet oral daily at bedtime PRN insomnia Stopped medications* verapamil 40 mg Tablet Directions: 1 tablet oral twice a day * promethazine 25 mg tablet 1 tablet as needed * nitrofurantoin monohyd/m-cryst (MacroBID) Capsule * pantoprazole (ProTONIX) 40 mg tablet,delayed release (DR/EC) Directions: 1 tablet oral twice a day
--- OUTSIDE RECORDS SUMMARY | 2017-02-24 17:07 | XMS REPORT | Summary of Care ---
Author Author Chuck Mcconnell M.D. Unknown Address Unknown Phone Unavailable Care Team Providers Care Power Press Supervisor Name Role Phone Trey Ren, Melo Unavailable Unavailable Chari Ren, Roseanna Unavailable Unavailable Obinna Garcai, Vipul Unavailable Unavailable Marty Ren, Chuck Unavailable [...] (300.00, F41.9) Status: Active Drug-seeking behavior (305.90, Z72.89) Status: Active Medications Name Dates Details Percocet [...] BEDTIME * Quantity: 60 Refills: 5 Guanakito Casuey M.D. * Start 03-Jun-2014 Active OxyCONTIN 20 [...] History Name Dates Details Drug-seeking behavior (305.90, Z72.89) Status: Active Name Dates Details Former smoker [...]
--- OUTSIDE RECORDS SUMMARY | 2017-02-24 17:07 | XMS REPORT ---
Author Author GENERATED, SYSTEM Organization Unknown Address Unknown Phone Unavailable Care Team Providers Care Classification Counselor Name Role Phone MD GRACY, NAVIN PP [phone] Reason For Visit Chief Complaint LEG PAIN [...] 1 :12 PM * Completed Procedure Code: 58219 Procedure Name: not valued, on 04/22/2016 12: 00 AM * Completed Esophagogastroduodenoscopy, by MD BAIRON HAMILTON, on 11/20/2015 12:55 PM * Completed Procedure Code: 73439 Procedure Name: not valued, on 11/20/2015 12: 00 AM * Completed Procedure Code: 59753 Procedure Name: not valued, on 11/20/2015 12: 00 AM * Completed Procedure Code: 45.16 Procedure Name: not valued, on 03/12/2014 12: 00 AM * Completed Procedure Code: 45.25 Procedure Name: not valued, on 03/12/2014 12: 00 AM * Completed , on 08/20/2009 12:00 AM Immunizations * Influenza, seasonal, injectable (NOVARTIS, Lot # [id number]); Administered 2013 9:24 AM; 0.5 ML=1 DOSE, [...]
--- OUTSIDE RECORDS SUMMARY | 2017-02-24 17:07 | XMS REPORT ---
Author Author GENERATED, SYSTEM Organization Unknown Address Unknown Phone Unavailable Care Team Providers Care Corrugator Name Role Phone MD GRACY, NAVIN PP [phone] Reason For Visit Chief Complaint MIGRAINE Social History Functional Status Vital Signs Results [...] 1 :12 PM * Completed Procedure Code: 83112 Procedure Name: not valued, on 04/22/2016 12: 00 AM * Completed Esophagogastroduodenoscopy, by MD BAIRON HAMILTON, on 11/20/2015 12:55 PM * Completed Procedure Code: 43795 Procedure Name: not valued, on 11/20/2015 12: 00 AM * Completed Procedure Code: 17276 Procedure Name: not valued, on 11/20/2015 12: 00 AM * Completed Procedure Code: 45.16 Procedure Name: not valued, on 03/12/2014 12: 00 AM * Completed Procedure Code: 45.25 Procedure Name: not valued, on 03/12/2014 12: 00 AM * Completed , on 08/20/2009 12:00 AM Immunizations * Influenza, seasonal, injectable (NOVARTIS, Lot # [id number]); Administered 2013 9:24 AM; 0.5 ML=1 DOSE, [...]
--- OUTSIDE RECORDS SUMMARY | 2017-02-24 17:07 | XMS REPORT ---
Author Author GENERATED, SYSTEM Organization Unknown Address Unknown Phone Unavailable Care Team Providers Care Automotive General Manager Name Role Phone UNASSIGNED DOCTOR , DOCTOR PP [phone] Reason For Visit Chief Complaint ABDOMINAL PAIN Social History Functional Status Vital Signs [...]
--- OUTSIDE RECORDS SUMMARY | 2017-02-24 17:07 | XMS REPORT | Referral Summary ---
Author Author [facility] Organization [facility] Address Unknown Phone Unavailable Care Team Providers Care Loss Control Consultant Name Role Phone No PCP, Pt States Primary Care Physician [phone] Encounter VC Date(s): 09/17/15 - 09/18/15 [facility] [address] [place] [address] [phone] Discharge Disposition: 01-Home or Self Care Attending Physician: Kendall Claros MD Admitting Physician: Kendall Claros MD Vital Signs Most recent to 1 oldest [Reference Range]: Temperature Oral 36.8 degC [35.8-37.3 degC] (09/18/15 12:00 PM) Peripheral Pulse 96 bpm Rate [60-100 bpm] (09/18/15 12:00 PM) Heart Rate Monitored 72 bpm [60-100 bpm] (09/17/15 7:06 PM) Respiratory Rate 18 br/min [14-20 br/min] (09/18/15 12:00 PM) Blood Pressure 101/70 mmHg [90-140/60-90 mmHg] (09/18/15 12:00 PM) Mean Arterial 69 mmHg Pressure, Cuff (09/18/15 12:15 AM) SpO2 96 % (09/18/15 12:00 PM) Problem List Condition Effective Dates Status [...] Refill(s) Start Date: 09/17/15 Status: Ordered Percocet 7.5/325 oral tablet 1 tabs, Oral, q6hr, Pain Moderate (4-6), # 40 tabs, 0 Refill(s), other reason ( Rx) Start Date: 09/18/15 Stop Date: 10/19/15 Status: Ordered Percocet 7.5/325 oral tablet 0 [...] Refill(s) Start Date: 09/17/15 Status: Ordered Results Hematology Most recent to 1 oldest [Reference Range]: WBC [4.8-10.8 8.2 10*3/uL 10*3/uL] (09/18/15 5:26 AM) RBC [4.00-5.20] 3.71 *LOW* (09/18/15 5:26 AM) Hgb [12.0-16.0 12.5 gm/dL gm/dL] (09/18/15 5:26 AM) Hct [37.0-47.0 %] 39.8 % (09/18/15 5:26 AM) MCV [82.0-99.0 fL] 107.3 fL *HI* (09/18/15 5:26 AM) MCH [27.0-32.0 pg] 33.7 pg *HI* (09/18/15 5:26 AM) MCHC [32.0-36.0 31.4 gm/dL gm/dL] *LOW* (09/18/15 5:26 AM) RDW [11.5-14.5 %] 13.5 % (09/18/15 5:26 AM) Platelet [150-400 412 10*3/uL 10*3/uL] *HI* (09/18/15 5:26 AM) MPV [9.4-12.4 fL] 9.6 fL (09/18/15 5:26 AM) Immature 0.2 % Granulocytes (09/17/15 3:44 PM) [0.0-1.0 %] Neutrophils [51-75 58 % %] (09/17/15 3:44 PM) Lymphocytes [20-46 32 % %] (09/17/15 3:44 PM) Monocytes [4-11 %] 7 % (09/17/15 3:44 PM) Eosinophils [0-4 %] 2 % (09/17/15 3:44 PM) Basophils [0-2 %] 1 % (09/17/15 3:44 PM) Neutro Absolute 5.05 10*3 [1.90-7.00 10*3] (09/17/15 3:44 PM) Lymph Absolute 2.80 10*3 [0.80-3.30 10*3] (09/17/15 3:44 PM) [place] Absolute 0.62 10*3 [0.30-1.00 10*3] (09/17/15 3:44 PM) Eos Absolute 0.15 10*3 [0.00-0.50 10*3] (09/17/15 3:44 PM) Baso Absolute 0.07 10*3 [0.00-0.20 10*3] (09/17/15 3:44 PM) Nucleated RBC 0.0 /100 WBC Automated [0 /100 (09/17/15 3:44 PM) WBC] Chemistry Most recent to 1 oldest [Reference Range]: Sodium Lvl [136-144 137 mEq/L mEq/L] (09/18/15 5:26 AM) Potassium Lvl 3.2 mEq/L [3.6-5.1 mEq/L] *LOW* (09/18/15 5:26 AM) Chloride [99-109 106 mEq/L mEq/L] (09/18/15 5:26 AM) CO2 [22-32 mEq/L] 24 mEq/L (09/18/15 5:26 AM) AGAP [3-20] 7 (09/18/15 5:26 AM) BUN [4-20 mg/dL] 11 mg/dL (09/18/15 5:26 AM) Glucose Lvl [70-100 110 mg/dL mg/dL] *HI* (09/18/15 5:26 AM) Creatinine Lvl 0.82 mg/dL [0.44-1.03 mg/dL] (09/18/15 5:26 AM) eGFR [>60] >60 1 (09/18/15 5:26 AM) Calcium Lvl 8.7 mg/dL [8.6-10.0 mg/dL] (09/18/15 5:26 AM) Albumin Lvl [3.5-4.8 3.0 gm/dL gm/dL] *LOW* (09/17/15 3:44 PM) Total Protein 6.0 gm/dL [6.1-7.9 gm/dL] *LOW* (09/17/15 3:44 PM) Globulin [1.9-4.3 3.0 gm/dL gm/dL] (09/17/15 3:44 PM) ALT [14-54 U/L] 33 U/L (09/17/15 3:44 PM) AST [15-41 U/L] 27 U/L (09/17/15 3:44 PM) Alk Phos [26-104 124 U/L U/L] *HI* (09/17/15 3:44 PM) Bili Total [0.2-1.2 0.2 mg/dL 2 mg/dL] (09/17/15 3:44 PM) Magnesium Lvl 1.6 mg/dL [1.8-2.5 mg/dL] *LOW* (09/18/15 5:26 AM) Sodium Venous 139 mEq/L [136-144 mEq/L] (09/17/15 3:53 PM) Potassium Venous 3.8 mEq/L 3 [3.6-5.1 mEq/L] (09/17/15 3:53 PM) Calcium Ionized 1.26 mmol/L Venous [1.19-1.41 (09/17/15 3:53 PM) mmol/L] Total CO2 Venous 19 mEq/L [25-29 mEq/L] *LOW* (09/17/15 3:53 PM) HGB Venous NPT 12.9 gm/dL [12.0-16.0 gm/dL] (09/17/15 3:53 PM) HCT Venous 38.0 % [37.0-47.0 %] (09/17/15 3:53 PM) Glucose Venous 103 mg/dL [70-100 mg/dL] *HI* (09/17/15 3:53 PM) BUN Venous [4-20] 13 (09/17/15 3:53 PM) Creatinine Venous 0.5 mg/dL [0.4-1.0 mg/dL] (09/17/15 3:53 PM) Venous CL [99-109 107 mEq/L mEq/L] (09/17/15 3:53 PM) Anion Gap, Durga 13 [3-20] (09/17/15 3:53 PM) 1Result Comment: Multiply eGFR results by 1.21 for race. 2Result Comment: Naproxen, specifically the metabolite O-desmethylnaproxen, may cause spurious elevation in Total Bilirubin levels. 3Result Comment: This test was performed on a whole blood specimen. The presence or absence of hemolysis cannot be assessed. Hemolysis can falsely elevate potassium levels. Normals are for venous specimens only. Toxicology Most recent to 1 oldest [Reference Range]: Ethanol Lvl Not Detected (09/17/15 3:44 PM) U Amphetamine Scrn Negative (09/17/15 5:32 PM) U Cocaine Scrn Negative (09/17/15 5:32 PM) U Cannab Scrn Negative (09/17/15 5:32 PM) U Opiate Scrn Negative (09/17/15 5:32 PM) U PCP Scrn Negative (09/17/15 5:32 PM) U Benzodiazepine Positive Scrn *ABN* (09/17/15 5:32 PM) U Barbiturate Scrn Negative (09/17/15 5:32 PM) Methadone Lvl Negative (09/17/15 5:32 PM) Tricyclics Positive 1 *ABN* (09/17/15 5:32 PM) 1Result Comment: Cut-off concentrations: Amphetamines: 1000 ng/mL Cocaine: 300 ng/mL Cannabinoid: 50 ng/mL Opiate: 300 ng/mL Phencyclidine (PCP): 25 ng/mL Benzodiazepine: 200 ng/mL Barbiturate: 200 ng/mL Methadone: 300 ng/mL Tricyclic: 300 ng/mL The urine drug screen assays are qualitative screens. A more specific GC/MS method must be performed to obtain a confirmed analytical result. Unconfirmed screening results must not be used for non-medical purposes(e.g. employment or legal testing) Urinalysis Most recent to 1 oldest [Reference Range]: UA Color Lt Yellow (09/17/15 5:32 PM) UA Appear Clear (09/17/15 5:32 PM) UA pH [5.0-8.0] 5.0 (09/17/15 5:32 PM) UA Leuk Est Negative [Negative] (09/17/15 5:32 PM) UA Nitrite Negative [Negative] (09/17/15 5:32 PM) UA Protein Negative [Negative] (09/17/15 5:32 PM) UA Glucose Negative [Negative] (09/17/15 5:32 PM) UA Ketones Negative [Negative] (09/17/15 5:32 PM) UA Urobilinogen Negative [<1.0] (09/17/15 5:32 PM) UA Bili [Negative] Negative (09/17/15 5:32 PM) UA Blood [Negative] Negative (09/17/15 5:32 PM) UA Spec Grav 1.005 [1.003-1.030] (09/17/15 5:32 PM) Type Catheter (09/17/15 5:32 PM) Immunizations Vaccine Date Refusal Reason pneumococcal 23-polyvalent [...]
--- OUTSIDE RECORDS SUMMARY | 2017-02-24 17:07 | XMS REPORT ---
Author Author GENERATED, SYSTEM Organization Unknown Address Unknown Phone Unavailable Care Team Providers Care Financial Compliance Manager Name Role Phone UNASSIGNED DOCTOR , DOCTOR PP [phone] Reason For Visit Chief Complaint POST OP FEVER, VOMITING Social History Functional Status Vital Signs Results Chemistry from 04/23/2016 1:40 AMSODIUM 140 MMOL/L (136-145 MMOL/L) POTASSIUM 3.1 MMOL/L L (3.5-5.1 MMOL/L) CHLORIDE 106 MMOL/L (98-107 MMOL/L) TCO2 23.8 MMOL/L (21.0-32.0 MMOL/L) *ANION GAP 10.2 MMOL/L (8.0-16.0 MMOL/L) BUN 8 MG/DL (7-18 MG/DL) CREATININE 0.80 MG/DL (0.55-1.02 MG/DL) *BUN/CREATININE RATIO 10.0 (9.1-17.0 ) GLUCOSE 113 MG/DL H (65-99 MG/DL) *GFR EST NON AFR TANZANIAN 83 ML/MIN *GFRA EST AFR AMER >90 ML/MIN CALCIUM 8.8 MG/DL (8.5-10.1 MG/DL) BILIRUBIN TOTAL <0.10 MG/DL L (0.20-1.00 MG/DL) TOTAL PROTEIN 6.6 GM/DL (6.4-8.2 GM/DL) ALBUMIN 3.2 GM/DL L (3.4-5.0 GM/DL) *GLOBULIN 3.4 GM/DL (2.3-3.5 GM/DL) *A/G RATIO 0.9 MG/DL L (1.5-2.2 MG/DL) ALK PHOS 145 U/L H (46-116 U/L) ALT (SGPT) 18 U/L (16-63 U/L) AST (SGOT) 15 U/L (15-37 U/L) LIPASE 161 U/L (73-393 U/L) Hematology from 04/23/2016 1:40 AMWBC 7.6 X10e3/UL (3.6-11.2 X10e3/UL) RBC 3.87 X10e6/UL (3.63-4.92 X10e6/UL) HEMOGLOBIN 13.1 G/DL (11.0-14.3 G/DL) HEMATOCRIT 39.5 % (31.2-41.9 %) *MCV 102.2 FL H (79.0-98.0 FL) *MCH 34.0 PG H (27.0-33.0 PG) *MCHC 33.2 G/DL (32.0-36.0 G/DL) *RDW 13.6 % (12.3-17.0 %) *RDWSD 49.0 H (37.1-47.8 ) PLATELET 356 X10e3/UL (159-386 X10e3/UL) *MPV 7.9 FL (7.4-10.4 FL) AUTOMATED DIFF PERFORMED SEGS 53.0 % *LYMPHOCYTES 36.8 % *MONOCYTES 6.1 % *EOSINOPHILS 1.6 % *BASOPHILS 2.5 % *ABSOLUTE NEUTROPHILS 4.10 X10e3/UL (1.80-7.80 X10e3/UL) *ABSOLUTE LYMPHOCYTES 2.80 X10e3/UL (1.00-3.00 X10e3/UL) *ABSOLUTE MONOCYTES 0.50 X10e3/UL (0.30-1.00 X10e3/UL) *ABSOLUTE EOSINOPHILS 0.10 X10e3/UL (0.00-0.50 X10e3/UL) *ABSOLUTE BASOPHILS 0.20 X10e3/UL (0.00-0.20 X10e3/UL) Urinalysis from 04/23/2016 2:55 AM*URINE COLOR STRAW (STRAW/YELL/DK YELL ) *URINE APPEARANCE [...] (NEGATIVE ) *URINE LEUKOCYTES NEGATIVE (NEGATIVE ) CT Scan from 04/23/2016 2:31 AMCT ABD/PELVIS W/CONTRAST History: Abdominal pain nausea and vomiting. Recent EGD. Technique: Post contrast images were performed after the administration of 95 milliliters of Isovue intravenous contrast. Priors: 03/20/16 Findings: Abdomen Lung bases: There is a partially visualized calcified density in the left lung base, most consistent with a calcified granuloma. Minimal bibasilar opacities are likely atelectasis. Liver: Normal density. There is a sub centimeter lesion in the right lobe of the liver. This is too small accurately characterize but unchanged and likely represents a cyst or hemangioma. Spleen: A linear calcification at the periphery of the spleen is likely related prior hemorrhage. Pancreas: There is stable mild prominence of the pancreatic duct near the head. Given the stability, this is likely of no significance. Gallbladder and biliary tract: There is questionable gallbladder wall thickening. If there is clinical concern for gallbladder pathology, ultrasound could be performed. Adrenal glands: Normal. Kidneys: Normal enhancement. No masses. No radiodense stones or hydronephrosis. Urinary Bladder: Normal. Aorta: Normal in caliber. No periaortic lymphadenopathy. Bowel and Mesentery: There is a moderate of stool noted in the colon. This bowel is otherwise grossly unremarkable. No findings of appendicitis. Ascites: None. Pelvis Lymphadenopathy: None. Reproductive: Hysterectomy Osseous Structures: No suspicious findings. Impression: Mild constipation. Mild stable prominence of the pancreatic duct in the region the head. This is of uncertain significance. The gallbladder wall appears mildly thickened. If there is clinical concern for gallbladder pathology, gallbladder ultrasound would be recommended. Electronically signed by: Alan White MD Dictated: 04/23/2016 09:01 Problems Encounter Diagnosis No relevant problems exist. [...] PM * Completed Esophagogastroduodenoscopy, by MD BAIRON HAMILTON, on 11/20/2015 12:55 PM * Completed Procedure Code: 63418 Procedure Name: not valued, on 11/20/2015 12: 00 AM * Completed Procedure Code: 24214 Procedure Name: not valued, on 11/20/2015 12: 00 AM * Completed Procedure Code: 45.16 Procedure Name: not valued, on 03/12/2014 12: 00 AM * Completed Procedure Code: 45.25 Procedure Name: not valued, on 03/12/2014 12: 00 AM * Completed , on 08/20/2009 12:00 AM Immunizations * Influenza, seasonal, injectable ([employer], Lot # [id number]); Administered 2013 9:24 AM; 0.5 ML=1 DOSE, [...]
--- OUTSIDE RECORDS SUMMARY | 2017-02-24 17:07 | XMS REPORT ---
Author Author GENERATED, SYSTEM Organization Unknown Address Unknown Phone Unavailable Care Team Providers Care Hide Handler Name Role Phone MD GRACY, NAVIN PP [phone] Reason For Visit Chief Complaint M25.551, S82.892C Social History Functional Status Vital Signs Results [...] 1 :12 PM * Completed Procedure Code: 70926 Procedure Name: not valued, on 04/22/2016 12: 00 AM * Completed Esophagogastroduodenoscopy, by MD BAIRON HAMILTON, on 11/20/2015 12:55 PM * Completed Procedure Code: 84697 Procedure Name: not valued, on 11/20/2015 12: 00 AM * Completed Procedure Code: 19902 Procedure Name: not valued, on 11/20/2015 12: 00 AM * Completed Procedure Code: 45.16 Procedure Name: not valued, on 03/12/2014 12: 00 AM * Completed Procedure Code: 45.25 Procedure Name: not valued, on 03/12/2014 12: 00 AM * Completed , on 08/20/2009 12:00 AM Immunizations * Influenza, seasonal, injectable (NOVARTIS, Lot # [id number]); Administered 2013 9:24 AM; 0.5 ML=1 DOSE, [...]
--- OUTSIDE RECORDS SUMMARY | 2017-02-24 17:07 | XMS REPORT ---
Author Author GENERATED, SYSTEM Organization Unknown Address Unknown Phone Unavailable Care Team Providers Care Web Worker Name Role Phone UNASSIGNED DOCTOR , DOCTOR PP [phone] Reason For Visit Chief Complaint SYNCOPE EPISODES Social History Functional Status Vital Signs Results [...] * Influenza, seasonal, injectable (NOVARTIS, Lot # [id number]); Administered 2013 9:24 AM; 0.5 ML=1 DOSE, [...]
--- OUTSIDE RECORDS SUMMARY | 2017-02-24 17:08 | XMS REPORT ---
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 Active Problem Acute bronchitis 466.0 Active Problem Unspecified myalgia and myositis 729.1 Active Medications Medication Code System Code Instructions Start Date End Date Status Dosage Protonix [facility] [address]-64 40 MG Orally Once a day Sep 26, 2013 Active 1 tablet by Oral route 2 times per day for 14 days Ondansetron HCl [facility] [address]-90 4 MG Orally every 4 hours prn nausea/ vomiting Aug 28, 2014 Active 1 tablet varenicline NDC 0 0.5 (11)-1 (42) mg Sep 26, 2012 Active 1 tablet by Oral route 2 times per day for 28 day(s)as directed on package labeling ( Pharmacy- refills are 1 mg BID, thanks) Promethazine HCl [facility] [address]-03 25 MG Orally every 6 hours prn nausea / vomtint Aug 28, 2014 Sep 17, 2014 Active 1 tablet trazodone NDC 0 100 mg at bedtime May 05, 2010 Active SI tab(s) orally Carisoprodol [facility] [address]-61 350 mg January 01, 2014 Active 1 tablet by Oral route 3 times per day for 30 days PRN Nicotine NDC 0 14 mg/24 hr Nov 26, 2013 Active 1 Patch 24 hr by Percutaneous route 1 time per day Procedures Procedure Coding System Code Date Therapy, 45-60 minutes CPT-4 01160 Sep 03, 2014 Results No Known Results Summary Purpose [employer] Submission
--- OUTSIDE RECORDS SUMMARY | 2017-02-24 17:08 | XMS REPORT ---
Author Author GENERATED, SYSTEM Organization Unknown Address Unknown Phone Unavailable Care Team Providers Care Vessel Captain Name Role Phone UNASSIGNED DOCTOR , DOCTOR PP [phone] Reason For Visit Chief Complaint MENTAL STATUS CHANGE,LEFT AMA Social History Functional Status Vital Signs Results Chemistry from 10/25/2015 2:10 AM*COCAINE NEGATIVE (NEG <150 ) *PCP NEGATIVE [...] POSITIVE A (NEG <300 ) Hematology from 10/25/2015 3:25 AMWBC 10.8 X10e3/UL (3.6-11.2 X10e3/UL) RBC 3.93 X10e6/UL (3.63-4.92 X10e6/UL) HEMOGLOBIN 13.9 G/DL (11.0-14.3 G/DL) HEMATOCRIT 41.4 % (31.2-41.9 %) *MCV 105.3 FL H (79.0-98.0 FL) *MCH 35.4 PG H (27.0-33.0 PG) *MCHC 33.6 G/DL (32.0-36.0 G/DL) *RDW 13.1 % (12.3-17.0 %) PLATELET 239 X10e3/UL (159-386 X10e3/UL) *MPV 8.1 FL (7.4-10.4 FL) AUTOMATED DIFF PERFORMED SEGS 64.7 % *LYMPHOCYTES 26.3 % *MONOCYTES 6.1 % *EOSINOPHILS 2.3 % *BASOPHILS 0.6 % *ABSOLUTE NEUTROPHILS 7.00 X10e3/UL (1.80-7.80 X10e3/UL) *ABSOLUTE LYMPHOCYTES 2.80 X10e3/UL (1.00-3.00 X10e3/UL) *ABSOLUTE MONOCYTES 0.70 X10e3/UL (0.30-1.00 X10e3/UL) *ABSOLUTE EOSINOPHILS 0.20 X10e3/UL (0.00-0.50 X10e3/UL) *ABSOLUTE BASOPHILS 0.10 X10e3/UL (0.00-0.20 X10e3/UL) Urinalysis from 10/25/2015 2:10 AM*URINE COLOR YELLOW (STRAW/YELL/DK YELL ) *URINE APPEARANCE CLEAR (CLEAR ) URINE PH 6.0 (5.0-8.0 ) URINE SPECIFIC GRAVITY 1.025 (<=1.005->=1.030 ) *URINE GLUCOSE NEGATIVE MG/DL (NEGATIVE MG/DL) *URINE BILIRUBIN NEGATIVE (NEGATIVE ) *URINE KETONES NEGATIVE MG/DL (NEGATIVE MG/DL) *URINE BLOOD NEGATIVE (NEGATIVE ) *URINE PROTEIN NEGATIVE MG/DL (NEGATIVE MG/DL) *URINE UROBILINOGEN 0.2 EU/DL (0.2-1.0 EU/DL) *URINE NITRITES NEGATIVE (NEGATIVE ) *URINE LEUKOCYTES NEGATIVE (NEGATIVE ) DX Radiology from 10/25/2015 2:31 AMCHEST 1 VIEW History: Altered Mental Status Priors: Chest x-ray 10/11/2015 Findings: The heart size and pulmonary vasculature are within normal limits. There is unchanged subtle increased density projected over the lung bases owing to overlying soft tissues. No consolidating infiltrate, significant pleural effusion or pneumothorax is seen. Impression: No acute abnormality. Electronically signed by: Crissy Rea MD Dictated: 10/25/2015 08:54 Problems Encounter Diagnosis No relevant problems exist. [...] * Influenza, seasonal, injectable (NOVARTIS, Lot # [id number]); Administered 2013 9:24 AM; 0.5 ML=1 DOSE, [...]
--- OUTSIDE RECORDS SUMMARY | 2017-02-24 17:08 | XMS REPORT ---
Author Author GENERATED, SYSTEM Organization Unknown Address Unknown Phone Unavailable Care Team Providers Care Corporate Banking Officer Name Role Phone UNASSIGNED DOCTOR , DOCTOR PP [phone] Reason For Visit Chief Complaint VOMITING Social History Functional Status Vital Signs Results Chemistry from 09/21/2014 5:00 AMCOCAINE NEGATIVE (NEG <150 ) PCP NEGATIVE [...] TRICYCLICS NEGATIVE (NEG <300 ) Chemistry from 09/21/2014 4:49 AMSODIUM 135 MMOL/L L (136-145 MMOL/L) POTASSIUM 4.3 MMOL/L (3.5-5.1 MMOL/L) CHLORIDE 103 MMOL/L (98-107 MMOL/L) TCO2 22.7 MMOL/L (21.0-32.0 MMOL/L) ANION GAP 9.3 MMOL/L (8.0-16.0 MMOL/L) BUN 7 MG/DL (7-18 MG/DL) CREATININE 0.65 MG/DL (0.43-0.83 MG/DL) BUN/CREATININE RATIO 10.8 (9.1-17.0 ) GLUCOSE 106 MG/DL H (65-99 MG/DL) GFR EST NON AFR CHADIAN >90 ML/MIN GFRA EST AFR AMER >90 ML/MIN CALCIUM 9.2 MG/DL (8.5-10.1 MG/DL) BILIRUBIN TOTAL 0.23 MG/DL (0.20-1.00 MG/DL) TOTAL PROTEIN 7.0 GM/DL (6.4-8.2 GM/DL) ALBUMIN 3.3 GM/DL L (3.4-5.0 GM/DL) GLOBULIN 3.7 GM/DL H (2.3-3.5 GM/DL) A/G RATIO 0.9 MG/DL L (1.5-2.2 MG/DL) ALK PHOS 93 U/L (46-116 U/L) ALT (SGPT) 11 U/L L (12-78 U/L) AST (SGOT) 11 U/L L (15-37 U/L) Chemistry from 09/21/2014 3:45 AMLIPASE 274 U/L (73-393 U/L) Hematology from 09/21/2014 3:45 AMWBC 11.7 X10e3/UL H (3.6-11.2 X10e3/UL) RBC 4.27 X10e6/UL (3.63-4.92 X10e6/UL) HEMOGLOBIN 13.9 G/DL (11.0-14.3 G/DL) HEMATOCRIT 42.1 % H (31.2-41.9 %) MCV 98.5 FL H (79.0-98.0 FL) MCH 32.6 PG (27.0-33.0 PG) MCHC 33.1 G/DL (32.0-36.0 G/DL) RDW 18.2 % H (12.3-17.0 %) RDWSD 63.4 H (37.1-47.8 ) PLATELET 563 X10e3/UL H (159-386 X10e3/UL) MPV 7.4 FL (7.4-10.4 FL) AUTOMATED DIFF PERFORMED SEGS 74.9 % LYMPHOCYTES 20.7 % MONOCYTES 3.4 % EOSINOPHILS 0.3 % BASOPHILS 0.7 % ABSOLUTE NEUTROPHILS 8.8 X10e3/UL H (1.8-7.8 X10e3/UL) ABSOLUTE LYMPHOCYTES 2.4 X10e3/UL (1.0-3.0 X10e3/UL) ABSOLUTE MONOCYTES 0.4 X10e3/UL (0.3-1.0 X10e3/UL) ABSOLUTE EOSINOPHILS 0.0 X10e3/UL (0.0-0.5 X10e3/UL) ABSOLUTE BASOPHILS 0.1 X10e3/UL (0.0-0.2 X10e3/UL) Urinalysis from 09/21/2014 5:00 AM* Status: Final Result URINALYSIS Specimen Number: [id number] Sample Collection Date/Time: 09/21/2014 5:00 AM Specimen Source: URINE COLOR YELLOW (STRAW/YELL/DK YELL ) URINE APPEARANCE [...] (NEGATIVE ) *URINE LEUKOCYTES NEGATIVE (NEGATIVE ) Problems Encounter Diagnosis No relevant problems exist. [...]
--- OUTSIDE RECORDS SUMMARY | 2017-02-24 17:08 | XMS REPORT | Summary of Care ---
Author Author Aashish Lizarraga D.O. Organization Unknown Address [address] [place], [place] [id number] Phone Unavailable Care Team Providers Care Dock Operations Supervisor Name Role Phone Junior Lizarraga D.O. Unavailable [...] obstructive pulmonary disease) (496, J44.9) Status: Active Medications Name Dates Details Advair Diskus 100-50 MCG/DOSE Inhalation Aerosol Powder Breath Activated INHALE 1 PUFF TWICE DAILY. * Start 09-Dec-2015 Active Advair HFA 45-21 MCG/ACT Inhalation Aerosol INHALE 2 PUFFS, BY MOUTH, TWICE DAILY. * Refills: 0 Chuck Ferguson M.D. * Start Active CeleXA 10 MG Oral Tablet * Refills: 0 * Start 03-Aug-2016 Active PriLOSEC 10 MG CPDR * Refills: [...] 90 Refills: 3 * Start 10-Nov-2016 Active Belsomra 10 MG Oral Tablet TAKE 1 TABLET AT BEDTIME NEEDED FOR SLEEP. * Refills: 0 * Start 10-Nov-2016 Active ClonazePAM 1 MG Oral Tablet TAKE 1 TABLET AT BEDTIME. * Refills: 0 * Start 10-Nov-2016 Active LevoFLOXacin 500 MG Oral Tablet Take 1 tablet daily * Quantity: 7 Refills: 0 Aashish Lizarraga D.O. * Start 10-Nov-2016 End 17-Nov-2016 Active Allergies and Adverse Reactions Name Dates [...] smoker Vital Signs Date Test Result Details 10-Nov-2016 14:48 BP Systolic 102 mm[Hg] Status: [...] Goals not documented Interventions Provided Medication Changes* LevoFLOXacin 500 MG Oral Tablet - Start Instructions Name [...]
--- OUTSIDE RECORDS SUMMARY | 2017-02-24 17:09 | XMS REPORT ---
Author Author GENERATED, SYSTEM Organization Unknown Address Unknown Phone Unavailable Care Team Providers Care Resource Analyst Name Role Phone MD GRACY, NAVIN PP [phone] Reason For Visit Chief Complaint OLECRANON BURSITIS [...] H (65-99 MG/DL) *GFR EST NON AFR VENEZUELAN >90 ML/MIN *GFR EST AFR AMER >90 [...] 1 :12 PM * Completed Procedure Code: 97885 Procedure Name: not valued, on 04/22/2016 12: 00 AM * Completed Esophagogastroduodenoscopy, by MD BAIRON HAMILTON, on 11/20/2015 12:55 PM * Completed Procedure Code: 61765 Procedure Name: not valued, on 11/20/2015 12: 00 AM * Completed Procedure Code: 13223 Procedure Name: not valued, on 11/20/2015 12: 00 AM * Completed Procedure Code: 45.16 Procedure Name: not valued, on 03/12/2014 12: 00 AM * Completed Procedure Code: 45.25 Procedure Name: not valued, on 03/12/2014 12: 00 AM * Completed , on 08/20/2009 12:00 AM Immunizations * Influenza, seasonal, injectable (NOVARTIS, Lot # [id number]); Administered 2013 9:24 AM; 0.5 ML=1 DOSE, [...]
--- OUTSIDE RECORDS SUMMARY | 2017-02-24 17:09 | XMS REPORT ---
Author Author GENERATED, SYSTEM Organization Unknown Address Unknown Phone Unavailable Care Team Providers Care Web Site Developer Name Role Phone UNASSIGNED DOCTOR , DOCTOR PP [phone] Reason For Visit Chief Complaint LEFT MEDS IN MAINE Social History Functional Status Vital Signs Results [...] * Influenza, seasonal, injectable (NOVARTIS, Lot # [id number]); Administered 2013 9:24 AM; 0.5 ML=1 DOSE, [...]
--- OUTSIDE RECORDS SUMMARY | 2017-02-24 17:09 | XMS REPORT ---
Author Author GENERATED, SYSTEM Organization Unknown Address Unknown Phone Unavailable Care Team Providers Care Car Distributor Name Role Phone UNASSIGNED DOCTOR , DOCTOR PP [phone] Reason For Visit Chief Complaint CONFUSION, SOB [...] * Influenza, seasonal, injectable (NOVARTIS, Lot # [id number]); Administered 2013 9:24 AM; 0.5 ML=1 DOSE, [...]
--- OUTSIDE RECORDS SUMMARY | 2017-02-24 17:09 | XMS REPORT ---
Author Author GENERATED, SYSTEM Organization Unknown Address Unknown Phone Unavailable Care Team Providers Care Ceramic Engineer Name Role Phone MD GRACY, NAVIN [phone] Reason For Visit Reason for Visit from [...] H (65-99 MG/DL) *GFR EST NON AFR TOGOLESE 54 ML/MIN *GFR EST AFR AMER 62 [...] H (65-99 MG/DL) *GFR EST NON AFR TOGOLESE 69 ML/MIN *GFR EST AFR AMER 80 [...] H (65-99 MG/DL) *GFR EST NON AFR TOGOLESE 75 ML/MIN *GFR EST AFR AMER 87 [...] H (65-99 MG/DL) *GFR EST NON AFR TOGOLESE 69 ML/MIN *GFR EST AFR AMER 80 [...] H (65-99 MG/DL) *GFR EST NON AFR TOGOLESE 67 ML/MIN *GFR EST AFR AMER 77 [...] 1 :12 PM * Completed Procedure Code: 83345 Procedure Name: not valued, on 04/22/2016 12: 00 AM * Completed Esophagogastroduodenoscopy, by MD BAIRON HAMILOTN, on 11/20/2015 12:55 PM * Completed Procedure Code: 04583 Procedure Name: not valued, on 11/20/2015 12: 00 AM * Completed Procedure Code: 55087 Procedure Name: not valued, on 11/20/2015 12: 00 AM * Completed Procedure Code: 45.16 Procedure Name: not valued, on 03/12/2014 12: 00 AM * Completed Procedure Code: 45.25 Procedure Name: not valued, on 03/12/2014 12: 00 AM * Completed , on 08/20/2009 12:00 AM Immunizations * Influenza, seasonal, injectable (NOVARTIS, Lot # [id number]); Administered 2013 9:24 AM; 0.5 ML=1 DOSE, [...]
--- OUTSIDE RECORDS SUMMARY | 2017-02-24 17:09 | XMS REPORT ---
Author Author GENERATED, SYSTEM Organization Unknown Address Unknown Phone Unavailable Care Team Providers Care Locker Room Supervisor Name Role Phone UNASSIGNED DOCTOR , DOCTOR PP [phone] Reason For Visit Chief Complaint CONTUSIONS TO FACE Social History Functional Status Vital Signs Results CT Scan from 01/03/2015 4:08 PMCT CEREBRAL W/O CONTRAST DATE OF EXAM: Jan 03 2015 4:39PM Proc: CT 0001 - CT CEREBRAL W/O CONTRAST CPT Code(s): 99009-; ; ; INDICATION / CLINICAL HISTORY: Head [...] CT FACIAL BONES W/O CONTRAST CPT Code(s): 23567-; ; ; INDICATION / CLINICAL HISTORY: Facial [...] CT SPINE CERVICAL W/O CONTRAST CPT Code(s): 89729-; ; ; INDICATION / CLINICAL HISTORY: Head [...]
--- OUTSIDE RECORDS SUMMARY | 2017-02-24 17:10 | XMS REPORT ---
Author Author GENERATED, SYSTEM Organization Unknown Address Unknown Phone Unavailable Care Team Providers Care Weather Observer Name Role Phone UNASSIGNED DOCTOR , DOCTOR PP [phone] Reason For Visit Chief Complaint SYNCOPE Social [...] H (65-99 MG/DL) *GFR EST NON AFR TONGAN 86 ML/MIN *GFRA EST AFR AMER >90 [...] * Influenza, seasonal, injectable (NOVARTIS, Lot # [id number]); Administered 2013 9:24 AM; 0.5 ML=1 DOSE, [...]
--- OUTSIDE RECORDS SUMMARY | 2017-02-24 17:10 | XMS REPORT ---
Author Author GENERATED, SYSTEM Organization Unknown Address Unknown Phone Unavailable Care Team Providers Care Transfer Knitter Name Role Phone MD GRACY, NAVIN [phone] Reason For Visit Reason for Visit from [...] H (65-99 MG/DL) *GFR EST NON AFR MICRONESIAN >90 ML/MIN *GFR EST AFR AMER >90 [...] AM* CULTURE WOUND (Preliminary Result) Specimen Number: [id number] Sample Collection Date/Time: 08/13/2016 9:34 AM Specimen Source: Arm Left Elbow CULTURE WOUND: Staphylococcus aureus Moderate growth *GRAM STAIN: Few WBC's Few Gram positive cocci in clusters * *GRAM STAIN Specimen Number: [id number] Sample Collection Date/Time: 08/13/2016 9:34 AM Specimen [...] and walks to work everyday ([employer] in [place]). HILDA reinforced that Pt will not be eligible for home health with infusion services for this reason. HILDA arranged for Pt to come into outpatient infusion at [facility] at 16:00 on this date after hospital discharge. Pt reported her restorationist friend will be able to transport her when this SW spoke with Pt at 11:15. At 17:00, HILDA received a phone call from Pt. Pt reported she is having difficulties finding transportation- "My restorationist friends just dropped my off at home [...] want to wait I will call my restorationist friend" (per Pt). Pt was able to successfully arrange transportation for herself. HILDA informed Pt that following her outpatient infusion appointment on this date, she will have to come into [facility] at 8:00 and 19:00 (per infusion staff). HILDA offered transportation options: [facility], Medicaid transport, asking family/ friends / restorationist members.. Pt voiced understanding. 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 Patient states she was scheduled to return [...] 1 :12 PM * Completed Procedure Code: 70257 Procedure Name: not valued, on 04/22/2016 12: 00 AM * Completed Esophagogastroduodenoscopy, by MD BAIRON HAMILTON, on 11/20/2015 12:55 PM * Completed Procedure Code: 93481 Procedure Name: not valued, on 11/20/2015 12: 00 AM * Completed Procedure Code: 26796 Procedure Name: not valued, on 11/20/2015 12: 00 AM * Completed Procedure Code: 45.16 Procedure Name: not valued, on 03/12/2014 12: 00 AM * Completed Procedure Code: 45.25 Procedure Name: not valued, on 03/12/2014 12: 00 AM * Completed , on 08/20/2009 12:00 AM Immunizations * Influenza, seasonal, injectable (NOVARTIS, Lot # [id number]); Administered 2013 9:24 AM; 0.5 ML=1 DOSE, [...] the responsibility of the patient or patient inbound call center representative to confirm the list of medications [...] 20 mg capsule,delayed release(DR/EC), Ordered By: JEANNIE EMNDEZ MD Directions: 1 capsule oral daily * [...]
--- OUTSIDE RECORDS SUMMARY | 2017-02-24 17:10 | XMS REPORT | Continuity of care Document ---
[...] the responsibility of the patient or patient medical office representative to confirm the list of [...] H (65-99 MG/DL) GFR EST NON AFR NIGERIAN >=90 ML/MIN GFRA EST AFR AMER >=90 [...] H (65-99 MG/DL) GFR EST NON AFR NIGERIAN >=90 ML/MIN GFRA EST AFR AMER >=90 [...] H (65-99 MG/DL) GFR EST NON AFR NIGERIAN >=90 ML/MIN GFRA EST AFR AMER >=90 [...] MG/DL (65-99 MG/DL) GFR EST NON AFR NIGERIAN >=90 ML/MIN GFRA EST AFR AMER >=90 [...] H (65-99 MG/DL) GFR EST NON AFR NIGERIAN >=90 ML/MIN GFRA EST AFR AMER >=90 [...] H (65-99 MG/DL) GFR EST NON AFR NIGERIAN >=90 ML/MIN GFRA EST AFR AMER >=90 [...] H (65-99 MG/DL) GFR EST NON AFR NIGERIAN 82 ML/MIN GFRA EST AFR AMER >=90 [...] AM* CULTURE BLOOD (Preliminary Result) Specimen Number: [id number] Specimen Source: Sample Collection Date/Time: 03/13/2014 6:30 AM CULTURE BLOOD: No Growth after 48 hours of initial incubation, testing to continue for additional 72 hours. Microbiology from 03/13/2014 6:35 AM* CULTURE BLOOD (Preliminary Result) Specimen Number: [id number] Specimen Source: Sample Collection Date/Time: 03/13/2014 6:35 [...] BLAKELY// SVETLANA ALDRICH// CHARGE CODE CPT COUNT [id number] 1 DX Radiology from 03/13/2014 5:22 AMCHEST 1 VIEW DATE OF EXAM: Mar 13 2014 8: 13AM Proc: DG 0066 - CHEST 1 VIEW CPT Code(s): 51902-; ; ; INDICATION / CLINICAL HISTORY: Postop. [...] - ABDOMEN (KUB) 1 VIEW CPT Code(s): 18374-; ; ; INDICATION / CLINICAL HISTORY: \\E\\abdominal [...] 0393 - MYOCARDIAL PERF PHARMACOLOGICAL CPT Code(s): 80350-; ; ; INDICATION / CLINICAL HISTORY: Chest [...]
--- OUTSIDE RECORDS SUMMARY | 2017-02-24 17:10 | XMS REPORT ---
Author Author GENERATED, SYSTEM Organization Unknown Address Unknown Phone Unavailable Care Team Providers Care Foreign Exchange Clerk Name Role Phone MD GRACY, NAVIN [phone] Reason For Visit Chief Complaint LEG PAIN [...] H (65-99 MG/DL) *GFR EST NON AFR SAO TOMEAN 77 ML/MIN *GFR EST AFR AMER 90 [...] AM* CULTURE URINE (Preliminary Result) Specimen Number: [id number] Sample Collection Date/Time: 06/23/2016 12:46 AM Specimen [...] 1 :12 PM * Completed Procedure Code: 91311 Procedure Name: not valued, on 04/22/2016 12: 00 AM * Completed Esophagogastroduodenoscopy, by MD BAIRON HAMILTON, on 11/20/2015 12:55 PM * Completed Procedure Code: 34516 Procedure Name: not valued, on 11/20/2015 12: 00 AM * Completed Procedure Code: 14647 Procedure Name: not valued, on 11/20/2015 12: 00 AM * Completed Procedure Code: 45.16 Procedure Name: not valued, on 03/12/2014 12: 00 AM * Completed Procedure Code: 45.25 Procedure Name: not valued, on 03/12/2014 12: 00 AM * Completed , on 08/20/2009 12:00 AM Immunizations * Influenza, seasonal, injectable (NOVARTIS, Lot # [id number]); Administered 2013 9:24 AM; 0.5 ML=1 DOSE, [...]
--- OUTSIDE RECORDS SUMMARY | 2017-02-24 17:10 | XMS REPORT ---
Author Author GENERATED, SYSTEM Organization Unknown Address Unknown Phone Unavailable Care Team Providers Care Pier Runner Name Role Phone MD GRACY, NAVIN PP [phone] Reason For Visit Chief Complaint WEAKNESS Social [...] H (65-99 MG/DL) *GFR EST NON AFR INDONESIAN 67 ML/MIN *GFR EST AFR AMER 77 [...] 1 :12 PM * Completed Procedure Code: 20417 Procedure Name: not valued, on 04/22/2016 12: 00 AM * Completed Esophagogastroduodenoscopy, by MD BAIRON HAMILTON, on 11/20/2015 12:55 PM * Completed Procedure Code: 56255 Procedure Name: not valued, on 11/20/2015 12: 00 AM * Completed Procedure Code: 93036 Procedure Name: not valued, on 11/20/2015 12: 00 AM * Completed Procedure Code: 45.16 Procedure Name: not valued, on 03/12/2014 12: 00 AM * Completed Procedure Code: 45.25 Procedure Name: not valued, on 03/12/2014 12: 00 AM * Completed , on 08/20/2009 12:00 AM Immunizations * Influenza, seasonal, injectable (NOVARTIS, Lot # [id number]); Administered 2013 9:24 AM; 0.5 ML=1 DOSE, [...]
--- OUTSIDE RECORDS SUMMARY | 2017-02-24 17:10 | XMS REPORT ---
Author Author GENERATED, SYSTEM Organization Unknown Address Unknown Phone Unavailable Care Team Providers Care Test Lead Application Testing Name Role Phone UNASSIGNED DOCTOR , DOCTOR PP [phone] Reason For Visit Chief Complaint CHEST PAIN [...] H (65-99 MG/DL) GFR EST NON AFR MALAWIAN 87 ML/MIN GFRA EST AFR AMER >90 [...] 0067 - CHEST 2 VIEWS CPT Code(s): 38378-; ; ; INDICATION / CLINICAL HISTORY: \\E\\Chest [...]
--- OUTSIDE RECORDS SUMMARY | 2017-02-24 17:11 | XMS REPORT ---
Author Author GENERATED, SYSTEM Organization Unknown Address Unknown Phone Unavailable Care Team Providers Care New Car Make Ready Worker Name Role Phone MD GRACY, NAVIN PP [phone] Reason For Visit Chief Complaint CHRONIC LT [...] 1 :12 PM * Completed Procedure Code: 57309 Procedure Name: not valued, on 04/22/2016 12: 00 AM * Completed Esophagogastroduodenoscopy, by MD BAIRON HAMILTON, on 11/20/2015 12:55 PM * Completed Procedure Code: 47848 Procedure Name: not valued, on 11/20/2015 12: 00 AM * Completed Procedure Code: 75169 Procedure Name: not valued, on 11/20/2015 12: 00 AM * Completed Procedure Code: 45.16 Procedure Name: not valued, on 03/12/2014 12: 00 AM * Completed Procedure Code: 45.25 Procedure Name: not valued, on 03/12/2014 12: 00 AM * Completed , on 08/20/2009 12:00 AM Immunizations * Influenza, seasonal, injectable (NOVARTIS, Lot # [id number]); Administered 2013 9:24 AM; 0.5 ML=1 DOSE, [...]
--- OUTSIDE RECORDS SUMMARY | 2017-02-24 17:12 | XMS REPORT ---
Author Author GENERATED, SYSTEM Organization Unknown Address Unknown Phone Unavailable Care Team Providers Care Hot Walker Name Role Phone MD GRACY, NAVIN PP [phone] Reason For Visit Chief Complaint LT ELBOW [...] (65-99 MG/DL) *GFR EST NON AFR COLOMBIAN 68 ML/MIN *GFR EST AFR AMER 79 [...] 1 :12 PM * Completed Procedure Code: 29231 Procedure Name: not valued, on 04/22/2016 12: 00 AM * Completed Esophagogastroduodenoscopy, by MD BAIRON HAMILTON, on 11/20/2015 12:55 PM * Completed Procedure Code: 92213 Procedure Name: not valued, on 11/20/2015 12: 00 AM * Completed Procedure Code: 16974 Procedure Name: not valued, on 11/20/2015 12: 00 AM * Completed Procedure Code: 45.16 Procedure Name: not valued, on 03/12/2014 12: 00 AM * Completed Procedure Code: 45.25 Procedure Name: not valued, on 03/12/2014 12: 00 AM * Completed , on 08/20/2009 12:00 AM Immunizations * Influenza, seasonal, injectable (NOVARTIS, Lot # [id number]); Administered 2013 9:24 AM; 0.5 ML=1 DOSE, [...]
--- OUTSIDE RECORDS SUMMARY | 2017-02-24 17:13 | XMS REPORT ---
Author Author GENERATED, SYSTEM Organization Unknown Address Unknown Phone Unavailable Care Team Providers Care Bilingual Recruiter Name Role Phone MD GRACY, NAVIN PP [phone] Reason For Visit Chief Complaint CELLULITIS LT [...] 1 :12 PM * Completed Procedure Code: 80493 Procedure Name: not valued, on 04/22/2016 12: 00 AM * Completed Esophagogastroduodenoscopy, by MD BAIRON HAMILTON, on 11/20/2015 12:55 PM * Completed Procedure Code: 41720 Procedure Name: not valued, on 11/20/2015 12: 00 AM * Completed Procedure Code: 81232 Procedure Name: not valued, on 11/20/2015 12: 00 AM * Completed Procedure Code: 45.16 Procedure Name: not valued, on 03/12/2014 12: 00 AM * Completed Procedure Code: 45.25 Procedure Name: not valued, on 03/12/2014 12: 00 AM * Completed , on 08/20/2009 12:00 AM Immunizations * Influenza, seasonal, injectable (NOVARTIS, Lot # [id number]); Administered 2013 9:24 AM; 0.5 ML=1 DOSE, [...]
--- OUTSIDE RECORDS SUMMARY | 2017-02-24 17:13 | XMS REPORT ---
Author Author GENERATED, SYSTEM Organization Unknown Address Unknown Phone Unavailable Care Team Providers Care Drop Hammer Pile Driver Operator Name Role Phone UNASSIGNED DOCTOR , DOCTOR PP [phone] Reason For Visit Chief Complaint FALL- ANKLE [...] 1 :12 PM * Completed Procedure Code: 84003 Procedure Name: not valued, on 04/22/2016 12: 00 AM * Completed Esophagogastroduodenoscopy, by MD BAIRON HAMILTON, on 11/20/2015 12:55 PM * Completed Procedure Code: 65947 Procedure Name: not valued, on 11/20/2015 12: 00 AM * Completed Procedure Code: 79575 Procedure Name: not valued, on 11/20/2015 12: 00 AM * Completed Procedure Code: 45.16 Procedure Name: not valued, on 03/12/2014 12: 00 AM * Completed Procedure Code: 45.25 Procedure Name: not valued, on 03/12/2014 12: 00 AM * Completed , on 08/20/2009 12:00 AM Immunizations * Influenza, seasonal, injectable (NOVARTIS, Lot # [id number]); Administered 2013 9:24 AM; 0.5 ML=1 DOSE, [...]
--- OUTSIDE RECORDS SUMMARY | 2017-02-24 17:13 | XMS REPORT | Continuity of care Document ---
[...] H (65-99 MG/DL) GFR EST NON AFR ARMENIAN >=90 ML/MIN GFRA EST AFR AMER >=90 [...] - ABDOMEN 2 VIEW (FLAT/UPRIGHT) CPT Code(s): 61097-; ; ; INDICATION / CLINICAL HISTORY: Abdominal Pain Supine and upright views of the abdomen were obtained. FINDINGS: There is mild elevation of the right hemidiaphragm. The bowel gas pattern is within normal limits. There is no evidence of mechanical bowel obstruction or pneumoperitoneum. IMPRESSION: No evidence of mechanical bowel obstruction or pneumoperitoneum.
--- OUTSIDE RECORDS SUMMARY | 2017-02-24 17:13 | XMS REPORT | Continuity of care Document ---
[...] the responsibility of the patient or patient indirect sales representative to confirm the list of [...] MG/DL (65-99 MG/DL) GFR EST NON AFR FAROESE >=90 ML/MIN GFRA EST AFR AMER >=90 [...]
--- OUTSIDE RECORDS SUMMARY | 2017-02-24 17:13 | XMS REPORT ---
Author Author GENERATED, SYSTEM Organization Unknown Address Unknown Phone Unavailable Care Team Providers Care Outside Machinist Name Role Phone UNASSIGNED DOCTOR , DOCTOR PP [phone] Reason For Visit Reason for Visit from [...] H (65-99 MG/DL) GFR EST NON AFR KITTITIAN >90 ML/MIN GFRA EST AFR AMER >90 [...] H (65-99 MG/DL) GFR EST NON AFR KITT[place]IAN >90 ML/MIN GFRA EST AFR AMER >90 [...] MG/DL (65-99 MG/DL) GFR EST NON AFR KITT[place]IAN >90 ML/MIN GFRA EST AFR AMER >90 [...] 07/21/2015 3:19 PM* CULTURE URINE Specimen Number: [id number] Sample Collection Date/Time: 07/21/2015 3:19 PM Specimen Source: Urine Clean Catch CULTURE URINE: No growth at 48 hrs Microbiology from 07/21/2015 10:58 AM* CULTURE URINE Specimen Number: [id number] Sample Collection Date/Time: 07/21/2015 10:58 AM Specimen [...] home. Received call from Char - from [facility] - who provides health home to patient. [...] * Influenza, seasonal, injectable (NOVARTIS, Lot # [id number]); Administered 2013 9:24 AM; 0.5 ML=1 DOSE, [...] the responsibility of the patient or patient pharmacy services representative to confirm the list of [...] tablet oral daily at bedtime * HYDROcodone-acetaminophen ([place]) 5 mg-325 mg Tablet, Ordered By: BRITTON DELVALLE MD Directions: 1 tablet oral every six hours PRN pain Stopped medications* None
--- OUTSIDE RECORDS SUMMARY | 2017-02-24 17:13 | XMS REPORT ---
Author Author GENERATED, SYSTEM Organization Unknown Address Unknown Phone Unavailable Care Team Providers Care Ballistic Technician Name Role Phone UNASSIGNED DOCTOR , DOCTOR PP [phone] Reason For Visit Chief Complaint VOMITING DIARRHEA [...] MG/DL (65-99 MG/DL) GFR EST NON AFR NIUEAN >90 ML/MIN GFRA EST AFR AMER >90 [...] 0066 - CHEST 1 VIEW CPT Code(s): 66673-; ; ; INDICATION / CLINICAL HISTORY: Seizure, [...] - CT ABD/PELVIS W/ CONTRAST CPT Code(s): 12076-; ; ; INDICATION / CLINICAL HISTORY: Vomiting, [...] - CT CEREBRAL W/O CONTRAST CPT Code(s): 88385-; ; ; INDICATION / CLINICAL HISTORY: Vomiting, [...]
--- OUTSIDE RECORDS SUMMARY | 2017-02-24 17:14 | XMS REPORT ---
Author Author GENERATED, SYSTEM Organization Unknown Address Unknown Phone Unavailable Care Team Providers Care Music Promoter Name Role Phone MD JENIFFER, HANS PP [phone] Reason For Visit Chief Complaint ALTERED MENTAL [...] MG/DL (65-99 MG/DL) GFR EST NON AFR SWISS >90 ML/MIN GFRA EST AFR AMER >90 [...] PM* CULTURE URINE (Preliminary Result) Specimen Number: [id number] Sample Collection Date/Time: 08/30/2014 1:25 PM Specimen [...]
--- OUTSIDE RECORDS SUMMARY | 2017-02-24 17:14 | XMS REPORT ---
Author Author GENERATED, SYSTEM Organization Unknown Address Unknown Phone Unavailable Care Team Providers Care Game Developer Name Role Phone MD GRACY, NAVIN PP [phone] Reason For Visit Chief Complaint HIGH BP [...] MG/DL) *GFR EST NON AFR CITIZEN OF [place] >90 ML/MIN *GFR EST AFR AMER >90 [...] 1 :12 PM * Completed Procedure Code: 74690 Procedure Name: not valued, on 04/22/2016 12: 00 AM * Completed Esophagogastroduodenoscopy, by MD BAIRON HAMILTON, on 11/20/2015 12:55 PM * Completed Procedure Code: 35830 Procedure Name: not valued, on 11/20/2015 12: 00 AM * Completed Procedure Code: 26175 Procedure Name: not valued, on 11/20/2015 12: 00 AM * Completed Procedure Code: 45.16 Procedure Name: not valued, on 03/12/2014 12: 00 AM * Completed Procedure Code: 45.25 Procedure Name: not valued, on 03/12/2014 12: 00 AM * Completed , on 08/20/2009 12:00 AM Immunizations * Influenza, seasonal, injectable (NOVARTIS, Lot # [id number]); Administered 2013 9:24 AM; 0.5 ML=1 DOSE, [...]
--- OUTSIDE RECORDS SUMMARY | 2017-02-24 17:14 | XMS REPORT ---
Author Author GENERATED, SYSTEM Organization Unknown Address Unknown Phone Unavailable Care Team Providers Care Web Press Roll Tender Name Role Phone UNASSIGNED DOCTOR , DOCTOR PP [phone] Reason For Visit Chief Complaint CHEST/ABDOMINAL PAIN [...] * Influenza, seasonal, injectable (NOVARTIS, Lot # [id number]); Administered 2013 9:24 AM; 0.5 ML=1 DOSE, [...]
--- OUTSIDE RECORDS SUMMARY | 2017-02-24 17:14 | XMS REPORT ---
Author Author GENERATED, SYSTEM Organization Unknown Address Unknown Phone Unavailable Care Team Providers Care Software Validation Engineer Name Role Phone UNASSIGNED DOCTOR , DOCTOR PP [phone] Reason For Visit Chief Complaint M54.5, M25.559 [...] 11/20/2015 12:55 PM * Completed Procedure Code: 47658 Procedure Name: not valued, on 11/20/2015 12: 00 AM * Completed Procedure Code: 12423 Procedure Name: not valued, on 11/20/2015 12: 00 AM * Completed Procedure Code: 45.16 Procedure Name: not valued, on 03/12/2014 12: 00 AM * Completed Procedure Code: 45.25 Procedure Name: not valued, on 03/12/2014 12: 00 AM * Completed , on 08/20/2009 12:00 AM Immunizations * Influenza, seasonal, injectable (NOVARTIS, Lot # [id number]); Administered 2013 9:24 AM; 0.5 ML=1 DOSE, [...]
--- OUTSIDE RECORDS SUMMARY | 2017-02-24 17:14 | XMS REPORT ---
Author Author GENERATED, SYSTEM Organization Unknown Address Unknown Phone Unavailable Care Team Providers Care Dental Billing Specialist Name Role Phone UNASSIGNED DOCTOR , DOCTOR PP [phone] Reason For Visit Chief Complaint COLLAPED IN [...] MG/DL (65-99 MG/DL) *GFR EST NON AFR UZBEK >90 ML/MIN *GFRA EST AFR AMER >90 [...] * Influenza, seasonal, injectable (NOVARTIS, Lot # [id number]); Administered 2013 9:24 AM; 0.5 ML=1 DOSE, [...]
--- OUTSIDE RECORDS SUMMARY | 2017-02-24 17:14 | XMS REPORT ---
Author Author GENERATED, SYSTEM Organization Unknown Address Unknown Phone Unavailable Care Team Providers Care Service Officer Name Role Phone UNASSIGNED DOCTOR , DOCTOR PP [phone] Reason For Visit Chief Complaint STICHES OUT [...] 1 :12 PM * Completed Procedure Code: 93773 Procedure Name: not valued, on 04/22/2016 12: 00 AM * Completed Esophagogastroduodenoscopy, by MD BAIRON HAMILTON, on 11/20/2015 12:55 PM * Completed Procedure Code: 08367 Procedure Name: not valued, on 11/20/2015 12: 00 AM * Completed Procedure Code: 65935 Procedure Name: not valued, on 11/20/2015 12: 00 AM * Completed Procedure Code: 45.16 Procedure Name: not valued, on 03/12/2014 12: 00 AM * Completed Procedure Code: 45.25 Procedure Name: not valued, on 03/12/2014 12: 00 AM * Completed , on 08/20/2009 12:00 AM Immunizations * Influenza, seasonal, injectable (NOVARTIS, Lot # [id number]); Administered 2013 9:24 AM; 0.5 ML=1 DOSE, [...]
--- OUTSIDE RECORDS SUMMARY | 2017-02-24 17:14 | XMS REPORT ---
Author Author GENERATED, SYSTEM Organization Unknown Address Unknown Phone Unavailable Care Team Providers Care Surgical Clinical Reviewer Name Role Phone MD GRACY, NAVIN [phone] Reason For Visit Chief Complaint LEG, HIP [...] 06/19/2016 12:10 CT Scan from 06/19/2016 12:35 [facility] SPINE LUMBAR W/O CONTRAST History: pain fall [...] 06/19/2016 11:09 CT Scan from 06/19/2016 12:32 [facility] SPINE CERVICAL W/O CONTRAST History: Pain all [...] 1 :12 PM * Completed Procedure Code: 29617 Procedure Name: not valued, on 04/22/2016 12: 00 AM * Completed Esophagogastroduodenoscopy, by MD BAIRON HAMILTON, on 11/20/2015 12:55 PM * Completed Procedure Code: 98602 Procedure Name: not valued, on 11/20/2015 12: 00 AM * Completed Procedure Code: 90420 Procedure Name: not valued, on 11/20/2015 12: 00 AM * Completed Procedure Code: 45.16 Procedure Name: not valued, on 03/12/2014 12: 00 AM * Completed Procedure Code: 45.25 Procedure Name: not valued, on 03/12/2014 12: 00 AM * Completed , on 08/20/2009 12:00 AM Immunizations * Influenza, seasonal, injectable (NOVARTIS, Lot # [id number]); Administered 2013 9:24 AM; 0.5 ML=1 DOSE, [...]
--- OUTSIDE RECORDS SUMMARY | 2017-02-24 17:14 | XMS REPORT ---
Author Author GENERATED, SYSTEM Organization Unknown Address Unknown Phone Unavailable Care Team Providers Care Supervisor Fiber Locking Name Role Phone MD GRACY, NAVIN PP [phone] Reason For Visit Chief Complaint LT ELBOW [...] 1 :12 PM * Completed Procedure Code: 15175 Procedure Name: not valued, on 04/22/2016 12: 00 AM * Completed Esophagogastroduodenoscopy, by MD BAIRON HAMILTON, on 11/20/2015 12:55 PM * Completed Procedure Code: 24219 Procedure Name: not valued, on 11/20/2015 12: 00 AM * Completed Procedure Code: 53741 Procedure Name: not valued, on 11/20/2015 12: 00 AM * Completed Procedure Code: 45.16 Procedure Name: not valued, on 03/12/2014 12: 00 AM * Completed Procedure Code: 45.25 Procedure Name: not valued, on 03/12/2014 12: 00 AM * Completed , on 08/20/2009 12:00 AM Immunizations * Influenza, seasonal, injectable (NOVARTIS, Lot # [id number]); Administered 2013 9:24 AM; 0.5 ML=1 DOSE, [...]
--- OUTSIDE RECORDS SUMMARY | 2017-02-24 17:14 | XMS REPORT ---
Author Author GENERATED, SYSTEM Organization Unknown Address Unknown Phone Unavailable Care Team Providers Care Restaurant Cashier Name Role Phone UNASSIGNED DOCTORMD DOCTOR PP [phone] Reason For Visit Chief Complaint POSSIBLE SEPTAL INFARCT,[facility] Social History Functional Status Vital Signs Results Chemistry from 06/05/2014 12:52 PMSODIUM 137 MMOL/L (136-145 MMOL/L) POTASSIUM 3.3 MMOL/L L (3.5-5.1 MMOL/L) CHLORIDE 99 MMOL/L (98-107 MMOL/L) TCO2 27.7 MMOL/L (21.0-32.0 MMOL/L) ANION GAP 10.3 MMOL/L (8.0-16.0 MMOL/L) BUN 9 MG/DL (7-18 MG/DL) CREATININE 0.78 MG/DL (0.43-0.83 MG/DL) BUN/CREATININE RATIO 11.5 (9.1-17.0 ) GLUCOSE 107 MG/DL H (65-99 MG/DL) GFR EST NON AFR EMIRATI 87 ML/MIN GFRA EST AFR AMER >90 [...] the responsibility of the patient or patient financial services representative to confirm the list of [...]
--- OUTSIDE RECORDS SUMMARY | 2017-02-24 17:14 | XMS REPORT ---
Author Author GENERATED, SYSTEM Organization Unknown Address Unknown Phone Unavailable Care Team Providers Care Spreading Machine Operator Name Role Phone UNASSIGNED DOCTOR , DOCTOR PP [phone] Reason For Visit Reason for Visit from [...] 2:20 PM * Address # 1 : [facility]: [address] [place]- [phone] or Procedures * Completed Esophagogastroduodenoscopy, by MD BAIRON JOHN, on 04/22/2016 1 :12 PM * Completed Esophagogastroduodenoscopy, by MD BAIRON JOHN, on 11/20/2015 12:55 PM * Completed Procedure Code: 70713 Procedure Name: not valued, on 11/20/2015 12: 00 AM * Completed Procedure Code: 84574 Procedure Name: not valued, on 11/20/2015 12: 00 AM * Completed Procedure Code: 45.16 Procedure Name: not valued, on 03/12/2014 12: 00 AM * Completed Procedure Code: 45.25 Procedure Name: not valued, on 03/12/2014 12: 00 AM * Completed , on 08/20/2009 12:00 AM Immunizations * Influenza, seasonal, injectable (NOVARTIS, Lot # [id number]); Administered 2013 9:24 AM; 0.5 ML=1 DOSE, [...]
--- OUTSIDE RECORDS SUMMARY | 2017-02-24 17:14 | XMS REPORT | Continuity of Care Document ---
Author Author [facility] Organization [facility] Address Unknown Phone Unavailable Support Name Relationship Address Phone PINKYJET EASTMAN Caregiver [facility] [address] [place], [place] [id number] FRANCIA BOWERS MD Caregiver [address] , [address] [place], [place] [id number] Insurance Providers Payer Name Policy Number Subscriber Name Relationship [facility] [employer] [id number] Tova Cates 19 Self Problems No known [...] F (96.8 - 99.1) Temperature (Calculated Celsius) [phone] degrees C (36.0 - 37.3) Pulse Rate [...] Encounters Encounter Location Date/Time Departed Emergency Room [facility] 10/27/14 1:53pm Recent Diagnosis
[2017-02-24] MEDS ORDERED: NORMAL SALINE 1,000 ML IV ONE ×2 (17:15→21:15)
[2017-02-24] MEDS ORDERED: HYDROMORPHONE 2mg/ml INJECTION IV ONE (17:15)
[2017-02-24] MEDS ORDERED: PROCHLORPERAZINE 10mg/2ml INJECTION IV ONE (17:15)
--- OUTSIDE RECORDS SUMMARY | 2017-02-24 17:15 | XMS REPORT ---
Author Author GENERATED, SYSTEM Organization Unknown Address Unknown Phone Unavailable Care Team Providers Care Caterpillar Mechanic Name Role Phone UNASSIGNED DOCTOR , DOCTOR PP [phone] Reason For Visit Chief Complaint FALL, FACIAL [...] MG/DL (65-99 MG/DL) *GFR EST NON AFR KOSOVAN 76 ML/MIN *GFR EST AFR AMER 89 [...] 05/11/2016 11:10 CT Scan from 05/11/2016 12:21 [facility] SPINE CERVICAL W/O CONTRAST History: Fall Head [...] 05/11/2016 10:42 CT Scan from 05/11/2016 12:11 [facility] CEREBRAL W/O CONTRAST History: fall . Facial [...] 1 :12 PM * Completed Procedure Code: 38701 Procedure Name: not valued, on 04/22/2016 12: 00 AM * Completed Esophagogastroduodenoscopy, by MD BAIRON HAMILTON, on 11/20/2015 12:55 PM * Completed Procedure Code: 50047 Procedure Name: not valued, on 11/20/2015 12: 00 AM * Completed Procedure Code: 53047 Procedure Name: not valued, on 11/20/2015 12: 00 AM * Completed Procedure Code: 45.16 Procedure Name: not valued, on 03/12/2014 12: 00 AM * Completed Procedure Code: 45.25 Procedure Name: not valued, on 03/12/2014 12: 00 AM * Completed , on 08/20/2009 12:00 AM Immunizations * Influenza, seasonal, injectable (NOVARTIS, Lot # [id number]); Administered 2013 9:24 AM; 0.5 ML=1 DOSE, [...]
--- OUTSIDE RECORDS SUMMARY | 2017-02-24 17:15 | XMS REPORT ---
Author Author GENERATED, SYSTEM Organization Unknown Address Unknown Phone Unavailable Care Team Providers Care Driver Courier Name Role Phone MD GRACY, NAVIN PP [phone] Reason For Visit Chief Complaint NUMBNESS SWELLING [...] 1 :12 PM * Completed Procedure Code: 21622 Procedure Name: not valued, on 04/22/2016 12: 00 AM * Completed Esophagogastroduodenoscopy, by MD BAIRON HAMILTON, on 11/20/2015 12:55 PM * Completed Procedure Code: 24421 Procedure Name: not valued, on 11/20/2015 12: 00 AM * Completed Procedure Code: 59587 Procedure Name: not valued, on 11/20/2015 12: 00 AM * Completed Procedure Code: 45.16 Procedure Name: not valued, on 03/12/2014 12: 00 AM * Completed Procedure Code: 45.25 Procedure Name: not valued, on 03/12/2014 12: 00 AM * Completed , on 08/20/2009 12:00 AM Immunizations * Influenza, seasonal, injectable (NOVARTIS, Lot # [id number]); Administered 2013 9:24 AM; 0.5 ML=1 DOSE, [...]
--- OUTSIDE RECORDS SUMMARY | 2017-02-24 17:15 | XMS REPORT ---
Author Author GENERATED, SYSTEM Organization Unknown Address Unknown Phone Unavailable Care Team Providers Care Hoop Riveter Name Role Phone MD JENIFFER, HANS PP [phone] Reason For Visit Chief Complaint CRISIS Social [...] MG/DL (65-99 MG/DL) GFR EST NON AFR WALLISIAN 72 ML/MIN GFRA EST AFR AMER 84 [...]
--- OUTSIDE RECORDS SUMMARY | 2017-02-24 17:15 | XMS REPORT ---
Author Author GENERATED, SYSTEM Organization Unknown Address Unknown Phone Unavailable Care Team Providers Care Pantograph I Engraver Name Role Phone UNASSIGNED DOCTOR , DOCTOR PP [phone] Reason For Visit Chief Complaint SHORTNESS OF [...] H (65-99 MG/DL) *GFR EST NON AFR ERITREAN >90 ML/MIN *GFRA EST AFR AMER >90 [...] * Influenza, seasonal, injectable (NOVARTIS, Lot # [id number]); Administered 2013 9:24 AM; 0.5 ML=1 DOSE, [...]
--- OUTSIDE RECORDS SUMMARY | 2017-02-24 17:15 | XMS REPORT ---
Author Author GENERATED, SYSTEM Organization Unknown Address Unknown Phone Unavailable Care Team Providers Care Residence Supervisor Name Role Phone UNASSIGNED DOCTOR , DOCTOR PP [phone] Reason For Visit Reason for Visit from [...] MG/DL (65-99 MG/DL) *GFR EST NON AFR FRENCH 86 ML/MIN *GFRA EST AFR AMER >90 [...] * Influenza, seasonal, injectable (NOVARTIS, Lot # [id number]); Administered 2013 9:24 AM; 0.5 ML=1 DOSE, [...]
--- OUTSIDE RECORDS SUMMARY | 2017-02-24 17:15 | XMS REPORT ---
Author Author GENERATED, SYSTEM Organization Unknown Address Unknown Phone Unavailable Care Team Providers Care Comprehensive Advisor Name Role Phone UNASSIGNED DOCTOR , DOCTOR PP [phone] Reason For Visit Chief Complaint MENTAL STATUS [...] * Influenza, seasonal, injectable (NOVARTIS, Lot # [id number]); Administered 2013 9:24 AM; 0.5 ML=1 DOSE, [...]
--- OUTSIDE RECORDS SUMMARY | 2017-02-24 17:15 | XMS REPORT ---
Author Author GENERATED, SYSTEM Organization Unknown Address Unknown Phone Unavailable Care Team Providers Care Cost Report Clerk Name Role Phone MD GRACY, NAVIN PP [phone] Reason For Visit Chief Complaint ACUTE ON [...] H (65-99 MG/DL) *GFR EST NON AFR BURUNDIAN >90 ML/MIN *GFR EST AFR AMER >90 [...] LEFT LEG BROKEN. PT WAS D/C FOR [facility] THIS LAST WED. HEADACHE, VOMITING, [...] 1 :12 PM * Completed Procedure Code: 87052 Procedure Name: not valued, on 04/22/2016 12: 00 AM * Completed Esophagogastroduodenoscopy, by MD BAIRON HAMILTON, on 11/20/2015 12:55 PM * Completed Procedure Code: 98153 Procedure Name: not valued, on 11/20/2015 12: 00 AM * Completed Procedure Code: 74005 Procedure Name: not valued, on 11/20/2015 12: 00 AM * Completed Procedure Code: 45.16 Procedure Name: not valued, on 03/12/2014 12: 00 AM * Completed Procedure Code: 45.25 Procedure Name: not valued, on 03/12/2014 12: 00 AM * Completed , on 08/20/2009 12:00 AM Immunizations * Influenza, seasonal, injectable (NOVARTIS, Lot # [id number]); Administered 2013 9:24 AM; 0.5 ML=1 DOSE, [...]
--- OUTSIDE RECORDS SUMMARY | 2017-02-24 17:15 | XMS REPORT ---
Author Author GENERATED, SYSTEM Organization Unknown Address Unknown Phone Unavailable Care Team Providers Care Graphics Programmer Name Role Phone MD JENIFFER, HANS PP [phone] Reason For Visit Reason for Visit from [...] MG/DL (65-99 MG/DL) GFR EST NON AFR JORDANIAN >90 ML/MIN GFRA EST AFR AMER >90 [...] had unsigned status order on chart. This lawn care worker [facility] and clarified status. Patient was intended to be Observation status on admission. Patient remained Observation status appropriate and was discharged to home today. Treatment Plan from 08/31/2014 11:40 AM:* Care Management Note : lay out worker spoke to patient and patient's son [...] the responsibility of the patient or patient representative government relations to confirm the list of medications with [...]
--- OUTSIDE RECORDS SUMMARY | 2017-02-24 17:15 | XMS REPORT ---
Author Author GENERATED, SYSTEM Organization Unknown Address Unknown Phone Unavailable Care Team Providers Care Senior Technical Analyst Name Role Phone UNASSIGNED DOCTOR , DOCTOR PP [phone] Reason For Visit Chief Complaint ABD PAIN, [...] MG/DL (65-99 MG/DL) GFR EST NON AFR MEXICAN >90 ML/MIN GFRA EST AFR AMER >90 [...]
--- OUTSIDE RECORDS SUMMARY | 2017-02-24 17:16 | XMS REPORT ---
Author Author GENERATED, SYSTEM Organization Unknown Address Unknown Phone Unavailable Care Team Providers Care Cathead Worker Name Role Phone MD JENIFFER, HANS PP [phone] Reason For Visit Chief Complaint ALTERED LEVEL [...]
--- OUTSIDE RECORDS SUMMARY | 2017-02-24 17:16 | XMS REPORT ---
Author Author GENERATED, SYSTEM Organization Unknown Address Unknown Phone Unavailable Care Team Providers Care Supervisor Trust Accounts Name Role Phone UNASSIGNED DOCTOR , DOCTOR PP [phone] Reason For Visit Chief Complaint PANCREATITIS Social [...] H (65-99 MG/DL) *GFR EST NON AFR FAROESE >90 ML/MIN *GFRA EST AFR AMER >90 [...] PM* CULTURE URINE (Preliminary Result) Specimen Number: [id number] Sample Collection Date/Time: 03/20/2016 4:24 PM Specimen [...] 11/20/2015 12:55 PM * Completed Procedure Code: 50977 Procedure Name: not valued, on 11/20/2015 12: 00 AM * Completed Procedure Code: 51404 Procedure Name: not valued, on 11/20/2015 12: 00 AM * Completed Procedure Code: 45.16 Procedure Name: not valued, on 03/12/2014 12: 00 AM * Completed Procedure Code: 45.25 Procedure Name: not valued, on 03/12/2014 12: 00 AM * Completed , on 08/20/2009 12:00 AM Immunizations * Influenza, seasonal, injectable (NOVARTIS, Lot # [id number]); Administered 2013 9:24 AM; 0.5 ML=1 DOSE, [...]
--- OUTSIDE RECORDS SUMMARY | 2017-02-24 17:16 | XMS REPORT ---
Author Author GENERATED, SYSTEM Organization Unknown Address Unknown Phone Unavailable Care Team Providers Care Gas Collection System Operator Name Role Phone UNASSIGNED DOCTOR , DOCTOR PP [phone] Reason For Visit Chief Complaint VOMITING, DIARRHEA [...] MG/DL (65-99 MG/DL) GFR EST NON AFR [place] >90 ML/MIN GFRA EST AFR AMER >90 [...]
--- OUTSIDE RECORDS SUMMARY | 2017-02-24 17:16 | XMS REPORT ---
Author Author GENERATED, SYSTEM Organization Unknown Address Unknown Phone Unavailable Care Team Providers Care Fruit Thinner Machine Operator Name Role Phone UNASSIGNED DOCTOR , DOCTOR PP [phone] Reason For Visit Reason for Visit from [...] H (65-99 MG/DL) *GFR EST NON AFR BAHAMIAN >90 ML/MIN *GFRA EST AFR AMER >90 [...] H (65-99 MG/DL) *GFR EST NON AFR BAHAMIAN 82 ML/MIN *GFRA EST AFR AMER >90 [...] 12:00 AM * Address # 1 : [facility]: [address] [place] [place] - or Treatment Plan [...] 1 :12 PM * Completed Procedure Code: 69613 Procedure Name: not valued, on 04/22/2016 12: 00 AM * Completed Esophagogastroduodenoscopy, by MD BAIRON HAMILTON, on 11/20/2015 12:55 PM * Completed Procedure Code: 13238 Procedure Name: not valued, on 11/20/2015 12: 00 AM * Completed Procedure Code: 85988 Procedure Name: not valued, on 11/20/2015 12: 00 AM * Completed Procedure Code: 45.16 Procedure Name: not valued, on 03/12/2014 12: 00 AM * Completed Procedure Code: 45.25 Procedure Name: not valued, on 03/12/2014 12: 00 AM * Completed , on 08/20/2009 12:00 AM Immunizations * Influenza, seasonal, injectable (NOVARTIS, Lot # [id number]); Administered 2013 9:24 AM; 0.5 ML=1 DOSE, [...] responsibility of the patient or patient medical field representative to confirm the list of medications [...]
--- OUTSIDE RECORDS SUMMARY | 2017-02-24 17:16 | XMS REPORT ---
Author Author GENERATED, SYSTEM Organization Unknown Address Unknown Phone Unavailable Care Team Providers Care Bilingual Student Tutor Name Role Phone MD GRACY, NAVIN PP [phone] Reason For Visit Chief Complaint LT ELBOW [...] 1 :12 PM * Completed Procedure Code: 75255 Procedure Name: not valued, on 04/22/2016 12: 00 AM * Completed Esophagogastroduodenoscopy, by MD BAIRON HAMILTON, on 11/20/2015 12:55 PM * Completed Procedure Code: 54001 Procedure Name: not valued, on 11/20/2015 12: 00 AM * Completed Procedure Code: 81267 Procedure Name: not valued, on 11/20/2015 12: 00 AM * Completed Procedure Code: 45.16 Procedure Name: not valued, on 03/12/2014 12: 00 AM * Completed Procedure Code: 45.25 Procedure Name: not valued, on 03/12/2014 12: 00 AM * Completed , on 08/20/2009 12:00 AM Immunizations * Influenza, seasonal, injectable (NOVARTIS, Lot # [id number]); Administered 2013 9:24 AM; 0.5 ML=1 DOSE, [...]
--- OUTSIDE RECORDS SUMMARY | 2017-02-24 17:16 | XMS REPORT ---
Author Author GENERATED, SYSTEM Organization Unknown Address Unknown Phone Unavailable Care Team Providers Care Coach Tour Driver Name Role Phone UNASSIGNED DOCTOR , DOCTOR PP [phone] Reason For Visit Chief Complaint FALL- BACK [...] 1 :12 PM * Completed Procedure Code: 31754 Procedure Name: not valued, on 04/22/2016 12: 00 AM * Completed Esophagogastroduodenoscopy, by MD BAIRON HAMILTON, on 11/20/2015 12:55 PM * Completed Procedure Code: 67241 Procedure Name: not valued, on 11/20/2015 12: 00 AM * Completed Procedure Code: 04819 Procedure Name: not valued, on 11/20/2015 12: 00 AM * Completed Procedure Code: 45.16 Procedure Name: not valued, on 03/12/2014 12: 00 AM * Completed Procedure Code: 45.25 Procedure Name: not valued, on 03/12/2014 12: 00 AM * Completed , on 08/20/2009 12:00 AM Immunizations * Influenza, seasonal, injectable (NOVARTIS, Lot # [id number]); Administered 2013 9:24 AM; 0.5 ML=1 DOSE, [...]
--- OUTSIDE RECORDS SUMMARY | 2017-02-24 17:16 | XMS REPORT ---
Author Author GENERATED, SYSTEM Organization Unknown Address Unknown Phone Unavailable Care Team Providers Care Dobby Loom Chain Pegger Name Role Phone MD GRACY, NAVIN PP [phone] Reason For Visit Chief Complaint LEFT ELBOW [...] MG/DL (65-99 MG/DL) *GFR EST NON AFR TURKISH 67 ML/MIN *GFR EST AFR AMER 77 [...] AM* CULTURE BLOOD (Preliminary Result) Specimen Number: [id number] Sample Collection Date/Time: 10/06/2016 7:06 AM Specimen Source: Blood Peripheral CULTURE BLOOD: No growth after 24 hours of incubation, testing to continue for an additional 96 hours. Microbiology from 10/06/2016 6:56 AM* CULTURE BLOOD (Preliminary Result) Specimen Number: [id number] Sample Collection Date/Time: 10/06/2016 6:56 AM Specimen [...] 1 :12 PM * Completed Procedure Code: 74045 Procedure Name: not valued, on 04/22/2016 12: 00 AM * Completed Esophagogastroduodenoscopy, by MD BAIRON HAMILTON, on 11/20/2015 12:55 PM * Completed Procedure Code: 99403 Procedure Name: not valued, on 11/20/2015 12: 00 AM * Completed Procedure Code: 12047 Procedure Name: not valued, on 11/20/2015 12: 00 AM * Completed Procedure Code: 45.16 Procedure Name: not valued, on 03/12/2014 12: 00 AM * Completed Procedure Code: 45.25 Procedure Name: not valued, on 03/12/2014 12: 00 AM * Completed , on 08/20/2009 12:00 AM Immunizations * Influenza, seasonal, injectable (NOVARTIS, Lot # [id number]); Administered 2013 9:24 AM; 0.5 ML=1 DOSE, [...]
--- OUTSIDE RECORDS SUMMARY | 2017-02-24 17:16 | XMS REPORT ---
Author Author GENERATED, SYSTEM Organization Unknown Address Unknown Phone Unavailable Care Team Providers Care Integration Assistant Name Role Phone MD GRACY, NAVIN PP [phone] Reason For Visit Chief Complaint BONE PAIN [...] 1 :12 PM * Completed Procedure Code: 42463 Procedure Name: not valued, on 04/22/2016 12: 00 AM * Completed Esophagogastroduodenoscopy, by MD BAIRON HAMILTON, on 11/20/2015 12:55 PM * Completed Procedure Code: 89169 Procedure Name: not valued, on 11/20/2015 12: 00 AM * Completed Procedure Code: 82903 Procedure Name: not valued, on 11/20/2015 12: 00 AM * Completed Procedure Code: 45.16 Procedure Name: not valued, on 03/12/2014 12: 00 AM * Completed Procedure Code: 45.25 Procedure Name: not valued, on 03/12/2014 12: 00 AM * Completed , on 08/20/2009 12:00 AM Immunizations * Influenza, seasonal, injectable (NOVARTIS, Lot # [id number]); Administered 2013 9:24 AM; 0.5 ML=1 DOSE, [...]
--- OUTSIDE RECORDS SUMMARY | 2017-02-24 17:16 | XMS REPORT ---
Author Author GENERATED, SYSTEM Organization Unknown Address Unknown Phone Unavailable Care Team Providers Care Drill Bit Sharpener Name Role Phone MD GRACY, NAVIN PP [phone] Reason For Visit Chief Complaint LT ARM [...] 1 :12 PM * Completed Procedure Code: 05610 Procedure Name: not valued, on 04/22/2016 12: 00 AM * Completed Esophagogastroduodenoscopy, by MD BAIRON HAMILTON, on 11/20/2015 12:55 PM * Completed Procedure Code: 81624 Procedure Name: not valued, on 11/20/2015 12: 00 AM * Completed Procedure Code: 91552 Procedure Name: not valued, on 11/20/2015 12: 00 AM * Completed Procedure Code: 45.16 Procedure Name: not valued, on 03/12/2014 12: 00 AM * Completed Procedure Code: 45.25 Procedure Name: not valued, on 03/12/2014 12: 00 AM * Completed , on 08/20/2009 12:00 AM Immunizations * Influenza, seasonal, injectable (NOVARTIS, Lot # [id number]); Administered 2013 9:24 AM; 0.5 ML=1 DOSE, [...]
--- OUTSIDE RECORDS SUMMARY | 2017-02-24 17:17 | XMS REPORT ---
Author Author GENERATED, SYSTEM Organization Unknown Address Unknown Phone Unavailable Care Team Providers Care Respiratory Care Practitioner Name Role Phone UNASSIGNED DOCTOR , DOCTOR PP [phone] Reason For Visit Chief Complaint CHECK TB [...]
--- OUTSIDE RECORDS SUMMARY | 2017-02-24 17:17 | XMS REPORT | Continuity of care Document ---
[...] the responsibility of the patient or patient direct customer service representative to confirm the list of [...]
--- OUTSIDE RECORDS SUMMARY | 2017-02-24 17:17 | XMS REPORT ---
Author Author GENERATED, SYSTEM Organization Unknown Address Unknown Phone Unavailable Care Team Providers Care Area Forester Name Role Phone MD GRACY, NAVIN [phone] Reason For Visit Chief Complaint OSTEOMYELITIS Social [...] H (65-99 MG/DL) *GFR EST NON AFR ESTONIAN >90 ML/MIN *GFR EST AFR AMER >90 [...] MG/DL (65-99 MG/DL) *GFR EST NON AFR ESTONIAN 87 ML/MIN *GFR EST AFR AMER >90 [...] 1 :12 PM * Completed Procedure Code: 95707 Procedure Name: not valued, on 04/22/2016 12: 00 AM * Completed Esophagogastroduodenoscopy, by MD BAIRON HAMILTON, on 11/20/2015 12:55 PM * Completed Procedure Code: 88383 Procedure Name: not valued, on 11/20/2015 12: 00 AM * Completed Procedure Code: 45256 Procedure Name: not valued, on 11/20/2015 12: 00 AM * Completed Procedure Code: 45.16 Procedure Name: not valued, on 03/12/2014 12: 00 AM * Completed Procedure Code: 45.25 Procedure Name: not valued, on 03/12/2014 12: 00 AM * Completed , on 08/20/2009 12:00 AM Immunizations * Influenza, seasonal, injectable (NOVARTIS, Lot # [id number]); Administered 2013 9:24 AM; 0.5 ML=1 DOSE, [...]
--- OUTSIDE RECORDS SUMMARY | 2017-02-24 17:17 | XMS REPORT | Continuity of Care Document ---
Author Author [facility] Organization [facility] Address Unknown Phone Unavailable Care Team Providers Care Retail Link Analyst Name Role Phone JUVENTINO, REJI Arriola MD Primary Care Physician [phone] Insurance Providers Payer Name Policy Number Subscriber Name Relationship Medicare A And B [id number] Tova Briones 19 Self / Same As Patient [facility] [id number] Tova Cates 18 Self / Same As Patient Chief Complaint and Reason for Visit Chief Complaint Pain Reason for Visit [id number] Chronic back pain Problems Medical Problems Problem [...] ON SCHEDULE 30 Qty 07/05/14 Active Tiotropium [place] 0 Mcg RESPIRATORY (INHALATION) DAILY@0800 1 Qty [...] worrisome symptoms. * Emergency Department phone number: [phone], x [phone]* MEDICAL RECORD If you need copies of your X-rays, call [phone]. If you need copies of [...] the billing parties for services. [employer] Emergency Room Services [facility] Physician Services [facility] X-rays [facility] Patients will receive bills for services from the appropriate provider. If you have any questions about your [facility] bill, our staff will be happy to assist you. Please call [phone], and ask for the billing department. THANK YOU for choosing [facility] as your emergency care provider! Functional Status [...] Urine collection method Clean Catch Urine Specific [place] November 02, 2014 5:40pm 1.025 1.005-1.030 Urine [...] Encounters Encounter Location Date/Time Departed Emergency Room [facility] 11/02/14 4:55pm Recent Diagnosis
--- OUTSIDE RECORDS SUMMARY | 2017-02-24 17:17 | XMS REPORT ---
Author Author GENERATED, SYSTEM Organization Unknown Address Unknown Phone Unavailable Care Team Providers Care Consultative Sales Associate Name Role Phone MD GRACY, NAVIN [phone] Reason For Visit Chief Complaint COUGHING UP [...] 1 :12 PM * Completed Procedure Code: 32254 Procedure Name: not valued, on 04/22/2016 12: 00 AM * Completed Esophagogastroduodenoscopy, by MD BAIRON HAMILTON, on 11/20/2015 12:55 PM * Completed Procedure Code: 62624 Procedure Name: not valued, on 11/20/2015 12: 00 AM * Completed Procedure Code: 16136 Procedure Name: not valued, on 11/20/2015 12: 00 AM * Completed Procedure Code: 45.16 Procedure Name: not valued, on 03/12/2014 12: 00 AM * Completed Procedure Code: 45.25 Procedure Name: not valued, on 03/12/2014 12: 00 AM * Completed , on 08/20/2009 12:00 AM Immunizations * Influenza, seasonal, injectable (NOVARTIS, Lot # [id number]); Administered 2013 9:24 AM; 0.5 ML=1 DOSE, [...]
--- OUTSIDE RECORDS SUMMARY | 2017-02-24 17:17 | XMS REPORT ---
Author Author GENERATED, SYSTEM Organization Unknown Address Unknown Phone Unavailable Care Team Providers Care Newspaper Press Operator Apprentice Name Role Phone UNASSIGNED DOCTOR , DOCTOR PP [phone] Reason For Visit Chief Complaint LEFT MEDS IN [place],LEFT WITHOUT BEING SEEN Social History Functional Status [...] * Influenza, seasonal, injectable (NOVARTIS, Lot # [id number]); Administered 2013 9:24 AM; 0.5 ML=1 DOSE, [...]
--- OUTSIDE RECORDS SUMMARY | 2017-02-24 17:17 | XMS REPORT ---
Author Author GENERATED, SYSTEM Organization Unknown Address Unknown Phone Unavailable Care Team Providers Care Samples And Repairs Preparer Name Role Phone UNASSIGNED DOCTOR , DOCTOR PP [phone] Reason For Visit Chief Complaint SOB, BATTERED [...] MG/DL (65-99 MG/DL) *GFR EST NON AFR BRITISH 84 ML/MIN *GFRA EST AFR AMER >90 [...] * Influenza, seasonal, injectable (NOVARTIS, Lot # [id number]); Administered 2013 9:24 AM; 0.5 ML=1 DOSE, [...]
--- OUTSIDE RECORDS SUMMARY | 2017-02-24 17:17 | XMS REPORT ---
Author Author GENERATED, SYSTEM Organization Unknown Address Unknown Phone Unavailable Care Team Providers Care Field Marketing Manager Name Role Phone UNASSIGNED DOCTOR , DOCTOR PP [phone] Reason For Visit Chief Complaint FALL Social [...] 1 :12 PM * Completed Procedure Code: 96510 Procedure Name: not valued, on 04/22/2016 12: 00 AM * Completed Esophagogastroduodenoscopy, by MD BAIRON HAMILTON, on 11/20/2015 12:55 PM * Completed Procedure Code: 01859 Procedure Name: not valued, on 11/20/2015 12: 00 AM * Completed Procedure Code: 15894 Procedure Name: not valued, on 11/20/2015 12: 00 AM * Completed Procedure Code: 45.16 Procedure Name: not valued, on 03/12/2014 12: 00 AM * Completed Procedure Code: 45.25 Procedure Name: not valued, on 03/12/2014 12: 00 AM * Completed , on 08/20/2009 12:00 AM Immunizations * Influenza, seasonal, injectable (NOVARTIS, Lot # [id number]); Administered 2013 9:24 AM; 0.5 ML=1 DOSE, [...]
--- OUTSIDE RECORDS SUMMARY | 2017-02-24 17:17 | XMS REPORT ---
Author Author GENERATED, SYSTEM Organization Unknown Address Unknown Phone Unavailable Care Team Providers Care Software Systems Engineer Name Role Phone UNASSIGNED DOCTOR , DOCTOR PP [phone] Reason For Visit Chief Complaint TROUBLE BREATHING,VOMITING [...] H (65-99 MG/DL) *GFR EST NON AFR MONTSERRATIAN 67 ML/MIN *GFRA EST AFR AMER 78 [...] AM* CULTURE URINE (Preliminary Result) Specimen Number: [id number] Sample Collection Date/Time: 01/27/2016 10:50 AM Specimen Source: Urine Clean Catch CULTURE URINE: Gram-negative bacillus >100,000 cfu/ml ID and Susceptibility to follow DX [facility]2016 8:[facility] History: Shortness of breath with [...] periaortic lymphadenopathy. Bowel and Mesentery: There is lkgt-wd-msabjgvk constipation. No findings of appendicitis. Ascites: None. Pelvis Lymphadenopathy: None. Reproductive: Unremarkable. Osseous Structures: No suspicious findings. Impression: Wftd-ke-cxrccqua constipation. Electronically signed by: Gomez Echeverria MD [...] 11/20/2015 12:55 PM * Completed Procedure Code: 84657 Procedure Name: not valued, on 11/20/2015 12: 00 AM * Completed Procedure Code: 74957 Procedure Name: not valued, on 11/20/2015 12: 00 AM * Completed Procedure Code: 45.16 Procedure Name: not valued, on 03/12/2014 12: 00 AM * Completed Procedure Code: 45.25 Procedure Name: not valued, on 03/12/2014 12: 00 AM * Completed , on 08/20/2009 12:00 AM Immunizations * Influenza, seasonal, injectable (NOVARTIS, Lot # [id number]); Administered 2013 9:24 AM; 0.5 ML=1 DOSE, [...]
--- OUTSIDE RECORDS SUMMARY | 2017-02-24 17:18 | XMS REPORT ---
Author Author GENERATED, SYSTEM Organization Unknown Address Unknown Phone Unavailable Care Team Providers Care Beauty Parlor Cleaner Name Role Phone MD GRACY, NAVIN PP [phone] Reason For Visit Chief Complaint E78.5, 125.9 [...] 1 :12 PM * Completed Procedure Code: 38528 Procedure Name: not valued, on 04/22/2016 12: 00 AM * Completed Esophagogastroduodenoscopy, by MD BAIRON HAMILTON, on 11/20/2015 12:55 PM * Completed Procedure Code: 01827 Procedure Name: not valued, on 11/20/2015 12: 00 AM * Completed Procedure Code: 79259 Procedure Name: not valued, on 11/20/2015 12: 00 AM * Completed Procedure Code: 45.16 Procedure Name: not valued, on 03/12/2014 12: 00 AM * Completed Procedure Code: 45.25 Procedure Name: not valued, on 03/12/2014 12: 00 AM * Completed , on 08/20/2009 12:00 AM Immunizations * Influenza, seasonal, injectable (NOVARTIS, Lot # [id number]); Administered 2013 9:24 AM; 0.5 ML=1 DOSE, Intramuscular Hospital Course Hospital Discharge Instructions Allergies, Adverse Reactions, Alerts This section is sales and marketing representative of the current allergy information, at [...]
--- OUTSIDE RECORDS SUMMARY | 2017-02-24 17:18 | XMS REPORT ---
Author Author GENERATED, SYSTEM Organization Unknown Address Unknown Phone Unavailable Care Team Providers Care Content Designer Name Role Phone MD GRACY, NAVIN [phone] Reason For Visit Reason for Visit from [...] MG/DL (65-99 MG/DL) *GFR EST NON AFR ENGLISH >90 ML/MIN *GFR EST AFR AMER >90 [...] 1 :12 PM * Completed Procedure Code: 01837 Procedure Name: not valued, on 04/22/2016 12: 00 AM * Completed Esophagogastroduodenoscopy, by MD BAIRON HAMILTON, on 11/20/2015 12:55 PM * Completed Procedure Code: 47562 Procedure Name: not valued, on 11/20/2015 12: 00 AM * Completed Procedure Code: 76125 Procedure Name: not valued, on 11/20/2015 12: 00 AM * Completed Procedure Code: 45.16 Procedure Name: not valued, on 03/12/2014 12: 00 AM * Completed Procedure Code: 45.25 Procedure Name: not valued, on 03/12/2014 12: 00 AM * Completed , on 08/20/2009 12:00 AM Immunizations * Influenza, seasonal, injectable (NOVARTIS, Lot # [id number]); Administered 2013 9:24 AM; 0.5 ML=1 DOSE, [...] the responsibility of the patient or patient in home sales representative to confirm the list of [...]
--- OUTSIDE RECORDS SUMMARY | 2017-02-24 17:18 | XMS REPORT ---
Author Author GENERATED, SYSTEM Organization Unknown Address Unknown Phone Unavailable Care Team Providers Care Reservationist Name Role Phone MD GRACY, NAVIN [phone] Reason For Visit Reason for Visit from [...] 1 :12 PM * Completed Procedure Code: 46544 Procedure Name: not valued, on 04/22/2016 12: 00 AM * Completed Esophagogastroduodenoscopy, by MD BAIRON HAMILTON, on 11/20/2015 12:55 PM * Completed Procedure Code: 49055 Procedure Name: not valued, on 11/20/2015 12: 00 AM * Completed Procedure Code: 49029 Procedure Name: not valued, on 11/20/2015 12: 00 AM * Completed Procedure Code: 45.16 Procedure Name: not valued, on 03/12/2014 12: 00 AM * Completed Procedure Code: 45.25 Procedure Name: not valued, on 03/12/2014 12: 00 AM * Completed , on 08/20/2009 12:00 AM Immunizations * Influenza, seasonal, injectable (NOVARTIS, Lot # [id number]); Administered 2013 9:24 AM; 0.5 ML=1 DOSE, [...]
--- OUTSIDE RECORDS SUMMARY | 2017-02-24 17:18 | XMS REPORT ---
Author Author GENERATED, SYSTEM Organization Unknown Address Unknown Phone Unavailable Care Team Providers Care Military Police Officer Name Role Phone UNASSIGNED DOCTOR , DOCTOR PP [phone] Reason For Visit Reason for Visit from [...] MG/DL (65-99 MG/DL) *GFR EST NON AFR UKRAINIAN 74 ML/MIN *GFRA EST AFR AMER 86 [...] 11/20/2015 12:55 PM * Completed Procedure Code: 93189 Procedure Name: not valued, on 11/20/2015 12: 00 AM * Completed Procedure Code: 76868 Procedure Name: not valued, on 11/20/2015 12: 00 AM * Completed Procedure Code: 45.16 Procedure Name: not valued, on 03/12/2014 12: 00 AM * Completed Procedure Code: 45.25 Procedure Name: not valued, on 03/12/2014 12: 00 AM * Completed , on 08/20/2009 12:00 AM Immunizations * Influenza, seasonal, injectable (NOVARTIS, Lot # [id number]); Administered 2013 9:24 AM; 0.5 ML=1 DOSE, [...]
--- OUTSIDE RECORDS SUMMARY | 2017-02-24 17:18 | XMS REPORT ---
Author Author GENERATED, SYSTEM Organization Unknown Address Unknown Phone Unavailable Care Team Providers Care Manager Practice Name Role Phone UNASSIGNED DOCTOR , DOCTOR PP [phone] Reason For Visit Chief Complaint EVALUATION Social [...] Procedures * Completed Esophagogastroduodenoscopy, by [facility], on 11/20/2015 12:55 PM * Completed Procedure Code: 07938 Procedure Name: not valued, on 11/20/2015 12: 00 AM * Completed Procedure Code: 30681 Procedure Name: not valued, on 11/20/2015 12: 00 AM * Completed Procedure Code: 45.16 Procedure Name: not valued, on 03/12/2014 12: 00 AM * Completed Procedure Code: 45.25 Procedure Name: not valued, on 03/12/2014 12: 00 AM * Completed , on 08/20/2009 12:00 AM Immunizations * Influenza, seasonal, injectable (NOVARTIS, Lot # [id number]); Administered 2013 9:24 AM; 0.5 ML=1 DOSE, [...]
--- OUTSIDE RECORDS SUMMARY | 2017-02-24 17:18 | XMS REPORT ---
Author Author GENERATED, SYSTEM Organization Unknown Address Unknown Phone Unavailable Care Team Providers Care Refractory Tile Helper Name Role Phone UNASSIGNED DOCTOR , DOCTOR PP [phone] Reason For Visit Chief Complaint POST OP [...] H (65-99 MG/DL) *GFR EST NON AFR TAJIK 83 ML/MIN *GFRA EST AFR AMER >90 [...] 11/20/2015 12:55 PM * Completed Procedure Code: 29641 Procedure Name: not valued, on 11/20/2015 12: 00 AM * Completed Procedure Code: 03509 Procedure Name: not valued, on 11/20/2015 12: 00 AM * Completed Procedure Code: 45.16 Procedure Name: not valued, on 03/12/2014 12: 00 AM * Completed Procedure Code: 45.25 Procedure Name: not valued, on 03/12/2014 12: 00 AM * Completed , on 08/20/2009 12:00 AM Immunizations * Influenza, seasonal, injectable (NOVARTIS, Lot # [id number]); Administered 2013 9:24 AM; 0.5 ML=1 DOSE, [...]
--- OUTSIDE RECORDS SUMMARY | 2017-02-24 17:18 | XMS REPORT ---
Author Author GENERATED, SYSTEM Organization Unknown Address Unknown Phone Unavailable Care Team Providers Care Band Teacher Name Role Phone MD GRACY, NAVIN PP [phone] Reason For Visit Chief Complaint MIGRAINE Social [...] 1 :12 PM * Completed Procedure Code: 02720 Procedure Name: not valued, on 04/22/2016 12: 00 AM * Completed Esophagogastroduodenoscopy, by MD BAIRON HAMILTON, on 11/20/2015 12:55 PM * Completed Procedure Code: 13700 Procedure Name: not valued, on 11/20/2015 12: 00 AM * Completed Procedure Code: 59989 Procedure Name: not valued, on 11/20/2015 12: 00 AM * Completed Procedure Code: 45.16 Procedure Name: not valued, on 03/12/2014 12: 00 AM * Completed Procedure Code: 45.25 Procedure Name: not valued, on 03/12/2014 12: 00 AM * Completed , on 08/20/2009 12:00 AM Immunizations * Influenza, seasonal, injectable (NOVARTIS, Lot # [id number]); Administered 2013 9:24 AM; 0.5 ML=1 DOSE, [...]
--- OUTSIDE RECORDS SUMMARY | 2017-02-24 17:18 | XMS REPORT ---
Author Author GENERATED, SYSTEM Organization Unknown Address Unknown Phone Unavailable Care Team Providers Care Braille Proofreader Name Role Phone MD GRACY, NAVIN PP [phone] Reason For Visit Chief Complaint LEG PAIN [...] 1 :12 PM * Completed Procedure Code: 41066 Procedure Name: not valued, on 04/22/2016 12: 00 AM * Completed Esophagogastroduodenoscopy, by MD BAIRON HAMILTON, on 11/20/2015 12:55 PM * Completed Procedure Code: 98668 Procedure Name: not valued, on 11/20/2015 12: 00 AM * Completed Procedure Code: 02126 Procedure Name: not valued, on 11/20/2015 12: 00 AM * Completed Procedure Code: 45.16 Procedure Name: not valued, on 03/12/2014 12: 00 AM * Completed Procedure Code: 45.25 Procedure Name: not valued, on 03/12/2014 12: 00 AM * Completed , on 08/20/2009 12:00 AM Immunizations * Influenza, seasonal, injectable (NOVARTIS, Lot # [id number]); Administered 2013 9:24 AM; 0.5 ML=1 DOSE, [...]
--- NOTE | 2017-02-24 17:19 | ERPDOC ---
Departure Disposition Decision Date: February 24, 2017 Disposition Decision Time: 21:09 (DARIUS LEIGH APRN) Disposition: 01 DISCHARGED HOME, SELF-CARE Impression Impression (DARIUS LEIGH APRN) Impression: Primary Impression: Encephalopathy acute Additional Impressions: Leukocytosis Leukocytosis type: unspecified Qualified Codes: D72.829 - Elevated white blood cell count, unspecified SIRS (systemic inflammatory response syndrome) Severity: Moderate (DARIUS LEIGH APRN) Condition: Stable Seen By: Mid-level only (DARIUS LEIGH APRN) Referrals: KEON SCHMITZ DO (Family) Problems/Meds/Labs Reviewed?: Yes Medications reviewed and manag: Yes (DARIUS LEIGH APRN) Follow up care ordered?: Yes Mental Status: Alert, Oriented (DARIUS LEIGH APRN) Scripts Amoxicillin/Potassium Clav (Augmentin 875-125 Tablet) 1 Each Tablet 1 TAB PO BID for 5 Days, #10 TAB TAKE WITH MEALS Prov: ROMEO FITZPATRICK MD 02/27/17 Multivitamin (Ban-Dcmcxn-Fisnm) 1 Each Tablet 1 TAB PO DAILY, #1 BOTTLE Prov: ROMEO FITZPATRICK MD 02/27/17 Fluticasone Propionate (Fluticasone Prop 50 mcg/actuation Nasal Allison) 120 Allison /16 G Allison 2 SPRAY EA NOSTRIL DAILY, #1 ML Prov: ROMEO FITZPATRICK MD 02/27/17 HPI - Abdominal Pain General Chief Complaint: Nausea,Vomiting,Diarrhea Stated Complaint: VOMITING,DIARRHEA Time Seen by Provider: 17:00 Source: patient History/Exam Limitations: no limitations (DARIUS LEIGH APRN) Time Seen by Provider: 17:00 (JEANNIE GARCIA MD) HPI - Abdominal Pain Initial Comments She has a history of chronic pancreatitis. She states that she has had trouble with her gallbladder in the past. She is a little difficult to follow up with history as she does not provide specific details to complete the story. Almost seems confused or intoxicated. She denies any drug or alcohol intake. States that Tuesday she started not feeling well. Has been having abdominal pain, vomiting, and diarrhea. She also has had a fever up to 103 at home. Had been advised by her PCP to come to ER. Has been taking medication for diarrhea at home. When asked where her pain is however she removes her gown to show me her abdominal pain is in the lower abdomen but is not TTP at all on her abdomen. Occurred At: home Onset: Gradual Duration: other (Over the last 4 days) Quality: sharpness Location: [facility] Radiation: no radiation Activities at Onset: none Associated Symptoms: fever/chills (up to 103 the last 2 days), nausea/vomiting , DENIES: back pain, chest pain, diaphoresis, fatigue, headache, heartburn, rash , shortness of breath, swelling/mass in abdomen, syncope, weakness Hx of Similar Symptoms: No (NOLD,DARIUS N TEAM OTR TRUCK DRIVER) Allergies: Coded Allergies: metoclopramide (Verified Allergy, Unknown, 10/27/14) sumatriptan (Verified Allergy, Unknown, 10/27/14) acetaminophen (Unverified Adverse Reaction, Mild, RASH, 08/12/15) codeine (Unverified Adverse Reaction, Mild, RASH, 08/12/15) Uncoded Allergies: PRO-PEN (Allergy, Severe, SHOCK, 08/12/15) PROPEL (Allergy, Unknown, 10/27/14) PANCREATIC ENZYME Past History Past Medical History Metabolic: other GI: pancreatitis (NOLD,DARIUS N TEAM OTR TRUCK DRIVER) Surgical History General: other (NOLD,DARIUS N TEAM OTR TRUCK DRIVER) Family History Family PMH: FOUND: other (NOLD,DARIUS N TEAM OTR TRUCK DRIVER) Vaccines Hx Influenza Vaccination: No Hx Pneumococcal Vaccination: No (NOLD,DARIUS N TEAM OTR TRUCK DRIVER) Review of Systems Constitutional Constitutional: fatigue, fever, weakness, DENIES: appetite decrease, chills, dizziness (NOLD,DARIUS N TEAM OTR TRUCK DRIVER) Cardiovascular Cardiac: DENIES: chest pain, orthopnea Rhythm/Rate: DENIES: irregular beat, palpitations Vascular: DENIES: pedal edema, unilateral swelling (NOLD,DARIUS N TEAM OTR TRUCK DRIVER) Pulmonary Respiratory: DENIES: cough, dyspnea, sputum, tachypnea (NOLD,DARIUS N TEAM OTR TRUCK DRIVER) GI Upper Abdomen: DENIES: nausea, pain Lower Abdomen: DENIES: diarrhea, pain (NOLD,DARIUS N TEAM OTR TRUCK DRIVER) Physical Exam General General Nourishment: well nourished, well developed, appears stated age, no acute distress, adult General Body Habitus: well groomed (DARIUS LEIGH APRN) Vitals and Pain Weight: Kilograms: 59.300 Height (feet): 5 Height (inches): 7.00 Triage Pain Scale: (DARIUS LEIGH APRN) RN VS reviewed by Provider: Yes (DARIUS LEIGH APRN) Normal Exams: Neck: Full range of motion, without adenopathy, JVD, bruits or thyromegaly Chest/Resp: Clear all avelar, with good airflow, and symmetry bilaterally CV: Regular rate and rhythm, without murmur or gallop, Pulses 2+ all extremities, capillary refill, <2 seconds all ext., no pedal edema noted Abdomen: Bowel sounds positive, soft, non-tender, non-distended, no hepatosplenomegaly, masses or bruits noted Lymphatic: No lymphadenopathy, or lymphedema noted Integumentary: No rashes, hives, or bruising noted Neurologic: Patient is alert, and oriented Psychiatric: Patient exhibits, appropriate attention, emotion and affect (DARIUS LEIGH APRN) Abdomen Inspection: NOT FOUND: distention Palpation: NOT FOUND: involuntary guarding, soft, tender, voluntary guarding Auscultation: FOUND: normoactive (DARIUS LEIGH APRN) Differential Diagnoses Considering: Dehydration, Diverticulitis, Food Poisoning, Gastroenteritis, Hepatitis, Hyponatremia, Hypokalemia, Hypoglycemia, Pancreatitis, UTI, Other ( Sepsis) (DARIUS LEIGH APRN) Progress Results/Orders Orders Procedure Category Date Status Time Cbc W/Auto LAB 02/24/17 Complete Diff-Reflex Manual Cmp - Comprehensive LAB 02/24/17 Complete Metabolic Lipase LAB 02/24/17 Complete Iv Lock (Ed Only) EDM 02/24/17 Transmitted 17:13 Normal Saline (Normal PHA 02/24/17 Complete Saline Iv) 17:15 Prochlorperazine PHA 02/24/17 Complete (Compazine) 17:15 Hydromorphone PHA 02/24/17 Complete (Dilaudid) 17:15 Blood Culture AKI 02/24/17 In Process 17:23 Lactate - Lactic Acid LAB 02/24/17 Complete Procalcitonin LAB 02/24/17 Complete 17:23 Lactate - Lactic Acid LAB 02/24/17 Complete 21:53 Ethanol LAB 02/24/17 Complete Iohexol (Omnipaque) PHA 02/24/17 Complete 18:07 Normal Saline (Ns) PHA 02/24/17 Complete 18:07 Saline Flush (Iv PHA 02/24/17 Complete Flush) 18:07 Ct Abd/Pelvis W/O CT 02/24/17 Resulted Contrast 17:58 Chest, Pa & Lateral RAD 02/24/17 Resulted Ceftriaxone I.V. (Er PHA 02/24/17 Complete Use Only) (Rocephin 20:15 Azithromycin PHA 02/24/17 Complete (Zithromax 500 Mg) 20:15 Ua, Dip Wreflex LAB 02/24/17 Complete Microsc & Web Sizer 20:30 Place In Facility As: ADMIT 02/24/17 Transmitted Normal Saline (Normal PHA 02/24/17 Complete Saline Iv) 21:15 (JEANNIE GARCIA MD) Lab Results Laboratory Tests Test 02/24/17 17:27 02/24/17 17:33 02/24/17 17:34 02/24/17 20:28 White Blood Count 16.5T/MM3 Red Blood Count 3.99M/MM3 Hemoglobin 13.2GM/DL Hematocrit 41.0% Mean Corpuscular Volume 102.8UM3 Mean Corpuscular Hemoglobin 33.1UUG Mean Corpuscular Hemoglobin Concent 32.2GM/DL RDW Standard Deviation 50.9FL Platelet Count 308T/MM3 Mean Platelet Volume 9.5UM3 Immature Granulocyte % (Auto) % Neutrophils (%) (Auto) % Lymphocytes (%) (Auto) % Monocytes (%) (Auto) % Eosinophils (%) (Auto) % Basophils (%) (Auto) % Absolute Immature Granulocyte (auto T/MM3 Absolute Neutrophils (auto) T/MM3 Absolute Lymphocytes (auto) T/MM3 Absolute Monocytes (auto) T/MM3 Absolute Eosinophils (auto) T/MM3 Absolute Basophils (auto) T/MM3 Neutrophils % (Manual) 74.0% Band Neutrophils % 1.0% Lymphocytes % (Manual) 13.0% Reactive Lymphocytes % 2.0% Monocytes % (Manual) 8.0% Eosinophils % (Manual) 2.0% Absolute Neutrophils (Manual) 12.2T/MM3 Band Neutrophils # 0.2T/MM3 Lymphocytes # (Manual) 2.1T/MM3 Reactive Lymphocytes # 0.3T/MM3 Monocytes # (Manual) 1.3T/MM3 Eosinophils # (Manual) 0.3T/MM3 Red Cell Morphology Comment Normal Turbidity < 20 Sodium Level 147MEQ/L Potassium Level 3.9MEQ/L Chloride Level 111MEQ/L Carbon Dioxide Level 23MEQ/L Anion Gap 13MEQ/L Blood Urea Nitrogen 12.0MG/DL Creatinine 0.8MG/DL Glomerular Filtration Rate Calc 74 BUN/Creatinine Ratio 15RATIO Glucose Level 116MG/DL Calculated Osmolality 283MOSM/KG Calcium Level 9.5MG/DL Total Bilirubin 0.60MG/DL Icterus Index < 2 Aspartate Amino Transf (AST/SGOT) 12U/L Alanine Aminotransferase (ALT/SGPT) 30U/L Alkaline Phosphatase 114U/L Total Protein 6.7G/DL Albumin 3.6G/DL Globulin 3.1G/DL Albumin/Globulin Ratio 1.2RATIO Lipase 36U/L Plasma Lactate 1.6MMOL/L Chemistry Specimen Hemolysis < 15 Alcohol, Quantitative <10MG/DL Procalcitonin 0.46NG/ML Urine Collection Type Cleancatch-midstream Urine Color Yellow Urine Turbidity Clear Urine pH 5.5 Urine Specific [place] <=1.005 Urine Protein Negative Urine Glucose (UA) Negative Urine Ketones Negative Urine Blood Negative Urine Nitrite Negative Urine Bilirubin Negative Urine Urobilinogen 0.2EU/DL Urine Leukocyte Esterase Negative Urinalysis Comment Microscopic not ind. (JEANNIE GARCIA MD) Lab Results Laboratory Tests Test 02/24/17 17:27 02/24/17 17:33 02/24/17 17:34 02/24/17 20:28 White Blood Count 16.5T/MM3 Red Blood Count 3.99M/MM3 Hemoglobin 13.2GM/DL Hematocrit 41.0% Mean Corpuscular Volume 102.8UM3 Mean Corpuscular Hemoglobin 33.1UUG Mean Corpuscular Hemoglobin Concent 32.2GM/DL RDW Standard Deviation 50.9FL Platelet Count 308T/MM3 Mean Platelet Volume 9.5UM3 Immature Granulocyte % (Auto) % Neutrophils (%) (Auto) % Lymphocytes (%) (Auto) % Monocytes (%) (Auto) % Eosinophils (%) (Auto) % Basophils (%) (Auto) % Absolute Immature Granulocyte (auto T/MM3 Absolute Neutrophils (auto) T/MM3 Absolute Lymphocytes (auto) T/MM3 Absolute Monocytes (auto) T/MM3 Absolute Eosinophils (auto) T/MM3 Absolute Basophils (auto) T/MM3 Neutrophils % (Manual) 74.0% Band Neutrophils % 1.0% Lymphocytes % (Manual) 13.0% Reactive Lymphocytes % 2.0% Monocytes % (Manual) 8.0% Eosinophils % (Manual) 2.0% Absolute Neutrophils (Manual) 12.2T/MM3 Band Neutrophils # 0.2T/MM3 Lymphocytes # (Manual) 2.1T/MM3 Reactive Lymphocytes # 0.3T/MM3 Monocytes # (Manual) 1.3T/MM3 Eosinophils # (Manual) 0.3T/MM3 Red Cell Morphology Comment Normal Turbidity < 20 Sodium Level 147MEQ/L Potassium Level 3.9MEQ/L Chloride Level 111MEQ/L Carbon Dioxide Level 23MEQ/L Anion Gap 13MEQ/L Blood Urea Nitrogen 12.0MG/DL Creatinine 0.8MG/DL Glomerular Filtration Rate Calc 74 BUN/Creatinine Ratio 15RATIO Glucose Level 116MG/DL Calculated Osmolality 283MOSM/KG Calcium Level 9.5MG/DL Total Bilirubin 0.60MG/DL Icterus Index < 2 Aspartate Amino Transf (AST/SGOT) 12U/L Alanine Aminotransferase (ALT/SGPT) 30U/L Alkaline Phosphatase 114U/L Total Protein 6.7G/DL Albumin 3.6G/DL Globulin 3.1G/DL Albumin/Globulin Ratio 1.2RATIO Lipase 36U/L Plasma Lactate 1.6MMOL/L Chemistry Specimen Hemolysis < 15 Alcohol, Quantitative <10MG/DL Procalcitonin 0.46NG/ML Urine Collection Type Cleancatch-midstream Urine Color Yellow Urine Turbidity Clear Urine pH 5.5 Urine Specific [place] <=1.005 Urine Protein Negative Urine Glucose (UA) Negative Urine Ketones Negative Urine Blood Negative Urine Nitrite Negative Urine Bilirubin Negative Urine Urobilinogen 0.2EU/DL Urine Leukocyte Esterase Negative Urinalysis Comment Microscopic not ind. (NOLD,DARIUS N TEAM OTR TRUCK DRIVER) Medications Current ED Medications Sodium Chloride (Normal Saline IV) 1,000 ml @ 1,000 mls/hr Q1H ONCE IV Last administered on 02/24/17t 17:41; Start 02/24/17 at 17:15; Stop 02/24/17 at 18:14; Status DC Prochlorperazine Edisylate (Compazine) 10 mg O ONCE IV Last administered on 17:45; Start 02/24/17 at 17:15; Stop 02/24/17 at 17:16; Status DC Hydromorphone HCl (Dilaudid) 0.5 mg O ONCE IV Last administered on 02/24/17 17 :47; Start 02/24/17 at 17:15; Stop 02/24/17 at 17:16; Status DC Iohexol 1 bottle 1 bottle STK-MED ONCE .ROUTE ; Start 02/24/17 at 18:07; Stop 02/24/17 at 18:08; Status DC Sodium Chloride (NS) 0 ml @ As Directed STK-MED ONCE .ROUTE ; Start 02/24/17 at 18:07; Stop 02/24/17 at 18:08; Status DC Sodium Chloride 10 ml 10 ml STK-MED ONCE .ROUTE ; Start 02/24/17 at 18:07; Stop 02/24/17 at 18:08; Status DC Ceftriaxone Sodium/Sodium Chloride (Rocephin/NS) 100 ml @ 100 mls/hr O ONCE IV Last administered on 02/24/17 20:38; Start 02/24/17 at 20:15; Stop 02/24/17 at 21:14; Status DC Azithromycin (ZITHROMAX 500 mg) 500 mg O ONCE PO Last administered on 20:38; Start 02/24/17 at 20:15; Stop 02/24/17 at 20:16; Status DC (JEANNIE GARCIA MD) Progress Progress WBC is elevated at 16.5 with 74% neutrophils. Na-147, lactate is 1.6, procalcitonin is 0.46. CT of abdomen is without due to not able to get an IV large enough at this time for CT with. Does show right lower lobe airspace disease. Chest xray does show possible RLL. Rocephin and Zithromax were given for CAP. Noted that her blood pressures have remained low in ER with currently pressure of 101 systolic but the majority has have been in the 90s, pulse at this time is 92 with 100% O2 sats. I did talk with Tova. She continues to be somewhat confused and does appear disheveled. I did speak with Dr Hernandez and will admit her at this time OBS due to low blood pressures, confusion, and leukocytosis. (DARIUS LEIGH APRN) Xray Xray : Reason for Exam: elevated WBC Xray: CXR PA/Lat Interpretation: Abnormal (possible RLL pneumonia) (DARIUS LEIGH APRN) CT CT : Reason for Exam: abdominal pain CT: Abd/Pelvis no contrast Interpretation: Normal (DARIUS LEIGH APRN) DARIUS LEIGH APRN February 24, 2017 17:19 JEANNIE GARCIA MD March 01, 2017 01:42
--- OUTSIDE RECORDS SUMMARY | 2017-02-24 17:19 | XMS REPORT ---
Author Author GENERATED, SYSTEM Organization Unknown Address Unknown Phone Unavailable Care Team Providers Care Jacker Name Role Phone UNASSIGNED DOCTOR , DOCTOR PP [phone] Reason For Visit Chief Complaint MENTAL STATUS [...] * Influenza, seasonal, injectable (NOVARTIS, Lot # [id number]); Administered 2013 9:24 AM; 0.5 ML=1 DOSE, [...]
--- OUTSIDE RECORDS SUMMARY | 2017-02-24 17:19 | XMS REPORT ---
Author Author GENERATED, SYSTEM Organization Unknown Address Unknown Phone Unavailable Care Team Providers Care Manager Call Center Name Role Phone UNASSIGNED DOCTOR , DOCTOR PP [phone] Reason For Visit Chief Complaint ABDOMINAL PAIN [...]
--- OUTSIDE RECORDS SUMMARY | 2017-02-24 17:19 | XMS REPORT ---
Author Author GENERATED, SYSTEM Organization Unknown Address Unknown Phone Unavailable Care Team Providers Care Gas Turbine Mechanic Name Role Phone UNASSIGNED DOCTOR , DOCTOR PP [phone] Reason For Visit Chief Complaint VOMITING Social [...] H (65-99 MG/DL) GFR EST NON AFR CAMEROONIAN >90 ML/MIN GFRA EST AFR AMER >90 [...] AM* Status: Final Result URINALYSIS Specimen Number: [id number] Sample Collection Date/Time: 09/21/2014 5:00 AM Specimen [...]
--- OUTSIDE RECORDS SUMMARY | 2017-02-24 17:19 | XMS REPORT ---
Author Author GENERATED, SYSTEM Organization Unknown Address Unknown Phone Unavailable Care Team Providers Care Medical Social Worker Name Role Phone UNASSIGNED DOCTOR , DOCTOR PP [phone] Reason For Visit Chief Complaint SYNCOPE EPISODES [...] * Influenza, seasonal, injectable (NOVARTIS, Lot # [id number]); Administered 2013 9:24 AM; 0.5 ML=1 DOSE, [...]
--- OUTSIDE RECORDS SUMMARY | 2017-02-24 17:19 | XMS REPORT ---
Author Author GENERATED, SYSTEM Organization Unknown Address Unknown Phone Unavailable Care Team Providers Care Supervisor Capacitor Processing Name Role Phone MD GRACY, NAVIN PP [phone] Reason For Visit Chief Complaint OSTEOMYELITIS Social [...] 1 :12 PM * Completed Procedure Code: 56199 Procedure Name: not valued, on 04/22/2016 12: 00 AM * Completed Esophagogastroduodenoscopy, by MD BAIRON HAMILTON, on 11/20/2015 12:55 PM * Completed Procedure Code: 18190 Procedure Name: not valued, on 11/20/2015 12: 00 AM * Completed Procedure Code: 14700 Procedure Name: not valued, on 11/20/2015 12: 00 AM * Completed Procedure Code: 45.16 Procedure Name: not valued, on 03/12/2014 12: 00 AM * Completed Procedure Code: 45.25 Procedure Name: not valued, on 03/12/2014 12: 00 AM * Completed , on 08/20/2009 12:00 AM Immunizations * Influenza, seasonal, injectable (NOVARTIS, Lot # [id number]); Administered 2013 9:24 AM; 0.5 ML=1 DOSE, [...]
--- OUTSIDE RECORDS SUMMARY | 2017-02-24 17:19 | XMS REPORT ---
Author Author GENERATED, SYSTEM Organization Unknown Address Unknown Phone Unavailable Care Team Providers Care Chief Steward/Stewardess Name Role Phone MD GRACY, NAVIN PP [phone] Reason For Visit Chief Complaint M25.551, S82.890G Social History Functional Status Vital Signs Results [...] 1 :12 PM * Completed Procedure Code: 94888 Procedure Name: not valued, on 04/22/2016 12: 00 AM * Completed Esophagogastroduodenoscopy, by MD BAIRON HAMILTON, on 11/20/2015 12:55 PM * Completed Procedure Code: 39480 Procedure Name: not valued, on 11/20/2015 12: 00 AM * Completed Procedure Code: 06798 Procedure Name: not valued, on 11/20/2015 12: 00 AM * Completed Procedure Code: 45.16 Procedure Name: not valued, on 03/12/2014 12: 00 AM * Completed Procedure Code: 45.25 Procedure Name: not valued, on 03/12/2014 12: 00 AM * Completed , on 08/20/2009 12:00 AM Immunizations * Influenza, seasonal, injectable (NOVARTIS, Lot # [id number]); Administered 2013 9:24 AM; 0.5 ML=1 DOSE, [...]
--- OUTSIDE RECORDS SUMMARY | 2017-02-24 17:19 | XMS REPORT ---
Author Author GENERATED, SYSTEM Organization Unknown Address Unknown Phone Unavailable Care Team Providers Care Drug Abuse Program Coordinator Name Role Phone MD JENIFFER, HANS PP [phone] Reason For Visit Chief Complaint 789.00 787.01 [...]
[2017-02-24 17:39] LABS: HGB - HEMOGLOBIN 13.2 GM/DL (12-16); MEAN CORPUSCULAR HGB 33.1 UUG (26-34); MEAN CORPUSCULAR HGB CONC(MCHC 32.2 GM/DL (31-37); MEAN CORPUSCULAR VOLUME 102.8 UM3 (80-100); MEAN PLATELET VOLUME 9.5 UM3 (9.4-12.4); RED BLOOD COUNT 3.99 M/MM3 (4.00-5.20); WBC - WHITE BLOOD COUNT 16.5 T/MM3 (4.5-11.0)
[2017-02-24 17:48] LABS: ALBUMIN 3.6 G/DL (3.5-5.0); ALBUMIN/GLOBULIN RATIO 1.2 RATIO (1.1-2.2); ALKALINE PHOSPHATASE 114 U/L (38-126); ALT (SGPT) 30 U/L (9-52); ANION GAP 13 MEQ/L (5-15); AST (SGOT) 12 U/L (14-36); BUN/CREATININE RATIO 15 RATIO (6-26); CALCIUM 9.5 MG/DL (8.4-10.2); CHLORIDE 111 MEQ/L (98-107); CO2 - CARBON DIOXIDE 23 MEQ/L (22-30); CREATININE 0.8 MG/DL (0.7-1.2); GLOMERULAR FILTRATION RATE 74; GLUCOSE 116 MG/DL (65-110); LACTATE - LACTIC ACID 1.6 MMOL/L (0.6-2.2); LIPASE 36 U/L (23-300); POTASSIUM 3.9 MEQ/L (3.6-5); SODIUM 147 MEQ/L (134-144); TOTAL PROTEIN 6.7 G/DL (6.3-8.2)
[2017-02-24] MEDS ORDERED: SALINE FLUSH 10ml SYRINGE ONE (18:07)
[2017-02-24] MEDS ORDERED: IOHEXOL 300 MG/ML 100ml INJECTION ONE (18:07)
[2017-02-24] MEDS ORDERED: NORMAL SALINE 0 ML ONE (18:07)
[2017-02-24 18:08] LABS: BAND NEUTROPHILS # 0.2 T/MM3; EOSINOPHILS # (MANUAL) 0.3 T/MM3 (0-0.5); LYMPHOCYTES # (MANUAL) 2.1 T/MM3 (1-4.8); MONOCYTES # (MANUAL) 1.3 T/MM3 (0-0.8); NEUTROPHILS #(MANUAL)-ABSOLUTE 12.2 T/MM3 (1.8-7.7); REACTIVE LYMPHOCYTES # 0.3 T/MM3 (0-0)
--- NOTE | 2017-02-24 18:46 | NUR ---
IV X2 UNSUCCESSFUL IV ATTEMPTS WITH ASSIST OF VEIN FINDER. PT NEEDS A [address]ATER FOR [address] WITH CONTRAST. DISCUSSED WITH RODRICK, FISH HOUSEKEEPER ABOVE INFORMATION
--- NOTE | 2017-02-24 19:35 | NUR ---
STATUS PT SLEEPS ON CART. FLUIDS INFUSING. IV SITE COVERED WITH COBAN TO KEEP PT FROM PULLING AT TUBES.
[2017-02-24] MEDS ORDERED: AZITHROMYCIN 500 MG TABLET PO ONE (20:15)
[2017-02-24] MEDS ORDERED: CEFTRIAXONE I.V. (ER USE ONLY) 1 G in NORMAL SALINE 100 ML IV ONE (20:15)
--- NOTE | 2017-02-24 20:20 | NUR ---
UA ST CATH UA PERFORMED. UA COLLECTED AND SENT TO LAB
[2017-02-24 20:39] LABS: BLOOD, URINE NEGATIVE (NEGATIVE); COLOR,URINE YELLOW (YELLOW); LEUKOCYTE ESTERASE ,URINE NEGATIVE (NEGATIVE); NITRITE,URINE NEGATIVE (NEGATIVE); UROBILINOGEN,URINE 0.2 EU/DL (NORMAL)
--- NOTE | 2017-02-24 21:16 | NUR ---
DIO KYLE RN ASSIGNS ROOM 145.
--- NOTE | 2017-02-24 21:17 | NUR ---
IV SITE PT PULLS IV SITE OUT. NEW SITE ATTEMPTED X4. NO SUCCESS. ENGLISH COMPOSITION TEACHER NOTIFIED.
--- OUTSIDE RECORDS SUMMARY | 2017-02-24 21:23 | XMS REPORT ---
Author Author GENERATED, SYSTEM Organization Unknown Address Unknown Phone Unavailable Care Team Providers Care Project Administrative Assistant Name Role Phone UNASSIGNED DOCTOR , DOCTOR PP [phone] Reason For Visit Chief Complaint CHEST PAIN [...] H (65-99 MG/DL) GFR EST NON AFR IVORIAN 87 ML/MIN GFRA EST AFR AMER >90 [...] 0067 - CHEST 2 VIEWS CPT Code(s): 61493-; ; ; INDICATION / CLINICAL HISTORY: \\E\\Chest [...]
--- OUTSIDE RECORDS SUMMARY | 2017-02-24 21:23 | XMS REPORT ---
Author Author GENERATED, SYSTEM Organization Unknown Address Unknown Phone Unavailable Care Team Providers Care Ward Attendant Name Role Phone UNASSIGNED DOCTOR , DOCTOR PP [phone] Reason For Visit Chief Complaint CONFUSION, SOB [...] * Influenza, seasonal, injectable (NOVARTIS, Lot # [id number]); Administered 2013 9:24 AM; 0.5 ML=1 DOSE, [...]
--- OUTSIDE RECORDS SUMMARY | 2017-02-24 21:23 | XMS REPORT ---
Author Author GENERATED, SYSTEM Organization Unknown Address Unknown Phone Unavailable Care Team Providers Care Umbrella Tipper Machine Name Role Phone MD GRACY, NAVIN [phone] Reason For Visit Reason for Visit from [...] H (65-99 MG/DL) *GFR EST NON AFR CYMRAES 54 ML/MIN *GFR EST AFR AMER 62 [...] H (65-99 MG/DL) *GFR EST NON AFR CYMRAES 69 ML/MIN *GFR EST AFR AMER 80 [...] H (65-99 MG/DL) *GFR EST NON AFR CYMRAES 75 ML/MIN *GFR EST AFR AMER 87 [...] H (65-99 MG/DL) *GFR EST NON AFR CYMRAES 69 ML/MIN *GFR EST AFR AMER 80 [...] H (65-99 MG/DL) *GFR EST NON AFR CYMRAES 67 ML/MIN *GFR EST AFR AMER 77 [...] 1 :12 PM * Completed Procedure Code: 22640 Procedure Name: not valued, on 04/22/2016 12: 00 AM * Completed Esophagogastroduodenoscopy, by MD BAIRON HAMILTON, on 11/20/2015 12:55 PM * Completed Procedure Code: 69625 Procedure Name: not valued, on 11/20/2015 12: 00 AM * Completed Procedure Code: 87692 Procedure Name: not valued, on 11/20/2015 12: 00 AM * Completed Procedure Code: 45.16 Procedure Name: not valued, on 03/12/2014 12: 00 AM * Completed Procedure Code: 45.25 Procedure Name: not valued, on 03/12/2014 12: 00 AM * Completed , on 08/20/2009 12:00 AM Immunizations * Influenza, seasonal, injectable (NOVARTIS, Lot # [id number]); Administered 2013 9:24 AM; 0.5 ML=1 DOSE, [...]
--- OUTSIDE RECORDS SUMMARY | 2017-02-24 21:23 | XMS REPORT ---
Author Author GENERATED, SYSTEM Organization Unknown Address Unknown Phone Unavailable Care Team Providers Care Theater Usher Name Role Phone MD GRACY, NAVIN PP [phone] Reason For Visit Chief Complaint OLECRANON BURSITIS [...] 1 :12 PM * Completed Procedure Code: 87126 Procedure Name: not valued, on 04/22/2016 12: 00 AM * Completed Esophagogastroduodenoscopy, by MD BAIRON HAMILTON, on 11/20/2015 12:55 PM * Completed Procedure Code: 46387 Procedure Name: not valued, on 11/20/2015 12: 00 AM * Completed Procedure Code: 25150 Procedure Name: not valued, on 11/20/2015 12: 00 AM * Completed Procedure Code: 45.16 Procedure Name: not valued, on 03/12/2014 12: 00 AM * Completed Procedure Code: 45.25 Procedure Name: not valued, on 03/12/2014 12: 00 AM * Completed , on 08/20/2009 12:00 AM Immunizations * Influenza, seasonal, injectable (NOVARTIS, Lot # [id number]); Administered 2013 9:24 AM; 0.5 ML=1 DOSE, [...]
--- OUTSIDE RECORDS SUMMARY | 2017-02-24 21:23 | XMS REPORT ---
Author Author GENERATED, SYSTEM Organization Unknown Address Unknown Phone Unavailable Care Team Providers Care Contour Grinder Name Role Phone MD GRACY, NAVIN [phone] Reason For Visit Reason for Visit from [...] H (65-99 MG/DL) *GFR EST NON AFR NIGERIAN >90 ML/MIN *GFR EST AFR AMER >90 [...] AM* CULTURE WOUND (Preliminary Result) Specimen Number: [id number] Sample Collection Date/Time: 08/13/2016 9:34 AM Specimen Source: Arm Left Elbow CULTURE WOUND: Staphylococcus aureus Moderate growth *GRAM STAIN: Few WBC's Few Gram positive cocci in clusters * *GRAM STAIN Specimen Number: [id number] Sample Collection Date/Time: 08/13/2016 9:34 AM Specimen [...] and walks to work everyday ([employer] in [place]). HILDA reinforced that Pt will not be eligible for home health with infusion services for this reason. HILDA arranged for Pt to come into outpatient infusion at [facility] at 16:00 on this date after hospital discharge. Pt reported her restorationism friend will be able to transport her when this SW spoke with Pt at 11:15. At 17:00, HILDA received a phone call from Pt. Pt reported she is having difficulties finding transportation- "My restorationism friends just dropped my off at home [...] want to wait I will call my restorationism friend" (per Pt). Pt was able to successfully arrange transportation for herself. HILDA informed Pt that following her outpatient infusion appointment on this date, she will have to come into [facility] at 8:00 and 19:00 (per infusion staff). HILDA offered transportation options: [facility], Medicaid transport, asking family/ friends / restorationism members.. Pt voiced understanding. 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 Patient states she was scheduled to return [...] 1 :12 PM * Completed Procedure Code: 75797 Procedure Name: not valued, on 04/22/2016 12: 00 AM * Completed Esophagogastroduodenoscopy, by MD BAIRON HAMILTON, on 11/20/2015 12:55 PM * Completed Procedure Code: 02238 Procedure Name: not valued, on 11/20/2015 12: 00 AM * Completed Procedure Code: 74094 Procedure Name: not valued, on 11/20/2015 12: 00 AM * Completed Procedure Code: 45.16 Procedure Name: not valued, on 03/12/2014 12: 00 AM * Completed Procedure Code: 45.25 Procedure Name: not valued, on 03/12/2014 12: 00 AM * Completed , on 08/20/2009 12:00 AM Immunizations * Influenza, seasonal, injectable (NOVARTIS, Lot # [id number]); Administered 2013 9:24 AM; 0.5 ML=1 DOSE, [...] the responsibility of the patient or patient ocean import representative to confirm the list of medications [...]
--- OUTSIDE RECORDS SUMMARY | 2017-02-24 21:23 | XMS REPORT ---
Author Author GENERATED, SYSTEM Organization Unknown Address Unknown Phone Unavailable Care Team Providers Care Senior Bioinformatics Specialist Name Role Phone MD GRACY, NAVIN PP [phone] Reason For Visit Chief Complaint WEAKNESS Social [...] H (65-99 MG/DL) *GFR EST NON AFR WALLISIAN 67 ML/MIN *GFR EST AFR AMER 77 [...] 1 :12 PM * Completed Procedure Code: 48733 Procedure Name: not valued, on 04/22/2016 12: 00 AM * Completed Esophagogastroduodenoscopy, by MD BAIRON HAMILTON, on 11/20/2015 12:55 PM * Completed Procedure Code: 36061 Procedure Name: not valued, on 11/20/2015 12: 00 AM * Completed Procedure Code: 05866 Procedure Name: not valued, on 11/20/2015 12: 00 AM * Completed Procedure Code: 45.16 Procedure Name: not valued, on 03/12/2014 12: 00 AM * Completed Procedure Code: 45.25 Procedure Name: not valued, on 03/12/2014 12: 00 AM * Completed , on 08/20/2009 12:00 AM Immunizations * Influenza, seasonal, injectable (NOVARTIS, Lot # [id number]); Administered 2013 9:24 AM; 0.5 ML=1 DOSE, [...]
--- OUTSIDE RECORDS SUMMARY | 2017-02-24 21:23 | XMS REPORT ---
Author Author GENERATED, SYSTEM Organization Unknown Address Unknown Phone Unavailable Care Team Providers Care Motor Coach Tour Operator Name Role Phone UNASSIGNED DOCTOR , DOCTOR PP [phone] Reason For Visit Chief Complaint LEFT MEDS IN [place] Social History Functional Status Vital Signs Results [...] * Influenza, seasonal, injectable (NOVARTIS, Lot # [id number]); Administered 2013 9:24 AM; 0.5 ML=1 DOSE, [...]
--- OUTSIDE RECORDS SUMMARY | 2017-02-24 21:23 | XMS REPORT ---
Author Author GENERATED, SYSTEM Organization Unknown Address Unknown Phone Unavailable Care Team Providers Care Machine Washer Name Role Phone UNASSIGNED DOCTOR , DOCTOR PP [phone] Reason For Visit Chief Complaint CONTUSIONS TO FACE Social History Functional Status Vital Signs Results CT Scan from 01/03/2015 4:08 PMCT CEREBRAL W/O CONTRAST DATE OF EXAM: Jan 03 2015 4:39PM Proc: CT 0001 - CT CEREBRAL W/O CONTRAST CPT Code(s): 15355-; ; ; INDICATION / CLINICAL HISTORY: Head [...] CT FACIAL BONES W/O CONTRAST CPT Code(s): 47637-; ; ; INDICATION / CLINICAL HISTORY: Facial [...] CT SPINE CERVICAL W/O CONTRAST CPT Code(s): 65885-; ; ; INDICATION / CLINICAL HISTORY: Head [...]
--- OUTSIDE RECORDS SUMMARY | 2017-02-24 21:23 | XMS REPORT ---
Author Author GENERATED, SYSTEM Organization Unknown Address Unknown Phone Unavailable Care Team Providers Care Hospice Care Transitions Coordinator Name Role Phone MD GRACY, NAVIN [phone] Reason For Visit Chief Complaint LEG PAIN [...] H (65-99 MG/DL) *GFR EST NON AFR ARMENIAN 77 ML/MIN *GFR EST AFR AMER 90 [...] AM* CULTURE URINE (Preliminary Result) Specimen Number: [id number] Sample Collection Date/Time: 06/23/2016 12:46 AM Specimen [...] 1 :12 PM * Completed Procedure Code: 63453 Procedure Name: not valued, on 04/22/2016 12: 00 AM * Completed Esophagogastroduodenoscopy, by MD BAIRON HAMILTON, on 11/20/2015 12:55 PM * Completed Procedure Code: 79356 Procedure Name: not valued, on 11/20/2015 12: 00 AM * Completed Procedure Code: 24541 Procedure Name: not valued, on 11/20/2015 12: 00 AM * Completed Procedure Code: 45.16 Procedure Name: not valued, on 03/12/2014 12: 00 AM * Completed Procedure Code: 45.25 Procedure Name: not valued, on 03/12/2014 12: 00 AM * Completed , on 08/20/2009 12:00 AM Immunizations * Influenza, seasonal, injectable (NOVARTIS, Lot # [id number]); Administered 2013 9:24 AM; 0.5 ML=1 DOSE, [...]
--- OUTSIDE RECORDS SUMMARY | 2017-02-24 21:24 | XMS REPORT ---
Author Author GENERATED, SYSTEM Organization Unknown Address Unknown Phone Unavailable Care Team Providers Care Gettering Operator Name Role Phone UNASSIGNED DOCTOR , DOCTOR PP [phone] Reason For Visit Chief Complaint SYNCOPE Social [...] H (65-99 MG/DL) *GFR EST NON AFR FRENCH [...] * Influenza, seasonal, injectable (NOVARTIS, Lot # [id number]); Administered 2013 9:24 AM; 0.5 ML=1 DOSE, [...]
--- OUTSIDE RECORDS SUMMARY | 2017-02-24 21:24 | XMS REPORT ---
Author Author GENERATED, SYSTEM Organization Unknown Address Unknown Phone Unavailable Care Team Providers Care Product Safety Compliance Leader Name Role Phone MD GRACY, NAVIN PP [phone] Reason For Visit Chief Complaint CHRONIC LT [...] 1 :12 PM * Completed Procedure Code: 81702 Procedure Name: not valued, on 04/22/2016 12: 00 AM * Completed Esophagogastroduodenoscopy, by MD BAIRON HAMILTON, on 11/20/2015 12:55 PM * Completed Procedure Code: 12962 Procedure Name: not valued, on 11/20/2015 12: 00 AM * Completed Procedure Code: 33243 Procedure Name: not valued, on 11/20/2015 12: 00 AM * Completed Procedure Code: 45.16 Procedure Name: not valued, on 03/12/2014 12: 00 AM * Completed Procedure Code: 45.25 Procedure Name: not valued, on 03/12/2014 12: 00 AM * Completed , on 08/20/2009 12:00 AM Immunizations * Influenza, seasonal, injectable (NOVARTIS, Lot # [id number]); Administered 2013 9:24 AM; 0.5 ML=1 DOSE, [...]
--- OUTSIDE RECORDS SUMMARY | 2017-02-24 21:24 | XMS REPORT | Continuity of care Document ---
[...] responsibility of the patient or patient financial foundations representative to confirm the list of medications [...] H (65-99 MG/DL) GFR EST NON AFR HUNGARIAN >=90 ML/MIN GFRA EST AFR AMER >=90 [...] H (65-99 MG/DL) GFR EST NON AFR HUNGARIAN >=90 ML/MIN GFRA EST AFR AMER >=90 [...] H (65-99 MG/DL) GFR EST NON AFR HUNGARIAN >=90 ML/MIN GFRA EST AFR AMER >=90 [...] MG/DL (65-99 MG/DL) GFR EST NON AFR HUNGARIAN >=90 ML/MIN GFRA EST AFR AMER >=90 [...] H (65-99 MG/DL) GFR EST NON AFR HUNGARIAN >=90 ML/MIN GFRA EST AFR AMER >=90 [...] H (65-99 MG/DL) GFR EST NON AFR HUNGARIAN >=90 ML/MIN GFRA EST AFR AMER >=90 [...] H (65-99 MG/DL) GFR EST NON AFR HUNGARIAN 82 ML/MIN GFRA EST AFR AMER >=90 [...] AM* CULTURE BLOOD (Preliminary Result) Specimen Number: [id number] Specimen Source: Sample Collection Date/Time: 03/13/2014 6:30 AM CULTURE BLOOD: No Growth after 48 hours of initial incubation, testing to continue for additional 72 hours. Microbiology from 03/13/2014 6:35 AM* CULTURE BLOOD (Preliminary Result) Specimen Number: [id number] Specimen Source: Sample Collection Date/Time: 03/13/2014 6:35 [...] BLAKELY// SVETLANA ALDRICH// CHARGE CODE CPT COUNT [id number] 1 DX Radiology from 03/13/2014 5:22 AMCHEST 1 VIEW DATE OF EXAM: Mar 13 2014 8: 13AM Proc: DG 0066 - CHEST 1 VIEW CPT Code(s): 95858-; ; ; INDICATION / CLINICAL HISTORY: Postop. [...] - ABDOMEN (KUB) 1 VIEW CPT Code(s): 19507-; ; ; INDICATION / CLINICAL HISTORY: \\E\\abdominal [...] 0393 - MYOCARDIAL PERF PHARMACOLOGICAL CPT Code(s): 77840-; ; ; INDICATION / CLINICAL HISTORY: Chest [...]
--- OUTSIDE RECORDS SUMMARY | 2017-02-24 21:25 | XMS REPORT ---
Author Author GENERATED, SYSTEM Organization Unknown Address Unknown Phone Unavailable Care Team Providers Care Machine Bobbin Winder Name Role Phone MD GRACY, NAVIN PP [phone] Reason For Visit Chief Complaint LT ELBOW [...] (65-99 MG/DL) *GFR EST NON AFR BOTSWANAN 68 ML/MIN *GFR EST AFR AMER 79 [...] 1 :12 PM * Completed Procedure Code: 84107 Procedure Name: not valued, on 04/22/2016 12: 00 AM * Completed Esophagogastroduodenoscopy, by MD BAIRON HAMILTON, on 11/20/2015 12:55 PM * Completed Procedure Code: 64660 Procedure Name: not valued, on 11/20/2015 12: 00 AM * Completed Procedure Code: 34861 Procedure Name: not valued, on 11/20/2015 12: 00 AM * Completed Procedure Code: 45.16 Procedure Name: not valued, on 03/12/2014 12: 00 AM * Completed Procedure Code: 45.25 Procedure Name: not valued, on 03/12/2014 12: 00 AM * Completed , on 08/20/2009 12:00 AM Immunizations * Influenza, seasonal, injectable (NOVARTIS, Lot # [id number]); Administered 2013 9:24 AM; 0.5 ML=1 DOSE, [...]
--- OUTSIDE RECORDS SUMMARY | 2017-02-24 21:26 | XMS REPORT ---
Author Author GENERATED, SYSTEM Organization Unknown Address Unknown Phone Unavailable Care Team Providers Care Project Control Analyst Name Role Phone MD GRACY, NAVIN PP [phone] Reason For Visit Chief Complaint CELLULITIS LT [...] 1 :12 PM * Completed Procedure Code: 05764 Procedure Name: not valued, on 04/22/2016 12: 00 AM * Completed Esophagogastroduodenoscopy, by MD BAIRON HAMILTON, on 11/20/2015 12:55 PM * Completed Procedure Code: 74615 Procedure Name: not valued, on 11/20/2015 12: 00 AM * Completed Procedure Code: 55805 Procedure Name: not valued, on 11/20/2015 12: 00 AM * Completed Procedure Code: 45.16 Procedure Name: not valued, on 03/12/2014 12: 00 AM * Completed Procedure Code: 45.25 Procedure Name: not valued, on 03/12/2014 12: 00 AM * Completed , on 08/20/2009 12:00 AM Immunizations * Influenza, seasonal, injectable (NOVARTIS, Lot # [id number]); Administered 2013 9:24 AM; 0.5 ML=1 DOSE, [...]
--- OUTSIDE RECORDS SUMMARY | 2017-02-24 21:26 | XMS REPORT | Continuity of care Document ---
[...] the responsibility of the patient or patient route sales representative to confirm the list of [...] MG/DL (65-99 MG/DL) GFR EST NON AFR LIBYAN >=90 ML/MIN GFRA EST AFR AMER >=90 [...]
--- OUTSIDE RECORDS SUMMARY | 2017-02-24 21:26 | XMS REPORT ---
Author Author GENERATED, SYSTEM Organization Unknown Address Unknown Phone Unavailable Care Team Providers Care Manager Package Name Role Phone UNASSIGNED DOCTOR , DOCTOR PP [phone] Reason For Visit Reason for Visit from [...] H (65-99 MG/DL) GFR EST NON AFR EQUATORIAL GUINEAN >90 ML/MIN GFRA EST AFR AMER >90 [...] H (65-99 MG/DL) GFR EST NON AFR EQUATORIAL GUINEAN >90 ML/MIN GFRA EST AFR AMER >90 [...] MG/DL (65-99 MG/DL) GFR EST NON AFR EQUATORIAL GUINEAN >90 ML/MIN GFRA EST AFR AMER >90 [...] 07/21/2015 3:19 PM* CULTURE URINE Specimen Number: [id number] Sample Collection Date/Time: 07/21/2015 3:19 PM Specimen Source: Urine Clean Catch CULTURE URINE: No growth at 48 hrs Microbiology from 07/21/2015 10:58 AM* CULTURE URINE Specimen Number: [id number] Sample Collection Date/Time: 07/21/2015 10:58 AM Specimen [...] 10:45 AM * Address # 1 : [place] [facility] Plan from 07/24/2015 10:05 AM:* Care Management Note : Patient needs home O2. Provided list of agencies. Patient chose [facility]. Referral made. Will deliver portable to patient's room and deliver concentrator to her home after she gets home. Received call from Char - from [facility] - who provides health home to [...] * Influenza, seasonal, injectable (NOVARTIS, Lot # [id number]); Administered 2013 9:24 AM; 0.5 ML=1 DOSE, [...] the responsibility of the patient or patient shipping services sales representative to confirm the list of [...] tablet oral daily at bedtime * HYDROcodone-acetaminophen ([place]) 5 mg-325 mg Tablet, Ordered By: BRITTON DELVALLE MD Directions: 1 tablet oral every six hours PRN pain Stopped medications* None
--- OUTSIDE RECORDS SUMMARY | 2017-02-24 21:27 | XMS REPORT ---
Author Author GENERATED, SYSTEM Organization Unknown Address Unknown Phone Unavailable Care Team Providers Care Director Of Event Sales Name Role Phone MD GRACY, NAVIN PP [phone] Reason For Visit Chief Complaint LT ELBOW [...] 1 :12 PM * Completed Procedure Code: 80948 Procedure Name: not valued, on 04/22/2016 12: 00 AM * Completed Esophagogastroduodenoscopy, by MD BAIRON HAMILTON, on 11/20/2015 12:55 PM * Completed Procedure Code: 61567 Procedure Name: not valued, on 11/20/2015 12: 00 AM * Completed Procedure Code: 04359 Procedure Name: not valued, on 11/20/2015 12: 00 AM * Completed Procedure Code: 45.16 Procedure Name: not valued, on 03/12/2014 12: 00 AM * Completed Procedure Code: 45.25 Procedure Name: not valued, on 03/12/2014 12: 00 AM * Completed , on 08/20/2009 12:00 AM Immunizations * Influenza, seasonal, injectable (NOVARTIS, Lot # [id number]); Administered 2013 9:24 AM; 0.5 ML=1 DOSE, [...]
--- OUTSIDE RECORDS SUMMARY | 2017-02-24 21:27 | XMS REPORT ---
Author Author GENERATED, SYSTEM Organization Unknown Address Unknown Phone Unavailable Care Team Providers Care Probate Clerk Name Role Phone UNASSIGNED DOCTOR , DOCTOR PP [phone] Reason For Visit Chief Complaint M54.5, M25.559 [...] 11/20/2015 12:55 PM * Completed Procedure Code: 65293 Procedure Name: not valued, on 11/20/2015 12: 00 AM * Completed Procedure Code: 14272 Procedure Name: not valued, on 11/20/2015 12: 00 AM * Completed Procedure Code: 45.16 Procedure Name: not valued, on 03/12/2014 12: 00 AM * Completed Procedure Code: 45.25 Procedure Name: not valued, on 03/12/2014 12: 00 AM * Completed , on 08/20/2009 12:00 AM Immunizations * Influenza, seasonal, injectable (NOVARTIS, Lot # [id number]); Administered 2013 9:24 AM; 0.5 ML=1 DOSE, [...]
--- OUTSIDE RECORDS SUMMARY | 2017-02-24 21:27 | XMS REPORT | Continuity of care Document ---
[...] H (65-99 MG/DL) GFR EST NON AFR WALLISIAN >=90 ML/MIN GFRA EST AFR AMER >=90 [...] - ABDOMEN 2 VIEW (FLAT/UPRIGHT) CPT Code(s): 21217-; ; ; INDICATION / CLINICAL HISTORY: Abdominal Pain Supine and upright views of the abdomen were obtained. FINDINGS: There is mild elevation of the right hemidiaphragm. The bowel gas pattern is within normal limits. There is no evidence of mechanical bowel obstruction or pneumoperitoneum. IMPRESSION: No evidence of mechanical bowel obstruction or pneumoperitoneum.
--- OUTSIDE RECORDS SUMMARY | 2017-02-24 21:27 | XMS REPORT ---
Author Author GENERATED, SYSTEM Organization Unknown Address Unknown Phone Unavailable Care Team Providers Care Manager Data Name Role Phone MD GRACY, NAVIN [phone] Reason For Visit Chief Complaint LEG, HIP [...] 06/19/2016 12:10 CT Scan from 06/19/2016 12:35 [facility] SPINE LUMBAR W/O CONTRAST History: pain fall [...] 06/19/2016 11:09 CT Scan from 06/19/2016 12:32 [facility] SPINE CERVICAL W/O CONTRAST History: Pain all [...] 1 :12 PM * Completed Procedure Code: 12497 Procedure Name: not valued, on 04/22/2016 12: 00 AM * Completed Esophagogastroduodenoscopy, by MD BAIRON HAMILTON, on 11/20/2015 12:55 PM * Completed Procedure Code: 25048 Procedure Name: not valued, on 11/20/2015 12: 00 AM * Completed Procedure Code: 34049 Procedure Name: not valued, on 11/20/2015 12: 00 AM * Completed Procedure Code: 45.16 Procedure Name: not valued, on 03/12/2014 12: 00 AM * Completed Procedure Code: 45.25 Procedure Name: not valued, on 03/12/2014 12: 00 AM * Completed , on 08/20/2009 12:00 AM Immunizations * Influenza, seasonal, injectable (NOVARTIS, Lot # [id number]); Administered 2013 9:24 AM; 0.5 ML=1 DOSE, [...]
--- OUTSIDE RECORDS SUMMARY | 2017-02-24 21:27 | XMS REPORT ---
Author Author GENERATED, SYSTEM Organization Unknown Address Unknown Phone Unavailable Care Team Providers Care Inspector Aide Name Role Phone UNASSIGNED DOCTOR , DOCTOR PP [phone] Reason For Visit Chief Complaint STICHES OUT [...] 1 :12 PM * Completed Procedure Code: 91171 Procedure Name: not valued, on 04/22/2016 12: 00 AM * Completed Esophagogastroduodenoscopy, by MD BAIRON HAMILTON, on 11/20/2015 12:55 PM * Completed Procedure Code: 16340 Procedure Name: not valued, on 11/20/2015 12: 00 AM * Completed Procedure Code: 64913 Procedure Name: not valued, on 11/20/2015 12: 00 AM * Completed Procedure Code: 45.16 Procedure Name: not valued, on 03/12/2014 12: 00 AM * Completed Procedure Code: 45.25 Procedure Name: not valued, on 03/12/2014 12: 00 AM * Completed , on 08/20/2009 12:00 AM Immunizations * Influenza, seasonal, injectable (NOVARTIS, Lot # [id number]); Administered 2013 9:24 AM; 0.5 ML=1 DOSE, [...]
--- OUTSIDE RECORDS SUMMARY | 2017-02-24 21:27 | XMS REPORT ---
Author Author GENERATED, SYSTEM Organization Unknown Address Unknown Phone Unavailable Care Team Providers Care Forepart Laster Name Role Phone UNASSIGNED DOCTOR , DOCTOR PP [phone] Reason For Visit Chief Complaint VOMITING DIARRHEA [...] MG/DL (65-99 MG/DL) GFR EST NON AFR GIBRALTARIAN >90 ML/MIN GFRA EST AFR AMER >90 [...] 0066 - CHEST 1 VIEW CPT Code(s): 56320-; ; ; INDICATION / CLINICAL HISTORY: Seizure, [...] - CT ABD/PELVIS W/ CONTRAST CPT Code(s): 18855-; ; ; INDICATION / CLINICAL HISTORY: Vomiting, [...] - CT CEREBRAL W/O CONTRAST CPT Code(s): 18212-; ; ; INDICATION / CLINICAL HISTORY: Vomiting, [...]
--- OUTSIDE RECORDS SUMMARY | 2017-02-24 21:27 | XMS REPORT ---
Author Author GENERATED, SYSTEM Organization Unknown Address Unknown Phone Unavailable Care Team Providers Care Business Intelligence Director Name Role Phone UNASSIGNED DOCTOR , DOCTOR PP [phone] Reason For Visit Chief Complaint FALL- ANKLE [...] 1 :12 PM * Completed Procedure Code: 16743 Procedure Name: not valued, on 04/22/2016 12: 00 AM * Completed Esophagogastroduodenoscopy, by MD BAIRON HAMILTON, on 11/20/2015 12:55 PM * Completed Procedure Code: 47944 Procedure Name: not valued, on 11/20/2015 12: 00 AM * Completed Procedure Code: 31881 Procedure Name: not valued, on 11/20/2015 12: 00 AM * Completed Procedure Code: 45.16 Procedure Name: not valued, on 03/12/2014 12: 00 AM * Completed Procedure Code: 45.25 Procedure Name: not valued, on 03/12/2014 12: 00 AM * Completed , on 08/20/2009 12:00 AM Immunizations * Influenza, seasonal, injectable (NOVARTIS, Lot # [id number]); Administered 2013 9:24 AM; 0.5 ML=1 DOSE, [...]
--- OUTSIDE RECORDS SUMMARY | 2017-02-24 21:27 | XMS REPORT ---
Author Author GENERATED, SYSTEM Organization Unknown Address Unknown Phone Unavailable Care Team Providers Care Area Plant Manager Name Role Phone UNASSIGNED DOCTOR , DOCTOR PP [phone] Reason For Visit Chief Complaint COLLAPED IN [...] MG/DL (65-99 MG/DL) *GFR EST NON AFR INDIAN >90 ML/MIN *GFRA EST AFR AMER >90 [...] * Influenza, seasonal, injectable (NOVARTIS, Lot # [id number]); Administered 2013 9:24 AM; 0.5 ML=1 DOSE, [...]
--- OUTSIDE RECORDS SUMMARY | 2017-02-24 21:27 | XMS REPORT ---
Author Author GENERATED, SYSTEM Organization Unknown Address Unknown Phone Unavailable Care Team Providers Care Rod Filler Name Role Phone MD JENIFFER, HANS PP [phone] Reason For Visit Chief Complaint ALTERED MENTAL [...] MG/DL (65-99 MG/DL) GFR EST NON AFR SWEDISH >90 ML/MIN GFRA EST AFR AMER >90 [...] PM* CULTURE URINE (Preliminary Result) Specimen Number: [id number] Sample Collection Date/Time: 08/30/2014 1:25 PM Specimen [...]
--- OUTSIDE RECORDS SUMMARY | 2017-02-24 21:27 | XMS REPORT ---
Author Author GENERATED, SYSTEM Organization Unknown Address Unknown Phone Unavailable Care Team Providers Care Artillery Or Naval Gunfire Observer Name Role Phone UNASSIGNED DOCTOR , DOCTOR PP [phone] Reason For Visit Reason for Visit from [...] 2:20 PM * Address # 1 : [facility] [address] MD- [phone] or Procedures * Completed Esophagogastroduodenoscopy, by MD BAIRON JOHN, on 04/22/2016 1 :12 PM * Completed Esophagogastroduodenoscopy, by MD BAIRON JOHN, on 11/20/2015 12:55 PM * Completed Procedure Code: 77081 Procedure Name: not valued, on 11/20/2015 12: 00 AM * Completed Procedure Code: 56927 Procedure Name: not valued, on 11/20/2015 12: 00 AM * Completed Procedure Code: 45.16 Procedure Name: not valued, on 03/12/2014 12: 00 AM * Completed Procedure Code: 45.25 Procedure Name: not valued, on 03/12/2014 12: 00 AM * Completed , on 08/20/2009 12:00 AM Immunizations * Influenza, seasonal, injectable (NOVARTIS, Lot # [id number]); Administered 2013 9:24 AM; 0.5 ML=1 DOSE, [...]
--- OUTSIDE RECORDS SUMMARY | 2017-02-24 21:28 | XMS REPORT ---
Author Author GENERATED, SYSTEM Organization Unknown Address Unknown Phone Unavailable Care Team Providers Care Box Stapler Name Role Phone UNASSIGNED DOCTOR , DOCTOR PP [phone] Reason For Visit Reason for Visit from [...] MG/DL (65-99 MG/DL) *GFR EST NON AFR TAIWANESE 86 ML/MIN *GFRA EST AFR AMER >90 [...] * Influenza, seasonal, injectable (NOVARTIS, Lot # [id number]); Administered 2013 9:24 AM; 0.5 ML=1 DOSE, [...]
--- OUTSIDE RECORDS SUMMARY | 2017-02-24 21:28 | XMS REPORT ---
Author Author GENERATED, SYSTEM Organization Unknown Address Unknown Phone Unavailable Care Team Providers Care Battery Checker Name Role Phone UNASSIGNED DOCTORMD DOCTOR PP [phone] Reason For Visit Chief Complaint [facility]IBLE [facility] Social History Functional Status Vital Signs [...] H (65-99 MG/DL) GFR EST NON AFR MONGOLIAN 87 ML/MIN GFRA EST AFR AMER >90 [...] responsibility of the patient or patient inbound customer service representative to confirm the list [...]
--- OUTSIDE RECORDS SUMMARY | 2017-02-24 21:28 | XMS REPORT ---
Author Author GENERATED, SYSTEM Organization Unknown Address Unknown Phone Unavailable Care Team Providers Care Counterintelligence Analyst Name Role Phone UNASSIGNED DOCTOR , DOCTOR PP [phone] Reason For Visit Chief Complaint ABD PAIN, [...] MG/DL (65-99 MG/DL) GFR EST NON AFR SAUDI ARABIAN >90 ML/MIN GFRA EST AFR AMER >90 [...]
--- OUTSIDE RECORDS SUMMARY | 2017-02-24 21:28 | XMS REPORT | Continuity of Care Document ---
Author Author [facility] Organization [facility] Address Unknown Phone Unavailable Support Name Relationship Address Phone PINKYJET EASTMAN Caregiver [facility] [address] [facility] [address] [place], [place] [id number] FRANCIA BOWERS MD Caregiver [address] [place], [place] [id number] Insurance Providers Payer Name Policy Number Subscriber Name Relationship [facility] [employer] [id number] Tova Cates 19 Self Problems No known [...] F (96.8 - 99.1) Temperature (Calculated Celsius) [phone] degrees C (36.0 - 37.3) Pulse Rate [...] Encounters Encounter Location Date/Time Departed Emergency Room [facility] 10/27/14 1:53pm Recent Diagnosis
--- OUTSIDE RECORDS SUMMARY | 2017-02-24 21:28 | XMS REPORT ---
Author Author GENERATED, SYSTEM Organization Unknown Address Unknown Phone Unavailable Care Team Providers Care Powertrain Engineer Name Role Phone MD GRACY, NAVIN PP [phone] Reason For Visit Chief Complaint HIGH BP [...] MG/DL (65-99 MG/DL) *GFR EST NON AFR CHILEAN >90 ML/MIN *GFR EST AFR AMER >90 [...] 1 :12 PM * Completed Procedure Code: 05273 Procedure Name: not valued, on 04/22/2016 12: 00 AM * Completed Esophagogastroduodenoscopy, by MD BAIRON HAMILTON, on 11/20/2015 12:55 PM * Completed Procedure Code: 49368 Procedure Name: not valued, on 11/20/2015 12: 00 AM * Completed Procedure Code: 42839 Procedure Name: not valued, on 11/20/2015 12: 00 AM * Completed Procedure Code: 45.16 Procedure Name: not valued, on 03/12/2014 12: 00 AM * Completed Procedure Code: 45.25 Procedure Name: not valued, on 03/12/2014 12: 00 AM * Completed , on 08/20/2009 12:00 AM Immunizations * Influenza, seasonal, injectable (NOVARTIS, Lot # [id number]); Administered 2013 9:24 AM; 0.5 ML=1 DOSE, [...]
--- OUTSIDE RECORDS SUMMARY | 2017-02-24 21:28 | XMS REPORT ---
Author Author GENERATED, SYSTEM Organization Unknown Address Unknown Phone Unavailable Care Team Providers Care Fuels Engineer Name Role Phone MD GRACY, NAVIN PP [phone] Reason For Visit Chief Complaint NUMBNESS SWELLING [...] 1 :12 PM * Completed Procedure Code: 57085 Procedure Name: not valued, on 04/22/2016 12: 00 AM * Completed Esophagogastroduodenoscopy, by MD BAIRON HAMILTON, on 11/20/2015 12:55 PM * Completed Procedure Code: 91327 Procedure Name: not valued, on 11/20/2015 12: 00 AM * Completed Procedure Code: 10711 Procedure Name: not valued, on 11/20/2015 12: 00 AM * Completed Procedure Code: 45.16 Procedure Name: not valued, on 03/12/2014 12: 00 AM * Completed Procedure Code: 45.25 Procedure Name: not valued, on 03/12/2014 12: 00 AM * Completed , on 08/20/2009 12:00 AM Immunizations * Influenza, seasonal, injectable (NOVARTIS, Lot # [id number]); Administered 2013 9:24 AM; 0.5 ML=1 DOSE, [...]
--- OUTSIDE RECORDS SUMMARY | 2017-02-24 21:28 | XMS REPORT ---
Author Author GENERATED, SYSTEM Organization Unknown Address Unknown Phone Unavailable Care Team Providers Care Gas Tester Name Role Phone UNASSIGNED DOCTOR , DOCTOR PP [phone] Reason For Visit Chief Complaint MENTAL STATUS [...] * Influenza, seasonal, injectable (NOVARTIS, Lot # [id number]); Administered 2013 9:24 AM; 0.5 ML=1 DOSE, [...]
--- OUTSIDE RECORDS SUMMARY | 2017-02-24 21:28 | XMS REPORT ---
Author Author GENERATED, SYSTEM Organization Unknown Address Unknown Phone Unavailable Care Team Providers Care Wreath And Garland Maker Hand Name Role Phone UNASSIGNED DOCTOR , DOCTOR PP [phone] Reason For Visit Chief Complaint CHEST/ABDOMINAL PAIN [...] * Influenza, seasonal, injectable (NOVARTIS, Lot # [id number]); Administered 2013 9:24 AM; 0.5 ML=1 DOSE, [...]
--- OUTSIDE RECORDS SUMMARY | 2017-02-24 21:28 | XMS REPORT ---
Author Author GENERATED, SYSTEM Organization Unknown Address Unknown Phone Unavailable Care Team Providers Care Sales Rep Name Role Phone MD JENIFFER, HANS PP [phone] Reason For Visit Chief Complaint CRISIS Social [...] MG/DL (65-99 MG/DL) GFR EST NON AFR [place] 72 ML/MIN GFRA EST AFR AMER 84 [...]
--- OUTSIDE RECORDS SUMMARY | 2017-02-24 21:28 | XMS REPORT ---
Author Author GENERATED, SYSTEM Organization Unknown Address Unknown Phone Unavailable Care Team Providers Care Sr Technical Sales Consultant Name Role Phone MD JENIFFER, HANS PP [phone] Reason For Visit Reason for Visit from [...] MG/DL (65-99 MG/DL) GFR EST NON AFR MALAYSIAN >90 ML/MIN GFRA EST AFR AMER >90 [...] had unsigned status order on chart. This career transition specialist [facility] and clarified status. Patient was intended to be Observation status on admission. Patient remained Observation status appropriate and was discharged to home today. Treatment Plan from 08/31/2014 11:40 AM:* Care Management Note : healthcare social worker spoke to patient and patient's son [...] the responsibility of the patient or patient architectural representative to confirm the list of medications [...]
--- OUTSIDE RECORDS SUMMARY | 2017-02-24 21:29 | XMS REPORT ---
Author Author GENERATED, SYSTEM Organization Unknown Address Unknown Phone Unavailable Care Team Providers Care Laundry Or Dry Cleaners Counter Clerk Name Role Phone UNASSIGNED DOCTOR , DOCTOR PP [phone] Reason For Visit Chief Complaint SHORTNESS OF [...] H (65-99 MG/DL) *GFR EST NON AFR SLOVENIAN >90 ML/MIN *GFRA EST AFR AMER >90 [...] * Influenza, seasonal, injectable (NOVARTIS, Lot # [id number]); Administered 2013 9:24 AM; 0.5 ML=1 DOSE, [...]
--- OUTSIDE RECORDS SUMMARY | 2017-02-24 21:29 | XMS REPORT ---
Author Author GENERATED, SYSTEM Organization Unknown Address Unknown Phone Unavailable Care Team Providers Care Foil Spinner Name Role Phone UNASSIGNED DOCTOR , DOCTOR PP [phone] Reason For Visit Chief Complaint VOMITING, DIARRHEA [...] MG/DL (65-99 MG/DL) GFR EST NON AFR CAMEROONIAN [...]
--- OUTSIDE RECORDS SUMMARY | 2017-02-24 21:29 | XMS REPORT ---
Author Author GENERATED, SYSTEM Organization Unknown Address Unknown Phone Unavailable Care Team Providers Care Rug Shampooer Name Role Phone MD JENIFFER, HANS PP [phone] Reason For Visit Chief Complaint ALTERED LEVEL [...]
--- OUTSIDE RECORDS SUMMARY | 2017-02-24 21:29 | XMS REPORT ---
Author Author GENERATED, SYSTEM Organization Unknown Address Unknown Phone Unavailable Care Team Providers Care Aquatic Scientist Name Role Phone UNASSIGNED DOCTOR , DOCTOR PP [phone] Reason For Visit Chief Complaint PANCREATITIS Social [...] H (65-99 MG/DL) *GFR EST NON AFR SOUTH SUDANESE >90 ML/MIN *GFRA EST AFR AMER [...] PM* CULTURE URINE (Preliminary Result) Specimen Number: [id number] Sample Collection Date/Time: 03/20/2016 4:24 PM Specimen [...] 11/20/2015 12:55 PM * Completed Procedure Code: 11370 Procedure Name: not valued, on 11/20/2015 12: 00 AM * Completed Procedure Code: 95434 Procedure Name: not valued, on 11/20/2015 12: 00 AM * Completed Procedure Code: 45.16 Procedure Name: not valued, on 03/12/2014 12: 00 AM * Completed Procedure Code: 45.25 Procedure Name: not valued, on 03/12/2014 12: 00 AM * Completed , on 08/20/2009 12:00 AM Immunizations * Influenza, seasonal, injectable (NOVARTIS, Lot # [id number]); Administered 2013 9:24 AM; 0.5 ML=1 DOSE, [...]
--- OUTSIDE RECORDS SUMMARY | 2017-02-24 21:29 | XMS REPORT ---
Author Author GENERATED, SYSTEM Organization Unknown Address Unknown Phone Unavailable Care Team Providers Care Tool Inspector Name Role Phone MD GRACY, NAVIN PP [phone] Reason For Visit Chief Complaint ACUTE ON [...] H (65-99 MG/DL) *GFR EST NON AFR CYMRO >90 ML/MIN *GFR EST AFR AMER >90 [...] LEFT LEG BROKEN. PT WAS D/C FOR [facility] THIS LAST WED. HEADACHE, VOMITING, NO DIARRHEA.DLB: [...] 1 :12 PM * Completed Procedure Code: 89250 Procedure Name: not valued, on 04/22/2016 12: 00 AM * Completed Esophagogastroduodenoscopy, by MD BAIRON HAMILTON, on 11/20/2015 12:55 PM * Completed Procedure Code: 62767 Procedure Name: not valued, on 11/20/2015 12: 00 AM * Completed Procedure Code: 84988 Procedure Name: not valued, on 11/20/2015 12: 00 AM * Completed Procedure Code: 45.16 Procedure Name: not valued, on 03/12/2014 12: 00 AM * Completed Procedure Code: 45.25 Procedure Name: not valued, on 03/12/2014 12: 00 AM * Completed , on 08/20/2009 12:00 AM Immunizations * Influenza, seasonal, injectable (NOVARTIS, Lot # [id number]); Administered 2013 9:24 AM; 0.5 ML=1 DOSE, [...]
--- OUTSIDE RECORDS SUMMARY | 2017-02-24 21:29 | XMS REPORT ---
Author Author GENERATED, SYSTEM Organization Unknown Address Unknown Phone Unavailable Care Team Providers Care Painter Spring Name Role Phone UNASSIGNED DOCTOR , DOCTOR PP [phone] Reason For Visit Chief Complaint FALL, FACIAL [...] MG/DL (65-99 MG/DL) *GFR EST NON AFR MARSHALLESE 76 ML/MIN *GFR EST AFR AMER 89 [...] acute osseous abnormality demonstrated. Electronically signed by: Alna White MD Dictated: 05/11/2016 11:07 DX Radiology from 05/11/2016 12:25 AMCHEST 1 VIEW History: fall Priors: 04/25/16 Findings: The cardiac silhouette and pulmonary vasculature are within normal limits. There are no acute infiltrates or effusions. Impression: No acute cardiopulmonary disease. Electronically signed by: Alan White MD Dictated: 05/11/2016 11:10 CT Scan from 05/11/2016 12:21 [facility] SPINE CERVICAL W/O CONTRAST History: Fall Head [...] 05/11/2016 10:42 CT Scan from 05/11/2016 12:11 [facility] CEREBRAL W/O CONTRAST History: fall . Facial [...] 1 :12 PM * Completed Procedure Code: 91552 Procedure Name: not valued, on 04/22/2016 12: 00 AM * Completed Esophagogastroduodenoscopy, by MD BAIRON HAMILTON, on 11/20/2015 12:55 PM * Completed Procedure Code: 69813 Procedure Name: not valued, on 11/20/2015 12: 00 AM * Completed Procedure Code: 17470 Procedure Name: not valued, on 11/20/2015 12: 00 AM * Completed Procedure Code: 45.16 Procedure Name: not valued, on 03/12/2014 12: 00 AM * Completed Procedure Code: 45.25 Procedure Name: not valued, on 03/12/2014 12: 00 AM * Completed , on 08/20/2009 12:00 AM Immunizations * Influenza, seasonal, injectable (NOVARTIS, Lot # [id number]); Administered 2013 9:24 AM; 0.5 ML=1 DOSE, [...]
--- OUTSIDE RECORDS SUMMARY | 2017-02-24 21:29 | XMS REPORT ---
Author Author GENERATED, SYSTEM Organization Unknown Address Unknown Phone Unavailable Care Team Providers Care Clothing Busheler Name Role Phone UNASSIGNED DOCTOR , DOCTOR PP [phone] Reason For Visit Chief Complaint FALL- BACK [...] 1 :12 PM * Completed Procedure Code: 93609 Procedure Name: not valued, on 04/22/2016 12: 00 AM * Completed Esophagogastroduodenoscopy, by MD BAIORN HAMILTON, on 11/20/2015 12:55 PM * Completed Procedure Code: 66597 Procedure Name: not valued, on 11/20/2015 12: 00 AM * Completed Procedure Code: 74934 Procedure Name: not valued, on 11/20/2015 12: 00 AM * Completed Procedure Code: 45.16 Procedure Name: not valued, on 03/12/2014 12: 00 AM * Completed Procedure Code: 45.25 Procedure Name: not valued, on 03/12/2014 12: 00 AM * Completed , on 08/20/2009 12:00 AM Immunizations * Influenza, seasonal, injectable (NOVARTIS, Lot # [id number]); Administered 2013 9:24 AM; 0.5 ML=1 DOSE, [...]
--- OUTSIDE RECORDS SUMMARY | 2017-02-24 21:29 | XMS REPORT ---
Author Author GENERATED, SYSTEM Organization Unknown Address Unknown Phone Unavailable Care Team Providers Care Corduroy Cutter Operator Name Role Phone MD GRACY, NAVIN PP [phone] Reason For Visit Chief Complaint LT ARM [...] 1 :12 PM * Completed Procedure Code: 71051 Procedure Name: not valued, on 04/22/2016 12: 00 AM * Completed Esophagogastroduodenoscopy, by MD BAIRON HAMILTON, on 11/20/2015 12:55 PM * Completed Procedure Code: 74443 Procedure Name: not valued, on 11/20/2015 12: 00 AM * Completed Procedure Code: 54776 Procedure Name: not valued, on 11/20/2015 12: 00 AM * Completed Procedure Code: 45.16 Procedure Name: not valued, on 03/12/2014 12: 00 AM * Completed Procedure Code: 45.25 Procedure Name: not valued, on 03/12/2014 12: 00 AM * Completed , on 08/20/2009 12:00 AM Immunizations * Influenza, seasonal, injectable (NOVARTIS, Lot # [id number]); Administered 2013 9:24 AM; 0.5 ML=1 DOSE, [...]
--- OUTSIDE RECORDS SUMMARY | 2017-02-24 21:29 | XMS REPORT ---
Author Author GENERATED, SYSTEM Organization Unknown Address Unknown Phone Unavailable Care Team Providers Care Membership Sales Advisor Name Role Phone UNASSIGNED DOCTOR , DOCTOR PP [phone] Reason For Visit Reason for Visit from [...] MG/DL) *GFR EST NON AFR SA[place]OME[place] >90 ML/MIN *GFRA EST AFR AMER >90 [...] MG/DL) *GFR EST NON AFR SAO TOMEAN 82 ML/MIN *GFRA EST AFR AMER >90 [...] 12:00 AM * Address # 1 : [facility]: [address] [place] - or Treatment Plan [...] 1 :12 PM * Completed Procedure Code: 07848 Procedure Name: not valued, on 04/22/2016 12: 00 AM * Completed Esophagogastroduodenoscopy, by MD BAIRON HAMILTON, on 11/20/2015 12:55 PM * Completed Procedure Code: 93674 Procedure Name: not valued, on 11/20/2015 12: 00 AM * Completed Procedure Code: 76274 Procedure Name: not valued, on 11/20/2015 12: 00 AM * Completed Procedure Code: 45.16 Procedure Name: not valued, on 03/12/2014 12: 00 AM * Completed Procedure Code: 45.25 Procedure Name: not valued, on 03/12/2014 12: 00 AM * Completed , on 08/20/2009 12:00 AM Immunizations * Influenza, seasonal, injectable (NOVARTIS, Lot # [id number]); Administered 2013 9:24 AM; 0.5 ML=1 DOSE, [...] the responsibility of the patient or patient traffic workforce representative to confirm the list of medications [...]
--- OUTSIDE RECORDS SUMMARY | 2017-02-24 21:29 | XMS REPORT ---
Author Author GENERATED, SYSTEM Organization Unknown Address Unknown Phone Unavailable Care Team Providers Care Rn New Graduate Name Role Phone MD GRACY, NAVIN PP [phone] Reason For Visit Chief Complaint LT ELBOW [...] 1 :12 PM * Completed Procedure Code: 00106 Procedure Name: not valued, on 04/22/2016 12: 00 AM * Completed Esophagogastroduodenoscopy, by MD BAIRON HAMILTON, on 11/20/2015 12:55 PM * Completed Procedure Code: 82326 Procedure Name: not valued, on 11/20/2015 12: 00 AM * Completed Procedure Code: 67956 Procedure Name: not valued, on 11/20/2015 12: 00 AM * Completed Procedure Code: 45.16 Procedure Name: not valued, on 03/12/2014 12: 00 AM * Completed Procedure Code: 45.25 Procedure Name: not valued, on 03/12/2014 12: 00 AM * Completed , on 08/20/2009 12:00 AM Immunizations * Influenza, seasonal, injectable (NOVARTIS, Lot # [id number]); Administered 2013 9:24 AM; 0.5 ML=1 DOSE, [...]
--- OUTSIDE RECORDS SUMMARY | 2017-02-24 21:30 | XMS REPORT ---
Author Author GENERATED, SYSTEM Organization Unknown Address Unknown Phone Unavailable Care Team Providers Care Application Developer Manager Name Role Phone MD GRACY, NAVIN [phone] Reason For Visit Chief Complaint COUGHING UP [...] 1 :12 PM * Completed Procedure Code: 64590 Procedure Name: not valued, on 04/22/2016 12: 00 AM * Completed Esophagogastroduodenoscopy, by MD BAIRON HAMILTON, on 11/20/2015 12:55 PM * Completed Procedure Code: 60703 Procedure Name: not valued, on 11/20/2015 12: 00 AM * Completed Procedure Code: 27204 Procedure Name: not valued, on 11/20/2015 12: 00 AM * Completed Procedure Code: 45.16 Procedure Name: not valued, on 03/12/2014 12: 00 AM * Completed Procedure Code: 45.25 Procedure Name: not valued, on 03/12/2014 12: 00 AM * Completed , on 08/20/2009 12:00 AM Immunizations * Influenza, seasonal, injectable (NOVARTIS, Lot # [id number]); Administered 2013 9:24 AM; 0.5 ML=1 DOSE, [...]
--- OUTSIDE RECORDS SUMMARY | 2017-02-24 21:30 | XMS REPORT ---
Author Author GENERATED, SYSTEM Organization Unknown Address Unknown Phone Unavailable Care Team Providers Care Director Of Early Childhood Name Role Phone UNASSIGNED DOCTOR , DOCTOR PP [phone] Reason For Visit Chief Complaint FALL Social [...] 1 :12 PM * Completed Procedure Code: 47844 Procedure Name: not valued, on 04/22/2016 12: 00 AM * Completed Esophagogastroduodenoscopy, by MD BAIRON HAMILTON, on 11/20/2015 12:55 PM * Completed Procedure Code: 45039 Procedure Name: not valued, on 11/20/2015 12: 00 AM * Completed Procedure Code: 10177 Procedure Name: not valued, on 11/20/2015 12: 00 AM * Completed Procedure Code: 45.16 Procedure Name: not valued, on 03/12/2014 12: 00 AM * Completed Procedure Code: 45.25 Procedure Name: not valued, on 03/12/2014 12: 00 AM * Completed , on 08/20/2009 12:00 AM Immunizations * Influenza, seasonal, injectable (NOVARTIS, Lot # [id number]); Administered 2013 9:24 AM; 0.5 ML=1 DOSE, [...]
--- OUTSIDE RECORDS SUMMARY | 2017-02-24 21:30 | XMS REPORT | Continuity of Care Document ---
Author Author [facility] Organization [facility] Address Unknown Phone Unavailable Care Team Providers Care Procurement Inspector Name Role Phone JUVENTINO, REJI Arriola MD Primary Care Physician [phone] Insurance Providers Payer Name Policy Number Subscriber Name Relationship Medicare A And B [id number] Tova Briones 19 Self / Same As Patient [facility] [id number] Tova Cates 19 Self / Same As Patient Chief Complaint and Reason for Visit Chief Complaint Pain Reason for Visit [id number] Chronic back pain Problems Medical Problems Problem [...] ON SCHEDULE 30 Qty 07/05/14 Active Tiotropium [place] 0 Mcg RESPIRATORY (INHALATION) DAILY@0800 1 Qty [...] worrisome symptoms. * Emergency Department phone number: [phone], x [phone]* MEDICAL RECORD If you need copies of your X-rays, call [phone] x [phone]. If you need copies of [...] the billing parties for services. SERVICE BILLING [facility] Emergency Room Services [facility] Physician Services [facility] X-rays [place] [facility] Patients will receive bills for services from the appropriate provider. If you have any questions about your [facility] bill, our staff will be happy to assist you. Please call [phone], and ask for the billing department. THANK YOU for choosing [facility] as your emergency care provider! Functional [...] Urine collection method Clean Catch Urine Specific [place] November 02, 2014 5:40pm 1.025 1.005-1.030 Urine [...] Encounters Encounter Location Date/Time Departed Emergency Room [facility] 11/02/14 4:55pm Recent Diagnosis
--- OUTSIDE RECORDS SUMMARY | 2017-02-24 21:30 | XMS REPORT ---
Author Author GENERATED, SYSTEM Organization Unknown Address Unknown Phone Unavailable Care Team Providers Care Loom Control Chain Builder Name Role Phone MD GRACY, NAVIN PP [phone] Reason For Visit Chief Complaint BONE PAIN [...] 1 :12 PM * Completed Procedure Code: 05425 Procedure Name: not valued, on 04/22/2016 12: 00 AM * Completed Esophagogastroduodenoscopy, by MD BAIRON HAMILTON, on 11/20/2015 12:55 PM * Completed Procedure Code: 19940 Procedure Name: not valued, on 11/20/2015 12: 00 AM * Completed Procedure Code: 74646 Procedure Name: not valued, on 11/20/2015 12: 00 AM * Completed Procedure Code: 45.16 Procedure Name: not valued, on 03/12/2014 12: 00 AM * Completed Procedure Code: 45.25 Procedure Name: not valued, on 03/12/2014 12: 00 AM * Completed , on 08/20/2009 12:00 AM Immunizations * Influenza, seasonal, injectable (NOVARTIS, Lot # [id number]); Administered 2013 9:24 AM; 0.5 ML=1 DOSE, [...]
--- OUTSIDE RECORDS SUMMARY | 2017-02-24 21:30 | XMS REPORT | Continuity of care Document ---
[...] the responsibility of the patient or patient special service representative to confirm the list of [...]
--- OUTSIDE RECORDS SUMMARY | 2017-02-24 21:30 | XMS REPORT ---
Author Author GENERATED, SYSTEM Organization Unknown Address Unknown Phone Unavailable Care Team Providers Care Gauge Controller Name Role Phone MD GRACY, NAVIN PP [phone] Reason For Visit Chief Complaint LEFT ELBOW [...] MG/DL (65-99 MG/DL) *GFR EST NON AFR MAURITIAN 67 ML/MIN *GFR EST AFR AMER 77 [...] AM* CULTURE BLOOD (Preliminary Result) Specimen Number: [id number] Sample Collection Date/Time: 10/06/2016 7:06 AM Specimen Source: Blood Peripheral CULTURE BLOOD: No growth after 24 hours of incubation, testing to continue for an additional 96 hours. Microbiology from 10/06/2016 6:56 AM* CULTURE BLOOD (Preliminary Result) Specimen Number: [id number] Sample Collection Date/Time: 10/06/2016 6:56 AM Specimen [...] 1 :12 PM * Completed Procedure Code: 87864 Procedure Name: not valued, on 04/22/2016 12: 00 AM * Completed Esophagogastroduodenoscopy, by MD BAIRON HAMILTON, on 11/20/2015 12:55 PM * Completed Procedure Code: 12915 Procedure Name: not valued, on 11/20/2015 12: 00 AM * Completed Procedure Code: 97448 Procedure Name: not valued, on 11/20/2015 12: 00 AM * Completed Procedure Code: 45.16 Procedure Name: not valued, on 03/12/2014 12: 00 AM * Completed Procedure Code: 45.25 Procedure Name: not valued, on 03/12/2014 12: 00 AM * Completed , on 08/20/2009 12:00 AM Immunizations * Influenza, seasonal, injectable (NOVARTIS, Lot # [id number]); Administered 2013 9:24 AM; 0.5 ML=1 DOSE, [...]
--- OUTSIDE RECORDS SUMMARY | 2017-02-24 21:30 | XMS REPORT ---
Author Author GENERATED, SYSTEM Organization Unknown Address Unknown Phone Unavailable Care Team Providers Care Raspberry Checker Name Role Phone MD GRACY, NAVIN [phone] Reason For Visit Chief Complaint OSTEOMYELITIS Social [...] H (65-99 MG/DL) *GFR EST NON AFR TRINIDADIAN >90 ML/MIN *GFR EST AFR AMER >90 [...] MG/DL (65-99 MG/DL) *GFR EST NON AFR TRINIDADIAN 87 ML/MIN *GFR EST AFR AMER >90 [...] 1 :12 PM * Completed Procedure Code: 03883 Procedure Name: not valued, on 04/22/2016 12: 00 AM * Completed Esophagogastroduodenoscopy, by MD BAIRON HAMILTON, on 11/20/2015 12:55 PM * Completed Procedure Code: 34682 Procedure Name: not valued, on 11/20/2015 12: 00 AM * Completed Procedure Code: 15220 Procedure Name: not valued, on 11/20/2015 12: 00 AM * Completed Procedure Code: 45.16 Procedure Name: not valued, on 03/12/2014 12: 00 AM * Completed Procedure Code: 45.25 Procedure Name: not valued, on 03/12/2014 12: 00 AM * Completed , on 08/20/2009 12:00 AM Immunizations * Influenza, seasonal, injectable (NOVARTIS, Lot # [id number]); Administered 2013 9:24 AM; 0.5 ML=1 DOSE, [...]
--- OUTSIDE RECORDS SUMMARY | 2017-02-24 21:30 | XMS REPORT ---
Author Author GENERATED, SYSTEM Organization Unknown Address Unknown Phone Unavailable Care Team Providers Care Neuropsychology Director Name Role Phone UNASSIGNED DOCTOR , DOCTOR PP [phone] Reason For Visit Chief Complaint TROUBLE BREATHING,VOMITING [...] (65-99 MG/DL) *GFR EST NON AFR MALTESE 67 ML/MIN *GFRA EST AFR AMER 78 [...] AM* CULTURE URINE (Preliminary Result) Specimen Number: [id number] Sample Collection Date/Time: 01/27/2016 10:50 AM Specimen Source: Urine Clean Catch CULTURE URINE: Gram-negative bacillus >100,000 cfu/ml ID and Susceptibility to follow DX Radiology [facility] 01/27/2016 8:[facility] History: Shortness of breath with [...] periaortic lymphadenopathy. Bowel and Mesentery: There is gvby-vv-svnkholq constipation. No findings of appendicitis. Ascites: None. Pelvis Lymphadenopathy: None. Reproductive: Unremarkable. Osseous Structures: No suspicious findings. Impression: Uydv-zw-twvjoeqz constipation. Electronically signed by: Gomez Echeverria MD [...] 11/20/2015 12:55 PM * Completed Procedure Code: 64540 Procedure Name: not valued, on 11/20/2015 12: 00 AM * Completed Procedure Code: 38931 Procedure Name: not valued, on 11/20/2015 12: 00 AM * Completed Procedure Code: 45.16 Procedure Name: not valued, on 03/12/2014 12: 00 AM * Completed Procedure Code: 45.25 Procedure Name: not valued, on 03/12/2014 12: 00 AM * Completed , on 08/20/2009 12:00 AM Immunizations * Influenza, seasonal, injectable (NOVARTIS, Lot # [id number]); Administered 2013 9:24 AM; 0.5 ML=1 DOSE, [...]
--- OUTSIDE RECORDS SUMMARY | 2017-02-24 21:31 | XMS REPORT ---
Author Author GENERATED, SYSTEM Organization Unknown Address Unknown Phone Unavailable Care Team Providers Care Campus Receptionist Name Role Phone MD GRACY, NAVIN PP [phone] Reason For Visit Chief Complaint E78.5, 125.9 [...] 1 :12 PM * Completed Procedure Code: 85888 Procedure Name: not valued, on 04/22/2016 12: 00 AM * Completed Esophagogastroduodenoscopy, by MD BAIRON HAMILTON, on 11/20/2015 12:55 PM * Completed Procedure Code: 86787 Procedure Name: not valued, on 11/20/2015 12: 00 AM * Completed Procedure Code: 29603 Procedure Name: not valued, on 11/20/2015 12: 00 AM * Completed Procedure Code: 45.16 Procedure Name: not valued, on 03/12/2014 12: 00 AM * Completed Procedure Code: 45.25 Procedure Name: not valued, on 03/12/2014 12: 00 AM * Completed , on 08/20/2009 12:00 AM Immunizations * Influenza, seasonal, injectable (NOVARTIS, Lot # [id number]); Administered 2013 9:24 AM; 0.5 ML=1 DOSE, Intramuscular Hospital Course Hospital Discharge Instructions Allergies, Adverse Reactions, Alerts This section is hostess party sales representative of the current allergy information, at [...]
--- OUTSIDE RECORDS SUMMARY | 2017-02-24 21:31 | XMS REPORT ---
Author Author GENERATED, SYSTEM Organization Unknown Address Unknown Phone Unavailable Care Team Providers Care Police Matron Name Role Phone MD GRACY, NAVIN [phone] Reason For Visit Reason for Visit from [...] 1 :12 PM * Completed Procedure Code: 06528 Procedure Name: not valued, on 04/22/2016 12: 00 AM * Completed Esophagogastroduodenoscopy, by MD BAIRON HAMILTON, on 11/20/2015 12:55 PM * Completed Procedure Code: 52314 Procedure Name: not valued, on 11/20/2015 12: 00 AM * Completed Procedure Code: 34997 Procedure Name: not valued, on 11/20/2015 12: 00 AM * Completed Procedure Code: 45.16 Procedure Name: not valued, on 03/12/2014 12: 00 AM * Completed Procedure Code: 45.25 Procedure Name: not valued, on 03/12/2014 12: 00 AM * Completed , on 08/20/2009 12:00 AM Immunizations * Influenza, seasonal, injectable (NOVARTIS, Lot # [id number]); Administered 2013 9:24 AM; 0.5 ML=1 DOSE, [...]
--- OUTSIDE RECORDS SUMMARY | 2017-02-24 21:31 | XMS REPORT ---
Author Author GENERATED, SYSTEM Organization Unknown Address Unknown Phone Unavailable Care Team Providers Care Corporate Bond Trader Name Role Phone UNASSIGNED DOCTOR , DOCTOR PP [phone] Reason For Visit Chief Complaint SOB, BATTERED [...] MG/DL (65-99 MG/DL) *GFR EST NON AFR UGANDAN 84 ML/MIN *GFRA EST AFR AMER >90 [...] * Influenza, seasonal, injectable (NOVARTIS, Lot # [id number]); Administered 2013 9:24 AM; 0.5 ML=1 DOSE, [...]
--- OUTSIDE RECORDS SUMMARY | 2017-02-24 21:31 | XMS REPORT ---
Author Author GENERATED, SYSTEM Organization Unknown Address Unknown Phone Unavailable Care Team Providers Care Laboratory Supervisor Name Role Phone UNASSIGNED DOCTOR , DOCTOR PP [phone] Reason For Visit Chief Complaint LEFT MEDS IN [place],LEFT WITHOUT BEING SEEN Social History Functional Status [...] * Influenza, seasonal, injectable (NOVARTIS, Lot # [id number]); Administered 2013 9:24 AM; 0.5 ML=1 DOSE, [...]
--- OUTSIDE RECORDS SUMMARY | 2017-02-24 21:31 | XMS REPORT ---
Author Author GENERATED, SYSTEM Organization Unknown Address Unknown Phone Unavailable Care Team Providers Care Filter Tender Name Role Phone UNASSIGNED DOCTOR , DOCTOR PP [phone] Reason For Visit Chief Complaint CHECK TB [...]
--- OUTSIDE RECORDS SUMMARY | 2017-02-24 21:31 | XMS REPORT ---
Author Author GENERATED, SYSTEM Organization Unknown Address Unknown Phone Unavailable Care Team Providers Care Personnel Placement Specialist Name Role Phone UNASSIGNED DOCTOR , DOCTOR PP [phone] Reason For Visit Chief Complaint EVALUATION Social [...] Procedures * Completed Esophagogastroduodenoscopy, by MD [facility], on 11/20/2015 12:55 PM * Completed Procedure Code: 78122 Procedure Name: not valued, on 11/20/2015 12: 00 AM * Completed Procedure Code: 34625 Procedure Name: not valued, on 11/20/2015 12: 00 AM * Completed Procedure Code: 45.16 Procedure Name: not valued, on 03/12/2014 12: 00 AM * Completed Procedure Code: 45.25 Procedure Name: not valued, on 03/12/2014 12: 00 AM * Completed , on 08/20/2009 12:00 AM Immunizations * Influenza, seasonal, injectable (NOVARTIS, Lot # [id number]); Administered 2013 9:24 AM; 0.5 ML=1 DOSE, [...]
--- OUTSIDE RECORDS SUMMARY | 2017-02-24 21:31 | XMS REPORT ---
Author Author GENERATED, SYSTEM Organization Unknown Address Unknown Phone Unavailable Care Team Providers Care Application Lead Name Role Phone UNASSIGNED DOCTOR , DOCTOR PP [phone] Reason For Visit Reason for Visit from [...] MG/DL (65-99 MG/DL) *GFR EST NON AFR [place] 74 ML/MIN *GFRA EST AFR AMER 86 [...] 11/20/2015 12:55 PM * Completed Procedure Code: 86154 Procedure Name: not valued, on 11/20/2015 12: 00 AM * Completed Procedure Code: 70742 Procedure Name: not valued, on 11/20/2015 12: 00 AM * Completed Procedure Code: 45.16 Procedure Name: not valued, on 03/12/2014 12: 00 AM * Completed Procedure Code: 45.25 Procedure Name: not valued, on 03/12/2014 12: 00 AM * Completed , on 08/20/2009 12:00 AM Immunizations * Influenza, seasonal, injectable (NOVARTIS, Lot # [id number]); Administered 2013 9:24 AM; 0.5 ML=1 DOSE, [...]
--- OUTSIDE RECORDS SUMMARY | 2017-02-24 21:31 | XMS REPORT ---
Author Author GENERATED, SYSTEM Organization Unknown Address Unknown Phone Unavailable Care Team Providers Care Tube Wrapper Name Role Phone MD GRACY, NAVIN PP [phone] Reason For Visit Chief Complaint MIGRAINE Social [...] 1 :12 PM * Completed Procedure Code: 48842 Procedure Name: not valued, on 04/22/2016 12: 00 AM * Completed Esophagogastroduodenoscopy, by MD [facility], on 11/20/2015 12:55 PM * Completed Procedure Code: 45767 Procedure Name: not valued, on 11/20/2015 12: 00 AM * Completed Procedure Code: 88969 Procedure Name: not valued, on 11/20/2015 12: 00 AM * Completed Procedure Code: 45.16 Procedure Name: not valued, on 03/12/2014 12: 00 AM * Completed Procedure Code: 45.25 Procedure Name: not valued, on 03/12/2014 12: 00 AM * Completed , on 08/20/2009 12:00 AM Immunizations * Influenza, seasonal, injectable (NOVARTIS, Lot # [id number]); Administered 2013 9:24 AM; 0.5 ML=1 DOSE, [...]
--- OUTSIDE RECORDS SUMMARY | 2017-02-24 21:31 | XMS REPORT ---
Author Author GENERATED, SYSTEM Organization Unknown Address Unknown Phone Unavailable Care Team Providers Care Account Installer Name Role Phone UNASSIGNED DOCTOR , DOCTOR PP [phone] Reason For Visit Chief Complaint POST OP [...] H (65-99 MG/DL) *GFR EST NON AFR LAO 83 ML/MIN *GFRA EST AFR AMER >90 [...] 11/20/2015 12:55 PM * Completed Procedure Code: 03444 Procedure Name: not valued, on 11/20/2015 12: 00 AM * Completed Procedure Code: 69103 Procedure Name: not valued, on 11/20/2015 12: 00 AM * Completed Procedure Code: 45.16 Procedure Name: not valued, on 03/12/2014 12: 00 AM * Completed Procedure Code: 45.25 Procedure Name: not valued, on 03/12/2014 12: 00 AM * Completed , on 08/20/2009 12:00 AM Immunizations * Influenza, seasonal, injectable (NOVARTIS, Lot # [id number]); Administered 2013 9:24 AM; 0.5 ML=1 DOSE, [...]
--- OUTSIDE RECORDS SUMMARY | 2017-02-24 21:32 | XMS REPORT ---
Author Author GENERATED, SYSTEM Organization Unknown Address Unknown Phone Unavailable Care Team Providers Care Event Marketing Assistant Name Role Phone MD GRACY, NAVIN [phone] Reason For Visit Reason for Visit from [...] MG/DL (65-99 MG/DL) *GFR EST NON AFR [place] >90 ML/MIN *GFR EST AFR AMER >90 [...] 1 :12 PM * Completed Procedure Code: 53299 Procedure Name: not valued, on 04/22/2016 12: 00 AM * Completed Esophagogastroduodenoscopy, by MD BAIRON [facility], on 11/20/2015 12:55 PM * Completed Procedure Code: 98127 Procedure Name: not valued, on 11/20/2015 12: 00 AM * Completed Procedure Code: 40252 Procedure Name: not valued, on 11/20/2015 12: 00 AM * Completed Procedure Code: 45.16 Procedure Name: not valued, on 03/12/2014 12: 00 AM * Completed Procedure Code: 45.25 Procedure Name: not valued, on 03/12/2014 12: 00 AM * Completed , on 08/20/2009 12:00 AM Immunizations * Influenza, seasonal, injectable (NOVARTIS, Lot # [id number]); Administered 2013 9:24 AM; 0.5 ML=1 DOSE, [...]
--- OUTSIDE RECORDS SUMMARY | 2017-02-24 21:32 | XMS REPORT ---
Author Author GENERATED, SYSTEM Organization Unknown Address Unknown Phone Unavailable Care Team Providers Care Corrosion Prevention Metal Sprayer Name Role Phone MD GRACY, NAVIN PP [phone] Reason For Visit Chief Complaint M25.551, S82.892X Social History Functional Status Vital Signs Results [...] 1 :12 PM * Completed Procedure Code: 67918 Procedure Name: not valued, on 04/22/2016 12: 00 AM * Completed Esophagogastroduodenoscopy, by MD BAIRON H[facility]IL[facility], on 11/20/2015 12:55 PM * Completed Procedure Code: 94851 Procedure Name: not valued, on 11/20/2015 12: 00 AM * Completed Procedure Code: 39725 Procedure Name: not valued, on 11/20/2015 12: 00 AM * Completed Procedure Code: 45.16 Procedure Name: not valued, on 03/12/2014 12: 00 AM * Completed Procedure Code: 45.25 Procedure Name: not valued, on 03/12/2014 12: 00 AM * Completed , on 08/20/2009 12:00 AM Immunizations * Influenza, seasonal, injectable (NOVARTIS, Lot # [id number]); Administered 2013 9:24 AM; 0.5 ML=1 DOSE, [...]
--- OUTSIDE RECORDS SUMMARY | 2017-02-24 21:32 | XMS REPORT ---
Author Author GENERATED, SYSTEM Organization Unknown Address Unknown Phone Unavailable Care Team Providers Care Supervisor Customer Records Division Name Role Phone MD GRACY, NAVIN PP [phone] Reason For Visit Chief Complaint LEG PAIN [...] 1 :12 PM * Completed Procedure Code: 93924 Procedure Name: not valued, on 04/22/2016 12: 00 AM * Completed Esophagogastroduodenoscopy, by MD BAIRON H[facility], on 11/20/2015 12:55 PM * Completed Procedure Code: 21320 Procedure Name: not valued, on 11/20/2015 12: 00 AM * Completed Procedure Code: 87000 Procedure Name: not valued, on 11/20/2015 12: 00 AM * Completed Procedure Code: 45.16 Procedure Name: not valued, on 03/12/2014 12: 00 AM * Completed Procedure Code: 45.25 Procedure Name: not valued, on 03/12/2014 12: 00 AM * Completed , on 08/20/2009 12:00 AM Immunizations * Influenza, seasonal, injectable (NOVARTIS, Lot # [id number]); Administered 2013 9:24 AM; 0.5 ML=1 DOSE, [...]
--- OUTSIDE RECORDS SUMMARY | 2017-02-24 21:32 | XMS REPORT ---
Author Author GENERATED, SYSTEM Organization Unknown Address Unknown Phone Unavailable Care Team Providers Care Service Parts Driver Name Role Phone MD GRACY, NAVIN PP [phone] Reason For Visit Chief Complaint OSTEOMYELITIS Social [...] 1 :12 PM * Completed Procedure Code: 24818 Procedure Name: not valued, on 04/22/2016 12: 00 AM * Completed Esophagogastroduodenoscopy, by MD BAIRON H[facility]IL[facility], on 11/20/2015 12:55 PM * Completed Procedure Code: 54249 Procedure Name: not valued, on 11/20/2015 12: 00 AM * Completed Procedure Code: 49042 Procedure Name: not valued, on 11/20/2015 12: 00 AM * Completed Procedure Code: 45.16 Procedure Name: not valued, on 03/12/2014 12: 00 AM * Completed Procedure Code: 45.25 Procedure Name: not valued, on 03/12/2014 12: 00 AM * Completed , on 08/20/2009 12:00 AM Immunizations * Influenza, seasonal, injectable (NOVARTIS, Lot # [id number]); Administered 2013 9:24 AM; 0.5 ML=1 DOSE, [...]
--- OUTSIDE RECORDS SUMMARY | 2017-02-24 21:32 | XMS REPORT ---
Author Author GENERATED, SYSTEM Organization Unknown Address Unknown Phone Unavailable Care Team Providers Care Counter Roller Name Role Phone UNASSIGNED DOCTOR , DOCTOR PP [phone] Reason For Visit Chief Complaint MENTAL STATUS [...] * Influenza, seasonal, injectable (NOVARTIS, Lot # [id number]); Administered 2013 9:24 AM; 0.5 ML=1 DOSE, [...]
--- OUTSIDE RECORDS SUMMARY | 2017-02-24 21:32 | XMS REPORT ---
Author Author GENERATED, SYSTEM Organization Unknown Address Unknown Phone Unavailable Care Team Providers Care Industrial Maintenance Repairer Helper Name Role Phone MD JENIFFER, HANS PP [phone] Reason For Visit Chief Complaint 789.00 787.01 [...]
--- OUTSIDE RECORDS SUMMARY | 2017-02-24 21:32 | XMS REPORT ---
Author Author GENERATED, SYSTEM Organization Unknown Address Unknown Phone Unavailable Care Team Providers Care Crime Scene Photographer Name Role Phone UNASSIGNED DOCTOR , DOCTOR PP [phone] Reason For Visit Chief Complaint ABDOMINAL PAIN [...]
--- OUTSIDE RECORDS SUMMARY | 2017-02-24 21:32 | XMS REPORT ---
Author Author GENERATED, SYSTEM Organization Unknown Address Unknown Phone Unavailable Care Team Providers Care Poultry Farmer Name Role Phone UNASSIGNED DOCTOR , DOCTOR PP [phone] Reason For Visit Chief Complaint SYNCOPE EPISODES [...] * Influenza, seasonal, injectable (NOVARTIS, Lot # [id number]); Administered 2013 9:24 AM; 0.5 ML=1 DOSE, [...]
--- OUTSIDE RECORDS SUMMARY | 2017-02-24 21:33 | XMS REPORT ---
Author Author GENERATED, SYSTEM Organization Unknown Address Unknown Phone Unavailable Care Team Providers Care Director General Name Role Phone UNASSIGNED DOCTOR , DOCTOR PP [phone] Reason For Visit Chief Complaint VOMITING Social [...] H (65-99 MG/DL) GFR EST NON AFR [place] >90 ML/MIN GFRA EST AFR AMER >90 [...] AM* Status: Final Result URINALYSIS Specimen Number: [id number] Sample Collection Date/Time: 09/21/2014 5:00 AM Specimen [...]
--- NOTE | 2017-02-24 21:49 | NUR ---
IV SITE TECHNICAL INTERN ATTEMPTS IV SITE
[2017-02-24 22:03] LABS: LACTATE - LACTIC ACID 1.2 MMOL/L (0.6-2.2)
--- NOTE | 2017-02-24 22:07 | NUR ---
REPORT TO BERTA DENSON ON MEDICAL.
--- NOTE | 2017-02-24 22:10 | NUR ---
IV SITE 20 GA TO R FOREARM
[2017-02-24 22:15] LABS: ALBUMIN 3.4 G/DL (3.5-5.0); ALBUMIN/GLOBULIN RATIO 1.2 RATIO (1.1-2.2); ALKALINE PHOSPHATASE 108 U/L (38-126); ALT (SGPT) 28 U/L (9-52); ANION GAP 11 MEQ/L (5-15); AST (SGOT) 17 U/L (14-36); BUN/CREATININE RATIO 14 RATIO (6-26); CALCIUM 9.3 MG/DL (8.4-10.2); CHLORIDE 115 MEQ/L (98-107); CO2 - CARBON DIOXIDE 23 MEQ/L (22-30); CREATININE 0.7 MG/DL (0.7-1.2); GLOMERULAR FILTRATION RATE 87; GLUCOSE 94 MG/DL (65-110); POTASSIUM 3.9 MEQ/L (3.6-5); SODIUM 149 MEQ/L (134-144); TOTAL PROTEIN 6.2 G/DL (6.3-8.2)
--- NOTE | 2017-02-24 22:15 | NUR ---
ADMIT PT TO ROOM 145 ON MEDICAL. JANUARY RN AT BEDSIDE ON ARRIVAL.
[2017-02-24 22:23] VITALS: BP 116/67; PULSE 101; RESP 20; TEMP 96; O2SAT 95
[2017-02-24 22:24] VITALS: Ht 170.2 cm; Wt 61.4 kg
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
[2017-02-24] MEDS: HYDROMORPHONE 2mg/ml INJECTION IV PRN (23:53)
[2017-02-25] VITALS (15 sets, daily range): BP systolic 96–116; BP diastolic 59–69; PULSE 99–110; RESP 16–20; TEMP 97.8–99.5; O2SAT 84–96
[2017-02-25] MEDS: NORMAL SALINE 1,000 ML IV SCH ×2 (00:47→07:20)
[2017-02-25] MEDS: HYDROMORPHONE 2mg/ml INJECTION IV PRN ×9 (02:04→22:21)
[2017-02-25] MEDS: ALBUTEROL/IPRATROPIUM INHAL. 2.5mg-0.5mg/3ml Neb. AEROSOL SCH ×4 (02:12→19:43)
[2017-02-25 02:59] LABS: AMPHETAMINE SCREEN,URINE NEGATIVE; BARBITURATE SCREEN,URINE NEGATIVE; BENZODIAZEPINES SCREEN,URINE POSITIVE; CANNABINOID SCREEN,URINE NEGATIVE; COCAINE SCREEN,URINE NEGATIVE; METHADONE SCREEN, URINE NEGATIVE; METHAMPHETAMINE SCREEN, URINE NEGATIVE; OPIATE SCREEN,URINE POSITIVE; PHENCYCLIDINE SCREEN,URINE NEGATIVE; TRICYCLIC ANTIDEPRESSANT,URINE NEGATIVE
--- NOTE | 2017-02-25 04:15 | NUR ---
PT IS REPORTING PAIN RATED 10/10 WITH NO OBVIOUS SIGNS OF DISTRESS, PT HAS BEEN OFFERED TYLENOL WHEN SHE REQUESTS PAIN MEDICATION BUT REFUSES AND REQUESTS DILAUDID.
--- NOTE | 2017-02-25 04:53 | NUR ---
SUMMARY PT WAS VERY CONFUSED UPON ARRIVAL, ONLY ORIENTED TO SELF, IS NOW ORIENTED X3 WITH SOME SIGNS OF CONFUSION. PT IS UP TO THE BATHROOM WITH ONE ASSIST. IVF RUNNING @ 100 ML/HR IN THE RT FOREARM. PAIN RATED 10/10, PRN MEDICATION GIVEN ORDERED.
[2017-02-25 05:30] LABS: BASOPHILS % (AUTO) 0.3 % (0-2); EOSINOPHILS # (AUTO) 0.3 T/MM3 (0-0.5); EOSINOPHILS % (AUTO) 2.1 % (0-4); HCT - HEMATOCRIT 36.2 % (36-46); HGB - HEMOGLOBIN 11.6 GM/DL (12-16); IMMATURE GRANULOCYTE # (AUTO) 0.02 T/MM3 (0.00-0.03); IMMATURE GRANULOCYTE % (AUTO) 0.2 % (0.0-0.5); LYMPHOCYTES # (AUTO) 2.3 T/MM3 (1-4.8); LYMPHOCYTES % (AUTO) 19.7 % (23-45); MEAN CORPUSCULAR VOLUME 103.1 UM3 (80-100); MEAN PLATELET VOLUME 9.9 UM3 (9.4-12.4); MONOCYTES # (AUTO) 0.8 T/MM3 (0-0.8); NEUTROPHILS #(AUTO)-ABSOLUTE 8.2 T/MM3 (1.8-7.7); NEUTROPHILS % (AUTO) 70.7 % (33-66); RED BLOOD COUNT 3.51 M/MM3 (4.00-5.20); WBC - WHITE BLOOD COUNT 11.7 T/MM3 (4.5-11.0)
--- NOTE | 2017-02-25 08:06 | DI ---
Indication: ITS.REASON: low abdominal pain PROCEDURE: CT ABD/PELVIS W/O CONTRAST: Encounter: Initial Comparison: None Technique: Axial CT images were performed through the abdomen and pelvis without intravenous contrast. Coronal and sagittal two-dimensional reformats. Automated Exposure Control and Iterative Reconstruction dose reducing techniques were utilized. Findings: Airspace consolidation in the right middle and both lower lobes. Large calcified granuloma in the left lower lobe. Bilateral breast implants. The unenhanced contours of the liver are unremarkable. Gallbladder is distended. The spleen shows granulomatous disease. The pancreas, adrenal glands and kidneys are normal. No abdominal or pelvic lymphadenopathy. The bladder is distended. Uterus is absent. No evidence of a bowel obstruction. The appendix is normal. Bone windows show degenerative change and mild scoliosis in the spine. Impression: 1. Right lower lobe pneumonia, aspiration, or fibrosis. Recommend clinical and laboratory correlation. 2. No acute disease process seen in the abdomen or pelvis. There is a preliminary report by [facility]. .
--- NOTE | 2017-02-25 08:08 | DI ---
INDICATION: ITS.REASON: pneumonia? on CT PROCEDURE: CHEST 2-VIEWS UPRIGHT (PA \T\ LAT) Encounter: Initial COMPARISON: CT abdomen and pelvis from the same date FINDINGS: Peripheral airspace consolidation is seen in the right mid to lower lung field. Overlying artifact from breast implants. No pneumothorax or effusion. Heart size and mediastinal contours are within normal limits. Pulmonary vascularity appears normal. Impression: Right sided airspace consolidation could be due to pneumonia, aspiration or fibrotic changes. .
--- NOTE | 2017-02-25 08:12 | NUR ---
DM screen No recent A1c; Diet: Regular; No DM meds at home or in hospital; BGM: wnl (94-116 mg/dl) BMI: 20.4; RD recommendation: continue Regular diet d/t euglycemia and low-normal BMI. RD x 1406
--- NOTE | 2017-02-25 08:16 | DI ---
Indication: ITS.REASON: altered mental status PROCEDURE: CT HEAD W/O CONTRAST: Encounter: Initial Comparison: None Technique: Axial CT images through the head were performed without contrast. Iterative Reconstruction dose reducing technique was utilized. FINDINGS: The ventricles are of normal size, shape, and contour for the patient's age. The brainstem, cerebellum, and cerebral hemispheres have a normal morphology and CT attenuation. There is no evidence of midline displacement. No hemorrhage, signs of acute territorial stroke, mass effect, mass lesions, or edema is evident. The visualized portions of the skull base, midface, and calvarium demonstrate no abnormality. The paranasal sinuses are well aerated and free of significant disease. The tympanic and mastoid cavities appear normal. IMPRESSION: No acute intracranial abnormality or hemorrhage. There is a preliminary report by [facility]. .
[2017-02-25] MEDS: ACETAMINOPHEN 325 MG TABLET PO PRN ×3 (08:34→23:25)
[2017-02-25] MEDS: ONDANSETRON 4mg/2ml INJECTION IV PRN ×2 (09:54→16:20)
[2017-02-25] MEDS ORDERED: SUCRALFATE 1 G TABLET PO PRN (10:00)
--- NOTE | 2017-02-25 10:14 | NUR ---
KEKE CM VISITED PT. CM EXPLAINED ROLE AND PROVIDED CONTACT INFORMATION. PT LANS TO RETURN HOME TO HER [facility] [place]. PT HAS DECLINED HOME HEALTH SERVICES DUE TO THE FACT THAT SHE DOES LIKE TO BE OUT ANDS ABOUT FREQUENTLY. PT IS AWARE TO CONTACT CM IF NEEDS [facility]ISE.
[2017-02-25] MEDS: 1/2 NS w/ KCL 20mEq 1,000 ML IV SCH (11:06)
[2017-02-25] MEDS: METOPROLOL XL 25 MG TABLET PO SCH ×2 (11:09→21:07)
[2017-02-25] MEDS: DICYCLOMINE 20 MG TABLET PO SCH ×2 (11:09→17:06)
[2017-02-25] MEDS: CLONAZEPAM 1 MG TABLET PO SCH ×4 (11:10→21:07)
[2017-02-25] MEDS: FLUOXETINE 20 MG CAPSULE PO SCH (11:10)
[2017-02-25] MEDS: LEVALBUTEROL INH.SOLN. 1.25mg/3ml Neb. AEROSOL PRN (14:31)
--- NOTE | 2017-02-25 15:07 | NUR ---
PAIN PT REPORTS PAIN, PRN DILAUDID GIVEN.
[2017-02-25] MEDS: POTASSIUM CHLORIDE 20 MEQ TABLET PO SCH (17:06)
[2017-02-25] MEDS: PANTOPRAZOLE 20 MG TABLET PO SCH (17:07)
[2017-02-25] MEDS ORDERED: VERA40TA5 PO (17:34)
[2017-02-25] MEDS ORDERED: QUET100T69 PO ×3 (17:34)
[2017-02-25] MEDS ORDERED: OMEP-122 PO (17:34)
[2017-02-25] MEDS ORDERED: TOPI50TA25 PO (17:34)
[2017-02-25] MEDS ORDERED: DULO30CA52 PO (17:34)
[2017-02-25] MEDS ORDERED: ESZO3TAB PO (17:46)
[2017-02-25] MEDS ORDERED: HYDR25TA85 PO (17:46)
--- NOTE | 2017-02-25 18:11 | NUR ---
SHIFT PT HAS BEEN PLEASANT BUT OCCASIONALLY CONFUSED SINCE I TOOK OVER CARE AT 1400. PT REPORTS PAIN OF 10/10, PRN PAIN MEDS GIVEN, PT ALSO REPORTS NAUSEA, PRN ZOFRAN GIVEN WELL. PT DENIES SOA BUT REQUIRES 2L O2 NC TO KEEP SATS ABOVE 90%. PT HAS BEEN UP IN ROOM TO BATHROOM AND HAS AMBULATED IN [place] WITH STAFF. PT OFTEN REQUESTS PAIN MEDICATION BEFORE IT'S TIME AND TIMES DUE HAVE BEEN WRITTEN ON WHITE BOARD. PT REPORTS ANXIETY, STATING SHE'S IN PAIN, NAUSEATED AND JITTERY AND REQUESTS AN ANTIANXIALITIC. NO OTHER CHANGES SINCE PREVIOUS SHIFT. ALARMS IN USE AND CALL LIGHT WITH IN REACH.
[2017-02-25] MEDS: BUDESONIDE INH.SOLN. 0.5mg/2ml NEB AEROSOL SCH (19:43)
[2017-02-25] MEDS ORDERED: CEFTRIAXONE 1 G in NORMAL SALINE 100 ML IV ONE (20:00)
[2017-02-25] MEDS ORDERED: NS 500 ML IV PRN (20:00)
[2017-02-25] MEDS: AZITHROMYCIN 500 MG in NORMAL SALINE 250 ML IV SCH (20:06)
[2017-02-25] MEDS: DOXEPIN 25 MG CAPSULE PO SCH (21:06)
[2017-02-25] MEDS: ATORVASTATIN 40 MG TABLET PO SCH (21:07)
[2017-02-25] MEDS: GUAIFENESIN DM 600mg/30mg TABLET PO SCH (21:07)
[2017-02-25] MEDS: CEFTRIAXONE 1 G in NORMAL SALINE 100 ML IV SCH (21:48)
[2017-02-25] MEDS ORDERED: NICOTINE 21 MG PATCH TD SCH (23:40)
[2017-02-26] VITALS (16 sets, daily range): BP systolic 57–124; BP diastolic 32–89; PULSE 82–104; RESP 16–35; TEMP 98.2–99.8; O2SAT 90–97
[2017-02-26] MEDS: HYDROMORPHONE 2mg/ml INJECTION IV PRN ×6 (00:24→19:44)
[2017-02-26] MEDS: 1/2 NS w/ KCL 20mEq 1,000 ML IV SCH ×3 (00:24→11:08)
--- NOTE | 2017-02-26 04:18 | NUR ---
Status Pt oriented x2-3, but presents with some confusion and anxiety. Frequently asks for pain medications before they are due. PRN acetaminophen and Dilaudid given as charted. No significant relief of pain reported. Pt thoughts are often tangential. Very pleasant and appreciative of cares. Requested medication for anxiety control. Pt only slept approx 1.5 hours in the evening. None so far after 0030. Up with SBA and steady on feet. Uses call light appropriately. Bed alarm on. Will continue to monitor.
[2017-02-26] MEDS: LEVALBUTEROL INH.SOLN. 1.25mg/3ml Neb. AEROSOL PRN (05:02)
[2017-02-26] MEDS: ACETAMINOPHEN 325 MG TABLET PO PRN ×2 (05:14→21:45)
[2017-02-26] MEDS: ONDANSETRON 4mg/2ml INJECTION IV PRN (05:28)
--- NOTE | 2017-02-26 05:40 | NUR ---
Nausea Pt complained of "feeling sick to my stomach." Gave pt Zofran. Will continue to monitor.
[2017-02-26 05:46] LABS: BASOPHILS % (AUTO) 0.3 % (0-2); EOSINOPHILS # (AUTO) 0.3 T/MM3 (0-0.5); EOSINOPHILS % (AUTO) 3.1 % (0-4); HGB - HEMOGLOBIN 11.2 GM/DL (12-16); IMMATURE GRANULOCYTE # (AUTO) 0.01 T/MM3 (0.00-0.03); IMMATURE GRANULOCYTE % (AUTO) 0.1 % (0.0-0.5); LYMPHOCYTES # (AUTO) 2.6 T/MM3 (1-4.8); LYMPHOCYTES % (AUTO) 24.2 % (23-45); MEAN CORPUSCULAR HGB 33.3 UUG (26-34); MEAN CORPUSCULAR VOLUME 104.2 UM3 (80-100); MEAN PLATELET VOLUME 10.1 UM3 (9.4-12.4); MONOCYTES # (AUTO) 0.9 T/MM3 (0-0.8); MONOCYTES % (AUTO) 8.2 % (0-9.0); NEUTROPHILS % (AUTO) 64.1 % (33-66); RED BLOOD COUNT 3.36 M/MM3 (4.00-5.20); WBC - WHITE BLOOD COUNT 10.9 T/MM3 (4.5-11.0)
[2017-02-26] MEDS: PANTOPRAZOLE 20 MG TABLET PO SCH ×2 (05:47→17:13)
[2017-02-26 05:58] LABS: ANION GAP 11 MEQ/L (5-15); BUN/CREATININE RATIO 10 RATIO (6-26); CALCIUM 9.3 MG/DL (8.4-10.2); CHLORIDE 113 MEQ/L (98-107); CO2 - CARBON DIOXIDE 23 MEQ/L (22-30); CREATININE 0.6 MG/DL (0.7-1.2); GLOMERULAR FILTRATION RATE 104; GLUCOSE 101 MG/DL (65-110); POTASSIUM 3.7 MEQ/L (3.6-5); SODIUM 147 MEQ/L (134-144)
[2017-02-26] MEDS: ALBUTEROL/IPRATROPIUM INHAL. 2.5mg-0.5mg/3ml Neb. AEROSOL SCH ×4 (07:00→20:50)
--- NOTE | 2017-02-26 07:51 | NUR ---
Pain Patient complains of pain 8/10 to abdomen. Patient states it's her pancreatitis. Patient is hoping to go home today. States she feels much better however upon discharge she is going to need pain meds. States at home she takes Tylenol and Percocet 10 however she doesn't have any Percocet at home. Denies nausea. Patient wishes to have her IV line removed, states she thinks PICC lines work better. Encouraged patient to get up in chair and ambulate in halls with assistance. Patient just wants to lay in bed at this time. Patient is also wanting all of her anxiety meds restarted. Patient is happy to hear her WBC count is within normal range.
--- NOTE | 2017-02-26 08:41 | NUR ---
Pills Patient had x4 pills in her hand getting ready to take. Patient states they are just Tylenol. Explained to patient she can only take what the doctor prescribes while in the hospital. At this point it is too soon for tylenol. The pills were Acetaminophen 250mg with aspirin 250mg. These pills are now locked up. Patient also used her own flonase after being told not to.
[2017-02-26] MEDS: CLONAZEPAM 1 MG TABLET PO SCH ×4 (08:54→20:40)
[2017-02-26] MEDS: METOPROLOL XL 25 MG TABLET PO SCH ×2 (08:54→20:47)
[2017-02-26] MEDS: GUAIFENESIN DM 600mg/30mg TABLET PO SCH ×2 (08:54→20:41)
[2017-02-26] MEDS: FLUOXETINE 20 MG CAPSULE PO SCH (08:54)
[2017-02-26] MEDS: DICYCLOMINE 20 MG TABLET PO SCH ×3 (08:55→17:13)
[2017-02-26] MEDS: POTASSIUM CHLORIDE 20 MEQ TABLET PO SCH ×2 (08:55→17:14)
[2017-02-26] MEDS ORDERED: NICOTINE PATCH REMOVAL TD SCH (09:00)
--- NOTE | 2017-02-26 14:10 | NUR ---
Status Patient ambulated in halls x2 with staff. Patient ambulated on RA, denies SOA. Patient alert and oriented to person, place, and time however continues to have some confusion. Patient is anxious about going home. HR 90-105.
[2017-02-26] MEDS ORDERED: QUETIAPINE 25 MG TABLET PO ONE (14:15)
[2017-02-26] MEDS ORDERED: HYDROMORPHONE 2mg/ml INJECTION IV PRN (14:45)
--- NOTE | 2017-02-26 14:45 | PNPDOC ---
Subjective Date DATE: 02/26/17 TIME: 14:27 Subjective The patient is seen in her room. She states she is starting to feel better but is tired. She states her shortness of breath and cough are better. She has chronic pain but it is stable. She denies any abdominal pain, nausea or diarrhea now. She is oriented to [facility], February 24 or and 2016. She is oriented to self. She does appear confused however. She states she is single but then later states she has been for 28 years and her occasionally lives with her. She states that he is her DURABLE POWER OF TICKET PRINTER AND TAGGER but then shows me paperwork that has not been filled out and she states he still needs to sign it , but he knows about it. She does not seem to be very familiar with her medications. Per the physician taking care of her yesterday, she is getting medications from 4 different pharmacies. The patient states that she has agoraphobia and wants to go home. She states her is coming up to visit her soon. She states she does want him to make her medical decisions but states she does not need a guardian. She states she still drives occasionally. Objective Vital Signs Vital signs Vital Signs Date Time Temp Pulse Resp B/P Pulse Ox O2 Delivery O2 Flow Rate FiO2 02/26/17 12:15 99.8 104 18 112/89 93 Room Air 02/26/17 07:09 1.00 GEN-alert, oriented 3, mildly anxious HEENT-sclera anicteric, pupils equal round and reactive, oropharynx is moist NECK-supple CV-regular rate and rhythm CHEST-mild crackles in the bases, otherwise clear ABD-soft, nontender, nondistended with positive bowel sounds -no Mire[place] EXT-no edema NEURO-no focal deficits, she is oriented 3 but gives a very confusing history SKIN-warm and dry and without rashes Telemetry Rhythm: Sinus Rhythm Height (Feet): 5 Height (Inches): 7.00 Weight (Kilograms): 61.400 Laboratory Laboratory Laboratory Tests 02/24/17 17:27 02/24/17 21:47 02/26/17 04:59 Laboratory Tests 02/24/17 17:27 02/25/17 04:33 02/26/17 04:59 Microbiology Microbiology Microbiology Date/Time Source Procedure Growth Status 02/24/17 19:15 Peripheral/Iv Start Blood Culture - Preliminary NO GROWTH AFTER 24 HOURS Resulted 02/24/17 17:33 Peripheral/Iv Start Blood Culture - Preliminary NO GROWTH AFTER 24 HOURS Resulted Assessment & Plan Problems: (1) Sepsis Status: Acute Assessment & Plan: POA (2) Pneumonia Status: Acute Qualifiers: Laterality: right (3) Encephalopathy acute Status: Acute (4) Hypernatremia Status: Acute Assessment & Plan: POA (5) Leukocytosis Status: Acute Qualifiers: Leukocytosis type: unspecified Qualified Codes: D72.829 - Elevated white blood cell count, unspecified Assessment & Plan: POA (6) Tachycardia Status: Acute Assessment & Plan: POA (7) Hypoxia Status: Acute (8) CAD (coronary artery disease) Status: Chronic Qualifiers: Coronary Disease-Associated Artery/Lesion type: [place] artery [place] vs. transplanted heart: [place] heart Associated angina: without angina Qualified Codes: I25.10 - Atherosclerotic heart disease of [place] coronary artery without angina pectoris (9) HTN (hypertension) Status: Chronic Qualifiers: Hypertension type: essential hypertension Qualified Codes: I10 - Essential (primary) hypertension (10) Hyperlipemia Status: Chronic Qualifiers: Hyperlipidemia type: unspecified Qualified Codes: E78.5 - Hyperlipidemia, unspecified (11) COPD (chronic obstructive pulmonary disease) Status: Chronic (12) GERD (gastroesophageal reflux disease) Status: Chronic Qualifiers: Esophagitis presence: esophagitis presence not specified Qualified Codes: K21.9 - Gastro-esophageal reflux disease without esophagitis (13) Osteoarthritis Status: Chronic Qualifiers: Osteoarthritis location: multiple joints Osteoarthritis type: primary Qualified Codes: M15.0 - Primary generalized (osteo)arthritis (14) Depression Status: Chronic (15) Anxiety Status: Chronic (16) Tobacco dependence Status: Chronic Assessment 02/26/2017 Community-acquired pneumonia-right middle and lower lung field Acute hypoxic respiratory failure-grooved Enteritis-symptomatically resolved Encephalopathy-patient is oriented but still seems confused. Unknown baseline. Hypernatremia-improving History of anxiety and depression COPD Sepsis GERD Tobaccoism Urine drug screen positive for him to diazepam and narcotics. The patient has a clonazepam prescription at home. The patient was given Dilaudid in the ER prior to urine drug screen being performed. Plan Re: Pneumonia, continue Rocephin and azithromycin. Repeat CBC and basic metabolic profile tomorrow. Hypoxia has improved. Regarding hypernatremia, continue half-normal saline and recheck tomorrow Re: Encephalopathy, will discuss with the patient's whether or not she is at her baseline. Will consult Dr. Esparza, psychiatrist. I did talk with him about the patient's anxiety and he recommended restarting Seroquel at a lower dose and continuing clonazepam which was already restarted. He will see the patient tomorrow. Regarding COPD-continue breathing treatments Recommend tobacco cessation Wean off Dilaudid Greater than 45 minutes of time spent seeing and evaluating the patient, reviewing the chart and determining the care plan. Plan/Intensity of Service DVT Prophylaxis: SCD'S Code Status Full Code Hospital Course Summary Disclaimer The hospital course summary below is not to be considered part of the above Progress Note. Hospital Course Summary 02/24 Inpatient admission to [facility] [place] for treatment of sepsis secondary to pneumonia. Rocephin/azithromycin for antimicrobial coverage. IVF of NS at 100cc/hr for hydration. Neb treatment. Supplemental O2. SCD for DVT prevention. 02/25 WBC deceasing. Sodium with increase to 149-will change IVF to 1/2NS with 20mEq KCl at 100 cc/hr for hydration and to help normalize electrolytes. RT for tobacco cessation. Add acapella and Mucinex DM to help loosen secretions. Restart home medications. Wean O2 as able. Recheck CBC in am due to leukocytosis. Recheck BMP in am due to hypernatremia. 1. Community-acquired pneumonia acute present on admission: This patients chest x-ray is not normal. Well cover with Rocephin and Zithromax, culture, adjust antibiotics as indicated 2. Enteritis acute present on admission: His described the patient has nausea and vomiting and diarrhea. Im not clear if this is chronic or new. Well monitor symptoms and address as indicated. IV fluids. Withhold any diuretic therapy. 3. Encephalopathy metabolic acute present on admission: Most likely related to chronic medical condition. Cannot exclude drug exposure. Well get a CT of the head to exclude intracranial process. Well get a urine drug screen. Reassess with IV fluids IV antibiotics. Further information to be provided once known 4. COPD chronic present on admission: DuoNeb, Xopenex, no steroids, 5. Anxiety depression chronic present on admission: Patient is on clonazepam, Prozac, doxepin, is possibly the patients mental status is related to psychiatric disease. Well reassess once medical condition stabilized 6. Sepsis acute present on admission: Patients leukocytosis, tachycardia, lactic acid is reassuring, IV fluids, reassess sepsis markers in the morning 7. History of coronary disease chronic present on admission: At this time the patient is on beta verónica, statin, aspirin is not identified in medication reconciliation, no evidence to suggest worsening cardiac disease 8. Gastroesophageal reflux disease chronic present on admission, continue proton pump inhibitor ROMEO FITZPATRICK MD February 26, 2017 14:31
--- NOTE | 2017-02-26 16:00 | NUR ---
Behavior Patient upset that every time she stands, her chair alarm goes off. Patient threw chair alarm across the room.
[2017-02-26] MEDS: BUDESONIDE INH.SOLN. 0.5mg/2ml NEB AEROSOL SCH ×2 (16:44→21:00)
[2017-02-26] MEDS ORDERED: QUETIAPINE 25 MG TABLET PO SCH (17:30)
[2017-02-26] MEDS ORDERED: THIAMINE 200mg/2ml INJECTION IV ONE (18:00)
--- NOTE | 2017-02-26 18:12 | NUR ---
Smoking/chair alarm Patient walked self down to nurses desk. Patient states she shut her chair alarm off so it wouldn't keep going off. Explained to patient we have it on for her safety. Patient denies being a high fall risk. Patient also admits to walking into bathroom and smoking after being asked why she smells like cigarettes. Patient states she feels like a "junkie". Purse with all belongings locked up in nurse automobile washer steam outside of room, okay with patient.
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
--- NOTE | 2017-02-26 19:16 | NUR ---
Transfer Patient escorted back to CCU bed 1. Report given to Charlie DENSON.
[2017-02-26] MEDS ORDERED: HALOPERIDOL 1 MG TABLET PO PRN ×2 (19:30→23:30)
[2017-02-26] MEDS ORDERED: HALOPERIDOL 5 MG/ML INJECTION IV PRN (19:30)
[2017-02-26] MEDS: AZITHROMYCIN 500 MG in NORMAL SALINE 250 ML IV SCH (19:57)
[2017-02-26] MEDS: DOXEPIN 25 MG CAPSULE PO SCH (20:41)
[2017-02-26] MEDS: ATORVASTATIN 40 MG TABLET PO SCH (20:41)
[2017-02-26] MEDS: NICOTINE 21 MG PATCH TD SCH (20:43)
[2017-02-26] MEDS: NICOTINE PATCH REMOVAL TD SCH (20:43)
[2017-02-26] MEDS: VERAPAMIL 80 MG TABLET PO SCH (20:47)
[2017-02-26] MEDS: CEFTRIAXONE 1 G in NORMAL SALINE 100 ML IV SCH (21:15)
--- NOTE | 2017-02-26 22:15 | NUR ---
STATUS PT DID RECEIVE SCHEDULED KLONOPIN, WELL PRN DILAUDID, PRN HALDOL, AND PRN TYLENOL FOR HALLUCINATIONS, ANXIETY, PARANOIA, BELLIGERENCE, BACK NECK PAIN AND HEADACHE. RN ALSO REPLACED NICODERM PATCH PER DO. PT HAS BEEN RESTING QUIETLY IN BED, APPEARS TO BE SLEEPING AT TIMES BUT IS EASILY AROUSED AND FREQUENTLY REQUESTS TO GO AND AND SMOKE, RN EDUCATIONS ON NO SMOKING POLICY AND CONTINUES TO REINFORCE, PT ALSO FREQUENTLY REQUESTS ADDITIONAL "PAIN PILLS" AND "XANEX". RN DID MESSAGE TELEHOSPITALIST, AWAITING RESPONSE. PT RESTING IN BED.
[2017-02-27] VITALS (18 sets, daily range): BP systolic 92–142; BP diastolic 56–83; PULSE 66–92; RESP 21–31; TEMP 98.2–98.7; O2SAT 90–98
[2017-02-27] MEDS: 1/2 NS w/ KCL 20mEq 1,000 ML IV SCH (00:37)
[2017-02-27] MEDS ORDERED: HALOPERIDOL 5 MG/ML INJECTION IV PRN ×2 (01:30→13:30)
[2017-02-27] MEDS: PANTOPRAZOLE 20 MG TABLET PO SCH (05:09)
[2017-02-27] MEDS: HYDROMORPHONE 2mg/ml INJECTION IV PRN ×2 (05:09→11:16)
--- NOTE | 2017-02-27 05:40 | NUR ---
BREATHING TX PT REQUESTS HER HOME ELLIPTA THIS AM, THIS MED IS NOT ORDERED, SO RN OFFERS SCHEDULED DUONEB, PT DECLINES STATING THAT SHE DOESN'T WANT ANYTHING THAT WILL MAKE HER "JITTERY" BECAUSE THEN HER "HEART RATE WILL GO UP" AND HER "ANXIETY WILL GO UP". RN CALLS RT ELTON, RN, ELTON AND PT AGREE THAT XOPANEX IS A BETTER OPTION FOR THIS AM. PT HAS A DRY COUGH AT THIS TIME. PT ALSO REQUESTS "THAT MEDICINE FOR ANXIETY" IN REFERENCE TO THE HALDOL, PT SEEMS SOMEWHAT MORE LUCID THIS AM, IS ALERT TO CITY, MONTH AND YEAR, IS MUCH CALMER AND MORE COOPERATIVE THAN PREVIOUS EVENING, HOWEVER IS STILL NOTABLE CONFUSED AT TIMES. RN SUGGESTS THAT PATIENT WAIT UNTIL AFTER BREATHING TX TO DECIDE IF SHE REALLY NEEDS THE HALDOL. PT AGREES.
[2017-02-27 05:44] LABS: BASOPHILS # (AUTO) 0.1 T/MM3 (0-0.2); BASOPHILS % (AUTO) 0.7 % (0-2); EOSINOPHILS # (AUTO) 0.5 T/MM3 (0-0.5); EOSINOPHILS % (AUTO) 6.7 % (0-4); HCT - HEMATOCRIT 36.3 % (36-46); HGB - HEMOGLOBIN 11.4 GM/DL (12-16); LYMPHOCYTES # (AUTO) 2.1 T/MM3 (1-4.8); LYMPHOCYTES % (AUTO) 28.7 % (23-45); MEAN CORPUSCULAR HGB 32.6 UUG (26-34); MEAN CORPUSCULAR HGB CONC(MCHC 31.4 GM/DL (31-37); MEAN CORPUSCULAR VOLUME 103.7 UM3 (80-100); MEAN PLATELET VOLUME 9.9 UM3 (9.4-12.4); MONOCYTES # (AUTO) 0.6 T/MM3 (0-0.8); MONOCYTES % (AUTO) 8.4 % (0-9.0); NEUTROPHILS #(AUTO)-ABSOLUTE 4.1 T/MM3 (1.8-7.7); NEUTROPHILS % (AUTO) 55.5 % (33-66); WBC - WHITE BLOOD COUNT 7.3 T/MM3 (4.5-11.0)
[2017-02-27] MEDS: LEVALBUTEROL INH.SOLN. 1.25mg/3ml Neb. AEROSOL PRN ×2 (05:44→09:09)
[2017-02-27 05:48] LABS: ALBUMIN 3.5 G/DL (3.5-5.0); ALBUMIN/GLOBULIN RATIO 1.3 RATIO (1.1-2.2); ALKALINE PHOSPHATASE 131 U/L (38-126); ALT (SGPT) 31 U/L (9-52); ANION GAP 10 MEQ/L (5-15); AST (SGOT) 22 U/L (14-36); BUN/CREATININE RATIO 12 RATIO (6-26); CALCIUM 9.7 MG/DL (8.4-10.2); CHLORIDE 113 MEQ/L (98-107); CO2 - CARBON DIOXIDE 25 MEQ/L (22-30); CREATININE 0.6 MG/DL (0.7-1.2); GLOMERULAR FILTRATION RATE 104; GLUCOSE 104 MG/DL (65-110); MAGNESIUM 2.1 MG/DL (1.6-2.3); POTASSIUM 4.5 MEQ/L (3.6-5); SODIUM 148 MEQ/L (134-144); TOTAL PROTEIN 6.2 G/DL (6.3-8.2)
[2017-02-27] MEDS ORDERED: QUETIAPINE 25 MG TABLET PO SCH (08:00)
[2017-02-27] MEDS: VERAPAMIL 80 MG TABLET PO SCH (08:28)
[2017-02-27] MEDS: POTASSIUM CHLORIDE 20 MEQ TABLET PO SCH (08:28)
[2017-02-27] MEDS: DICYCLOMINE 20 MG TABLET PO SCH ×2 (08:28→13:10)
[2017-02-27] MEDS: METOPROLOL XL 25 MG TABLET PO SCH (08:29)
[2017-02-27] MEDS: GUAIFENESIN DM 600mg/30mg TABLET PO SCH (08:29)
[2017-02-27] MEDS: CLONAZEPAM 1 MG TABLET PO SCH ×2 (08:29→13:10)
[2017-02-27] MEDS: ACETAMINOPHEN 325 MG TABLET PO PRN (08:34)
[2017-02-27] MEDS ORDERED: FLUTICASONE NASAL SPRAY 50 MCG EA NOSTRIL SCH (09:00)
[2017-02-27] MEDS ORDERED: THIAMINE 200mg/2ml INJECTION IV SCH (09:00)
[2017-02-27] MEDS ORDERED: CYANOCOBALAMIN (B-12) 500mcg TABLET PO SCH (09:00)
[2017-02-27] MEDS: BUDESONIDE INH.SOLN. 0.5mg/2ml NEB AEROSOL SCH (09:09)
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
[2017-02-27] MEDS ORDERED: HALOPERIDOL 1 MG TABLET PO PRN (11:30)
--- NOTE | 2017-02-27 11:46 | NUR ---
Status Pt has been pleasant and cooperative this morning. Pt did own bath and then ambulated in hallway with nursing staff. Pt has had a good appetite and is drinking adequate amounts of fluids. Pt does c/o of pain rating it a 9/10, but will not stat where. Pt is currently visiting with Psychiatrist in room. Will continue to monitor.
[2017-02-27] MEDS ORDERED: [UNRECOGNIZED DRUG - CODE] PO (12:46)
[2017-02-27] MEDS ORDERED: FLUT16SP EA NOSTRIL (12:46)
[2017-02-27] MEDS ORDERED: AMOX-351 PO (12:46)
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
--- NOTE | 2017-02-27 13:06 | DSPDOC ---
General Date Date DATE: 02/27/17 TIME: 12:51 Attending Physician Tali Hernandez MD Admitting Physician Tali Hernandez MD Consulting Physician Luisito Esparza MD Admitting Diagnosis encephalopathy, leukocytosis, SIRS, Discharge Diagnosis Sepsis Community-acquired pneumonia Enteritis Encephalopathy Depression/anxiety Mild hypernatremia Leukocytosis Hypoxia History of coronary artery disease Hypertension COPD Tobaccoism Procedures none Laboratory Laboratory Tests Test 02/26/17 04:59 02/27/17 05:01 02/27/17 05:02 White Blood Count 10.9T/MM3 (4.5-11.0) 7.3T/MM3 (4.5-11.0) Red Blood Count 3.36M/MM3 (4.00-5.20) 3.50M/MM3 (4.00-5.20) Hemoglobin 11.2GM/DL (12-16) 11.4GM/DL (12-16) Hematocrit 35.0% (36-46) 36.3% (36-46) Mean Corpuscular Volume 104.2UM3 (80-100) 103.7UM3 (80-100) Mean Corpuscular Hemoglobin 33.3UUG (26-34) 32.6UUG (26-34) Mean Corpuscular Hemoglobin Concent 32.0GM/DL (31-37) 31.4GM/DL (31-37) RDW Standard Deviation 51.1FL (36.9-50.2) 50.7FL (36.9-50.2) Platelet Count 296T/MM3 (130-400) 317T/MM3 (130-400) Mean Platelet Volume 10.1UM3 (9.4-12.4) 9.9UM3 (9.4-12.4) Immature Granulocyte % (Auto) 0.1% (0.0-0.5) 0.0% (0.0-0.5) Neutrophils (%) (Auto) 64.1% (33-66) 55.5% (33-66) Lymphocytes (%) (Auto) 24.2% (23-45) 28.7% (23-45) Monocytes (%) (Auto) 8.2% (0-9.0) 8.4% (0-9.0) Eosinophils (%) (Auto) 3.1% (0-4) 6.7% (0-4) Basophils (%) (Auto) 0.3% (0-2) 0.7% (0-2) Absolute Immature Granulocyte (auto 0.01T/MM3 (0.00-0.03) 0.00T/MM3 (0.00-0.03) Absolute Neutrophils (auto) 7.0T/MM3 (1.8-7.7) 4.1T/MM3 (1.8-7.7) Absolute Lymphocytes (auto) 2.6T/MM3 (1-4.8) 2.1T/MM3 (1-4.8) Absolute Monocytes (auto) 0.9T/MM3 (0-0.8) 0.6T/MM3 (0-0.8) Absolute Eosinophils (auto) 0.3T/MM3 (0-0.5) 0.5T/MM3 (0-0.5) Absolute Basophils (auto) 0.0T/MM3 (0-0.2) 0.1T/MM3 (0-0.2) Turbidity < 20 (0-20) < 20 (0-20) Sodium Level 147MEQ/L (134-144) 148MEQ/L (134-144) Potassium Level 3.7MEQ/L (3.6-5) 4.5MEQ/L (3.6-5) Chloride Level 113MEQ/L (98-107) 113MEQ/L (98-107) Carbon Dioxide Level 23MEQ/L (22-30) 25MEQ/L (22-30) Anion Gap 11MEQ/L (5-15) 10MEQ/L (5-15) Blood Urea Nitrogen 6.0MG/DL (7-17) 7.0MG/DL (7-17) Creatinine 0.6MG/DL (0.7-1.2) 0.6MG/DL (0.7-1.2) Glomerular Filtration Rate Calc 104 104 BUN/Creatinine Ratio 10RATIO (6-26) 12RATIO (6-26) Glucose Level 101MG/DL (65-110) 104MG/DL (65-110) Calculated Osmolality 280MOSM/KG (261-280) 282MOSM/KG (261-280) Calcium Level 9.3MG/DL (8.4-10.2) 9.7MG/DL (8.4-10.2) Icterus Index < 2 (0-7) < 2 (0-7) Chemistry Specimen Hemolysis < 15 (0-25) < 15 (0-25) Magnesium Level 2.1MG/DL (1.6-2.3) Total Bilirubin 0.30MG/DL (0.20-1.30) Aspartate Amino Transf (AST/SGOT) 22U/L (14-36) Alanine Aminotransferase (ALT/SGPT) 31U/L (9-52) Alkaline Phosphatase 131U/L (38-126) Total Protein 6.2G/DL (6.3-8.2) Albumin 3.5G/DL (3.5-5.0) Globulin 2.7G/DL (2.4-3.6) Albumin/Globulin Ratio 1.3RATIO (1.1-2.2) Microbiology Microbiology Date/Time Source Procedure Growth Status 02/24/17 19:15 Peripheral/Iv Start Blood Culture - Preliminary NO GROWTH AFTER 48 HOURS Resulted 02/24/17 17:33 Peripheral/Iv Start Blood Culture - Preliminary NO GROWTH AFTER [address] head FINDINGS: The ventricles are of normal size, shape, and contour for the patient's age. The brainstem, cerebellum, and cerebral hemispheres have a normal morphology and CT attenuation. There is no evidence of midline displacement. No hemorrhage, signs of acute territorial stroke, mass effect, mass lesions, or edema is evident. The visualized portions of the skull base, midface, and calvarium demonstrate no abnormality. The paranasal sinuses are well aerated and free of significant disease. The tympanic and mastoid cavities appear normal. IMPRESSION: No acute intracranial abnormality or hemorrhage. CT abdomen pelvis Findings: Airspace consolidation in the right middle and both lower lobes. Large calcified granuloma in the left lower lobe. Bilateral breast implants. The unenhanced contours of the liver are unremarkable. Gallbladder is distended. The spleen shows granulomatous disease. The pancreas, adrenal glands and kidneys are normal. No abdominal or pelvic lymphadenopathy. The bladder is distended. Uterus is absent. No evidence of a bowel obstruction. The appendix is normal. Bone windows show degenerative change and mild scoliosis in the spine. Impression: 1. Right lower lobe pneumonia, aspiration, or fibrosis. Recommend clinical and laboratory correlation. 2. No acute disease process seen in the abdomen or pelvis. Chest x-ray FINDINGS: Peripheral airspace consolidation is seen in the right mid to lower lung field. Overlying artifact from breast implants. No pneumothorax or effusion. Heart size and mediastinal contours are within normal limits. Pulmonary vascularity appears normal. Impression: Right sided airspace consolidation could be due to pneumonia, aspiration or fibrotic changes. History of Present Illness This is a 56-year-old female who apparently lives with her . The patient has a history chronic pancreatitis and abdominal pain. The patient has described nausea and vomiting and diarrhea for the past 3 days. The patients reported of had a temperature 103 at home. The patient said abdominal pain. The patient presents to the emergency department for evaluation. Workup in the emergency department includes a CT of the abdomen and pelvis which is described as normal. There is question of a pneumonia in the right lower lung. The patient had an elevated white count of 16.5 with normal differential. Lactic acid and Pro calcitonin were reasonable. At this time the patient continues to be somewhat confused. At times shell complain of a headache. At times she will not. The patient has discharge and responses to questions. The chest x- ray obtained after the CT suggest a bilateral lower lobe infiltrate. The patient is noted to be coughing. The patient is to be admitted for further assessment of ongoing altered mental status. Hospital Course The patient was admitted on 02/24/2017 with nausea, vomiting, diarrhea and abdominal pain. Workup in the emergency room revealed sepsis and pneumonia. The patient was also found to have encephalopathy. CT abdomen and pelvis did not show any abnormalities within the abdomen but did show pneumonia. Chest x-ray also showed right middle and lower lobe pneumonia. The patient was started on Rocephin and azithromycin. White count normalized. She had hypoxia which has resolved. She was given breathing treatments for COPD and hypoxia. At the time of discharge on 02/27/2017 pneumonia is doing much better. She is on room air without hypoxia. She appears stable for discharge on Augmentin 875 mg 1 by mouth twice a day for 5 days. White count has normalized. Regarding encephalopathy, the patient had a long list of psychiatric medications from different pharmacies and it was uncertain which medications she was actually taking. Here in the hospital she was receiving clonazepam. She was also receiving Dilaudid for pain. The patient became much more confused on 02/26/2017. She was demanding to go home despite her altered mental status. I did speak with her ex- Mao Odell who she had requested to be her alternate decision-maker and he agreed that she should stay in the hospital for further evaluation. I also spoke with Dr. Esparza and he recommended that I initiate a court hold until she could be seen by him today. On 02/26/2017 Dr. Esparza did initially recommend restarting a lower dose of her Seroquel but despite this the patient's agitation and confusion worsened. He then recommended Haldol and today the patient is no longer confused. Her thought processes are still somewhat tangential. Dr. Esparza did see the patient today and felt that she was stable from a psychiatric standpoint for discharge. He recommended only continuing clonazepam and having her follow with her counselor and her psychiatrist tomorrow to review her psychiatric medications. Dr. Esparza stated he worked at the same facility where she is a patient in [place] and he will talk with her psychiatrist tomorrow. The patient has not been discharged on any narcotic pain medications. Regarding confusion, I did check an RPR and that is pending and will need to be followed up by her primary care physician. She was noticed to have mild anemia and also has an elevated MCV as high as 104.2. Vitamin B 12 level and folate level have been drawn and are pending at the time of discharge. This will need to be followed by her primary care physician. I did recommend at the least that she stated started on a multivitamin once daily. If vitamin B-12 and/or folate are low she will need additional replacement. She has mild hypernatremia and anemia and would benefit from repeat CBC and basic metabolic profile with her primary care physician in follow-up this week. She is drinking fluids well and I recommended that she continue to drink adequate fluids at discharge. I recommended that she not drive until cleared by her psychiatrist. Greater than 30 minutes time was spent seeing and evaluating the patient today. Problems: (1) Sepsis Status: Acute Assessment & Plan: POA (2) Pneumonia Status: Acute (3) Encephalopathy acute Status: Acute (4) Hypernatremia Status: Acute Assessment & Plan: POA (5) Leukocytosis Status: Acute Assessment & Plan: POA (6) Tachycardia Status: Acute Assessment & Plan: POA (7) Hypoxia Status: Acute (8) CAD (coronary artery disease) Status: Chronic (9) HTN (hypertension) Status: Chronic (10) Hyperlipemia Status: Chronic (11) COPD (chronic obstructive pulmonary disease) Status: Chronic (12) GERD (gastroesophageal reflux disease) Status: Chronic (13) Osteoarthritis Status: Chronic (14) Depression Status: Chronic (15) Anxiety Status: Chronic (16) Tobacco dependence Status: Chronic Code Status Full Code Home Meds Active Scripts Amoxicillin/Potassium Clav (Augmentin 875-125 Tablet) 1 Each Tablet, 1 TAB PO BID for 5 Days, #10 TAB TAKE WITH MEALS Prov:TALI HERNANDEZ MD 02/27/17 Multivitamin (Mab-Gthdkh-Xthxg) 1 Each Tablet, 1 TAB PO DAILY, #1 BOTTLE Prov:TALI HERNANDEZ MD 02/27/17 Fluticasone Propionate (Fluticasone Prop 50 mcg/actuation Nasal Bend) 120 Bend /16 G Bend, 2 SPRAY EA NOSTRIL DAILY, #1 ML Prov:TALI HERNANDEZ MD 02/27/17 Reported Medications Verapamil HCl (Verapamil HCl) 40 Mg Tablet, 40 MG PO BID 02/25/17 Omeprazole (Omeprazole) 20 Mg Tablet.dr, 20 MG PO ACBID, TAB Take 1 tablet, by mouth, 2 times a day with meals. 02/25/17 Atorvastatin Calcium (Atorvastatin Calcium) 80 Mg Tablet, 1 TAB PO HS, TAB 08/12/15 Pantoprazole Sodium (Protonix) 20 Mg Tablet, 20 MG PO BID, TAB 08/12/15 Metoprolol Succinate (Metoprolol Succinate) 25 Mg Tab.er.24h, 25 MG PO BID, TAB 08/12/15 Levalbuterol Tartrate (Xopenex Hfa) 15 Gm Hfa.aer.ad, 2 PUFF ORAL INH Q6H, INHALER 08/12/15 Potassium Chloride (Potassium Chloride) 20 Meq Tablet.er, 20 MEQ PO BIDWM, TAB Take 1 tablet, by mouth, two times a day with meals. 08/12/15 Tiotropium [place] (Spiriva) 1 Cap Inhaler, 1 CAP ORAL INH DAILY, INHALER Place 1 capsule into inhaler , puncture and inhale one time a day. 08/12/15 Fluticasone/Salmeterol (Advair HFA 45-21 Mcg Inhaler) 12 Gm Hfa.aer.ad, 1 PUFF ORAL INH RTBID, INHALER 08/12/15 Clonazepam (Clonazepam) 1 Mg Tablet, 1 TAB PO BID, TAB 08/12/15 Diphenoxylate HCl/Atropine (Lomotil 2.5-0.025 mg Tablet) 1 Each Tablet, 1 TAB PO Q6HPRN 08/12/15 Sucralfate (Carafate) 1 Gm Tablet, 1 G PO QID Y for ACID REFLUX, TAB Take 1 tablet, by mouth, 4 times a day as needed. 08/12/15 Ondansetron HCl (Zofran) 4 Mg Tablet, 4 MG PO Q6H Y for NAUSEA, TAB 08/12/15 Discontinued Reported Medications Hydroxyzine HCl (Hydroxyzine HCl) 25 Mg Tablet, 1 TAB PO BID, TAB 02/25/17 Eszopiclone (Lunesta) 3 Mg Tablet, 1 TAB PO HS Y for INSOMNIA, TAB 02/25/17 Topiramate (Topiramate) 50 Mg Tablet, 1 TAB PO BID, #60 TAB 1 Refill 02/25/17 Quetiapine Fumarate (Quetiapine Fumarate) 100 Mg Tablet, 150 MG PO WS, TAB Take 1 1/2 (100 mg ) tablets, by mouth, 1 time a day. 02/25/17 Quetiapine Fumarate (Quetiapine Fumarate) 100 Mg Tablet, 50 MG PO WB, TAB Take 1 tablet, by mouth, 1 time a day (at NOON). 02/25/17 Quetiapine Fumarate (Quetiapine Fumarate) 100 Mg Tablet, 50 MG PO WL, TAB 02/25/17 Duloxetine HCl (Duloxetine HCl) 30 Mg Capsule.dr, 1 CAP PO BID, CAP 02/25/17 Doxepin HCl (Doxepin HCl) 25 Mg Capsule, 2 CAP PO HS, CAP 08/12/15 Dicyclomine HCl (Dicyclomine HCl) 20 Mg Tablet, 2 TAB PO TID, #120 08/12/15 Fluoxetine HCl (Prozac) 20 Mg Capsule, 1 CAP PO DAILY, CAP 08/12/15 Face to Face Encounter I met with patient on the day of dismissal and discussed follow up appointments , medications, and safety plan. Discharge Disposition Dismiss to home with family Copies To 1: NEDIKEON REGALADO STEPHANIE L MD February 27, 2017 12:55
[2017-02-27] MEDS: NICOTINE 21 MG PATCH TD SCH (13:10)
[2017-02-27] MEDS: NICOTINE PATCH REMOVAL TD SCH (13:10)
--- NOTE | 2017-02-27 13:34 | NUR ---
prescription 1 prescription (Augmentin) called into [facility] on [address]. This RN spoke directly with pharmacist.
[2017-02-27] MEDS ORDERED: HYDROMORPHONE 2mg/ml INJECTION IV PRN (14:45)
--- NOTE | 2017-02-27 15:24 | NUR ---
Discharge Pt discharged home in good condition. Discharge instructions were given to pt and pt's ex . Instructions included, but not limited to, follow up care, pending labs, medications, driving restrictions, s/s to report and expect, and new prescriptions. Both verbalized understanding. pt ambulated to ER exit with all personal belongings.
--- NOTE | 2017-02-27 21:20 | NUR ---
After Discharge Phone-Call Pt called at this time to this RN. Asking for RN Kenyatta. When this RN inquired name and offered to relay a message, pt states "I'm a patient of hers." Would not provide name - but did explain that she was in CCU1 and discharged today "around 3:00." RN offers assistance. Pt states, "I'm just not feeling well." RN inquires about symptoms, however pt is not able to provide any details. This RN encourages pt to activate EMS or visit our ED should her symptoms warrant it. If not emergent, follow up with her PCP in the morning. Pt appreciative.
== END 2017-02-27 15:20 | disposition home or self-care (01) | DRG 871 ==
LOC: ED 16:44 → OBSVTOIN 21:10 → EDHOLD 21:10 → MED 22:15 → CCU 02-26 19:05
PROVIDERS: ADMIT Emergency Medicine; ATTEND Internal Medicine
DX: A41.9 Sepsis, unspecified organism (principal); G93.41 Metabolic encephalopathy; J18.9 Pneumonia, unspecified organism; J96.01 Acute respiratory failure with hypoxia; E87.0 Hyperosmolality and hypernatremia; F05 Delirium due to known physiological condition; J44.9 Chronic obstructive pulmonary disease, unspecified; F41.9 Anxiety disorder, unspecified; F32.9 Major depressive disorder, single episode, unspecified; I25.10 Atherosclerotic heart disease of native coronary artery without angina pectoris; K21.9 Gastro-esophageal reflux disease without esophagitis; E78.5 Hyperlipidemia, unspecified; I10 Essential (primary) hypertension; M15.0 Primary generalized (osteo)arthritis; F17.200 Nicotine dependence, unspecified, uncomplicated; K52.9 Noninfective gastroenteritis and colitis, unspecified; F43.10 Post-traumatic stress disorder, unspecified; Z79.899 Other long term (current) drug therapy
CPT/HCPCS: 36415; 51701; 80048; 80053; 80306; 80307; 81003; 82607; 82746; 83605; 83690; 83735; 84145; 84443; 85025; 86592; 87040; 93005; 94640; 96361; 96365; 96375; 99406

== ENCOUNTER 2017-03-03 23:01 | Emergency (ER) | payer MEDICARE, MEDICAID ==
[~2017-03-03] VITALS: Ht 170.2 cm; Wt 69.8 kg
[~2017-03-03 23:01] MED LIST changes: +AMOX-351 PO; +DULO30CA52 PO; +ESZO3TAB PO; +FLUT16SP EA NOSTRIL; +HYDR25TA85 PO; +OMEP-122 PO; +QUET100T69 PO; +TOPI50TA25 PO; +VERA40TA5 PO; +[UNRECOGNIZED DRUG - CODE] PO
[2017-03-03 23:05] VITALS: Ht 170.2 cm; Wt 69.8 kg
--- OUTSIDE RECORDS SUMMARY | 2017-03-03 23:05 | XMS REPORT | Continuity of Care Document ---
Author Author [facility] Address Unknown Phone Unavailable Support Name Relationship Address Phone ROMEO HERNANDEZ MD Caregiver [address] [place] [address] Unavailable REJI PAGE MD Caregiver [address] [facility] [place] [address] Unavailable KEON SCHMITZ DO Caregiver [address] [place] [address] Unavailable JEANNIE GARCIA MD Caregiver [address] [place] [address] Unavailable TYRA ODELL Next Of Kin [address] [place] [address] Insurance Providers Guarantor Tova Yeboah Address [address] [place] [address] Email DENIED 02-24-17 [facility] Policy Number [id number] Subscriber's Name Tova Yeboah Relationship 18 Self Effective Date 17 Expiration Date 17 Payer Medicare Policy Number [id number] Subscriber's Name Tova Yeboah Relationship 18 Self Advance Directives Directive Response Recorded Date/Time Advanced Directives Type None 02/24/17 4:52pm Ordered Resuscitation Status Full Code 02/24/17 9:10pm Resuscitation Documents on File No 02/24/17 10:25pm DPOA for Healthcare Only Elliott NIEVES 02/27/17 12:54pm Living Will Yes 02/24/17 10:25pm Advanced Directive or Resuscitation Comments PT STATES SHE IS A DNR 02/24/17 10:25pm Advance Directive Consult Information Given 02/25/17 10:29am Problems Active Problems Medical Problem Onset Date Status Anxiety Unknown Chronic CAD (coronary artery disease) Unknown Chronic COPD (chronic obstructive pulmonary disease) Unknown Chronic Chest pain Unknown Acute Delirium due to multiple etiologies Unknown Depression Unknown Chronic GERD (gastroesophageal reflux disease) Unknown Chronic HTN (hypertension) Unknown Chronic Hyperlipemia Unknown Chronic Hypernatremia Unknown Acute Hypoxia Unknown Acute LUQ pain Unknown Acute Left against medical advice Unknown Acute Left against medical advice Unknown Acute Osteoarthritis Unknown Chronic PTSD (post-traumatic stress disorder) Unknown Pneumonia Unknown Acute Sepsis Unknown Acute Tachycardia Unknown Acute Tobacco dependence Unknown Chronic Past Problems Medical Problem Onset Date Encephalopathy acute Unknown Leukocytosis Unknown SIRS (systemic inflammatory response syndrome) Unknown Medications Current Home Medications Medication Dose Units Route Directions Days Qty Instructions Start Date Amoxicillin/Potassium Clav (Augmentin 875-125 Tablet) 1 Each Tablet 1 Tab Oral Twice A Day 5 Days 10 Tablet TAKE WITH MEALS 02/27/17 Atorvastatin Calcium 80 Mg Tablet 1 Tab Oral Bedtime 08/12/15 Clonazepam 1 Mg Tablet 1 Tab Oral Twice A Day 08/12/15 Diphenoxylate Hcl/Atropine (Lomotil 2.5-0.025 Mg Tablet) 1 Each Tablet 1 Tab Oral Every 6 Hr Prn 08/12/15 Fluticasone Propionate (Fluticasone Prop 50 Mcg/Actuation Nasal [place]) 120 [place]/16 G [place] 2 [place] Each Nostril Daily 1 Milliliter 02/27/17 Fluticasone/Salmeterol (Advair Hfa 45-21 Mcg Inhaler) 12 Gm Hfa.aer.ad 1 Puff Oral Inhalation Resp.tx Twice A Day 08/12/15 Levalbuterol Tartrate (Xopenex Hfa) 15 Gm Hfa.aer.ad 2 Puff Oral Inhalation Every 6 Hours 08/12/15 Metoprolol Succinate 25 Mg Tab.er.24h 25 Mg Oral Twice A Day Multivitamin (Cnb-Clmgqz-Lyjpc) 1 Each Tablet 1 Tab Oral Daily 1 Bottle 02/27/17 Omeprazole 20 Mg Tablet.dr 20 Mg Oral Before Meals Twice A Day Take 1 tablet, by mouth, 2 times a day with meals. 02/25/17 Ondansetron Hcl (Zofran) 4 Mg Tablet 4 Mg Oral Every 6 Hours as needed for Nausea 08/12/15 Pantoprazole Sodium (Protonix) 20 Mg Tablet 20 Mg Oral Twice A Day 08/12/15 Potassium Chloride 20 Meq Tablet.er 20 Meq Oral Twice Daily With Meals Take 1 tablet, by mouth, two times a day with meals. 08/12/15 Sucralfate (Carafate) 1 Gm Tablet 1 G Oral Four Times Daily as needed for Acid Reflux Take 1 tablet, by mouth, 4 times a day as needed. 08/12/15 Tiotropium [place] (Spiriva) 1 Cap Inhaler 1 Cap Oral Inhalation Daily Place 1 capsule into inhaler , puncture and inhale one time a day. 08/12/15 Verapamil Hcl 40 Mg Tablet 40 Mg Oral Twice A Day 02/25/17 Past Home Medications Medication Directions Ordered Status Dicyclomine Hcl 20 Mg Tablet, 2 Tab Oral Three Times A Day 08/12/15 Discontinued Doxepin Hcl 25 Mg Capsule, 2 Cap Oral Bedtime 08/12/15 Discontinued Duloxetine Hcl 30 Mg Capsule.dr, 1 Cap Oral Twice A Day 02/25/17 Discontinued Eszopiclone (Lunesta) 3 Mg Tablet, 1 Tab Oral Bedtime as needed for Insomnia 02/25/17 Discontinued Fluoxetine Hcl (Prozac) 20 Mg Capsule, 1 Cap Oral Daily 08/12/15 Discontinued Hydroxyzine Hcl 25 Mg Tablet, 1 Tab Oral Twice A Day 02/25/17 Discontinued Quetiapine Fumarate 100 Mg Tablet, 50 Mg Oral Give With Lunch 02/25/17 Discontinued Quetiapine Fumarate 100 Mg Tablet, 50 Mg Oral Give With Breakfast 02/25/17 Discontinued Quetiapine Fumarate 100 Mg Tablet, 150 Mg Oral Give With Supper 02/25/17 Discontinued Topiramate 50 Mg Tablet, 1 Tab Oral Twice A Day 02/25/17 Discontinued Social History Social History Problem Response Recorded Date/Time Onset Date Status Reason for Hospitalization altered mental status, community-acquired pneumonia , nausea and vomiting 02/27/2017 1:15pm Not Applicable Not Applicable Hx Substance Use No 02/24/2017 4:57pm Not Applicable Not Applicable Hx Alcohol Use No 02/24/2017 4:57pm Not Applicable Not Applicable Has the pt used tobacco in the last 12 months Yes 02/24/2017 10:28pm Not Applicable Not Applicable Query Response Start Date Stop Date Smoking Status Current every day smoker Hospital Discharge Instructions Instructions: Care Instructions: Reason for Hospitalization: altered mental status, community-acquired pneumonia, nausea and vomiting I was in the hospital because (patient own words): BECAUSE OF MY STOMACH BOTHERED ME REAL BAD, I HAD PANCREATITIS BEFORE Discharge Diet: diet as tolerated, encourage fluid intake Discharge Activity: Activity as tolerated No driving until okayed by your psychiatrist Follow Up Appointments: Follow-up tomorrow with your psychiatrist Follow-up this coming week with Dr. Schmitz or one of his partners at [facility] / Results: Follow up w/ your PCP Wound/Incision Care: Not applicable Pain Scale Utilized to Educate Patient: 0-10 Pain Scale Pain Management/Treatment: Tylenol Expected Signs/Symptoms: Mild cough Notify Physician If: Confusion, shortness of breath, severe diarrhea, abdominal pain During Business Hours:: Please call the physician's office at [facility] After Business Hours:: Please call [phone] and have the hoisting engine operator page the physician. Condition at time of discharge: Good Plan of Care Discharge Date 02/27/17 3:20pm Disposition 01 DISCHARGED HOME, SELF-CARE Instructions/Education Provided Leukocytosis (DC) Encephalopathy (DC) Prescriptions See Medication Section Additional Instructions/Education follow up with your primary care doctor about lab work that is pending here at [facility]- [facility], Folate and Vitamin B12 level. Have lab work drawn this week with your primary care doctor to check your sodium level and anemia (BMP AND CBC) no driving until cleared by your psychiatrist Care Plan and Goals See Discharge Instructions Section Functional Status Query Response Date Recorded Mobility Status Ambulatory w/assist February 27, 2017 1:15pm Assistive Devices None February 27, 2017 1:15pm Activity Limitations Pain February 27, 2017 1:15pm Feeding Ability Independent February 27, 2017 1:15pm Toileting Ability Assist February 27, 2017 1:15pm Grooming Ability Assist February 27, 2017 1:15pm Dressing Ability Assist February 27, 2017 1:15pm Driving Ability Dependent February 27, 2017 1:15pm Housework Ability Dependent February 27, 2017 1:15pm Meal Preparation Ability Dependent February 27, 2017 1:15pm Stair Climbing Ability Assist February 27, 2017 1:15pm Ability to complete ADL's impeded by Change in Cognition February 27, 2017 1:15pm Cognitive/Perceptual Impairments None February 27, 2017 1:15pm Allergies, Adverse Reactions, Alerts Allergen Type Severity Reaction Status Last Updated Codeine Adverse Reaction Mild RASH Active 08/12/15 Acetaminophen Adverse Reaction Mild RASH Active 08/12/15 Sumatriptan Allergy Unknown Active 10/27/14 Metoclopramide Allergy Unknown Active 10/27/14 PRO-PEN Allergy Severe SHOCK Active 08/12/15 PROPEL Allergy Unknown Active 10/27/14 Immunizations Query Response on File Recorded Date/Time Hx Influenza Vaccination Y UNKNOWN DATE 02/24/17 10:28pm Hx Pneumococcal Vaccination Y UNKNOWN DATE 02/24/17 10:28pm Hx Influenza Vaccination Y UNKNOWN DATE 02/24/17 10:28pm Influenza Vaccine Hx 2016 02/24/17 4:57pm Vital Signs Acute Vital Signs Vital Response Date/Time Temperature (Fahrenheit) 98.7 deg F (96.8 - 99.1) 02/27/2017 11:55am Temperature (Calculated Celsius) 37.38903 degrees C (36.0 - 37.3) 02/27/2017 11:55am Pulse Rate (adult) 79 bpm (60 - 100) 02/27/2017 12:00pm Respiratory Rate 24 breaths/min (10 - 20) 02/27/2017 12:00pm O2 Sat by Pulse Oximetry 93 % (90 - 100) 02/27/2017 11:55am Oxygen Delivery Method Nasal Cannula 02/25/2017 7:53pm Oxygen Delivery Method Room Air 02/27/2017 11:55am Oxygen Flow Rate 1.00 L/min 02/26/2017 7:09am Blood Pressure 105/65 mm Hg 02/27/2017 11:55am Blood Pressure Source Automatic Cuff 02/27/2017 11:55am Height (Feet) 5 feet 02/27/2017 12:54pm Height (Inches) 7.00 inches 02/27/2017 12:54pm Weight (Kilograms) 61.400 kg 02/26/2017 7:13am Body Mass Index (BMI) 20.4 02/24/2017 10:24pm Results Laboratory Results Test Name Result Units Flags Reference Collection Date/Time Result Date/ Time Comments Troponin I < 0.012 ng/ml 0-0.12 02/21/2017 10:38am 02/21/2017 11:16am Troponin values with a difference of 55% increase from orginal troponin value represent a true biological DELTA value. (%increase Calc=Orginal Troponin value, divided by subsequent Troponin value, multiplied by 100) C-Reactive Protein < 5.0 MG/L 0-9 02/21/2017 10:38am 02/21/2017 11: 07am Urinalysis Comment MICROSCOPIC NOT IND. 02/21/2017 10:42am 2016 10:54am White Blood Count 7.3 T/MM3 4.5-11.0 02/27/2017 5:02am 02/27/2017 5: 44am Red Blood Count 3.50 M/MM3 L 4.00-5.20 02/27/2017 5:02am 02/27/2017 5: 44am Hemoglobin 11.4 GM/DL L 12-16 02/27/2017 5:02am 02/27/2017 5:44am Hematocrit 36.3 % 36-46 02/27/2017 5:02am 02/27/2017 5:44am Mean Corpuscular Volume 103.7 UM3 H 80-100 02/27/2017 5:02am 02/27/2017 5:44am Mean Corpuscular Hemoglobin 32.6 UUG 26-34 02/27/2017 5:02am 2016 5:44am Mean Corpuscular Hemoglobin Concent 31.4 GM/DL 31-37 02/27/2017 5:0202/27/2017 5:44am RDW Standard Deviation 50.7 FL H 36.9-50.2 02/27/2017 5:02am 02/27/2017 5:44am Platelet Count 317 T/MM3 130-400 02/27/2017 5:02am 02/27/2017 5:44am Mean Platelet Volume 9.9 UM3 9.4-12.4 02/27/2017 5:02am 02/27/2017 5: 44am Neutrophils (%) (Auto) 55.5 % 33-66 02/27/2017 5:0202/27/2017 5: 44am Lymphocytes (%) (Auto) 28.7 % 23-45 02/27/2017 5:02am 02/27/2017 5: 44am Monocytes (%) (Auto) 8.4 % 0-9.0 02/27/2017 5:02am 02/27/2017 5:44am Eosinophils (%) (Auto) 6.7 % H 0-4 02/27/2017 5:0202/27/2017 5:44am Basophils (%) (Auto) 0.7 % 0-2 02/27/2017 5:0202/27/2017 5:44am Immature Granulocyte % (Auto) 0.0 % 0.0-0.5 02/27/2017 5:02am 2016 5:44am Absolute Neutrophils (auto) 4.1 T/MM3 1.8-7.7 02/27/2017 5:02am 2016 5:44am Absolute Lymphocytes (auto) 2.1 T/MM3 1-4.8 02/27/2017 5:02am 2016 5:44am Absolute Monocytes (auto) 0.6 T/MM3 0-0.8 02/27/2017 5:02am 02/27/2017 5:44am Absolute Eosinophils (auto) 0.5 T/MM3 0-0.5 02/27/2017 5:02am 2016 5:44am Absolute Basophils (auto) 0.1 T/MM3 0-0.2 02/27/2017 5:02am 02/27/2017 5:44am Absolute Immature Granulocyte (auto 0.00 T/MM3 0.00-0.03 02/27/2017 5: 02am 02/27/2017 5:44am Neutrophils % (Manual) 74.0 % H 33-66 02/24/2017 5:27pm 02/24/2017 6: 09pm Band Neutrophils % 1.0 % 0-6 02/24/2017 5:27pm 02/24/2017 6:09pm Lymphocytes % (Manual) 13.0 % L 23-45 02/24/2017 5:27pm 02/24/2017 6: 09pm Monocytes % (Manual) 8.0 % 0-9.0 02/24/2017 5:27pm 02/24/2017 6:09pm Eosinophils % (Manual) 2.0 % 0-4 02/24/2017 5:27pm 02/24/2017 6:09pm Reactive Lymphocytes % 2.0 % H 0-0 02/24/2017 5:27pm 02/24/2017 6:09pm Band Neutrophils # 0.2 T/MM3 02/24/2017 5:27pm 02/24/2017 6:09pm Absolute Neutrophils (Manual) 12.2 T/MM3 H 1.8-7.7 02/24/2017 5:27pm 01/2017 6:09pm Lymphocytes # (Manual) 2.1 T/MM3 1-4.8 02/24/2017 5:27pm 02/24/2017 6: 09pm Monocytes # (Manual) 1.3 T/MM3 H 0-0.8 02/24/2017 5:27pm 02/24/2017 6: 09pm Eosinophils # (Manual) 0.3 T/MM3 0-0.5 02/24/2017 5:27pm 02/24/2017 6: 09pm Reactive Lymphocytes # 0.3 T/MM3 H 0-0 02/24/2017 5:27pm 02/24/2017 6: 09pm Red Cell Morphology Comment NORMAL 02/24/2017 5:27pm 02/24/2017 6: 09pm Icterus Index < 2 0-7 02/27/2017 5:0202/27/2017 5:48am Chemistry Specimen Hemolysis < 15 0-25 02/27/2017 5:0202/27/2017 5 :48am 0-25: Specimen Exhibited No Hemolysis. Turbidity < 20 0-20 02/27/2017 5:02am 02/27/2017 5:48am Sodium Level 148 MEQ/L H 134-144 02/27/2017 5:02am 02/27/2017 5:48am Potassium Level 4.5 MEQ/L D 3.6-5 02/27/2017 5:0202/27/2017 5:55am Chloride Level 113 MEQ/L H 98-107 02/27/2017 5:02am 02/27/2017 5:48am Carbon Dioxide Level 25 MEQ/L 22-30 02/27/2017 5:02am 02/27/2017 5: 48am Anion Gap 10 MEQ/L 5-15 02/27/2017 5:0202/27/2017 5:48am Blood Urea Nitrogen 7.0 MG/DL 7-17 02/27/2017 5:0202/27/2017 5:48am Creatinine 0.6 MG/DL L 0.7-1.2 02/27/2017 5:0202/27/2017 5:48am BUN/Creatinine Ratio 12 RATIO 6-26 02/27/2017 5:0202/27/2017 5:48am Glomerular Filtration Rate Calc 104 02/27/2017 5:0202/27/2017 5: 48am Glucose Level 104 MG/DL 65-110 02/27/2017 5:0202/27/2017 5:48am Calculated Osmolality 282 MOSM/KG H 261-280 02/27/2017 5:022016 5:48am Calcium Level 9.7 MG/DL 8.4-10.2 02/27/2017 5:02am 02/27/2017 5:48am Total Bilirubin 0.30 MG/DL 0.20-1.30 02/27/2017 5:02am 02/27/2017 5: 48am Alkaline Phosphatase 131 U/L H 38-126 02/27/2017 5:02am 02/27/2017 5: 48am Total Protein 6.2 G/DL L 6.3-8.2 02/27/2017 5:02am 02/27/2017 5:48am Albumin 3.5 G/DL 3.5-5.0 02/27/2017 5:02am 02/27/2017 5:48am Globulin 2.7 G/DL 2.4-3.6 02/27/2017 5:02am 02/27/2017 5:48am Albumin/Globulin Ratio 1.3 RATIO 1.1-2.2 02/27/2017 5:02am 02/27/2017 5 :48am Aspartate Amino Transf (AST/SGOT) 22 U/L 14-36 02/27/2017 5:02am 2016 5:48am Alanine Aminotransferase (ALT/SGPT) 31 U/L 9-52 02/27/2017 5:02am 02/27 5:48am Lipase 36 U/L 23-300 02/24/2017 5:27pm 02/24/2017 5:48pm Magnesium Level 2.1 MG/DL 1.6-2.3 02/27/2017 5:02am 02/27/2017 5:48am Plasma Lactate 1.2 MMOL/L 0.6-2.2 02/24/2017 9:47pm 02/24/2017 10:03pm Procalcitonin 0.46 NG/ML 02/24/2017 5:34pm 02/24/2017 6:07pm PCT </= 0.5 ng/mL - sepsis not likely; PCT >0.5 and </=2 ng/mL - sepsis possible; PCT >2 ng/mL - sepsis likely; PCT >/=10 ng/mL - systemic inflammatory response - sepsis or septic shock highly indicated. Alcohol, Quantitative <10 MG/DL <10 02/24/2017 5:33pm 02/24/2017 5: 50pm Thyroid Stimulating Hormone (TSH) 3.47 MIU/L 0.47-4.68 02/25/2017 4: 33am 02/25/2017 1:21pm Urine Collection Type CLEANCATCH-MIDSTREAM 02/24/2017 8:28pm 2016 8:39pm Urine Color YELLOW YELLOW 02/24/2017 8:28pm 02/24/2017 8:39pm Urine Turbidity CLEAR CLEAR 02/24/2017 8:28pm 02/24/2017 8:39pm Urine Specific [place] <=1.005 L 1.015-1.025 02/24/2017 8:28pm 2016 8:39pm Urine pH 5.5 5.0-8.0 02/24/2017 8:28pm 02/24/2017 8:39pm Urine Leukocyte Esterase NEGATIVE NEGATIVE 02/24/2017 8:28pm 2016 8:39pm Urine Nitrite NEGATIVE NEGATIVE 02/24/2017 8:28pm 02/24/2017 8:39pm Urine Protein NEGATIVE NEGATIVE 02/24/2017 8:28pm 02/24/2017 8:39pm Urine Glucose (UA) NEGATIVE NEGATIVE 02/24/2017 8:28pm 02/24/2017 8: 39pm Urine Ketones NEGATIVE NEGATIVE 02/24/2017 8:28pm 02/24/2017 8:39pm Urine Urobilinogen 0.2 EU/DL NORMAL 02/24/2017 8:28pm 02/24/2017 8: 39pm Urine Bilirubin NEGATIVE NEGATIVE 02/24/2017 8:28pm 02/24/2017 8: 39pm Urine Blood NEGATIVE NEGATIVE 02/24/2017 8:28pm 02/24/2017 8:39pm Urinalysis Comment MICROSCOPIC NOT IND. 02/24/2017 8:28pm 2016 8:39pm Microbiology Results Procedure Source Organism/Result Collection Date/Time Result Date/Time Result Status Blood Culture Peripheral/Iv Start NO GROWTH AFTER 48 HOURS 02/24/2017 7: 15pm 02/26/2017 7:17pm Preliminary Name: TOVA YEBOAH Unit #: [id number] : 1960 Sex: F DISCHARGE SUMMARY Admit Date: 02/24/17 Report #: [id number] [facility] General Date Date DATE: 02/27/17 TIME: 12:51 Attending Physician Romeo Hernandez MD Admitting Physician Romeo Hernandez MD Consulting Physician Luisito Esparza MD Admitting Diagnosis encephalopathy, leukocytosis, SIRS, Discharge Diagnosis Sepsis Community-acquired pneumonia Enteritis Encephalopathy Depression/anxiety Mild hypernatremia Leukocytosis Hypoxia History of coronary artery disease Hypertension COPD Tobaccoism Procedures none Laboratory Laboratory Tests Test 02/26/17 04:59 02/27/17 05:01 02/27/17 05:02 White Blood Count 10.9T/MM3 (4.5-11.0) 7.3T/MM3 (4.5-11.0) Red Blood Count 3.36M/MM3 (4.00-5.20) 3.50M/MM3 (4.00-5.20) Hemoglobin 11.2GM/DL (12-16) 11.4GM/DL (12-16) Hematocrit 35.0% (36-46) 36.3% (36-46) Mean Corpuscular Volume 104.2UM3 (80-100) 103.7UM3 (80-100) Mean Corpuscular Hemoglobin 33.3UUG (26-34) 32.6UUG (26-34) Mean Corpuscular Hemoglobin Concent 32.0GM/DL (31-37) 31.4GM/DL (31-37) RDW Standard Deviation 51.1FL (36.9-50.2) 50.7FL (36.9-50.2) Platelet Count 296T/MM3 (130-400) 317T/MM3 (130-400) Mean Platelet Volume 10.1UM3 (9.4-12.4) 9.9UM3 (9.4-12.4) Immature Granulocyte % (Auto) 0.1% (0.0-0.5) 0.0% (0.0-0.5) Neutrophils (%) (Auto) 64.1% (33-66) 55.5% (33-66) Lymphocytes (%) (Auto) 24.2% (23-45) 28.7% (23-45) Monocytes (%) (Auto) 8.2% (0-9.0) 8.4% (0-9.0) Eosinophils (%) (Auto) 3.1% (0-4) 6.7% (0-4) Basophils (%) (Auto) 0.3% (0-2) 0.7% (0-2) Absolute Immature Granulocyte (auto 0.01T/MM3 (0.00-0.03) 0.00T/MM3 (0.00-0.03) Absolute Neutrophils (auto) 7.0T/MM3 (1.8-7.7) 4.1T/MM3 (1.8-7.7) Absolute Lymphocytes (auto) 2.6T/MM3 (1-4.8) 2.1T/MM3 (1-4.8) Absolute Monocytes (auto) 0.9T/MM3 (0-0.8) 0.6T/MM3 (0-0.8) Absolute Eosinophils (auto) 0.3T/MM3 (0-0.5) 0.5T/MM3 (0-0.5) Absolute Basophils (auto) 0.0T/MM3 (0-0.2) 0.1T/MM3 (0-0.2) Turbidity < 20 (0-20) < 20 (0-20) Sodium Level 147MEQ/L (134-144) 148MEQ/L (134-144) Potassium Level 3.7MEQ/L (3.6-5) 4.5MEQ/L (3.6-5) Chloride Level 113MEQ/L (98-107) 113MEQ/L (98-107) Carbon Dioxide Level 23MEQ/L (22-30) 25MEQ/L (22-30) Anion Gap 11MEQ/L (5-15) 10MEQ/L (5-15) Blood Urea Nitrogen 6.0MG/DL (7-17) 7.0MG/DL (7-17) Creatinine 0.6MG/DL (0.7-1.2) 0.6MG/DL (0.7-1.2) Glomerular Filtration Rate Calc 104 104 BUN/Creatinine Ratio 10RATIO (6-26) 12RATIO (6-26) Glucose Level 101MG/DL (65-110) 104MG/DL (65-110) Calculated Osmolality 280MOSM/KG (261-280) 282MOSM/KG (261-280) Calcium Level 9.3MG/DL (8.4-10.2) 9.7MG/DL (8.4-10.2) Icterus Index < 2 (0-7) < 2 (0-7) Chemistry Specimen Hemolysis < 15 (0-25) < 15 (0-25) Magnesium Level 2.1MG/DL (1.6-2.3) Total Bilirubin 0.30MG/DL (0.20-1.30) Aspartate Amino Transf (AST/SGOT) 22U/L (14-36) Alanine Aminotransferase (ALT/SGPT) 31U/L (9-52) Alkaline Phosphatase 131U/L (38-126) Total Protein 6.2G/DL (6.3-8.2) Albumin 3.5G/DL (3.5-5.0) Globulin 2.7G/DL (2.4-3.6) Albumin/Globulin Ratio 1.3RATIO (1.1-2.2) Microbiology Microbiology Date/Time Source Procedure Growth Status 02/24/17 19:15 Peripheral/Iv Start Blood Culture - Preliminary NO GROWTH AFTER 48 HOURS Resulted 02/24/17 17:33 Peripheral/Iv Start Blood Culture - Preliminary NO GROWTH AFTER [address] head FINDINGS: The ventricles are of normal size, shape, and contour for the patient's age. The brainstem, cerebellum, and cerebral hemispheres have a normal morphology and CT attenuation. There is no evidence of midline displacement. No hemorrhage, signs of acute territorial stroke, mass effect, mass lesions, or edema is evident. The visualized portions of the skull base, midface, and calvarium demonstrate no abnormality. The paranasal sinuses are well aerated and free of significant disease. The tympanic and mastoid cavities appear normal. IMPRESSION: No acute intracranial abnormality or hemorrhage. CT abdomen pelvis Findings: Airspace consolidation in the right middle and both lower lobes. Large calcified granuloma in the left lower lobe. Bilateral breast implants. The unenhanced contours of the liver are unremarkable. Gallbladder is distended. The spleen shows granulomatous disease. The pancreas, adrenal glands and kidneys are normal. No abdominal or pelvic lymphadenopathy. The bladder is distended. Uterus is absent. No evidence of a bowel obstruction. The appendix is normal. Bone windows show degenerative change and mild scoliosis in the spine. Impression: 1. Right lower lobe pneumonia, aspiration, or fibrosis. Recommend clinical and laboratory correlation. 2. No acute disease process seen in the abdomen or pelvis. Chest x-ray FINDINGS: Peripheral airspace consolidation is seen in the right mid to lower lung field. Overlying artifact from breast implants. No pneumothorax or effusion. Heart size and mediastinal contours are within normal limits. Pulmonary vascularity appears normal. Impression: Right sided airspace consolidation could be due to pneumonia, aspiration or fibrotic changes. History of Present Illness This is a 56-year-old female who apparently lives with her . The patient has a history chronic pancreatitis and abdominal pain. The patient has described nausea and vomiting and diarrhea for the past 3 days. The patients reported of had a temperature 103 at home. The patient said abdominal pain. The patient presents to the emergency department for evaluation. Workup in the emergency department includes a CT of the abdomen and pelvis which is described as normal. There is question of a pneumonia in the right lower lung. The patient had an elevated white count of 16.5 with normal differential. Lactic acid and Pro calcitonin were reasonable. At this time the patient continues to be somewhat confused. At times shell complain of a headache. At times she will not. The patient has discharge and responses to questions. The chest x-ray obtained after the CT suggest a bilateral lower lobe infiltrate. The patient is noted to be coughing. The patient is to be admitted for further assessment of ongoing altered mental status. Hospital Course The patient was admitted on 02/24/2017 with nausea, vomiting, diarrhea and abdominal pain. Workup in the emergency room revealed sepsis and pneumonia. The patient was also found to have encephalopathy. CT abdomen and pelvis did not show any abnormalities within the abdomen but did show pneumonia. Chest x-ray also showed right middle and lower lobe pneumonia. The patient was started on Rocephin and azithromycin. White count normalized. She had hypoxia which has resolved. She was given breathing treatments for COPD and hypoxia. At the time of discharge on 2016 pneumonia is doing much better. She is on room air without hypoxia. She appears stable for discharge on Augmentin 875 mg 1 by mouth twice a day for 5 days. White count has normalized. Regarding encephalopathy, the patient had a long list of psychiatric medications from different pharmacies and it was uncertain which medications she was actually taking. Here in the hospital she was receiving clonazepam. She was also receiving Dilaudid for pain. The patient became much more confused on 02/26/2017. She was demanding to go home despite her altered mental status. I did speak with her ex- Tyra Odell who she had requested to be her alternate decision-maker and he agreed that she should stay in the hospital for further evaluation. I also spoke with Dr. Esparza and he recommended that I initiate a court hold until she could be seen by him today. On 02/26/2017 Dr. Esparza did initially recommend restarting a lower dose of her Seroquel but despite this the patient's agitation and confusion worsened. He then recommended Haldol and today the patient is no longer confused. Her thought processes are still somewhat tangential. Dr. Esparza did see the patient today and felt that she was stable from a psychiatric standpoint for discharge. He recommended only continuing clonazepam and having her follow with her counselor and her psychiatrist tomorrow to review her psychiatric medications. Dr. Esparza stated he worked at the same facility where she is a patient in [place] and he will talk with her psychiatrist tomorrow. The patient has not been discharged on any narcotic pain medications. Regarding confusion, I did check an RPR and that is pending and will need to be followed up by her primary care physician. She was noticed to have mild anemia and also has an elevated MCV as high as 104.2. Vitamin B 12 level and folate level have been drawn and are pending at the time of discharge. This will need to be followed by her primary care physician. I did recommend at the least that she stated started on a multivitamin once daily. If vitamin B-12 and/or folate are low she will need additional replacement. She has mild hypernatremia and anemia and would benefit from repeat CBC and basic metabolic profile with her primary care physician in follow-up this week. She is drinking fluids well and I recommended that she continue to drink adequate fluids at discharge. I recommended that she not drive until cleared by her psychiatrist. Greater than 30 minutes time was spent seeing and evaluating the patient today. Problems: (1) Sepsis Status: Acute Assessment & Plan: POA (2) Pneumonia Status: Acute (3) Encephalopathy acute Status: Acute (4) Hypernatremia Status: Acute Assessment & Plan: POA (5) Leukocytosis Status: Acute Assessment & Plan: POA (6) Tachycardia Status: Acute Assessment & Plan: POA (7) Hypoxia Status: Acute (8) CAD (coronary artery disease) Status: Chronic (9) HTN (hypertension) Status: Chronic (10) Hyperlipemia Status: Chronic (11) COPD (chronic obstructive pulmonary disease) Status: Chronic (12) GERD (gastroesophageal reflux disease) Status: Chronic (13) Osteoarthritis Status: Chronic (14) Depression Status: Chronic (15) Anxiety Status: Chronic (16) Tobacco dependence Status: Chronic Code Status Full Code Home Meds Active Scripts Amoxicillin/Potassium Clav (Augmentin 875-125 Tablet) 1 Each Tablet, 1 TAB PO BID for 5 Days, #10 TAB TAKE WITH MEALS Prov:ROMEO HERNANDEZ MD 02/27/17 Multivitamin (Zry-Sqcrcd-Mlwri) 1 Each Tablet, 1 TAB PO DAILY, #1 BOTTLE Prov:ROMEO HERNANDEZ MD 02/27/17 Fluticasone Propionate (Fluticasone Prop 50 mcg/actuation Nasal [place]) 120 [place] /16 G [place], 2 SPRAY EA NOSTRIL DAILY, #1 ML Prov:ROMEO HERNANDEZ MD 02/27/17 Reported Medications Verapamil HCl (Verapamil HCl) 40 Mg Tablet, 40 MG PO BID 02/25/17 Omeprazole (Omeprazole) 20 Mg Tablet.dr, 20 MG PO ACBID, TAB Take 1 tablet, by mouth, 2 times a day with meals. 02/25/17 Atorvastatin Calcium (Atorvastatin Calcium) 80 Mg Tablet, 1 TAB PO HS, TAB 08/12/15 Pantoprazole Sodium (Protonix) 20 Mg Tablet, 20 MG PO BID, TAB 08/12/15 Metoprolol Succinate (Metoprolol Succinate) 25 Mg Tab.er.24h, 25 MG PO BID, TAB 08/12/15 Levalbuterol Tartrate (Xopenex Hfa) 15 Gm Hfa.aer.ad, 2 PUFF ORAL INH Q6H, INHALER 08/12/15 Potassium Chloride (Potassium Chloride) 20 Meq Tablet.er, 20 MEQ PO BIDWM, TAB Take 1 tablet, by mouth, two times a day with meals. 08/12/15 Tiotropium [place] (Spiriva) 1 Cap Inhaler, 1 CAP ORAL INH DAILY, INHALER Place 1 capsule into inhaler , puncture and inhale one time a day. 08/12/15 Fluticasone/Salmeterol (Advair HFA 45-21 Mcg Inhaler) 12 Gm Hfa.aer.ad, 1 PUFF ORAL INH RTBID, INHALER 08/12/15 Clonazepam (Clonazepam) 1 Mg Tablet, 1 TAB PO BID, TAB 08/12/15 Diphenoxylate HCl/Atropine (Lomotil 2.5-0.025 mg Tablet) 1 Each Tablet, 1 TAB PO Q6HPRN 08/12/15 Sucralfate (Carafate) 1 Gm Tablet, 1 G PO QID Y for ACID REFLUX, TAB Take 1 tablet, by mouth, 4 times a day as needed. 08/12/15 Ondansetron HCl (Zofran) 4 Mg Tablet, 4 MG PO Q6H Y for NAUSEA, TAB 08/12/15 Discontinued Reported Medications Hydroxyzine HCl (Hydroxyzine HCl) 25 Mg Tablet, 1 TAB PO BID, TAB 02/25/17 Eszopiclone (Lunesta) 3 Mg Tablet, 1 TAB PO HS Y for INSOMNIA, TAB 02/25/17 Topiramate (Topiramate) 50 Mg Tablet, 1 TAB PO BID, #60 TAB 1 Refill 02/25/17 Quetiapine Fumarate (Quetiapine Fumarate) 100 Mg Tablet, 150 MG PO WS, TAB Take 1 1/2 (100 mg ) tablets, by mouth, 1 time a day. 02/25/17 Quetiapine Fumarate (Quetiapine Fumarate) 100 Mg Tablet, 50 MG PO WB, TAB Take 1 tablet, by mouth, 1 time a day (at NOON). 02/25/17 Quetiapine Fumarate (Quetiapine Fumarate) 100 Mg Tablet, 50 MG PO WL, TAB 02/25/17 Duloxetine HCl (Duloxetine HCl) 30 Mg Capsule.dr, 1 CAP PO BID, CAP 02/25/17 Doxepin HCl (Doxepin HCl) 25 Mg Capsule, 2 CAP PO HS, CAP 08/12/15 Dicyclomine HCl (Dicyclomine HCl) 20 Mg Tablet, 2 TAB PO TID, #120 08/12/15 Fluoxetine HCl (Prozac) 20 Mg Capsule, 1 CAP PO DAILY, CAP 08/12/15 Face to Face Encounter I met with patient on the day of dismissal and discussed follow up appointments , medications, and safety plan. Discharge Disposition Dismiss to home with family Copies To 1: KEON SCHMITZ STEPHANIE L MD February 27, 2017 12:55 Procedures Procedure Status Date Provider(s) Routine venipuncture Completed 02/21/17 Comprehen metabolic panel Completed 02/21/17 Drug test prsmv chem anlyzr Completed 02/21/17 Urinalysis auto w/o scope Completed 02/21/17 Assay of lactic acid Completed 02/21/17 Assay of lipase Completed 02/21/17 Assay of troponin quant Completed 02/21/17 Complete cbc w/auto diff wbc Completed 02/21/17 C-reactive protein Completed 02/21/17 Encounters Encounter Location Arrival/Admit Date Discharge/Depart Date Attending Provider Discharged Inpatient [facility] 02/24/17 9:10pm 02/27/17 3:20pm ROMEO HERNANDEZ MD Registered Clinic [facility] 02/21/17 10:04am KEON SCHMITZ DO
[2017-03-04 00:18] LABS: BLOOD, URINE NEGATIVE (NEGATIVE); COLOR,URINE YELLOW (YELLOW); LEUKOCYTE ESTERASE ,URINE NEGATIVE (NEGATIVE); NITRITE,URINE NEGATIVE (NEGATIVE); UROBILINOGEN,URINE 0.2 EU/DL (NORMAL)
[2017-03-04 00:22] LABS: BASOPHILS # (AUTO) 0.1 T/MM3 (0-0.2); EOSINOPHILS # (AUTO) 0.3 T/MM3 (0-0.5); EOSINOPHILS % (AUTO) 2.7 % (0-4); HCT - HEMATOCRIT 42.7 % (36-46); HGB - HEMOGLOBIN 13.9 GM/DL (12-16); IMMATURE GRANULOCYTE # (AUTO) 0.04 T/MM3 (0.00-0.03); IMMATURE GRANULOCYTE % (AUTO) 0.4 % (0.0-0.5); LYMPHOCYTES % (AUTO) 40.7 % (23-45); MEAN CORPUSCULAR HGB 32.9 UUG (26-34); MEAN CORPUSCULAR HGB CONC(MCHC 32.6 GM/DL (31-37); MEAN CORPUSCULAR VOLUME 101.2 UM3 (80-100); MEAN PLATELET VOLUME 9.2 UM3 (9.4-12.4); MONOCYTES # (AUTO) 0.9 T/MM3 (0-0.8); MONOCYTES % (AUTO) 9.4 % (0-9.0); NEUTROPHILS #(AUTO)-ABSOLUTE 4.5 T/MM3 (1.8-7.7); NEUTROPHILS % (AUTO) 45.8 % (33-66); RED BLOOD COUNT 4.22 M/MM3 (4.00-5.20); WBC - WHITE BLOOD COUNT 9.8 T/MM3 (4.5-11.0)
[2017-03-04 00:29] LABS: ALBUMIN 4.2 G/DL (3.5-5.0); ALBUMIN/GLOBULIN RATIO 1.4 RATIO (1.1-2.2); ALKALINE PHOSPHATASE 141 U/L (38-126); ALT (SGPT) 27 U/L (9-52); ANION GAP 12 MEQ/L (5-15); AST (SGOT) 18 U/L (14-36); BUN/CREATININE RATIO 12 RATIO (6-26); CALCIUM 10.2 MG/DL (8.4-10.2); CHLORIDE 113 MEQ/L (98-107); CO2 - CARBON DIOXIDE 20 MEQ/L (22-30); CREATININE 0.9 MG/DL (0.7-1.2); GLOMERULAR FILTRATION RATE 65; GLUCOSE 109 MG/DL (65-110); LIPASE 90 U/L (23-300); POTASSIUM 4.8 MEQ/L (3.6-5); SODIUM 145 MEQ/L (134-144); TOTAL PROTEIN 7.3 G/DL (6.3-8.2)
--- NOTE | 2017-03-04 00:46 | NUR ---
SONO CONTACT FRANO CONTACTED BY REGISTRATION.
--- NOTE | 2017-03-04 01:48 | NUR ---
TIGIST COMPLETED SONO COMPLETED AT THIS TIME.
--- NOTE | 2017-03-04 01:49 | NUR ---
PT STATEMENTS AND PROVIDER NOTIFIED PT STATES SHE IS GOING TO NEED MEDICATIONS OF NAUSEA, PAIN, AND NOW ADDITIONALY WOULD LIKE A BREATHING TREATMENT BECAUSE SHE HAS MISSED THE ONE SHE SHOULD HAVE TAKEN AT HOME. DR. CERNA NOTIFIED AT THIS TIME, NO NEW ORDERS. PT DOES NOT APPEAR TO BE IN ANY ACUTE DISTRESS, VS REMAIN STABLE, SHOWS NO SIGNS OF RESP. DISTRESS AND HAS HAD NO EMESIS SINCE ED ARRIVAL, 2 HOURS AND 50 MINUTES.
--- NOTE | 2017-03-04 02:12 | NUR ---
PT STATUS PT RESTING WITH EYES CLOSED BY EASY TO WAKE. PT CONTINUES TO REPORT PAIN AND NAUSEA. PT STATES IF SHE IS TO BE SENT HOME SHE WILL NEED PERCOCET AND ZOFRAN.
--- NOTE | 2017-03-04 02:20 | NUR ---
PROVIDER DR. CERNA IN ROOM WITH PT.
[2017-03-04] MEDS ORDERED: ONDA4TAB7 PO (02:39)
[2017-03-04] MEDS ORDERED: OXYC1TAB8 PO (02:39)
--- NOTE | 2017-03-04 02:40 | ERPDOC ---
Departure Disposition Decision Date: March 04, 2017 Disposition Decision Time: 02:38 Disposition: 01 DISCHARGED HOME, SELF-CARE Impression Impression Impression: Primary Impression: Abdominal pain Abdominal location: right upper quadrant Qualified Codes: R10.11 - Right upper quadrant pain Severity: Moderate Condition: Improved Seen By: Physician only Referrals: KEON SCHMITZ DO (Family) 2 Days Patient Instructions: Abdominal Pain (ED) Problems/Meds/Labs Reviewed?: Yes Medications reviewed and manag: Yes Follow up care ordered?: Yes Mental Status: Alert, Oriented Scripts Ondansetron (Zofran Odt) 4 Mg Tab.rapdis 4 MG PO Q4HR Y for NAUSEA &/OR VOMITING for 3 Days, #18 TAB 0 Refills Prov: DAPHNIE CERNA DO 03/04/17 Oxycodone HCl/Acetaminophen (Percocet 5-325 mg Tablet) 5-325 Tablet 1 TAB PO Q4HR Y for PAIN for 2 Days, #12 TAB 0 Refills Prov: DAPHNIE CERNA DO 03/04/17 HPI - Abdominal Pain General Chief Complaint: Abdominal Pain Stated Complaint: PAIN,FEVER,THROWING UP Time Seen by Provider: 23:12 Source: patient History/Exam Limitations: no limitations HPI - Abdominal Pain Initial Comments 56-year-old female presents to the emergency department with a chief complaint of right upper quadrant abdominal pain. Patient noted onset of symptoms "several days ago.". Patient denies any trauma, travel, poorly prepared food, or recent antibiotic use. She describes the pain as dull. Pain is moderate in nature. There is no radiation of pain. She has not noted anything that makes the pain any better or any worse. Patient also notes that she has had "a couple " episodes of nonbloody nonbilious emesis. Patient denies any other complaints or associated symptoms. She was at home when her symptoms began. Symptoms have been persistent in a gradual manner since onset. Occurred At: home Onset: Gradual Allergies: Coded Allergies: metoclopramide (Verified Allergy, Unknown, 03/03/17) sumatriptan (Verified Allergy, Unknown, 03/03/17) acetaminophen (Unverified Adverse Reaction, Mild, RASH, 03/03/17) codeine (Unverified Adverse Reaction, Mild, RASH, 03/03/17) Uncoded Allergies: PRO-PEN (Allergy, Severe, SHOCK, 08/12/15) PROPEL (Allergy, Unknown, 10/27/14) PANCREATIC ENZYME Past History Patient Surgical History [facility] Past Medical History Metabolic: other GI: pancreatitis Surgical History General: exploratory laparotomy, other Family History Family History: Negative Family PMH: FOUND: other Vaccines Hx Influenza Vaccination: Yes (UNKNOWN DATE ) Hx Pneumococcal Vaccination: Yes (UNKNOWN DATE) Social History Smoking Status: Never smoker Substance Use Type: does not use, unknown Alcohol Intake: none Last Drink: unknown Marital Status: Sexuality: male partner Housing: house Household Members: spouse Review of Systems Constitutional Constitutional: DENIES: chills, fever Eyes General: DENIES: erythema, exudate Lids/Accessories: DENIES: erythema, swelling Vision: DENIES: acuity, blurring ENMT Ears: DENIES: drainage, erythema Hearing: DENIES: hearing loss Balance: DENIES: ataxia, falling to one side Sinuses: DENIES: congestion, pain Nose: DENIES: nosebleeds, pain Mouth/Throat: DENIES: painful swallowing, sore throat Teeth: DENIES: pain Jaw: DENIES: pain Cardiovascular Cardiac: DENIES: chest pain, dyspnea on exertion Rhythm/Rate: DENIES: irregular beat, palpitations Vascular: DENIES: pedal edema, unilateral swelling Pulmonary Respiratory: DENIES: cough, dyspnea, pleuritic chest pain, sputum GI Upper Abdomen: nausea, pain, vomiting, DENIES: hematemesis Lower Abdomen: DENIES: diarrhea, pain General: DENIES: dysuria, frequency Musculoskeletal General: DENIES: joint pain, tenderness Integumentary Skin: DENIES: itching, rash Neurological General: DENIES: headache, numbness, weakness Psychiatric Psychiatric: DENIES: emotional instability, suicidal ideation/attempt Endocrine Endocrine: DENIES: polydipsia, polyphagia Hematologic/Lymphatic Hematologic/Lymphatic: DENIES: frequent nosebleeds, lymphadenopathy Allergic/Immunological Allergic/Immunoligical: DENIES: allergic reactions, hives Physical Exam General General Nourishment: well nourished, well developed, appears stated age, no acute distress, adult General Body Habitus: well groomed Vitals and Pain First Documented Vital Signs Date Time Temp Pulse Resp B/P Pulse Ox O2 Delivery O2 Flow Rate FiO2 03/03/17 23:05 98.0 76 14 123/76 95 Room Air Weight: Kilograms: 69.800 Height (feet): 5 Height (inches): 7.00 Triage Pain Scale: RN VS reviewed by Provider: Yes Normal Exams: Head: Normocephalic w/o trauma Eyes: Pupils are PERRLA w/ EOMI, No scleral icterus, irritation, or foreign bodies noted ENMT: No facial trauma, nasal exudates, pharyngeal erythema, or exudates are noted Dental: No fractured, loose, or missing teeth noted Neck: Full range of motion, without adenopathy, JVD, bruits or thyromegaly Chest/Resp: Clear all avelar, with good airflow, and symmetry bilaterally CV: Regular rate and rhythm, without murmur or gallop, Pulses 2+ all extremities, capillary refill, <2 seconds all ext., no pedal edema noted Abdomen: Bowel sounds positive, non-distended, no hepatosplenomegaly, masses or bruits noted Lymphatic: No lymphadenopathy, or lymphedema noted Musculoskeletal: No tenderness, or deformity noted, good range of motion, all extremities Integumentary: No rashes, hives, or bruising noted, hair and nails, without abnormality Neurologic: Patient is alert, and oriented, cranial nerves, motor/sensory/ cerebellar, exams w/o gross deficits, to observation Psychiatric: Patient exhibits, appropriate attention, emotion and affect Abdomen (brief) Abdominal Brief: FOUND: soft Comments Abdomen is soft. Mild right upper quadrant tenderness to palpation. No rebound or guarding. No CVA tenderness. Bowel sounds are active in all 4 quadrants. Nondistended. Differential Diagnoses Considering: Biliary Colic, Cholecystitis, Pancreatitis, UTI Progress Results/Orders Orders Procedure Category Date Status Time Cbc W/Auto LAB 03/03/17 Complete Diff-Reflex Manual Cmp - Comprehensive LAB 03/03/17 Complete Metabolic Lipase LAB 03/03/17 Complete Ua, Dip Wreflex LAB 03/03/17 Complete Microsc & Baseball Sewer Hand 23:30 LAB 03/03/17 Complete Qualitative, Urine 23:30 EKG EKG 03/03/17 Logged Iv Lock (Ed Only) EDM 03/03/17 Transmitted 23:30 Us Gallbladder US 03/04/17 Taken 00:34 Hydromorphone PHA 03/04/17 Complete (Dilaudid) 02:45 Ondansetron Odt PHA 03/04/17 Complete (Zofran Odt) 02:45 Oxycodone/Apap PHA 03/04/17 Complete (Prepack) (Percocet 02:45 Ondansetron Liq PHA 03/04/17 Complete (Prepack) (Zofran 02:45 Lab Results Laboratory Tests Test 03/04/17 00:10 White Blood Count 9.8T/MM3 Red Blood Count 4.22M/MM3 Hemoglobin 13.9GM/DL Hematocrit 42.7% Mean Corpuscular Volume 101.2UM3 Mean Corpuscular Hemoglobin 32.9UUG Mean Corpuscular Hemoglobin Concent 32.6GM/DL RDW Standard Deviation 49.8FL Platelet Count 491T/MM3 Mean Platelet Volume 9.2UM3 Immature Granulocyte % (Auto) 0.4% Neutrophils (%) (Auto) 45.8% Lymphocytes (%) (Auto) 40.7% Monocytes (%) (Auto) 9.4% Eosinophils (%) (Auto) 2.7% Basophils (%) (Auto) 1.0% Absolute Immature Granulocyte (auto 0.04T/MM3 Absolute Neutrophils (auto) 4.5T/MM3 Absolute Lymphocytes (auto) 4.0T/MM3 Absolute Monocytes (auto) 0.9T/MM3 Absolute Eosinophils (auto) 0.3T/MM3 Absolute Basophils (auto) 0.1T/MM3 Urine Collection Type Cleancatch-midstream Urine Color Yellow Urine Turbidity Clear Urine pH 5.5 Urine Specific [place] 1.025 Urine Protein Negative Urine Glucose (UA) Negative Urine Ketones Negative Urine Blood Negative Urine Nitrite Negative Urine Bilirubin Negative Urine Urobilinogen 0.2EU/DL Urine Leukocyte Esterase Negative Urinalysis Comment Microscopic not ind. Urine Test Negative Turbidity < 20 Sodium Level 145MEQ/L Potassium Level 4.8MEQ/L Chloride Level 113MEQ/L Carbon Dioxide Level 20MEQ/L Anion Gap 12MEQ/L Blood Urea Nitrogen 11.0MG/DL Creatinine 0.9MG/DL Glomerular Filtration Rate Calc 65 BUN/Creatinine Ratio 12RATIO Glucose Level 109MG/DL Calculated Osmolality 279MOSM/KG Calcium Level 10.2MG/DL Total Bilirubin 0.30MG/DL Icterus Index < 2 Aspartate Amino Transf (AST/SGOT) 18U/L Alanine Aminotransferase (ALT/SGPT) 27U/L Alkaline Phosphatase 141U/L Total Protein 7.3G/DL Albumin 4.2G/DL Globulin 3.1G/DL Albumin/Globulin Ratio 1.4RATIO Lipase 90U/L Chemistry Specimen Hemolysis < 15 Medications Current ED Medications Hydromorphone HCl (Dilaudid) 0.5 mg O ONCE IV Last administered on 03/04/17 02:47; Start 03/04/17 at 02:45; Stop 03/04/17 at 02:46; Status DC Ondansetron HCl (Zofran Odt) 4 mg O ONCE PO Last administered on 03/04/17 02: 46; Start 03/04/17 at 02:45; Stop 03/04/17 at 02:46; Status DC Oxycodone/ Acetaminophen (Percocet 5 (Prepack)) 1 pack O ONCE SENT HOME Last administered on 03/04/17 02:48; Start 03/04/17 at 02:45; Stop 03/04/17 at 02:46 ; Status DC Ondansetron HCl (ZOFRAN (PrePack)) 1 pack O ONCE SENT HOME Last administered on 03/04/17 02:45; Start 03/04/17 at 02:45; Stop 03/04/17 at 02:46; Status DC Progress Progress Labs / imaging were discussed in detail with the patient and questions are answered. Patient is given analgesic pain medication and antiemetic medication with improvement of symptoms in the emergency department. She is discharged home in improved condition. Patient is to follow up as instructed. Patient is to return to the emergency Department if her condition worsens or changes in any manner. Patient is in agreement with the current plan of management. She is to follow up as instructed. Patient is to follow-up with Dr. Gregg for an MRCP as an outpatient. Prescription for Percocet and Zofran are provided. EKG EKG : Rate: 60-100 Rhythm: sinus Tinnie: normal QRS: normal Intervals: normal ST/T: normal Interpreted by: signing physician Ultrasound US : Ultrasound: Gallbladder US Interpretation: Normal, Faxed Report DAPHNIE CERNA DO March 04, 2017 02:40
[2017-03-04] MEDS ORDERED: OXYCODONE/APAP 5/325 (Prepack) SENT HOME ONE (02:45)
[2017-03-04] MEDS ORDERED: ONDANSETRON ODT 4 MG TAB PO ONE (02:45)
[2017-03-04] MEDS ORDERED: ONDANSETRON LIQ 4mg/5ml #3 (PrePack) SENT HOME ONE (02:45)
[2017-03-04] MEDS ORDERED: HYDROMORPHONE 2mg/ml INJECTION IV ONE (02:45)
[2017-03-04 03:04] VITALS: BP 113/71; PULSE 66; RESP 14; TEMP 97.2; O2SAT 97
--- NOTE | 2017-03-04 03:04 | NUR ---
DISMISSAL PT IS RELEASED WITH DISMISSAL INSTRUCTIONS AND RX AND PREPACKS FOR ZOFRAN AND PERCOCET. PT VERBALIZED UNDERSTANDING OF INSTRUCTIONS AND RX USE AND DENIES ANY QUESTIONS. PT IS AMBULATORY OUT OF THE ED WITHOUT DIFFICULITES AND REPORTS HER ABDOMINAL PAIN AND NAUSEA IS GONE. PT'S DAUGHTER IN LAW IS HERE TO DRIVE PT HOME.
--- NOTE | 2017-03-04 11:34 | DI ---
Indication: ITS.REASON: RUQ Pain US GALLBLADDER: Comparison: CT abdomen pelvis 02/24/2017 Technique: Real-time and color flow imaging provided Findings: Liver: Demonstrates mildly increased echotexture suggesting diffuse fatty infiltration. No marked hepatomegaly, lesions or biliary ductal dilatation identified. Gallbladder is unremarkable. No tenderness or wall thickening appreciated. Common duct, is normal in caliber at 8 mm Pancreas demonstrates an unremarkable appearance although, the pancreatic duct is mildly prominent at 4.3 mm. Right kidney is normal in size and echogenicity with no obstruction, mass, cyst or obvious calcifications. Aorta and vena cava were within normal limits. Impression: 1. Diffuse fatty infiltration of the liver but no masses. 2. Mildly prominent pancreatic duct. .
== END 2017-03-04 03:04 | disposition home or self-care (01) ==
LOC: ED 23:01
DX: R10.11 Right upper quadrant pain (principal); R11.2 Nausea with vomiting, unspecified
CPT/HCPCS: 76705; 80053; 81003; 81025; 83690; 85025; 93005; 96374; 99284; A9270; J1170

== ENCOUNTER 2017-03-09 17:56 | Emergency (ER) | payer MEDICARE, MEDICAID ==
[~2017-03-09] VITALS: Ht 170.2 cm; Wt 58.7 kg
[~2017-03-09 17:56] MED LIST changes: -DICY20TA11 PO; -DOXE25CA3 PO; -DULO30CA52 PO; -ESZO3TAB PO; -FLUO20CA30 PO; -HYDR25TA85 PO; +ONDA4TAB7 PO; +OXYC1TAB8 PO; -PROM25TA7 PO; -QUET100T69 PO; -TOPI50TA25 PO
[2017-03-09 17:58] VITALS: Ht 170.2 cm; Wt 58.7 kg
--- OUTSIDE RECORDS SUMMARY | 2017-03-09 18:01 | XMS REPORT | Continuity of Care Document ---
Author Author [facility] Organization [facility] Address Unknown Phone Unavailable Support Name Relationship Address Phone DAPHNIE CERNA DO Caregiver [address] [place] [address] Unavailable KEON SCHMITZ DO Caregiver [address] [place] [address] Unavailable REGLATYRA Next Of Kin [address] [place] [address] Insurance Providers Guarantor Tova Yeboah Address [address] [place] [address] Email DENIED 03-03-17 Payer [facility] Policy Number [id number] Subscriber's Name Tova Yeboah Relationship 18 Self Effective Date 17 Expiration Date 17 Payer Medicare Policy Number [id number] Subscriber's Name Tova Yeboah Relationship 18 Self Advance Directives Directive Response Recorded Date/Time Advanced Directives Type None 03/03/17 11:05pm Chief Complaint and Reason for Visit Chief Complaint Abdominal Pain Reason for Visit Abdominal pain Problems Active Problems Medical Problem Onset Date [...] Unknown Chronic PTSD (post-traumatic stress disorder) Unknown Pancreatitis Unknown Pneumonia Unknown Acute Sepsis Unknown Acute Tachycardia Unknown Acute Tobacco dependence Unknown Chronic Past Problems Medical Problem Onset Date Abdominal pain Unknown Encephalopathy acute Unknown Leukocytosis Unknown SIRS (systemic [...] Fluticasone Propionate (Fluticasone Prop 50 Mcg/Actuation Nasal [place]) 120 [place]/16 G Ogden 2 [place] Each Nostril Daily 1 Milliliter 02/27/17 Fluticasone/Salmeterol (Advair Hfa 45-21 Mcg Inhaler) 12 Gm Hfa.aer.ad 1 Puff Oral Inhalation Resp.tx Twice A Day 08/12/15 Levalbuterol Tartrate (Xopenex Hfa) 15 Gm Hfa.aer.ad 2 Puff Oral Inhalation Every 6 Hours 08/12/15 Metoprolol Succinate 25 Mg Tab.er.24h 25 Mg Oral Twice A Day Multivitamin (Kvu-Afxsbf-Ojpvt) 1 Each Tablet 1 Tab Oral Daily 1 Bottle 02/27/17 Omeprazole 20 Mg Tablet.dr 20 Mg Oral Before Meals Twice A Day Take 1 tablet, by mouth, 2 times a day with meals. 02/25/17 Ondansetron (Zofran Odt) 4 Mg Tab.rapdis 4 Mg Oral Every 4 Hours as needed for Nausea &/Or Vomiting 3 Days 18 Tablet 03/04/17 Ondansetron Hcl (Zofran) 4 Mg Tablet 4 Mg Oral Every 6 Hours as needed for Nausea 08/12/15 Oxycodone Hcl/Acetaminophen (Percocet 5-325 Mg Tablet) 5-325 Tablet 1 Tab Oral Every 4 Hours as needed for Pain 2 Days 12 Tablet 03/04/17 Pantoprazole Sodium (Protonix) 20 Mg Tablet 20 [...] times a day as needed. 08/12/15 Tiotropium Delta (Spiriva) 1 Cap Inhaler 1 Cap Oral Inhalation Daily Place 1 capsule into inhaler , puncture and inhale one time a day. 10/20/15 Verapamil Hcl 40 Mg Tablet 40 Mg [...] Problem Response Recorded Date/Time Onset Date Status Chewing Tobacco Status No 03/04/2017 2:16am Not Applicable Not Applicable Hx Substance Use No 03/04/2017 2:16am Not Applicable Not Applicable Hx Alcohol Use No 03/04/2017 2:16am Not Applicable Not Applicable Has the pt used tobacco in the last 12 months Yes 02/24/2017 10:28pm Not Applicable Not Applicable Query Response Start Date Stop Date Smoking Status Current every day smoker Hospital Discharge Instructions No hospital discharge instructions. Plan of Care Discharge Date 03/04/17 3:04am Disposition 01 DISCHARGED HOME, SELF-CARE Condition at Discharge Improved Instructions/Education Provided Abdominal Pain (ED) Prescriptions See Medication Section Referrals KEON SCHMITZ DO Order Date: 2 Days Address: [address] [place] [phone] Note: Care Plan and Goals Physician Care Plan Problem: Abdominal Pain Goal: Follow up with primary care provider Instructions: Take medications and follow care plan as discussed/written Functional Status No functional status results. Allergies, Adverse Reactions, Alerts Allergen Type Severity Reaction Status Last Updated Codeine Adverse Reaction Mild RASH Active 03/03/17 Acetaminophen Adverse Reaction Mild RASH Active 03/03/17 Sumatriptan Allergy Unknown Active 03/03/17 Metoclopramide Allergy Unknown Active 03/03/17 PRO-PEN Allergy Severe SHOCK Active 08/12/15 PROPEL Allergy Unknown Active 10/27/14 Immunizations Query Response on File Recorded Date/Time Hx Influenza Vaccination Y UNKNOWN DATE 02/24/17 10:28pm Hx Pneumococcal Vaccination Y UNKNOWN DATE 02/24/17 10:28pm Hx Influenza Vaccination Y UNKNOWN DATE 02/24/17 10:28pm Influenza Vaccine Hx 2016 03/04/17 2:16am Vital Signs Acute Vital Signs Vital Response Date/Time Temperature (Fahrenheit) 97.2 deg F (96.8 - 99.1) 03/04/2017 3:04am Temperature (Calculated Celsius) 36.53932 degrees C (36.0 - 37.3) 03/04/2017 3:04am Pulse Rate (adult) 66 bpm (60 - 100) 03/04/2017 3:04am Respiratory Rate 14 breaths/min (10 - 20) 03/04/2017 3:04am O2 Sat by Pulse Oximetry 97 % (90 - 100) 03/04/2017 3:04am Oxygen Delivery Method Nasal Cannula 02/25/2017 7:53pm Oxygen Delivery Method Room Air 02/27/2017 11:55am Oxygen Flow Rate 1.00 L/min 02/26/2017 7:09am Blood Pressure 113/71 mm Hg 03/04/2017 3:04am Blood Pressure Source Automatic Cuff 02/27/2017 11:55am Height (Feet) 5 feet 03/03/2017 11:05pm Height (Inches) 7.00 inches 03/03/2017 11:05pm Weight (Kilograms) 69.800 kg 03/03/2017 11:05pm Body Mass Index (BMI) 24.0 03/03/2017 11:05pm Results Laboratory Results Test Name Result Units [...] MICROSCOPIC NOT IND. 02/21/2017 10:42am 2016 10:54am Neutrophils % (Manual) 74.0 % H 33-66 [...] Lymphocytes # 0.3 T/MM3 H 0-0 02/24/2017 5:pm 02/24/2017 6: 09pm Red Cell Morphology Comment NORMAL 02/24/2017 5:27pm 02/24/2017 6: 09pm Magnesium Level 2.1 MG/DL 1.6-2.3 02/27/2017 5:02am 02/27/2017 5:48am Plasma Lactate 1.2 MMOL/L 0.6-2.2 02/24/2017 9:47pm 02/24/2017 10:03pm Procalcitonin 0.46 NG/ML 02/24/2017 5:34pm 02/24/2017 6:07pm PCT </= 0.5 ng/mL - sepsis not likely; PCT >0.5 and </=2 ng/mL - sepsis possible; PCT >2 ng/mL - sepsis likely; PCT >/=10 ng/mL - systemic inflammatory response - sepsis or septic shock highly indicated. Vitamin B12 Level 288 PG/ML 239-931 02/26/2017 4:59am 02/28/2017 2: 38am Folate 5.1 NG/ML 2.76-20 02/27/2017 5:02am 02/28/2017 2:53am NORMAL ADULT RANGE: 2.76->20 ng/mL Alcohol, Quantitative <10 MG/DL <10 02/24/2017 5:33pm 02/24/2017 5: 50pm Thyroid Stimulating Hormone (TSH) 3.47 MIU/L 0.47-4.68 02/25/2017 4: 33am 02/25/2017 1:21pm White Blood Count 9.8 T/MM3 4.5-11.0 03/04/2017 12:10a03/04/2017 12: 36am Red Blood Count 4.22 M/MM3 4.00-5.20 03/04/2017 12:10a03/04/2017 12: 36am Hemoglobin 13.9 GM/DL 12-16 03/04/2017 12:03/04/2017 12:36am Hematocrit 42.7 % 36-46 03/04/2017 12:03/04/2017 12:36am Mean Corpuscular Volume 101.2 UM3 H 80-100 03/04/2017 12:10a2016 12:36am Mean Corpuscular Hemoglobin 32.9 UUG 26-34 03/04/2017 12:10a2016 12:36am Mean Corpuscular Hemoglobin Concent 32.6 GM/DL 31-37 03/04/2017 12:03/04/2017 12:36am RDW Standard Deviation 49.8 FL 36.9-50.2 03/04/2017 12:10a03/04/2017 12:36am Platelet Count 491 T/MM3 D H 130-400 03/04/2017 12:03/04/2017 12: 36am Mean Platelet Volume 9.2 UM3 L 9.4-12.4 03/04/2017 12:03/04/2017 12 :36am Neutrophils (%) (Auto) 45.8 % 33-66 03/04/2017 12:03/04/2017 12: 36am Lymphocytes (%) (Auto) 40.7 % 23-45 03/04/2017 12:03/04/2017 12: 36am Monocytes (%) (Auto) 9.4 % H 0-9.0 03/04/2017 12:03/04/2017 12: 36am Eosinophils (%) (Auto) 2.7 % 0-4 03/04/2017 12:03/04/2017 12:36am Basophils (%) (Auto) 1.0 % 0-2 03/04/2017 12:03/04/2017 12:36am Immature Granulocyte % (Auto) 0.4 % 0.0-0.5 03/04/2017 12:2016 12:36am Absolute Neutrophils (auto) 4.5 T/MM3 1.8-7.7 03/04/2017 12:2016 12:36am Absolute Lymphocytes (auto) 4.0 T/MM3 1-4.8 03/04/2017 12:2016 12:36am Absolute Monocytes (auto) 0.9 T/MM3 H 0-0.8 03/04/2017 12:2016 12:36am Absolute Eosinophils (auto) 0.3 T/MM3 0-0.5 03/04/2017 12:2016 12:36am Absolute Basophils (auto) 0.1 T/MM3 0-0.2 03/04/2017 12:2016 12:36am Absolute Immature Granulocyte (auto 0.04 T/MM3 H 0.00-0.03 03/04/2017 12: 03/04/2017 12:36am Icterus Index < 2 0-7 03/04/2017 12:03/04/2017 12:29am Chemistry Specimen Hemolysis < 15 0-25 03/04/2017 12:03/04/2017 12:29am 0-25: Specimen Exhibited No Hemolysis. Turbidity < 20 0-20 03/04/2017 12:03/04/2017 12:29am Sodium Level 145 MEQ/L H 134-144 03/04/2017 12:03/04/2017 12:29am Potassium Level 4.8 MEQ/L 3.6-5 03/04/2017 12:03/04/2017 12:29am Chloride Level 113 MEQ/L H 98-107 03/04/2017 12:03/04/2017 12:29am Carbon Dioxide Level 20 MEQ/L L 22-30 03/04/2017 12:03/04/2017 12: 29am Anion Gap 12 MEQ/L 5-15 03/04/2017 12:03/04/2017 12:29am Blood Urea Nitrogen 11.0 MG/DL 7-17 03/04/2017 12:03/04/2017 12: 29am Creatinine 0.9 MG/DL 0.7-1.2 03/04/2017 12:03/04/2017 12:29am BUN/Creatinine Ratio 12 RATIO 6-26 03/04/2017 12:03/04/2017 12: 29am Glomerular Filtration Rate Calc 65 03/04/2017 12:03/04/2017 12 :29am Glucose Level 109 MG/DL 65-110 03/04/2017 12:03/04/2017 12:29am Calculated Osmolality 279 MOSM/KG 261-280 03/04/2017 12:2016 12:29am Calcium Level 10.2 MG/DL 8.4-10.2 03/04/2017 12:03/04/2017 12: 29am Total Bilirubin 0.30 MG/DL 0.20-1.30 03/04/2017 12:03/04/2017 12: 29am Alkaline Phosphatase 141 U/L H 38-126 03/04/2017 12:03/04/2017 12: 29am Total Protein 7.3 G/DL 6.3-8.2 03/04/2017 12:03/04/2017 12:29am Albumin 4.2 G/DL 3.5-5.0 03/04/2017 12:03/04/2017 12:29am Globulin 3.1 G/DL 2.4-3.6 03/04/2017 12:10a03/04/2017 12:29am Albumin/Globulin Ratio 1.4 RATIO 1.1-2.2 03/04/2017 12:03/04/2017 12:29am Aspartate Amino Transf (AST/SGOT) 18 U/L 14-36 03/04/2017 12:10a03/04 12:29am Alanine Aminotransferase (ALT/SGPT) 27 U/L 9-52 03/04/2017 12:10a09/2017 12:29am Lipase 90 U/L 23-300 03/04/2017 12:10a03/04/2017 12:29am Urine Collection Type CLEANCATCH-MIDSTREAM 03/04/2017 12:10a03/04 12:18am Urine Color YELLOW YELLOW 03/04/2017 12:10a03/04/2017 12:18am Urine Turbidity CLEAR CLEAR 03/04/2017 12:10a03/04/2017 12:18am Urine Specific [place] 1.025 1.015-1.025 03/04/2017 12:10a2016 12:18am Urine pH 5.5 5.0-8.0 03/04/2017 12:10a03/04/2017 12:18am Urine Leukocyte Esterase NEGATIVE NEGATIVE 03/04/2017 12:10a2016 12:18am Urine Nitrite NEGATIVE NEGATIVE 03/04/2017 12:10a03/04/2017 12: 18am Urine Protein NEGATIVE NEGATIVE 03/04/2017 12:10a03/04/2017 12: 18am Urine Glucose (UA) NEGATIVE NEGATIVE 03/04/2017 12:10a03/04/2017 12 :18am Urine Ketones NEGATIVE NEGATIVE 03/04/2017 12:10a03/04/2017 12: 18am Urine Urobilinogen 0.2 EU/DL NORMAL 03/04/2017 12:10a03/04/2017 12: 18am Urine Bilirubin NEGATIVE NEGATIVE 03/04/2017 12:10a03/04/2017 12: 18am Urine Blood NEGATIVE NEGATIVE 03/04/2017 12:10a03/04/2017 12:18am Urinalysis Comment MICROSCOPIC NOT IND. 03/04/2017 12:10a2016 12:18am Microbiology Results Procedure Source Organism/Result Collection Date/Time Result Date/Time Result Status Blood Culture Peripheral/Iv Start NO GROWTH AFTER 5 DAYS 02/24/2017 7:15pm 03/01/2017 7:17pm Final Procedures Procedure Status Date Provider(s) Routine venipuncture [...] Location Arrival/Admit Date Discharge/Depart Date Attending Provider Departed Emergency Room [facility] 03/03/17 11:01pm 03/04/17 3: 04am DAPHNIE CERNA DO Discharged Inpatient [facility] 02/24/17 9:10pm 02/27/17 3:20pm ROMEO FITZPATRICK MD Registered Clinic [facility] 02/21/17 10:04am KEON SCHMITZ DO Recent Diagnosis
[2017-03-09] MEDS ORDERED: NORMAL SALINE 1,000 ML IV ONE (18:29)
[2017-03-09] MEDS ORDERED: MORPHINE SULFATE 2 MG SYRINGE IV ONE (18:30)
[2017-03-09] MEDS ORDERED: ONDANSETRON 4mg/2ml INJECTION IV ONE (18:30)
--- NOTE | 2017-03-09 18:39 | ERPDOC ---
Departure Disposition Decision Date: March 09, 2017 Disposition Decision Time: 20:11 Disposition: 01 DISCHARGED HOME, SELF-CARE Impression Impression Impression: Primary Impression: Chronic abdominal pain Additional Impression: Chronic narcotic dependence Severity: Mild Condition: Improved Seen By: Physician only Referrals: KEON SCHMITZ DO (Family) 1 Week Patient Instructions: Abdominal Pain (ED) Problems/Meds/Labs Reviewed?: Yes Medications reviewed and manag: Yes Additional Instructions: You have abdominal pain with nausea and vomiting. There are lots of possible causes for this, including pancreatitis, gastroenteritis, and narcotic withdrawal. We did not find a severe or life-threatening condition today. Follow up with your doctor for further evaluation and treatment. Follow up care ordered?: Yes Mental Status: Alert, Oriented Scripts Hydrocodone/Apap ([place] 5-325 Tablet) 5-325 Tablet 1 TAB PO Q6HPRN Y for PAIN, #10 TAB Prov: GREER GOETZ DO 03/09/17 HPI - Abdominal Pain General Chief Complaint: Abdominal Pain Stated Complaint: N/V/D, PANCREATITIS,DIFF BREATHING Time Seen by Provider: 18:05 Source: patient History/Exam Limitations: no limitations HPI - Abdominal Pain Initial Comments 56yo woman presents to the ER tonight with abd pain, N/V, and food/drink intolerance. Pt states that she has a h/o chronic pancreatitis, with pain that is exactly like her prior episodes. Sx are worst at night, and she relates a h/ o 'malfunctioning door' dx'ed by [facility]. Pain is right sided, radiates to her back, sharp/shooting. Occurred At: home Onset: Constant Duration: other Pain Scale: Now & Worst: 10/10 Quality: sharpness, stabbing Location: RUQ, RLQ Radiation: back Activities at Onset: rest, sleep Associated Symptoms: diaphoresis, nausea/vomiting Hx of Similar Symptoms: Yes Allergies: Coded Allergies: metoclopramide (Verified Allergy, Unknown, 03/09/17) sumatriptan (Verified Allergy, Unknown, 03/09/17) codeine (Unverified Adverse Reaction, Mild, RASH, 03/09/17) Uncoded Allergies: PRO-PEN (Allergy, Severe, SHOCK, 08/12/15) PROPEL (Allergy, Unknown, 10/27/14) PANCREATIC ENZYME Past History Patient Surgical History CHANDRIKA Past Medical History Metabolic: hypercholesterolemia, hypertension, other Respiratory: COPD, asthma GI: GERD, pancreatitis Psychological: alcohol abuse Surgical History General: exploratory laparotomy, other Family History Family PMH: FOUND: other Vaccines Hx Influenza Vaccination: Yes (UNKNOWN DATE ) Hx Pneumococcal Vaccination: Yes (UNKNOWN DATE) Social History Substance Use Type: does not use, unknown Alcohol Intake: none Last Drink: unknown Marital Status: Sexuality: male partner Housing: house Household Members: spouse Review of Systems GI Upper Abdomen: food intolerances, nausea, pain, vomiting, DENIES: dysphagia, heartburn/indigestion, hematemesis Lower Abdomen: pain, DENIES: blood in stool, yair-colored stools, constipation , diarrhea, melena, painful BM All other Systems All Other Systems: Reviewed and Negative Physical Exam General General Nourishment: well nourished, well developed, appears stated age, no acute distress, adult, thin General Body Habitus: well groomed Vitals and Pain First Documented Vital Signs Date Time Temp Pulse Resp B/P Pulse Ox O2 Delivery O2 Flow Rate FiO2 03/09/17 17:58 97.6 113 22 129/83 94 Room Air Weight: Kilograms: 58.700 Height (feet): 5 Height (inches): 7.00 Triage Pain Scale: RN VS reviewed by Provider: Yes Normal Exams: Head: Normocephalic w/o trauma Eyes: Pupils are PERRLA w/ EOMI, No scleral icterus, irritation ENMT: No facial trauma, nasal exudates, pharyngeal erythema Neck: Full range of motion, without adenopathy, JVD Lymphatic: No lymphadenopathy Musculoskeletal: No tenderness, or deformity noted Integumentary: No rashes, hives, or bruising noted Neurologic: Patient is alert, and oriented Respiratory (brief) Respiratory: FOUND: clear all avelar, equal bilaterally, symmetrical, NOT FOUND : rales, wheezes Cardiovascular (brief) Cardiac: FOUND: regular rate, regular rhythm, NOT FOUND: click, gallop, murmur , pedal edema, peripheral edema, rub Capillary Refill: <2 sec Pulses: all distal extremities, equal, strong Abdomen (brief) Abdominal Brief: FOUND: bowel normo active x4, soft, tender (TTP in Right side) , NOT FOUND: distended, hepatosplenomegaly, pulsatile mass Psychiatric (brief) Psychiatric Brief: FOUND: alert, oriented, NOT FOUND: normal affect (Labile, histrionic) Differential Diagnoses Considering: Appendicitis, Cholecystitis, Constipation, Gastroenteritis, GERD, Ileus, Pancreatitis, UTI Progress Results/Orders Orders Procedure Category Date Status Time Iv Lock (Ed Only) EDM 03/09/17 Transmitted 18:29 Nothing By Mouth (Ed EDM 03/09/17 Transmitted Only) 18:29 Cbc W/Auto LAB 03/09/17 Complete Diff-Reflex Manual 18:29 Bmp - Basic Metabolic LAB 03/09/17 Complete Panel 18:29 Lipase LAB 03/09/17 Complete 18:29 Ua, Dip Wreflex LAB 03/09/17 Complete Microsc & Mechanical Oxidizer 18:29 Kub W/Upright RAD 03/09/17 Taken 18:29 Normal Saline (Normal PHA 03/09/17 Complete Saline Iv) 18:29 Ondansetron Inj PHA 03/09/17 Complete (Zofran) 18:30 Morphine Sulfate PHA 03/09/17 Complete (Morphine) 18:30 Lab Results Laboratory Tests Test 03/09/17 18:39 03/09/17 18:46 Urine Collection Type Cleancatch-midstream Urine Color Yellow Urine Turbidity Clear Urine pH 5.5 Urine Specific [place] <=1.005 Urine Protein Negative Urine Glucose (UA) Negative Urine Ketones Negative Urine Blood Negative Urine Nitrite Negative Urine Bilirubin Negative Urine Urobilinogen 0.2EU/DL Urine Leukocyte Esterase Negative Urinalysis Comment Microscopic not ind. White Blood Count 12.7T/MM3 Red Blood Count 4.50M/MM3 Hemoglobin 15.0GM/DL Hematocrit 45.1% Mean Corpuscular Volume 100.2UM3 Mean Corpuscular Hemoglobin 33.3UUG Mean Corpuscular Hemoglobin Concent 33.3GM/DL RDW Standard Deviation 51.5FL Platelet Count 506T/MM3 Mean Platelet Volume 8.9UM3 Immature Granulocyte % (Auto) 0.3% Neutrophils (%) (Auto) 68.5% Lymphocytes (%) (Auto) 24.6% Monocytes (%) (Auto) 4.9% Eosinophils (%) (Auto) 1.1% Basophils (%) (Auto) 0.6% Absolute Immature Granulocyte (auto 0.04T/MM3 Absolute Neutrophils (auto) 8.7T/MM3 Absolute Lymphocytes (auto) 3.1T/MM3 Absolute Monocytes (auto) 0.6T/MM3 Absolute Eosinophils (auto) 0.1T/MM3 Absolute Basophils (auto) 0.1T/MM3 Turbidity < 20 Sodium Level 146MEQ/L Potassium Level 4.3MEQ/L Chloride Level 107MEQ/L Carbon Dioxide Level 21MEQ/L Anion Gap 18MEQ/L Blood Urea Nitrogen 6.0MG/DL Creatinine 0.6MG/DL Glomerular Filtration Rate Calc 104 BUN/Creatinine Ratio 10RATIO Glucose Level 91MG/DL Calculated Osmolality 279MOSM/KG Calcium Level 10.9MG/DL Icterus Index < 2 Lipase 100U/L Chemistry Specimen Hemolysis 52 Medications Current ED Medications Sodium Chloride (Normal Saline IV) 1,000 ml @ 0 mls/hr Q0M ONCE IV Last administered on 03/09/17 18:50; Start 03/09/17 at 18:29; Stop 03/09/17 at 18:31 ; Status DC Ondansetron HCl (Zofran) 4 mg O ONCE IV Last administered on 03/09/17 18:50; Start 03/09/17 at 18:30; Stop 03/09/17 at 18:31; Status DC Morphine Sulfate (Morphine) 2 mg O ONCE IV Last administered on 03/09/17 18: 53; Start 03/09/17 at 18:30; Stop 03/09/17 at 18:31; Status DC Progress Progress Pt able to tolerate PO. Discussed pts dx (chronic abd pain), prognosis, tx, and need for f/u. Pt requested to be admitted to the hospital to 'turn the corner'. Discussed how pt did not meet admission or obs criteria. Offered to contact tertiary care center in [place]. Pt declined txfr. Then requested to be released , but wanted some pain meds for home use. Will give short course of narcotics. Pts initial tachycardia improved dramatically with x1 dose of IV morphine, but she stated that it gave her a ARREGUIN; requested dilaudid instead. It is possible that pt was in acute pain when she presented. However, more likely explanation, after discussion with PCM, is that she is a narcotic abuser who presented in acute withdrawal. Consult/PCP Consult/PCP #1: Physician Contacted: Dr. Schmitz Time Called: 18:20 Discussion Details Discussed pts case with Dr. Schmitz. Pt does have a h/o chronic pancreatitis and (despite pts protestations to the contrary) alcoholism. Pt is also suspected of drug-seeking behavior, facilitated by her h/o pancreatitis. Consult/PCP #2: Physician Contacted: Kaveh Jonas Time Called: 19:31 Time of first response: 19:35 Type of discussion: Phone Consult/PCP Discussion Details Discussed pts Hx, PE, labs, and rads with Dr. Shea. Agrees that pts sx are not suggestive of pancreatitis or another emergent dx. If pt cannot tolerate PO, consider txfr to tertiary care facility. If pt can tolerate PO, may d/c to home. Xray Xray : Xray: KUB Upright Interpretation: Normal, Interpreted by GREER Huerta DO March 09, 2017 18:39
[2017-03-09 18:54] LABS: BLOOD, URINE NEGATIVE (NEGATIVE); COLOR,URINE YELLOW (YELLOW); LEUKOCYTE ESTERASE ,URINE NEGATIVE (NEGATIVE); NITRITE,URINE NEGATIVE (NEGATIVE); UROBILINOGEN,URINE 0.2 EU/DL (NORMAL)
[2017-03-09 18:57] LABS: BASOPHILS # (AUTO) 0.1 T/MM3 (0-0.2); BASOPHILS % (AUTO) 0.6 % (0-2); EOSINOPHILS # (AUTO) 0.1 T/MM3 (0-0.5); EOSINOPHILS % (AUTO) 1.1 % (0-4); HCT - HEMATOCRIT 45.1 % (36-46); IMMATURE GRANULOCYTE # (AUTO) 0.04 T/MM3 (0.00-0.03); IMMATURE GRANULOCYTE % (AUTO) 0.3 % (0.0-0.5); LYMPHOCYTES # (AUTO) 3.1 T/MM3 (1-4.8); LYMPHOCYTES % (AUTO) 24.6 % (23-45); MEAN CORPUSCULAR HGB 33.3 UUG (26-34); MEAN CORPUSCULAR HGB CONC(MCHC 33.3 GM/DL (31-37); MEAN CORPUSCULAR VOLUME 100.2 UM3 (80-100); MEAN PLATELET VOLUME 8.9 UM3 (9.4-12.4); MONOCYTES # (AUTO) 0.6 T/MM3 (0-0.8); MONOCYTES % (AUTO) 4.9 % (0-9.0); NEUTROPHILS #(AUTO)-ABSOLUTE 8.7 T/MM3 (1.8-7.7); NEUTROPHILS % (AUTO) 68.5 % (33-66); WBC - WHITE BLOOD COUNT 12.7 T/MM3 (4.5-11.0)
--- NOTE | 2017-03-09 19:00 | NUR ---
IV PATIENT NOTES THAT HER ARM IS COLD AND THAT HER VEINS NEAR THE ANTECUBITAL SPACE APPEAR REDDENED AND IRRITATED. DR GOETZ AT BEDSIDE, ORDER REC'D TO CONTINUE INFUSING NS AT THIS TIME AND CONTINUE TO WATCH.
[2017-03-09 19:05] LABS: ANION GAP 18 MEQ/L (5-15); BUN/CREATININE RATIO 10 RATIO (6-26); CALCIUM 10.9 MG/DL (8.4-10.2); CHLORIDE 107 MEQ/L (98-107); CO2 - CARBON DIOXIDE 21 MEQ/L (22-30); CREATININE 0.6 MG/DL (0.7-1.2); GLOMERULAR FILTRATION RATE 104; GLUCOSE 91 MG/DL (65-110); LIPASE 100 U/L (23-300); POTASSIUM 4.3 MEQ/L (3.6-5); SODIUM 146 MEQ/L (134-144)
[2017-03-09] MEDS ORDERED: MULT1TAB69 PO (19:10)
[2017-03-09] MEDS ORDERED: ACET-62 PO (19:13)
--- NOTE | 2017-03-09 19:44 | NUR ---
PO WATER GIVEN PER DR GOETZ. PATIENT REQUESTS MORE PAIN MEDICATION AT THIS TIME. DR GOETZ UPDATED
--- NOTE | 2017-03-09 20:00 | NUR ---
UPDATE PATIENT ABLE TO KEEP WATER DOWN. PATIENT DOES REPORT THAT SHE HAD SOME DRY HEAVES BUT NO VOMIT.
--- NOTE | 2017-03-09 20:00 | NUR ---
IV ASSMT SITE PROXIMAL TO IV HAS SLIGHT SWELLING AND HARDNESS NOTED. IVF STOPPED.
--- NOTE | 2017-03-09 20:05 | NUR ---
PROVIDER MAY AT BEDSIDE TO DISCUSS POC
[2017-03-09] MEDS ORDERED: HYDR-3989 PO (20:13)
[2017-03-09 20:28] VITALS: BP 130/81; PULSE 85; O2SAT 97
--- NOTE | 2017-03-10 08:37 | DI ---
Indication: ITS.REASON: ABD pain PROCEDURE: KUB W/UPRIGHT: Encounter: Initial Comparison: None Findings: The visualized lung bases are clear. There is no free air on the upright view. The bowel gas pattern is nonobstructive and nonspecific. Gas is seen in nondilated small and large bowel to the level of the rectum. Moderate stool is seen throughout the colon. Impression: Nonobstructive nonspecific bowel gas pattern. .
== END 2017-03-09 20:28 | disposition home or self-care (01) ==
LOC: ED 17:56
DX: R10.11 Right upper quadrant pain (principal); R10.31 Right lower quadrant pain; G89.29 Other chronic pain; R11.2 Nausea with vomiting, unspecified; K90.49 Malabsorption due to intolerance, not elsewhere classified; F11.20 Opioid dependence, uncomplicated
CPT/HCPCS: 74020; 80048; 81003; 83690; 85025; 96361; 96374; 96375; 99284; J2405; J7030